=== PATIENT | male | born 1945 | race Caucasian/White ===

== ENCOUNTER 2016-02-27 16:04 | Inpatient (IN) | payer BC, OTHER ==
[~2016-02-27] VITALS: Ht 165.1 cm; Wt 75.5 kg
[2016-02-27] MEDS ORDERED: SODIUM CHLORIDE 0.9% 1000ML 1,000 ML IV STA ×2 (16:41→17:06)
[2016-02-27] MEDS ORDERED: SODIUM CHLORIDE 0.9% 500ML 500 ML IV STA (17:06)
[2016-02-27 17:07] LABS: BASO % 0.1 %; BASO ABS # 0.01 K/uL (0-0.2); EOS % 0.1 %; HEMATOCRIT 43.4 % (42-52); IG% 0.3 %; LYMPH % 15.2 %; MEAN CELL VOLUME 96.9 fL (80-100); MEAN CORPUSCULAR HEMOGLOBIN 36.4 pg (25-34); MEAN CORPUSCULAR HGB CONC 37.6 g/dl (32-36); MEAN PLATELET VOLUME 9.8 fL (7.4-10.4); MONO % 5.7 %; NEUT % 78.6 %; PLATELET COUNT 146 K/uL (130-400); RED BLOOD COUNT 4.48 M/uL (4.7-6.1); WHITE BLOOD COUNT 7.89 K/uL (4.8-10.8)
[2016-02-27 17:08] LABS: URINE APPEARANCE CLOUDY (CLEAR); URINE BILIRUBIN NEG (NEG); URINE COLOR DK YELLOW; URINE NITRITE POS (NEG); URINE SPECIFIC GRAVITY 1.012 (1.000-1.030); UROBILINOGEN NEG (NEG); ZZUR CULT IF INDIC CLEAN CATCH YES
[2016-02-27 17:09] LABS: MANUAL MICROSCOPIC REQUIRED? NO; REVIEW REQ? NO
[2016-02-27] MEDS ORDERED: PIPERACILLIN/TAZOBACTAM 4.5 GM/100ML D5W IV STA (17:17)
[2016-02-27 17:26] LABS: ALT/SGPT 69 U/L (12-78); BLOOD UREA NITROGEN 25 mg/dl (7-18); BUN/CREATININE RATIO 25.3 (10-20); CALCIUM 9.4 mg/dl (8.5-10.1); CARBON DIOXIDE 21 mmol/L (21-32); CHLORIDE 96 mmol/L (98-107); GLUCOSE 100 mg/dl (70-99); MAGNESIUM 1.8 mg/dl (1.8-2.4); POTASSIUM 3.4 mmol/L (3.5-5.1); SODIUM 136 mmol/L (136-145)
[2016-02-27 17:29] LABS: ALKALINE PHOSPHATASE 68 U/L (45-117); AST/SGOT 56 U/L (15-37); CKMB/CK RATIO 0.8 (0-3.0); PHOSPHORUS 3.1 mg/dl (2.5-4.9)
[2016-02-27] MEDS ORDERED: GLUCTAB7 PO (17:49)
[2016-02-27] MEDS ORDERED: NAPR1TAB9 PO (17:49)
[2016-02-27] MEDS ORDERED: TRIA37.5 PO (17:49)
[2016-02-27] MEDS ORDERED: B-COTAB18 PO (17:49)
[2016-02-27] MEDS ORDERED: OMEG10007 PO (17:49)
[2016-02-27] MEDS ORDERED: ASPI81TA28 PO (17:49)
[2016-02-27] MEDS ORDERED: POTA20TA16 PO (17:49)
[2016-02-27] MEDS ORDERED: MULT-506 PO (17:49)
[2016-02-27 17:57] LABS: COMPLETE YES; STOMATOCYTE 2+
--- NOTE | 2016-02-27 18:01 | DIAGNOSTIC IMAGING REPORT ---
CHEST ONE VIEW PORTABLE CLINICAL HISTORY: Generalized Weakness COMPARISON STUDY: No previous studies for comparison. FINDINGS: The heart is normal in size. There is mild interstitial thickening. There is no lobar consolidation. There are no pleural effusions. There are minor left basilar atelectatic changes.[ IMPRESSION: Moderate interstitial thickening. No evidence of lobar consolidation. Electronically signed by: Castillo Bernal M.D. 02/27/2016 5:59 PM
[2016-02-27] MEDS ORDERED: SODIUM CHLORIDE 0.9% 1000ML 1,000 ML IV SCH (18:06)
[2016-02-27] MEDS ORDERED: ALUMINUM/MAGNESIUM/SIMETH (MAALOX MAX) 30 ML UDC PO PRN (18:15)
[2016-02-27] MEDS ORDERED: MoRPHine SULFATE 4 MG/ML 1 ML CARP\\VIAL IV PRN (18:15)
[2016-02-27] MEDS ORDERED: ONDANSETRON INJ 2 MG/ML 2 ML VIAL IV PRN (18:15)
[2016-02-27] MEDS ORDERED: POLYETHYLENE (MIRALAX) 17 GM PACK PO PRN (18:15)
[2016-02-27] MEDS ORDERED: ACETAMINOPHEN 325 MG TAB PO PRN (18:15)
[2016-02-27] MEDS ORDERED: MAGNESIUM HYDROXIDE SUSP 30 ML UDC PO PRN (18:15)
[2016-02-27] MEDS ORDERED: PNEUMOCOCCAL POLYSACCHARIDES 25 MCG/0.5 ML VIAL/SYR IM. ONE (18:15)
[2016-02-27] MEDS ORDERED: HydrALAZINE HCL 20 MG/ML VIAL IV PRN (18:15)
[2016-02-27] MEDS ORDERED: LORAZEPAM 0.5 MG TAB PO PRN (18:15)
[2016-02-27] MEDS ORDERED: OXYCODONE HCL IR 5 MG TAB (IMMEDIATE RELEASE) PO PRN (18:15)
[2016-02-27] MEDS ORDERED: LORAZEPAM 2 MG/ML 1 ML VIAL IV PRN ×2 (18:15)
[2016-02-27] MEDS ORDERED: MoRPHine SULFATE 2 MG/ML CARP IV PRN (18:15)
[2016-02-27] MEDS ORDERED: METOPROLOL TARTRATE 1 MG/ML VIAL IV PRN (18:15)
[2016-02-27] MEDS ORDERED: INFLUENZA VIRUS QUAD VACCINE 0.5 ML SYR IM. ONE (18:15)
--- NOTE | 2016-02-27 18:18 | EMERGENCY ROOM VISIT NOTE ---
History Report prepared by Meghan: Irwin Varner Under the Supervision of: Dr. Chacorta Mina M.D. First contact with patient: 16:36 Chief Complaint: ILLNESS Stated Complaint: COLD, LIGHTHEADED History of Present Illness The patient is a 70 year old male who presents to the Emergency Room with complaints of constant "generalized malaise" beginning a few days ago. He has associated lightheadedness and weakness. He denies any known sick contacts. The patient states that he hasn't eaten much lately. He denies any runny nose, diarrhea, back pain, rashes, nausea, vomiting, chest pain, or SOB. He states "I just don't feel right". The patient denies drinking any alcohol today, but states that he has consumed a lot of alcohol throughout the past week. He has no history of liver problems. Source of History: patient Onset: a few days ago Position: other (generalized) Quality: other ("malaise") Timing: constant Associated Symptoms: + weakness, No SOB, No back pain, No chest pain, No diarrhea, No nausea, No rash, No vomiting Note: The patient has associated lightheadedness. Review of Systems See HPI for pertinent positives & negatives. A total of 10 systems reviewed and were otherwise negative. Past Medical & Surgical Medical Problems: (1) HTN (hypertension) (2) Hypokalemia (3) SIRS (systemic inflammatory response syndrome) Family History No pertinent family history stated. Social History Smoking Status: Current Every Day Smoker Current/Historical Medications Scheduled Aspirin (Aspirin Ec), 81 MG PO QAM B-Complex Vitamins (Vitamin B Complex), 1 TAB PO QAM Fish Oil ([place]-3), 1 CAP PO QAM Pdparqhpzru-Ykqojzwyoek-Yhz C- (Glucosamine Chondroitin), 1 TAB PO QAM Multivitamin (Multivitamin), 1 TAB PO QAM Naproxen (Aleve), 220 MG PO QAM Potassium Ext Rel (Klor-Con), 20 MEQ PO QAM Triamterene/Hctz (Dyazide 37.5MG/25MG), 1 TAB PO QAM Allergies Coded Allergies: No Known Allergies (Unverified , 02/27/16) Physical Exam Vital Signs Date Time Temp Pulse Resp B/P Pulse Ox O2 Delivery O2 Flow Rate FiO2 02/27/16 19:22 98 18 138/85 95 02/27/16 19:07 98 18 138/85 94 Room Air 02/27/16 18:35 109 18 153/93 95 Room Air 02/27/16 17:10 101 16 156/94 95 Room Air 02/27/16 16:51 112 02/27/16 16:20 37.2 127 20 158/103 95 Room Air Physical Exam GENERAL: Patient is unwell appearing and in mild distress. HEENT: No acute trauma, normocephalic atraumatic, mucous membranes dry, no nasal congestion, no scleral icterus. NECK: No stridor, no adenopathy, no meningismus, trachea is midline. LUNGS: No dyspnea. Clear to auscultation and equal bilaterally. No wheeze, no rhonchi. HEART: Tachycardic rate with a regular rhythm. No murmurs, rubs, gallops appreciated. ABDOMEN: Soft, nontender, bowel sounds positive, no masses appreciated, no peritonitis. BACK: No midline tenderness, no CVA tenderness EXTREMITIES: Normal motion all extremities, no cyanosis, no edema. NEUROLOGIC: Alert and oriented, no acute motor or sensory deficits, no focal weakness, cranial nerves grossly intact. Fine tremor noted. SKIN: No rash, no jaundice, no diaphoresis. Medical Decision & Procedures ER Provider Diagnostic Interpretation: X ray results are stated below per my interpretation and the radiologist's interpretation. CHEST ONE VIEW PORTABLE FINDINGS: The heart is normal in size. There is mild interstitial thickening. There is no lobar consolidation. There are no pleural effusions. There are minor left basilar atelectatic changes.[ IMPRESSION: Moderate interstitial thickening. No evidence of lobar consolidation. Electronically signed by: Castillo Bernal M.D. Laboratory Results 02/27/16 16:55 Red Blood Count 4.48, Mean Corpuscular Volume 96.9, Mean Corpuscular Hemoglobin 36.4, Mean Corpuscular Hemoglobin Concent 37.6, Mean Platelet Volume 9.8, Neutrophils (%) (Auto) 78.6, Lymphocytes (%) (Auto) 15.2, Monocytes (%) (Auto) 5.7, Eosinophils (%) (Auto) 0.1, Basophils (%) (Auto) 0.1, Neutrophils # (Auto) 6.20, Lymphocytes # (Auto) 1.20, Monocytes # (Auto) 0.45, Eosinophils # (Auto) 0.01, Basophils # (Auto) 0.01 02/27/16 16:55 Test 02/27/16 16:30 02/27/16 16:55 02/27/16 17:04 02/27/16 17:09 Urine Color DK YELLOW Urine Appearance CLOUDY (CLEAR) Urine pH 6.0 (4.5-7.5) Urine Specific [place]icks[place] 1.012 (1.000-1.030) Urine Protein TRACE (NEG) Urine Glucose (UA) NEG (NEG) Urine Ketones 1+ (NEG) Urine Occult Blood 3+ (NEG) Urine Nitrite POS (NEG) Urine Bilirubin NEG (NEG) Urine Urobilinogen NEG (NEG) Urine Leukocyte Esterase LARGE (NEG) Urine WBC (Auto) >30 /hpf (0-5) Urine RBC (Auto) 10-30 /hpf (0-4) Urine Hyaline Casts (Auto) 5-10 /lpf (0-5) Urine Epithelial Cells (Auto) 10-20 /lpf (0-5) Urine Bacteria (Auto) 4+ (NEG) White Blood Count 7.89 K/uL (4.8-10.8) Red Blood Count 4.48 M/uL (4.7-6.1) Hemoglobin 16.3 g/dL (14.0-18.0) Hematocrit 43.4 % (42-52) Mean Corpuscular Volume 96.9 fL (80-100) Mean Corpuscular Hemoglobin 36.4 pg (25-34) Mean Corpuscular Hemoglobin Concent 37.6 g/dl (32-36) Platelet Count 146 K/uL (130-400) Mean Platelet Volume 9.8 fL (7.4-10.4) Neutrophils (%) (Auto) 78.6 % Lymphocytes (%) (Auto) 15.2 % Monocytes (%) (Auto) 5.7 % Eosinophils (%) (Auto) 0.1 % Basophils (%) (Auto) 0.1 % Neutrophils # (Auto) 6.20 K/uL (1.4-6.5) Lymphocytes # (Auto) 1.20 K/uL (1.2-3.4) Monocytes # (Auto) 0.45 K/uL (0.11-0.59) Eosinophils # (Auto) 0.01 K/uL (0-0.5) Basophils # (Auto) 0.01 K/uL (0-0.2) RDW Standard Deviation 45.4 fL (36.4-46.3) RDW Coefficient of Variation 12.8 % (11.5-14.5) Immature Granulocyte % (Auto) 0.3 % Immature Granulocyte # (Auto) 0.02 K/uL (0.00-0.02) Stomatocytes 2+ Prothrombin Time 11.0 SECONDS (9.0-12.0) Prothromb Time International Ratio 1.0 (0.9-1.1) Activated Partial Thromboplast Time 27.1 SECONDS (21.0-31.0) Partial Thromboplastin Ratio 1.0 Anion Gap 19.0 mmol/L (3-11) Est Creatinine Clear Calc Drug Dose 66.3 ml/min Estimated GFR () 88.6 Estimated GFR (Non- 76.5 BUN/Creatinine Ratio 25.3 (10-20) Calcium Level 9.4 mg/dl (8.5-10.1) Phosphorus Level 3.1 mg/dl (2.5-4.9) Magnesium Level 1.8 mg/dl (1.8-2.4) Total Bilirubin 1.0 mg/dl (0.2-1) Direct Bilirubin 0.3 mg/dl (0-0.2) Aspartate Amino Transf (AST/SGOT) 56 U/L (15-37) Alanine Aminotransferase (ALT/SGPT) 69 U/L (12-78) Alkaline Phosphatase 68 U/L (45-117) Total Creatine Kinase 339 U/L (39-308) Creatine Kinase MB 2.7 ng/ml (0.5-3.6) Creatine Kinase MB Ratio 0.8 (0-3.0) Troponin I < 0.015 ng/ml (0-0.045) Total Protein 7.9 gm/dl (6.4-8.2) Albumin 4.7 gm/dl (3.4-5.0) Lipase 99 U/L (73-393) Bedside Lactic Acid Venous 5.27 mmol/L (0.90-1.70) Influenza Type A Antigen Neg for Influ A (NEG) Influenza Type B Antigen Neg for Influ B (NEG) Laboratory results as reviewed by me. Medications Administered Medications (Trade) Dose Ordered Sig/Dereje Route Start Time Stop Time Status Last Admin Dose Admin Sodium Chloride 1,000 ml @ 999 mls/hr Q1H1M STAT IV 02/27/16 16:41 02/27/16 17:41 DC 02/27/16 17:06 999 MLS/HR Sodium Chloride 1,000 ml @ 999 mls/hr Q1H1M STAT IV 02/27/16 17:06 02/27/16 18:06 DC 02/27/16 17:40 999 MLS/HR Sodium Chloride (Nss 500ml) 500 ml @ 999 mls/hr Q31M STAT IV 02/27/16 17:06 02/27/16 17:36 DC 02/27/16 17:40 999 MLS/HR Piperacillin Sod/ Tazobactam Sod (Zosyn Iv) 4.5 gm NOW STAT IV 02/27/16 17:17 02/27/16 17:18 DC 02/27/16 17:43 4.5 GM ECG Indication: weakness Rate (beats per minute): 116 Rhythm: sinus tachycardia Findings: no acute ischemic change, no ectopy ED Course 1638: The patient was evaluated in room C2. A complete history and physical exam was performed. 1641: Ordered NSS 1000 mL @ 999 mL/hr IV. 1706: Ordered NSS 500 mL @ 999 mL/hr IV, NSS 1000 mL @ 999 mL/hr IV. 1717: Ordered Zosyn 4.5 mg IV. 1720: I reassessed the patient. He is resting comfortably. 1755: Upon reevaluation, the patient is feeling better. Discussed results and treatment plan with the patient. He verbalized understanding and agreement with the treatment plan. The patient will be evaluated for further management. Medical Decision Differential: Sepsis, Infectious (UTI/Pneumonia/Meningitis/etc), Metabolic/ Electrolyte Abnormality, Cardiac, Hepatic, Endocrine, Toxicologic, Neurologic, amongst other pathologies entertained. 70 yr old male arrives due to not feeling very well. He looks ill by exam though does not have meningitis, is breathing comfortably and has soft abdomen. Given fluids and HR improving. With return of lactic acidosis further 1.5 L NSS bolus initiated, 2 ivs established and broad spectrum abx begun. He clearly has UTI and while he initially denies having this before, it turns out he had johnson-sensitive ecoli over the summer. Multiple re-checks at bedside of patient and doing much improved with better HR and breathing comfortably. He is septic and will need inpatient treatment. Consults Time Called: 1744 Consulting Physician: Dr. Castillo -[facility] [place] Returned Call: [phone] Discussed the patient's case. The patient will be evaluated for further treatment and disposition. Impression Primary Impression: Sepsis Additional Impressions: Lactic acidosis, UTI (urinary tract infection) Critical Care I have personally spent greater than 30 minutes of critical care time in the direct management of this patient. This was a life/limb threatening event. This includes time spent evaluating patient, direct bedside care, chart review, placing orders, interpretation of diagnostic studies, discussion with consultants, patient, and family members, as well as other required patient management activities. This 30 minutes is in excess of all separately billable procedures. Scribe Attestation The scribe's documentation has been prepared under my direction and personally reviewed by me in its entirety. I confirm that the note above accurately reflects all work, treatment, procedures, and medical decision making performed by me. Departure Information Dispostion Being Evaluated By Hospitalist Referrals Pro,Julian Hamilton M.D. (PCP) Patient Instructions A Signature Page, My [facility]
[2016-02-27] MEDS ORDERED: LORAZEPAM 1 MG TAB PO PRN (18:30)
[2016-02-27] MEDS ORDERED: NICOTINE 21 MG/24 HR TDSY TD PRN (18:30)
[2016-02-27] MEDS ORDERED: GABAPENTIN 600 MG TAB PO SCH (18:30)
[2016-02-27 20:22] VITALS: BP 163/87; PULSE 99; TEMP 36.7; O2SAT 94; Ht 165.1 cm; Wt 75.5 kg
[2016-02-27] MEDS ORDERED: LORAZEPAM INJ 1 MG in SYRINGE 0.5 ML IV PRN (20:45)
[2016-02-27] MEDS ORDERED: PIPERACILL/TAZOBAC CONSULT ACTIVE PRN (20:45)
[2016-02-27] MEDS ORDERED: INFLUENZA ADMINISTRATION CHARGE ONE (20:45)
[2016-02-27] MEDS ORDERED: PNEUMOCOCCAL ADMINISTRATION CHARGE ONE (20:45)
[2016-02-27] MEDS ORDERED: LORAZEPAM INJ 0.5 MG in SYRINGE 0.75 ML IV PRN (20:45)
[2016-02-27] MEDS: HEPARIN SOD 5000 UNIT/0.5 ML CARP SQ SCH (21:22)
--- NOTE | 2016-02-27 21:56 | HISTORY & PHYSICAL EXAMINATION ---
DATE OF ADMISSION: 02/27/2016 CHIEF COMPLAINT: Weakness. ADMITTING DIAGNOSES: 1. Systemic inflammatory response syndrome secondary to urinary tract infection. 2. Alcohol abuse with alcohol withdrawal. HISTORY OF PRESENT ILLNESS: Mr. Joseph is a 70-year-old male who is a chronic daily alcohol user. The patient reportedly presented to the Emergency Department tonight having general malaise over the last few days, lightheadedness and weakness. The patient said he has not eaten much lately and has been drinking more than he usually should. The patient says he just does not feel right. The patient does have a previous history of urinary tract infection in July 2015, which was E. coli pansensitive. In the Emergency Department tonight, the patient has a markedly abnormal urine, lactic acid of 5 and although not having a fever is tachycardic, likely has developing SIRS. The patient states he has not drank since yesterday, he is beginning to get shaky. He says that he has never gone through alcohol withdrawal in the past according to what he remembers. He also is a daily smoker, offered a nicotine patch. He has refused at this time. PAST MEDICAL HISTORY: For alcohol abuse, fatty liver, hypertension, carotid plaque which is defined in Dr. Marc's notes, dyslipidemia, glucose intolerance, low back pain, spinal stenosis, previous appendectomy. MEDICATIONS: Aspirin 81 a day, fish oil 1000 mg b.i.d., glucosamine/chondroitin 1 tablet a day, potassium 20 mEq a day, vitamin B daily, vitamin D daily, and Dyazide 37.5/25 once a day. SOCIAL HISTORY: Socially as mentioned, smokes between a half pack to a pack a day, drinks alcohol, was evasive on exactly how much, but he says he drinks [employer] and Diet Pepsi. He is . FAMILY HISTORY: Positive for Alzheimer's disease and strokes. REVIEW OF SYSTEMS: Ten systems were reviewed and are negative. Besides the systems listed above he states he does not have really any noticeable change in his urine or pain with bowel movements or pain in his lower abdomen. PHYSICAL EXAMINATION: GENERAL: He is a pleasant gentleman. He is slightly shaky and tremulous. VITAL SIGNS: Temperature 37.2, pulse 100, respirations 16, BP 156/94. HEENT: PERRL, EOMI. Oropharynx clear. NECK: Without lymphadenopathy. Trachea is midline. HEART: Tachycardic, regular without murmurs. LUNGS: Clear without wheezes or crackles. Good air movement. BACK: He has no spinal tenderness or CV angle tenderness. ABDOMEN: Normoactive bowel sounds, soft, nontender, nondistended. No suprapubic tenderness. No abdominal bruits. EXTREMITIES: Without cyanosis, clubbing or edema. NEUROLOGICALLY: He is awake, alert and appropriate. Cranial nerves II through XII are intact. As mentioned, he is tremulous at times. He is kind of raquel complexion red skin. His upper and lower extremities are equally symmetrical with strength and sensation. SKIN: Without lesions, growths, bruises or bleeding. PSYCHOLOGIC: As mentioned he appears to be anxious. LABORATORY DATA: Chest x-ray is unremarkable. EKG is normal sinus rhythm. White count 7.8, H\T\H 16 and 43, platelet count 146. BUN and creatinine 25 and 1.0, glucose 100, lactic acid 5.2. AST 36, CK is slightly elevated at 389. Urinalysis shows 3+ blood, large leukocyte esterase. His influenza has been negative. ASSESSMENT: Systemic inflammatory response syndrome in a 70-year-old male likely urinary source. PLAN: For the SIRS, he is volume resuscitated in the ER. We will repeat lactic acidosis. If this is still up, we will continue his volume. Otherwise, we will put him on saline at 125, Zosyn will be used as he had a pansensitive E. coli in the past. His cultures are obtained. Regarding his alcohol withdrawal, he is tremulous right now, will begin the alcohol withdrawal protocol including gabapentin and p.r.n. Ativan. Regarding hypertension, we will continue his Dyazide and use hydralazine for backup for blood pressure, metoprolol for backup for tachycardia. For tobacco abuse, he was counseled on cessation. Nicotine patch will be offered p.r.n. For DVT prevention will employ heparin. The patient is a full code. Case management will be involved for providing help with tobacco and alcohol cessation.
[2016-02-27] MEDS ORDERED: GABAPENTIN 1200MG LOADING DOSE PO ONE (22:00)
[2016-02-27] MEDS: NSS + 20MEQ KCL 1000ML 1,000 ML IV SCH (22:18)
[2016-02-27 23:18] VITALS: BP 134/76; PULSE 88; TEMP 37.1; O2SAT 94
[2016-02-27] MEDS: PIPERACILL/TAZOBAC IV 3.375 GM in DEXTROSE 5% 100ML 100 ML IV SCH (23:27)
[2016-02-28] VITALS (7 sets, daily range): BP systolic 150–187; BP diastolic 86–93; PULSE 70–101; TEMP 36.9–37.3; O2SAT 93–96
[2016-02-28] MEDS: GABAPENTIN 600MG Q6H DOSE PO SCH ×2 (05:59→12:57)
[2016-02-28 07:42] LABS: HEMATOCRIT 39.9 % (42-52); MEAN CORPUSCULAR HEMOGLOBIN 35.1 pg (25-34); MEAN CORPUSCULAR HGB CONC 35.8 g/dl (32-36); MEAN PLATELET VOLUME 10.3 fL (7.4-10.4); PLATELET COUNT 121 K/uL (130-400); RED BLOOD COUNT 4.07 M/uL (4.7-6.1); WHITE BLOOD COUNT 6.63 K/uL (4.8-10.8)
[2016-02-28] MEDS: NSS + 20MEQ KCL 1000ML 1,000 ML IV SCH ×2 (07:48→17:24)
[2016-02-28] MEDS: ASPIRIN 81 MG ECTAB PO SCH (07:49)
[2016-02-28] MEDS: TRIAMTERENE/HCTZ 37.5/25MG CAP PO SCH (07:49)
[2016-02-28 08:14] LABS: BUN/CREATININE RATIO 21.1 (10-20); POTASSIUM 3.5 mmol/L (3.5-5.1)
[2016-02-28] MEDS: PIPERACILL/TAZOBAC IV 3.375 GM in DEXTROSE 5% 100ML 100 ML IV SCH ×3 (08:55→23:41)
[2016-02-28] MEDS: HEPARIN SOD 5000 UNIT/0.5 ML CARP SQ SCH ×2 (08:58→21:00)
--- NOTE | 2016-02-28 11:25 | Progress Note ---
Subjective Subjective Date of Service: Feb 28, 2016. Pt evaluation today including: conversation w/ patient, physical exam, chart review, review of studies, review of inpatient medication list Notes: patient feels better Problem List Medical Problems: (1) Lactic acidosis Status: Acute (2) Sepsis Status: Acute (3) UTI (urinary tract infection) Status: Acute Review of Systems Constitutional: No fever Eyes: No worsening of vision ENT: No hearing loss Respiratory: No cough Cardiac: No chest pain Abdomen: No pain Male : No dysuria Neurologic: No memory loss Psychiatric: No depression symptoms Heme: No abnormal bleeding/bruising Endo: No fatigue Physical Exam Vital Signs Vital Signs Past 24 Hours: Date Time Temp Pulse Resp B/P Pulse Ox O2 Delivery O2 Flow Rate FiO2 02/28/16 08:15 37.1 79 18 157/86 95 02/28/16 08:00 Room Air 02/28/16 05:29 37.0 70 20 159/93 96 Room Air 02/28/16 04:00 Room Air 02/28/16 00:00 Room Air 02/27/16 23:18 37.1 88 20 134/76 94 Room Air 02/27/16 20:22 36.7 99 18 163/87 94 Room Air 02/27/16 19:22 98 18 138/85 95 02/27/16 19:07 98 18 138/85 94 Room Air 02/27/16 18:35 109 18 153/93 95 Room Air 02/27/16 17:10 101 16 156/94 95 Room Air 02/27/16 16:51 112 02/27/16 16:20 37.2 127 20 158/103 95 Room Air Physical Exam: General Appearance: WD/WN, no apparent distress Eyes: bilateral eyes normal inspection ENT: hearing grossly normal, pharynx normal Neck: supple, no JVD Respiratory/Chest: lungs clear, no respiratory distress Cardiovascular: no gallop Abdomen: non tender, soft Extremities: non-tender Neurologic/Psychiatric: alert Skin: normal color Medications Medications: Current Inpatient Medications Medications (Trade) Dose Ordered Sig/Dereje Route Start Time Stop Time Status Last Admin Dose Admin Heparin Sodium (Porcine) (Heparin Sq 5000 Unit/0.5ml) 5,000 unit Q12 SQ 02/27/16 21:00 03/28/16 20:59 02/27/16 21:22 5,000 UNIT Acetaminophen (Tylenol Tab) 650 mg Q4H PRN PO 02/27/16 18:15 03/28/16 18:14 Al Hydrox/Mg Hydrox/Simethicone (Maalox Max Susp) 15 ml Q4H PRN PO 02/27/16 18:15 03/28/16 18:14 Magnesium Hydroxide (Milk Of Magnesia Susp) 30 ml Q12H PRN PO 02/27/16 18:15 03/28/16 18:14 Ondansetron HCl (Zofran Inj) 4 mg Q6H PRN IV 02/27/16 18:15 03/28/16 18:14 Polyethylene (Miralax Powder Packet) 17 gm DAILY PRN PO 02/27/16 18:15 03/28/16 18:14 Hydralazine HCl (HydrALAZINE INJ) 10 mg Q4H PRN IV 02/27/16 18:15 03/28/16 18:14 Lorazepam (Ativan Tab) 0.5 mg Q6 PRN PO 02/27/16 18:15 03/28/16 18:14 Lorazepam (Ativan Inj) 1 mg Q4H PRN IV 02/27/16 18:15 03/28/16 18:14 Lorazepam (Ativan Inj) 0.5 mg Q4H PRN IV 02/27/16 18:15 03/28/16 18:14 Metoprolol Tartrate (Lopressor Iv) 5 mg Q4 PRN IV 02/27/16 18:15 03/28/16 18:14 Aspirin (Ecotrin Tab) 81 mg QAM PO 02/28/16 09:00 03/29/16 08:59 02/28/16 07:49 81 MG Morphine Sulfate (MoRPHine SULFATE INJ) 4 mg Q4H PRN IV 02/27/16 18:15 03/12/16 18:14 Morphine Sulfate (MoRPHine SULFATE INJ) 2 mg Q4H PRN IV 02/27/16 18:15 03/12/16 18:14 Oxycodone HCl 10 mg 10 mg Q6 PRN PO 02/27/16 18:15 03/12/16 18:14 Piperacillin Sod/ Tazobactam Sod/ Dextrose (Zosyn Iv/D5 100ml) 115 ml @ 28.75 mls/ hr Q8H IV 02/28/16 00:00 03/08/16 00:00 02/28/16 08:55 28.75 MLS/HR Nicotine (Nicoderm Cq 21MG Patch) 1 patch QAM PRN TD 02/27/16 18:30 03/28/16 18:29 Lorazepam (Ativan Tab) 1 mg ONE PRN PO 02/27/16 18:30 Triamterene/HCTZ (Dyazide 37.5/25 Mg Cap) 1 cap QAM PO 02/28/16 09:00 03/29/16 08:59 02/28/16 07:49 1 CAP Piperacillin Sod/ Tazobactam Sod 1 ea 1 ea UD PRN N/A 02/27/16 20:45 03/28/16 20:44 Lorazepam 0.5 mg/ Syringe 1 ml @ 1 mls/min Q4H PRN IV 02/27/16 20:45 03/28/16 20:44 Lorazepam/Syringe (Ativan Inj/ Syringe) 1 ml @ 1 mls/min Q4H PRN IV 02/27/16 20:45 03/28/16 20:44 Gabapentin (Neurontin Tab) 600 mg Q6H PO 02/28/16 06:00 02/28/16 12:01 02/28/16 05:59 600 MG Gabapentin (Neurontin Tab) 600 mg Q8H PO 02/28/16 22:00 02/29/16 14:01 Gabapentin (Neurontin Tab) 600 mg Q12H PO 03/01/16 00:00 03/01/16 12:01 Gabapentin (Neurontin Tab) 600 mg Q24H PO 03/02/16 12:00 03/02/16 12:01 Miscellaneous Information 1 ea 1 ea DAILY@10 N/A 02/28/16 10:00 03/29/16 09:59 Potassium Chloride/Sodium Chloride (Nss + 20meq KCl 1000ml) 1,000 ml @ 100 mls/hr Q10H IV 02/27/16 22:00 03/28/16 21:59 02/28/16 07:48 100 MLS/HR Laboratory Data Labs: Last 24 Hours Test 02/27/16 16:30 02/27/16 16:55 02/27/16 17:04 02/27/16 17:09 Urine Color DK YELLOW Urine Appearance CLOUDY Urine pH 6.0 Urine Specific [place] 1.012 Urine Protein TRACE Urine Glucose (UA) NEG Urine Ketones 1+ Urine Occult Blood 3+ Urine Nitrite POS Urine Bilirubin NEG Urine Urobilinogen NEG Urine Leukocyte Esterase LARGE Urine WBC (Auto) >30 /hpf Urine RBC (Auto) 10-30 /hpf Urine Hyaline Casts (Auto) 5-10 /lpf Urine Epithelial Cells (Auto) 10-20 /lpf Urine Bacteria (Auto) 4+ White Blood Count 7.89 K/uL Red Blood Count 4.48 M/uL Hemoglobin 16.3 g/dL Hematocrit 43.4 % Mean Corpuscular Volume 96.9 fL Mean Corpuscular Hemoglobin 36.4 pg Mean Corpuscular Hemoglobin Concent 37.6 g/dl Platelet Count 146 K/uL Mean Platelet Volume 9.8 fL Neutrophils (%) (Auto) 78.6 % Lymphocytes (%) (Auto) 15.2 % Monocytes (%) (Auto) 5.7 % Eosinophils (%) (Auto) 0.1 % Basophils (%) (Auto) 0.1 % Neutrophils # (Auto) 6.20 K/uL Lymphocytes # (Auto) 1.20 K/uL Monocytes # (Auto) 0.45 K/uL Eosinophils # (Auto) 0.01 K/uL Basophils # (Auto) 0.01 K/uL RDW Standard Deviation 45.4 fL RDW Coefficient of Variation 12.8 % Immature Granulocyte % (Auto) 0.3 % Immature Granulocyte # (Auto) 0.02 K/uL Stomatocytes 2+ Prothrombin Time 11.0 SECONDS Prothromb Time International Ratio 1.0 Activated Partial Thromboplast Time 27.1 SECONDS Partial Thromboplastin Ratio 1.0 Sodium Level 136 mmol/L Potassium Level 3.4 mmol/L Chloride Level 96 mmol/L Carbon Dioxide Level 21 mmol/L Anion Gap 19.0 mmol/L Blood Urea Nitrogen 25 mg/dl Creatinine 1.00 mg/dl Est Creatinine Clear Calc Drug Dose 66.3 ml/min Estimated GFR () 88.6 Estimated GFR (Non- 76.5 BUN/Creatinine Ratio 25.3 Random Glucose 100 mg/dl Calcium Level 9.4 mg/dl Phosphorus Level 3.1 mg/dl Magnesium Level 1.8 mg/dl Total Bilirubin 1.0 mg/dl Direct Bilirubin 0.3 mg/dl Aspartate Amino Transf (AST/SGOT) 56 U/L Alanine Aminotransferase (ALT/SGPT) 69 U/L Alkaline Phosphatase 68 U/L Total Creatine Kinase 339 U/L Creatine Kinase MB 2.7 ng/ml Creatine Kinase MB Ratio 0.8 Troponin I < 0.015 ng/ml Total Protein 7.9 gm/dl Albumin 4.7 gm/dl Lipase 99 U/L Hepatitis C Antibody Screen NEG Bedside Lactic Acid Venous 5.27 mmol/L Influenza Type A Antigen Neg for Influ A Influenza Type B Antigen Neg for Influ B Test 02/27/16 20:09 02/28/16 07:00 Lactic Acid Level 1.9 mmol/L White Blood Count 6.63 K/uL Red Blood Count 4.07 M/uL Hemoglobin 14.3 g/dL Hematocrit 39.9 % Mean Corpuscular Volume 98.0 fL Mean Corpuscular Hemoglobin 35.1 pg Mean Corpuscular Hemoglobin Concent 35.8 g/dl RDW Standard Deviation 46.1 fL RDW Coefficient of Variation 12.8 % Platelet Count 121 K/uL Mean Platelet Volume 10.3 fL Sodium Level 140 mmol/L Potassium Level 3.5 mmol/L Chloride Level 104 mmol/L Carbon Dioxide Level 26 mmol/L Anion Gap 10.0 mmol/L Blood Urea Nitrogen 21 mg/dl Creatinine 1.00 mg/dl Est Creatinine Clear Calc Drug Dose 66.2 ml/min Estimated GFR () 88.6 Estimated GFR (Non- 76.5 BUN/Creatinine Ratio 21.1 Random Glucose 149 mg/dl Calcium Level 8.0 mg/dl Assessment and Plan Systemic inflammatory response syndrome in a 70-year-old male likely urinary source. Suspected UTI, gram negative bacilli is present, cont IV Zosyn until cultures sensitivities are obtained. blood cx results are pending Regarding his alcohol withdrawal, stable cont alcohol withdrawal protocol including gabapentin and p.r.n. Ativan. Regarding hypertension, cont Dyazide and use hydralazine for backup for blood pressure, metoprolol for backup for tachycardia. For tobacco abuse, he was counseled on cessation. Nicotine patch will be offered p.r.n. For DVT prevention will employ heparin. The patient is a full code. Case management will be involved for providing help with tobacco and alcohol cessation.
[2016-02-28] MEDS: GABAPENTIN 600MG Q8H DOSE PO SCH (21:13)
[2016-02-29 00:05] VITALS: BP 142/72; PULSE 60; TEMP 36.8; O2SAT 96
[2016-02-29] MEDS: NSS + 20MEQ KCL 1000ML 1,000 ML IV SCH (02:37)
[2016-02-29 05:09] VITALS: BP 137/82; PULSE 58; TEMP 36.8; O2SAT 96
[2016-02-29] MEDS: GABAPENTIN 600MG Q8H DOSE PO SCH (06:07)
[2016-02-29 06:58] VITALS: BP 161/90; PULSE 70; TEMP 36.7; O2SAT 95
[2016-02-29 08:00] VITALS: O2SAT 95
[2016-02-29] MEDS: TRIAMTERENE/HCTZ 37.5/25MG CAP PO SCH (08:03)
[2016-02-29] MEDS: ASPIRIN 81 MG ECTAB PO SCH (08:04)
[2016-02-29] MEDS: PIPERACILL/TAZOBAC IV 3.375 GM in DEXTROSE 5% 100ML 100 ML IV SCH (08:07)
[2016-02-29] MEDS: HEPARIN SOD 5000 UNIT/0.5 ML CARP SQ SCH (08:11)
[2016-02-29] MEDS ORDERED: LEVO-366 PO (10:54)
--- NOTE | 2016-02-29 10:55 | Discharge Instructions ---
Discharge Instructions Admission Reason for Admission: Sirs (Systemic Inflammatory Response Syndrome) Discharge Discharge Diagnosis / Problem: UTI Discharge Goals Goal(s): Increase independence, Improve disease control, Diagnostic testing, Therapeutic intervention Activity Recommendations Activity Limitations: resume your previous activity . Instructions / Follow-Up Instructions / Follow-Up finish antibiotics Current Hospital Diet Patient's current hospital diet: Regular Diet Discharge Diet Recommended Diet: Regular Diet Pending Studies Studies pending at discharge: yes List of pending studies: sensitivities in urine cultures Medical Emergencies . Who to Call and When: Medical Emergencies: If at any time you feel your situation is an emergency, please call 911 immediately. . Non-Emergent Contact Non-Emergency issues call your: Primary Care Provider Call Non-Emergent contact if: you have a fever, your pain is not controlled . Past History Medical & Surgical History: (1) UTI (urinary tract infection) . "Provider Documentation" section prepared by Haresh Quevedo. VTE Core Measure Inpt VTE Proph given/why not?: Unfractionated heparin SQ
--- NOTE | 2016-02-29 10:58 | Discharge Summary ---
Discharge Summary Admission Date: Feb 27, 2016 at 18:09 Discharge Date: Feb 29, 2016 Discharge Disposition: Home Principal Diagnosis: uti Medication Reconciliation New Medications: Levofloxacin (Levaquin) 500 Mg Tab 500 MG PO DAILY for 7 Days, #7 TAB Continued Medications: Aspirin (Aspirin Ec) 81 Mg Tab 81 MG PO QAM B-Complex Vitamins (Vitamin B Complex) 1 Tab Tab 1 TAB PO QAM Fish Oil ([place]-3) 1 Ea Cap 1 CAP PO QAM, CAP Mfctgxhcthz-Kmdbasvoafv-Lbd C- (Glucosamine Chondroitin) 1 Tab Tab 1 TAB PO QAM Multivitamin (Multivitamin) Tab 1 TAB PO QAM, TAB Naproxen (Aleve) 220 Mg Tab 220 MG PO QAM, TAB Potassium Ext Rel (Klor-Con) 20 Meq Tabcr 20 MEQ PO QAM, TAB Triamterene/Hctz (Dyazide 37.5MG/25MG) Cap 1 TAB PO QAM, CAP Referrals At Discharge Follow up Referrals: Physician Referral - Within 2 Weeks with Julian Marc M.D. Discharge Exam Review of Systems: Constitutional: No chills ENT: No unusual epistaxis Respiratory: No sputum Cardiovascular: No orthopnea Abdomen: No nausea, No pain Genitourinary - Male: No hematuria, No urinary frequency Neurologic: No paralysis Psychiatric: No depression symptoms Integumentary: No rash Physical Exam: General Appearance: WD/WN, no apparent distress Eyes: normal inspection, EOMI ENT: hearing grossly normal, pharynx normal Neck: supple, no JVD Respiratory/Chest: lungs clear, no respiratory distress Cardiovascular: no edema, no JVD Abdomen / GI: non tender, no organomegaly Extremities: normal capillary refill, no pedal edema Neurologic/Psychiatric: alert Hospital Course Systemic inflammatory response syndrome in a 70-year-old male likely urinary source. Suspected UTI, gram negative bacilli is present, received IV Zosyn until cultures sensitivities are obtained. 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 Ativan. Regarding hypertension, cont Dyazide For tobacco abuse, he was counseled on cessation. Nicotine patch was offered p.r.n. Case management will be involved for providing help with tobacco and alcohol cessation. f/u PCP 2 weeks Total Time Spent: Greater than 30 minutes This includes examination of the patient, discharge planning, medication reconciliation, and communication with other providers. Discharge Instructions Please refer to the electronic Patient Visit Report (Discharge Instructions) for additional information. Additional Copies To Julian Marc M.D.
[2016-02-29 11:10] VITALS: BP 145/84; PULSE 72; TEMP 36.7; O2SAT 95
[2016-03-01] MEDS ORDERED: GABAPENTIN 600MG Q12H DOSE PO SCH
--- NOTE | 2016-03-01 16:08 | EDITING REQUIRED CODING QUERY ---
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 Please assist us with the question(s) below: Dr. Quevedo, Throughout the medical record, sepsis/SIRS is documented with signs and symptoms of tachycardia and lactic acidosis in the presence of a localized infection. However, this diagnosis is not listed on the discharge summary. Please clarify if sepsis (SIRS due to infection) was present and treated during this admission. ( ) Sepsis was present and treated. ( x ) Sepsis was ruled out ( ) Other, please explain Physician Response: Thank you for your time, Catalina Sanabria, HEEL STAINER, MACHINE BOBBIN WINDER
[2016-03-02] MEDS ORDERED: GABAPENTIN 600MG X1 DOSE PO SCH (12:00)
[2016-10-10] MEDS ORDERED: CHOL1000 PO (10:09)
[2016-10-24] MEDS ORDERED: OXYC-57 PO ×2 (09:45→09:50)
== END 2016-02-29 12:00 | disposition home or self-care (01) | DRG 690 ==
LOC: ENRESERVTM → ENRESERVDT → C.EDB 16:05 → C.MED 18:09
PROVIDERS: ADMIT Internal Medicine; ATTEND Hospitalist
DX: N39.0 Urinary tract infection, site not specified (principal); F10.239 Alcohol dependence with withdrawal, unspecified; I10 Essential (primary) hypertension; R73.02 Impaired glucose tolerance (oral); M54.5 Low back pain; E78.5 Hyperlipidemia, unspecified; F17.210 Nicotine dependence, cigarettes, uncomplicated; Z79.82 Long term (current) use of aspirin; Z79.1 Long term (current) use of non-steroidal anti-inflammatories (NSAID); Z79.899 Other long term (current) drug therapy

== ENCOUNTER → 2016-04-09 | Outpatient (CLI) | payer BC ==
[~2016-04-09] MED LIST: ASPI81TA28 PO; B-COTAB18 PO; CHOL1000 PO; GLUCTAB7 PO; MULT-506 PO; NAPR1TAB9 PO; OMEG10007 PO; OXYC-57 PO; POTA20TA16 PO; TRIA37.5 PO
[2016-04-09 13:26] LABS: BASO % 0.3 %; BASO ABS # 0.02 K/uL (0-0.2); COMPLETE YES; EOS % 6.2 %; HEMATOCRIT 45.5 % (42-52); IG% 0.1 %; LYMPH % 33.9 %; LYMPH ABS # 2.42 K/uL (1.2-3.4); MEAN CELL VOLUME 100.2 fL (80-100); MEAN CORPUSCULAR HEMOGLOBIN 34.6 pg (25-34); MEAN CORPUSCULAR HGB CONC 34.5 g/dl (32-36); MEAN PLATELET VOLUME 11.1 fL (7.4-10.4); MONO % 6.6 %; NEUT % 52.9 %; PLATELET COUNT 199 K/uL (130-400); RED BLOOD COUNT 4.54 M/uL (4.7-6.1); WHITE BLOOD COUNT 7.14 K/uL (4.8-10.8)
[2016-04-09 13:52] LABS: ALT/SGPT 33 U/L (12-78); BLOOD UREA NITROGEN 18 mg/dl (7-18); BUN/CREATININE RATIO 15.2 (10-20); CALCIUM 9.5 mg/dl (8.5-10.1); CARBON DIOXIDE 30 mmol/L (21-32); CHLORIDE 100 mmol/L (98-107); CHOLESTEROL 175 mg/dl (0-200); GLUCOSE 107 mg/dl (70-99); POTASSIUM 4.1 mmol/L (3.5-5.1); SODIUM 138 mmol/L (136-145); TRIGLYCERIDES 192 mg/dl (0-150); VERY LOW DENSITY LIPOPROT CALC 38 mg/dl
[2016-04-09 13:57] LABS: ALKALINE PHOSPHATASE 65 U/L (45-117); AST/SGOT 23 U/L (15-37); CHOLESTEROL/HDL RATIO 4.6; HDL CHOLESTEROL 38 mg/dl; LDL CHOLESTEROL CALCULATED 99 mg/dl; PROSTATE SPECIFIC ANTIGEN 0.373 ng/ml (0.000-4.000)
== END | disposition home or self-care (01) ==
LOC: C.LABBC 08:48
PROVIDERS: ATTEND Internal Medicine
DX: E78.5 Hyperlipidemia, unspecified (principal); Z12.5 Encounter for screening for malignant neoplasm of prostate; K76.0 Fatty (change of) liver, not elsewhere classified; R73.9 Hyperglycemia, unspecified

== ENCOUNTER → 2016-04-11 | Outpatient (CLI) | payer BC ==
[2016-04-11 11:47] LABS: URINE APPEARANCE CLEAR (CLEAR); URINE BILIRUBIN NEG (NEG); URINE COLOR YELLOW; URINE EPITHELIAL CELL AUTO 0-5 /lpf (0-5); URINE NITRITE NEG (NEG); URINE PH 7.5 (4.5-7.5); URINE SPECIFIC GRAVITY 1.006 (1.000-1.030); UROBILINOGEN NEG (NEG)
[2016-04-11 11:54] LABS: MANUAL MICROSCOPIC REQUIRED? NO; REVIEW REQ? NO
== END | disposition home or self-care (01) ==
LOC: C.LAB1850 09:16
PROVIDERS: ATTEND Internal Medicine
DX: N39.0 Urinary tract infection, site not specified (principal)

== ENCOUNTER → 2016-04-29 | Outpatient (CLI) | payer BC ==
[2016-04-29 11:26] LABS: URINE APPEARANCE CLEAR (CLEAR); URINE BILIRUBIN NEG (NEG); URINE COLOR YELLOW; URINE NITRITE NEG (NEG); URINE SPECIFIC GRAVITY 1.008 (1.000-1.030); UROBILINOGEN NEG (NEG); ZZUR CULT IF INDIC CLEAN CATCH NO
[2016-04-29 11:31] LABS: MANUAL MICROSCOPIC REQUIRED? NO; REVIEW REQ? NO
== END | disposition home or self-care (01) ==
LOC: C.LABBC 08:25
PROVIDERS: ATTEND Internal Medicine
DX: N39.0 Urinary tract infection, site not specified (principal)

== ENCOUNTER → 2016-05-03 | Outpatient (CLI) | payer BC | END | disposition home or self-care (01) | LOC: C.PATHSPEC 10:25 | PROVIDERS: ATTEND Urology | DX: R33.9 Retention of urine, unspecified (principal) ==

== ENCOUNTER → 2016-05-09 | Outpatient (CLI) | payer BC ==
[~2016-05-09] MED LIST changes: +OPTIRAY 320 IV PRN
--- NOTE | 2016-05-09 08:59 | DIAGNOSTIC IMAGING REPORT ---
ABDOMEN AND PELVIS CT EXAMINATION PRE AND POST INTRAVENOUS CONTRAST CT DOSE: 1661.27 mGycm HISTORY: Pain R33.9 Incomplete bladder emptying latex allergy, no iodine all TECHNIQUE: Multiaxial CT images of the abdomen and pelvis were performed pre and post intravenous contrast enhancement. COMPARISON STUDY: None. FINDINGS: Lung bases are considered clear. 9 mm posterior groundglass opacity posterior gastric angle on the right. Six-month follow-up is suggested.. The unenhanced component of the study shows no abnormal calcifications within the abdominal or pelvic region. The enhanced component of the study demonstrates liver to enhance uniformly. Gallbladder is negative for distention. There is more moderate cortical scarring superior pole right kidney. Is seen to a lesser extent involving the lower pole. There is no evidence for hydronephrosis. Bowel pattern is nonobstructive throughout. Bladder demonstrates a diverticulum projecting from the superior anterior dome. This has maximum dimension of 4 cm. Bladder otherwise is unremarkable throughout. No significant filling defects are appreciated. There is no evidence for free fluid within the pelvic cul-de-sac. IMPRESSION: 1. Multifocal cortical scarring of the right kidney. 2. Otherwise negative study of the upper urinary tracts. 3. 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 5. Otherwise negative study of the abdomen and pelvis. 6. Small groundglass opacity right lung base with a six-month follow-up recommended. Electronically signed by: Theodore Renee M.D. 05/09/2016 8:58 AM Dictated Date/Time: 05/09/2016 8:49 AM
== END | disposition home or self-care (01) ==
LOC: C.CTS 08:09
PROVIDERS: ATTEND Urology
DX: R33.9 Retention of urine, unspecified (principal)

== ENCOUNTER → 2016-06-16 | Outpatient (CLI) | payer BC ==
[~2016-06-16] MED LIST changes: -OPTIRAY 320 IV PRN
== END | disposition home or self-care (01) ==
LOC: C.PATHSPEC 17:06
PROVIDERS: ATTEND Urology
DX: R31.9 Hematuria, unspecified (principal); R82.8 Abnormal findings on cytological and histological examination of urine

== ENCOUNTER → 2016-09-15 | Outpatient (CLI) | payer BC | END | disposition home or self-care (01) | LOC: C.PATHSPEC 10:49 | PROVIDERS: ATTEND Urology | DX: Z12.5 Encounter for screening for malignant neoplasm of prostate (principal); R82.99 Other abnormal findings in urine ==

== ENCOUNTER → 2016-10-08 | Outpatient (CLI) | payer BC ==
[2016-10-08 10:55] LABS: BASO % 0.2 %; BASO ABS # 0.02 K/uL (0-0.2); COMPLETE YES; EOS % 2.4 %; HEMATOCRIT 46.4 % (42-52); IG% 0.4 %; LYMPH % 25.5 %; LYMPH ABS # 2.11 K/uL (1.2-3.4); MEAN CELL VOLUME 100.2 fL (80-100); MEAN CORPUSCULAR HEMOGLOBIN 35.4 pg (25-34); MEAN CORPUSCULAR HGB CONC 35.3 g/dl (32-36); MEAN PLATELET VOLUME 10.5 fL (7.4-10.4); MONO % 7.4 %; NEUT % 64.1 %; PLATELET COUNT 184 K/uL (130-400); RED BLOOD COUNT 4.63 M/uL (4.7-6.1); WHITE BLOOD COUNT 8.29 K/uL (4.8-10.8)
[2016-10-08 11:16] LABS: ALT/SGPT 60 U/L (12-78); AST/SGOT 35 U/L (15-37); BLOOD UREA NITROGEN 14 mg/dl (7-18); BUN/CREATININE RATIO 12.7 (10-20); CALCIUM 8.9 mg/dl (8.5-10.1); CARBON DIOXIDE 31 mmol/L (21-32); CHLORIDE 101 mmol/L (98-107); GLUCOSE 104 mg/dl (70-99); POTASSIUM 3.7 mmol/L (3.5-5.1); SODIUM 136 mmol/L (136-145)
[2016-10-08 11:18] LABS: ALB/GLOB RATIO 1.4 (0.9-2); ALKALINE PHOSPHATASE 79 U/L (45-117); CHOLESTEROL 178 mg/dl (0-200); CHOLESTEROL/HDL RATIO 3.8; HDL CHOLESTEROL 47 mg/dl; LDL CHOLESTEROL CALCULATED 106 mg/dl; TRIGLYCERIDES 126 mg/dl (0-150); VERY LOW DENSITY LIPOPROT CALC 25 mg/dl
[2016-10-08 11:33] LABS: ESTIMATED AVERAGE GLUCOSE 111 mg/dl; HA1C FLAG Normal (Normal)
[2016-10-08 11:34] LABS: URINE APPEARANCE CLEAR (CLEAR); URINE BILIRUBIN NEG (NEG); URINE COLOR YELLOW; URINE NITRITE NEG (NEG); URINE PH 6.5 (4.5-7.5); URINE SPECIFIC GRAVITY 1.015 (1.000-1.030); UROBILINOGEN NEG (NEG)
[2016-10-08 11:39] LABS: MANUAL MICROSCOPIC REQUIRED? NO; REVIEW REQ? NO
== END | disposition home or self-care (01) ==
LOC: C.LABBC 08:48
PROVIDERS: ATTEND Internal Medicine
DX: K76.0 Fatty (change of) liver, not elsewhere classified (principal); E78.5 Hyperlipidemia, unspecified; R73.9 Hyperglycemia, unspecified; R31.9 Hematuria, unspecified

== ENCOUNTER 2016-10-24 08:04 | Day surgery (SDC) | payer BC ==
[2016-10-10 10:10] VITALS: BMI 26.0
--- NOTE | 2016-10-10 10:32 | PAT Medication Instructions ---
Service Date Oct 10, 2016. Current Home Medication List Aspirin (Aspirin Ec), 81 MG PO QAM B-Complex Vitamins (Vitamin B Complex), 1 TAB PO QAM Cholecalciferol (Vitamin D3), 1 TAB PO QAM Fish Oil ([place]-3), 1 CAP PO QAM Bbjkumpagow-Slgoqrsezel-Uuf C- (Glucosamine Chondroitin), 1 TAB PO QAM Multivitamin (Multivitamin), 1 TAB PO QAM Naproxen (Aleve), 220 MG PO QAM Potassium Ext Rel (Klor-Con), 20 MEQ PO QAM Triamterene/Hctz (Dyazide 37.5MG/25MG), 1 TAB PO QAM Medication Instructions For Your Scheduled Surgery - Check with surgeon for isntructions: Aspirin (Aspirin Ec), 81 MG PO QAM Naproxen (Aleve), 220 MG PO QAM - Hold the following medications starting 10/11/16: Fish Oil ([place]-3), 1 CAP PO QAM Jnrlbvtbxfb-Azpxedjkabi-Ide C- (Glucosamine Chondroitin), 1 TAB PO QAM - Hold the following medications the morning of surgery: Potassium Ext Rel (Klor-Con), 20 MEQ PO QAM Triamterene/Hctz (Dyazide 37.5MG/25MG), 1 TAB PO QAM Multivitamin (Multivitamin), 1 TAB PO QAM B-Complex Vitamins (Vitamin B Complex), 1 TAB PO QAM Cholecalciferol (Vitamin D3), 1 TAB PO QAM If you have any questions please call us at [phone] or [phone] or [phone]
[2016-10-10 13:09] LABS: URINE APPEARANCE CLEAR (CLEAR); URINE BILIRUBIN NEG (NEG); URINE COLOR YELLOW; URINE EPITHELIAL CELL AUTO 0-5 /lpf (0-5); URINE NITRITE NEG (NEG); URINE PH 6.5 (4.5-7.5); URINE SPECIFIC GRAVITY 1.012 (1.000-1.030); UROBILINOGEN NEG (NEG)
[2016-10-10 13:29] LABS: MANUAL MICROSCOPIC REQUIRED? NO; REVIEW REQ? NO
[~2016-10-24] VITALS: Ht 172.7 cm; Wt 78.4 kg
[~2016-10-24 08:04] MED LIST changes: +CIPROFLOXACIN / D5W 400 MG IV SCH; +LACTATED RINGER'S 1000ML 1,000 ML IV SCH; -OXYC-57 PO
[2016-10-24] MEDS ORDERED: LIDOCAINE HCL 2% 2 ML VIAL (20MG/ML) ONE (08:30)
[2016-10-24] MEDS ORDERED: PROPOFOL IV EMULSION 10 MG/ML 20 ML VIAL IV ONE (08:30)
[2016-10-24] MEDS ORDERED: MIDAZOLAM HCL 1 MG/ML 2ML VIAL ONE (08:30)
[2016-10-24] MEDS ORDERED: FENTANYL CITRATE INJ 50 MCG/1 ML 2 ML VIAL ONE (08:31)
[2016-10-24 08:35] VITALS: BP 152/88; PULSE 71; TEMP 36.8; O2SAT 97; BMI 26.0
[2016-10-24 08:48] VITALS: BP 152/88; PULSE 71; TEMP 36.8; O2SAT 97; Ht 172.7 cm; Wt 78.4 kg
--- NOTE | 2016-10-24 08:48 | History & Physical Bridge Note ---
H&P Re-Evaluation Bridge Note: I have examined the patient, reviewed the History & Physical and in the interval since the performance of the History & Physical I have noted the following changes of clinical significance: No changes noted
[2016-10-24] MEDS ORDERED: EpHEDrine SULFATE INJ 50 MG/ML AMP ONE (09:31)
[2016-10-24] MEDS ORDERED: ONDANSETRON INJ 2 MG/ML 2 ML VIAL ONE (09:31)
[2016-10-24] MEDS ORDERED: EpHEDrine SULFATE 50MG/5ML SYR ONE (09:31)
[2016-10-24] MEDS ORDERED: ATROPINE SULFATE 0.1 MG/ML 5ML SYR IV PRN (09:45)
[2016-10-24] MEDS ORDERED: EpHEDrine SULFATE INJ 50 MG/ML AMP IV PRN (09:45)
[2016-10-24] MEDS ORDERED: OXYC-57 PO ×2 (09:45→09:50)
[2016-10-24] MEDS ORDERED: FENTANYL CITRATE INJ 50 MCG/1 ML 2 ML VIAL IV PRN (09:45)
[2016-10-24] MEDS ORDERED: ONDANSETRON INJ 2 MG/ML 2 ML VIAL IV PRN (09:45)
[2016-10-24] MEDS ORDERED: NALOXONE HCL 0.4 MG/1 ML VIAL/CARP IV PRN (09:45)
[2016-10-24] MEDS ORDERED: FLUMAZENIL 0.1 MG/1 ML 10 ML VIAL IV PRN (09:45)
[2016-10-24] MEDS ORDERED: PROMETHAZINE HCL INJ 12.5 MG in SODIUM CHLORIDE 0.9% 50ML 50 ML IV PRN (09:45)
[2016-10-24] MEDS ORDERED: LABETALOL HCL IV 5 MG/ML 20ML IV PRN (09:45)
--- NOTE | 2016-10-24 09:46 | Discharge Instructions ---
Discharge Instructions Date of Service Oct 24, 2016. Visit Reason for Visit: Abnormal Bladder Mucosa Discharge Discharge Diagnosis / Problem: abnormal bladder mucoosa Discharge Goals Goal(s): Therapeutic intervention Activity Recommendations Activity Limitations: resume your previous activity (take it easy today) Anesthesia . Post Anesthesia Instructions: If you have had General Anesthesia or IV Sedation: * Do not drive today. * Resume driving when surgeon permits. * Do not make important decisions or sign legal documents today. * Call surgeon for: 1. Temperature elevations greater than 101 degrees F. 2. Uncontrollable pain. 3. Excessive bleeding. 4. Persistent nausea and vomiting. 5. Medication intolerance (nausea, vomiting or rash). * For nausea and vomiting use only clear liquids such as: tea, soda, bouillon until nausea subsides, then gradually increase diet as tolerated. * If you have any concerns or questions, call your surgeon's office. If physician is unavailable and it is an emergency, call 911 or go to the nearest emergency room. . Diet Recommendations Recommended Home Diet: resume previous diet Procedures Procedures Performed: Cystoscopy, Bladder Biopsy, Fulguration Pending Studies Studies pending at discharge: no Medical Emergencies . Who to Call and When: Medical Emergencies: If at any time you feel your situation is an emergency, please call 911 immediately. . Non-Emergent Contact Non-Emergency issues call your: Urologist Call Non-Emergent contact if: temperature is above 101.5, your pain is not controlled . . "Provider Documentation" section prepared by Hu Sow. . [place] Drug Monitoring Program Search Results: patient reviewed within database
[2016-10-24] MEDS ORDERED: OXYCODONE/ACETAMINOPHEN 5-325 TAB PO PRN (10:00)
--- NOTE | 2016-10-24 10:05 | [facility] Operative Report ---
Operative Report Operative Date Oct 24, 2016. Pre-Operative Diagnosis abnormal urine cytology Post-Operative Diagnosis abnormal urine cytology Procedure(s) Performed Cystoscopy, Bladder Biopsy, Fulguration Surgeon Dr. Hu Sow Brickmason Surgeon(s) none Estimated Blood Loss 0ml Findings Cystoscopic exam revealed a normal anterior urethra prostatic fossa was moderately obstructing with kissing lateral lobes and elevated median lobe. Bladder showed 1-2+ trabeculation with cellules and diverticuli. Directly posterior on the wall of the bladder the mucosa appeared heaped up and abnormal in appearance. Specimens A. Bladder Biopsy Drains none Anesthesia Gen. Complication(s) None Disposition Recovery Room / PACU Indications Patient's a 71-year-old white male who on evaluation for hematuria was found to have some abnormal areas in the bladder. He had multiple urine cytology showing a predominance of squamous cells. Pathology could not rule out a squamous cell carcinoma. Patient being brought in for biopsy Description of Procedure After the induction of an adequate general anesthetic and appropriate timeout patient was placed in the dorsal lithotomy position. Lower abdomen genitalia were prepped with Hibiclens draped in a sterile fashion. A 22 [place] cystoscope routine cystoscopic exam was performed with the above-noted findings with 30 and 70 lenses. Next using cold cup biopsy forceps the abnormal mucosa was biopsied 3 and the airways and fulgurated for hemostasis. Care was taken to avoid injury to the ureteral orifices. After completing the biopsy and fulguration making sure there was no bleeding patient's bladder was drained cystoscopy sheath removed. All needle sponge and instrument counts are correct at the end of the case. Patient tolerated the procedure well and was taken to the recovery room in stable condition I attest to the content of the Intraoperative Record and any orders documented therein. Any exceptions are noted below.
--- NOTE | 2016-10-24 10:16 | Anesthesiology Progress Note ---
Anesthesia Post Op Note Date & Time Oct 24, 2016 at 10:16 Vital Signs Pain Intensity: 0 Vital Signs Past 12 Hours Date Time Temp Pulse Resp B/P (MAP) Pulse Ox O2 Delivery O2 Flow Rate FiO2 10/24/16 10:13 76 17 10/24/16 10:13 75 17 95 10/24/16 10:11 128/80 10/24/16 10:10 36.4 71 18 128/80 (90) 95 Room Air 0 10/24/16 10:08 76 14 10/24/16 10:08 76 14 95 10/24/16 10:07 77 17 95 10/24/16 10:07 79 17 10/24/16 10:06 128/89 10/24/16 10:02 82 23 95 10/24/16 10:02 82 23 10/24/16 10:01 133/86 10/24/16 09:57 78 19 10/24/16 09:57 77 19 96 10/24/16 09:56 130/77 10/24/16 09:55 71 19 98 10/24/16 09:55 72 19 10/24/16 09:51 116/77 10/24/16 09:50 70 16 10/24/16 09:50 70 16 97 10/24/16 09:46 133/77 10/24/16 09:45 70 16 10/24/16 09:45 71 16 97 10/24/16 09:45 36.1 76 18 133/77 98 Mask 10 10/24/16 08:48 36.8 71 18 152/88 (109) 97 Room Air 10/24/16 08:35 36.8 71 18 152/88 (109) 97 Room Air Notes Mental Status: alert / awake / arousable, participated in evaluation Pt Amnestic to Procedure: Yes Nausea / Vomiting: adequately controlled Pain: adequately controlled Airway Patency, RR, SpO2: stable & adequate BP & HR: stable & adequate Hydration State: stable & adequate Anesthetic Complications: no major complications apparent
[2016-10-24 10:35] VITALS: BP 128/74; PULSE 68; TEMP 36.4; O2SAT 92
[2016-10-24 11:05] VITALS: BP 140/69; PULSE 74; TEMP 36.9; O2SAT 94
[2016-10-24 11:34] VITALS: BP 141/79; PULSE 79; TEMP 36.7; O2SAT 94
== END 2016-10-24 12:00 | disposition home or self-care (01) ==
LOC: C.ACU 08:04
PROVIDERS: ATTEND Urology
DX: R31.9 Hematuria, unspecified (principal); N30.81 Other cystitis with hematuria; F10.10 Alcohol abuse, uncomplicated; N40.0 Benign prostatic hyperplasia without lower urinary tract symptoms; I10 Essential (primary) hypertension; K76.0 Fatty (change of) liver, not elsewhere classified; E78.5 Hyperlipidemia, unspecified; M54.17 Radiculopathy, lumbosacral region; F17.200 Nicotine dependence, unspecified, uncomplicated; Z79.899 Other long term (current) drug therapy; Z79.82 Long term (current) use of aspirin

== ENCOUNTER → 2016-11-03 | Outpatient (CLI) | payer BC ==
[~2016-11-03] MED LIST changes: -CIPROFLOXACIN / D5W 400 MG IV SCH; -LACTATED RINGER'S 1000ML 1,000 ML IV SCH; +OXYC-57 PO
== END | disposition home or self-care (01) ==
LOC: C.PATHSPEC 16:54
PROVIDERS: ATTEND Urology
DX: R82.8 Abnormal findings on cytological and histological examination of urine (principal)

== ENCOUNTER → 2017-03-22 | Outpatient (CLI) | payer BC ==
--- NOTE | 2017-03-22 15:35 | DIAGNOSTIC IMAGING REPORT ---
(CHEST) THORAX WITHOUT CT DOSE: 279.38 mGycm HISTORY: Lung nodule R91.1 Pulmonary nodule TECHNIQUE: Multiaxial CT images of the chest were performed without contrast. A dose lowering technique was utilized adhering to the principles of ALARA. COMPARISON: 05/09/2016 FINDINGS: Mild apical chronic fibrotic change. Calcified granuloma superior segment right lower lobe. Additional calcified granuloma peripheral left lower lobe. The groundglass nodule peripheral aspect right lower lobe region appears diminished in prominence. Maximum diameter persists at 7 mm although density characteristics are improved. No significant hilar or mediastinal adenopathy. Fatty infiltration of liver. IMPRESSION: 1. Improved appearance to the right posterior lung nodule described previously. 2. Minimal low suspicion residual with no evidence for progressive process. 3. 12 month follow-up is felt to be satisfactory as follow-up. The above report was generated using voice recognition software. It may contain grammatical, syntax or spelling errors. Electronically signed by: Theodore Renee M.D. 03/22/2017 3:34 PM Dictated Date/Time: 03/22/2017 3:30 PM
== END | disposition home or self-care (01) ==
LOC: C.CTS 14:48
PROVIDERS: ATTEND Internal Medicine
DX: R91.1 Solitary pulmonary nodule (principal)

== ENCOUNTER → 2017-04-11 | Outpatient (CLI) | payer BC ==
[2017-04-11 11:12] LABS: HEMATOCRIT 44.2 % (42-52); HEMOGLOBIN 15.6 g/dL (14.0-18.0); MEAN CELL VOLUME 103.3 fL (80-100); MEAN CORPUSCULAR HEMOGLOBIN 36.4 pg (25-34); MEAN CORPUSCULAR HGB CONC 35.3 g/dl (32-36); PLATELET COUNT 247 K/uL (130-400); RED CELL DISTRIBUTION WIDTH CV 13.5 % (11.5-14.5); RED CELL DISTRIBUTION WIDTH SD 50.4 fL (36.4-46.3)
[2017-04-11 11:23] LABS: ALBUMIN 4.3 gm/dl (3.4-5.0); ALT/SGPT 154 U/L (12-78); AST/SGOT 122 U/L (15-37); BLOOD UREA NITROGEN 15 mg/dl (7-18); CALCIUM 9.1 mg/dl (8.5-10.1); CARBON DIOXIDE 31 mmol/L (21-32); CREATININE 1.12 mg/dl (0.60-1.40); GLUCOSE 124 mg/dl (70-99); POTASSIUM 4.1 mmol/L (3.5-5.1); SODIUM 136 mmol/L (136-145)
[2017-04-11 11:26] LABS: ALKALINE PHOSPHATASE 76 U/L (45-117); CHOLESTEROL 174 mg/dl (0-200); LDL CHOLESTEROL CALCULATED 81 mg/dl; TOTAL PROTEIN 8.3 gm/dl (6.4-8.2)
[2017-04-11 11:40] LABS: HEMOGLOBIN A1C 5.4 % (4.5-5.6)
== END | disposition home or self-care (01) ==
LOC: C.LABBC 07:41
PROVIDERS: ATTEND Internal Medicine
DX: I10 Essential (primary) hypertension (principal); R73.9 Hyperglycemia, unspecified; K76.0 Fatty (change of) liver, not elsewhere classified; E78.5 Hyperlipidemia, unspecified

== ENCOUNTER → 2017-04-17 | Outpatient (CLI) | payer BC ==
--- NOTE | 2017-04-17 11:01 | DIAGNOSTIC IMAGING REPORT ---
BILIARY ULTRASOUND CLINICAL HISTORY: R79.89 elevated LFTs COMPARISON STUDY: 05/13/2013 FINDINGS: The liver is of increased echogenicity, a finding most often seen in hepatic steatosis. The gallbladder appears sonographically normal. There is no ductal dilatation. There is no right-sided hydronephrosis. The common bile duct measures 5 mm. The head of the pancreas appear normal. The body and tail are poorly visualized IMPRESSION: 1. Increased hepatic echogenicity, nonspecific finding most often seen in hepatic steatosis 2. Ultrasonographically normal gallbladder 3. No evidence of ductal dilatation Electronically signed by: Castillo Bernal M.D. 04/17/2017 11:00 AM Dictated Date/Time: 04/17/2017 10:58 AM
== END | disposition home or self-care (01) ==
LOC: C.ULTR 10:21
PROVIDERS: ATTEND Internal Medicine
DX: R79.89 Other specified abnormal findings of blood chemistry (principal)

== ENCOUNTER → 2017-04-27 | Outpatient (CLI) | payer BC ==
[~2017-04-27] MED LIST changes: -OXYC-57 PO
[2017-04-27 11:47] LABS: ALBUMIN 4.4 gm/dl (3.4-5.0); TOTAL PROTEIN 7.9 gm/dl (6.4-8.2)
== END | disposition home or self-care (01) ==
LOC: C.LABBC 08:25
PROVIDERS: ATTEND Internal Medicine
DX: R79.89 Other specified abnormal findings of blood chemistry (principal)

== ENCOUNTER → 2017-04-27 | Outpatient (CLI) | payer BC | END | disposition home or self-care (01) | LOC: C.PATHSPEC 17:42 | PROVIDERS: ATTEND Surgery | DX: L72.0 Epidermal cyst (principal) ==

== ENCOUNTER → 2017-05-19 | Outpatient (CLI) | payer BC ==
[2017-05-19 11:16] LABS: INR 1.1 (0.9-1.1)
[2017-05-19 11:26] LABS: ALT/SGPT 152 U/L (12-78); BLOOD UREA NITROGEN 21 mg/dl (7-18); CALCIUM 9.4 mg/dl (8.5-10.1); CARBON DIOXIDE 31 mmol/L (21-32); CREATININE 1.16 mg/dl (0.60-1.40); GLUCOSE 108 mg/dl (70-99); POTASSIUM 3.4 mmol/L (3.5-5.1); SODIUM 135 mmol/L (136-145)
[2017-05-19 11:29] LABS: ALKALINE PHOSPHATASE 75 U/L (45-117); AST/SGOT 133 U/L (15-37); TOTAL PROTEIN 7.7 gm/dl (6.4-8.2); TRANSFERRIN 213 mg/dl (200-360)
[2017-05-19 11:52] LABS: HEMATOCRIT 43.1 % (42-52); HEMOGLOBIN 15.3 g/dL (14.0-18.0); MEAN CELL VOLUME 102.6 fL (80-100); MEAN CORPUSCULAR HEMOGLOBIN 36.4 pg (25-34); MEAN CORPUSCULAR HGB CONC 35.5 g/dl (32-36); MEAN PLATELET VOLUME 10.7 fL (7.4-10.4); PLATELET COUNT 203 K/uL (130-400); RED CELL DISTRIBUTION WIDTH CV 13.1 % (11.5-14.5); RED CELL DISTRIBUTION WIDTH SD 49.1 fL (36.4-46.3); WHITE BLOOD COUNT 7.24 K/uL (4.8-10.8)
[2017-05-19 11:53] LABS: BASO % 0.4 %; BASO ABS # 0.03 K/uL (0-0.2); EOS % 3.6 %; EOS ABS # 0.26 K/uL (0-0.5); IG# 0.02 K/uL (0.00-0.02); LYMPH % 26.8 %; LYMPH ABS # 1.94 K/uL (1.2-3.4); MONO % 9.4 %; MONO ABS # 0.68 K/uL (0.11-0.59); NEUT % 59.5 %; NEUT ABS # 4.31 K/uL (1.4-6.5)
[2017-05-22 15:38] LABS: ANA SCREEN TC 249X NEGATIVE (NEGATIVE); HEPATITIS B CORE IGM TC51854R NON-REACTIVE (NON-REACTIVE)
== END | disposition home or self-care (01) ==
LOC: C.LABBC 08:49
PROVIDERS: ATTEND Registered Nurse
DX: R79.89 Other specified abnormal findings of blood chemistry (principal)

== ENCOUNTER → 2017-06-01 | Outpatient (CLI) | payer BC | END | disposition home or self-care (01) | LOC: C.LAB 10:16 | PROVIDERS: ATTEND Registered Nurse | DX: R79.89 Other specified abnormal findings of blood chemistry (principal) ==

== ENCOUNTER 2017-06-18 22:30 | Emergency (ER) | payer BC ==
[~2017-06-18] VITALS: Ht 165.1 cm; Wt 82.3 kg
[~2017-06-18 22:30] MED LIST changes: +POTA-639 PO; -POTA20TA16 PO
[2017-06-18 22:34] VITALS: TEMP 36.7; Ht 165.1 cm; Wt 82.3 kg
--- NOTE | 2017-06-18 23:37 | EMERGENCY ROOM VISIT NOTE ---
History Report prepared by Meghan: Zain Stringer Under the Supervision of: Dr. Tila Clark D.O. First contact with patient: 22:58 Chief Complaint: OTHER COMPLAINT Stated Complaint: ILLNESS History of Present Illness The patient is a 72 year old male who presents to the Emergency Room brought in by EMS with complaints of persistent general confusion since this afternoon. He states that he is feeling "a little funky and a little out of sorts." He states that he was drinking a few drinks of Whiskey earlier in the day. He states that he quit drinking at 1600 today. He states that he lives alone. He states that he had a sandwich for dinner. He has a history of UTI and hospitalization associated with it one year and a half ago. He was recently treated with Cipro for a recent UTI and he completed the treatment three days ago. He reports a history of "feeling out of sorts" with previous UTIs. He denies any nausea, vomiting, fever, abdominal pain, urinary symptoms, diarrhea, or falls. Source of History: patient Onset: since this afternoon Position: other (general) Quality: other (confusion) Timing: other (persistent) Associated Symptoms: No fevers, No nausea, No vomiting, No abdominal pain, No diarrhea, No urinary symptoms Note: Denies any falls. Review of Systems See HPI for pertinent positives & negatives. A total of 10 systems reviewed and were otherwise negative. Past Medical & Surgical Medical Problems: (1) HTN (hypertension) (2) Hypokalemia (3) SIRS (systemic inflammatory response syndrome) Family History No pertinent family history Social History Smoking Status: Current Every Day Smoker Alcohol Use: heavy Marital Status: single Housing Status: lives alone Current/Historical Medications Scheduled Aspirin (Aspirin Ec), 81 MG PO QAM B-Complex Vitamins (Vitamin B Complex), 1 TAB PO QAM Cholecalciferol (Vitamin D3), 1 TAB PO QAM Fish Oil ([place]-3), 1 CAP PO QAM Ojakbygyzcx-Alocddemtzh-Vzb C- (Glucosamine Chondroitin), 1 TAB PO QAM Multivitamin (Multivitamin), 1 TAB PO QAM Naproxen (Aleve), 220 MG PO QAM Potassium Ext Rel (Klor-Con), 20 MEQ PO QAM Triamterene/Hctz (Dyazide 37.5MG/25MG), 1 TAB PO QAM Allergies Coded Allergies: No Known Allergies (Unverified , 06/19/17) Physical Exam Vital Signs Date Time Temp Pulse Resp B/P (MAP) Pulse Ox O2 Delivery O2 Flow Rate FiO2 06/19/17 04:26 75 18 136/87 97 Room Air 06/19/17 01:38 68 18 112/68 93 Room Air 06/18/17 22:34 36.7 75 18 151/94 100 Room Air Physical Exam General: Patient is pleasant, smells of ETOH, seems slightly confused. HEENT: Head - normocephalic and atraumatic Pupils are equal, round, and reactive to light. Extraocular eye muscles are intact, and sclera are anicteric. Nose - moist nasal mucosa without discharge. Mouth - moist buccal mucosa. Oropharynx is nonerythematous and there is no tonsillar exudate or edema noted. Neck: Supple; no JVD, nuchal rigidity, cervical lymphadenopathy. Heart: Regular rate and rhythm. There is a normal S1 and S2 with no murmurs, clicks, or gallops appreciated. Lungs: Clear to auscultation bilaterally with no wheezes, rales, or rhonchi. Abdomen: Soft, completely nontender, nondistended, with good bowel sounds. There are no palpable pulsatile masses or hepatosplenomegaly. There is no guarding, rigidity, or rebound noted. Extremities: No evidence of cyanosis, clubbing, or edema. There are easily palpable peripheral pulses. Skin: warm and dry with good turgor and no rashes. Medical Decision & Procedures Laboratory Results 06/18/17 23:55 Red Blood Count 4.28, Mean Corpuscular Volume 101.9, Mean Corpuscular Hemoglobin 36.2, Mean Corpuscular Hemoglobin Concent 35.6, Mean Platelet Volume 10.7, Neutrophils (%) (Auto) 55.4, Lymphocytes (%) (Auto) 32.3, Monocytes (%) ( Auto) 7.2, Eosinophils (%) (Auto) 3.9, Basophils (%) (Auto) 0.6, Neutrophils # ( Auto) 3.70, Lymphocytes # (Auto) 2.16, Monocytes # (Auto) 0.48, Eosinophils # ( Auto) 0.26, Basophils # (Auto) 0.04 06/18/17 23:55 Test 06/18/17 23:50 06/18/17 23:55 Urine Color YELLOW Urine Appearance CLEAR (CLEAR) Urine pH 6.0 (4.5-7.5) Urine Specific [place] 1.011 (1.000-1.030) Urine Protein NEG (NEG) Urine Glucose (UA) NEG (NEG) Urine Ketones NEG (NEG) Urine Occult Blood 3+ (NEG) Urine Nitrite NEG (NEG) Urine Bilirubin NEG (NEG) Urine Urobilinogen NEG (NEG) Urine Leukocyte Esterase LARGE (NEG) Urine WBC (Auto) >30 /hpf (0-5) Urine RBC (Auto) >30 /hpf (0-4) Urine Hyaline Casts (Auto) 1-5 /lpf (0-5) Urine Epithelial Cells (Auto) 20-30 /lpf (0-5) Urine Bacteria (Auto) NEG (NEG) White Blood Count 6.68 K/uL (4.8-10.8) Red Blood Count 4.28 M/uL (4.7-6.1) Hemoglobin 15.5 g/dL (14.0-18.0) Hematocrit 43.6 % (42-52) Mean Corpuscular Volume 101.9 fL (80-100) Mean Corpuscular Hemoglobin 36.2 pg (25-34) Mean Corpuscular Hemoglobin Concent 35.6 g/dl (32-36) Platelet Count 177 K/uL (130-400) Mean Platelet Volume 10.7 fL (7.4-10.4) Neutrophils (%) (Auto) 55.4 % Lymphocytes (%) (Auto) 32.3 % Monocytes (%) (Auto) 7.2 % Eosinophils (%) (Auto) 3.9 % Basophils (%) (Auto) 0.6 % Neutrophils # (Auto) 3.70 K/uL (1.4-6.5) Lymphocytes # (Auto) 2.16 K/uL (1.2-3.4) Monocytes # (Auto) 0.48 K/uL (0.11-0.59) Eosinophils # (Auto) 0.26 K/uL (0-0.5) Basophils # (Auto) 0.04 K/uL (0-0.2) RDW Standard Deviation 47.3 fL (36.4-46.3) RDW Coefficient of Variation 12.7 % (11.5-14.5) Immature Granulocyte % (Auto) 0.6 % Immature Granulocyte # (Auto) 0.04 K/uL (0.00-0.02) Anion Gap 8.0 mmol/L (3-11) Est Creatinine Clear Calc Drug Dose 65.0 ml/min Estimated GFR () 84.3 Estimated GFR (Non- 72.7 BUN/Creatinine Ratio 14.5 (10-20) Calcium Level 8.3 mg/dl (8.5-10.1) Total Bilirubin 0.4 mg/dl (0.2-1) Aspartate Amino Transf (AST/SGOT) 50 U/L (15-37) Alanine Aminotransferase (ALT/SGPT) 94 U/L (12-78) Alkaline Phosphatase 87 U/L (45-117) Total Protein 7.9 gm/dl (6.4-8.2) Albumin 4.2 gm/dl (3.4-5.0) Globulin 3.6 gm/dl (2.5-4.0) Albumin/Globulin Ratio 1.2 (0.9-2) Ethyl Alcohol mg/dL 229.8 mg/dl (0-3) Laboratory results per my review. ED Course 2324: Past medical records reviewed. The patient was evaluated in room B2. A complete history and physical exam was performed. Labs were drawn as above. Urine specimen was obtained. 0115: I reassessed the patient at this time. He is sleeping. 0141: I reassessed the patient at this time. He is still sleeping. His vital signs are stable. 0416: I reassessed the patient at this time. He is feeling better and resting comfortably. I discussed the results and treatment plan with the patient. He has an appointment with his urologist-Dr. Sow today. They will decide the antibiotic treatment for his UTI. I answered all pertaining questions that he had. He expressed understanding and verbalized agreement. The patient will be discharged home. Medical Decision The patient is a 72 year old male who presents to the ED with confusion. Differential diagnosis includes alcohol intoxication, UTI, hypoglycemia, and electrolyte abnormality. Lab results showed: Alcohol 229. UA: 3+ blood, Large Leukocyte Esterase, WBC >30 , RBC >30. Normal renal function. Gluc 109. AST 50, ALT 94. Stable H&H. Normal WBC. This is a 72-year-old male patient presents to the emergency department tonight feeling out of sorts. The patient states that he stopped drinking alcohol around 4 PM. If this is true, his alcohol level at that time must have been close to 400. The patient has a history of urinary tract infections. In fact, he has a follow-up appointment scheduled today with his urologist. He admits that he becomes somewhat confused and disoriented at times when he has a urinary tract infection. It seems that his feeling of confusion may be secondary to alcohol intoxication and possibly urinary tract infection. The urine was sent for culture. It does appear to be infected. Antibiotic choice will be left up to the urologist during his appointment today. Medication Reconcilliation Current Medication List: was personally reviewed by me Blood Pressure Screening Patient's blood pressure: Elevated blood pressure Blood pressure disposition: Elevated BP felt to be situational Impression Primary Impression: Alcohol overdose Additional Impression: UTI (urinary tract infection) Scribe Attestation The scribe's documentation has been prepared under my direction and personally reviewed by me in its entirety. I confirm that the note above accurately reflects all work, treatment, procedures, and medical decision making performed by me. Departure Information Dispostion Home / Self-Care Referrals Julian Marc M.D. (PCP) Forms HOME CARE DOCUMENTATION FORM, IMPORTANT VISIT INFORMATION, WORK / SCHOOL INSTRUCTIONS Patient Instructions ED Overdose Alcohol, My [facility], UTI Additional Instructions Rest. Avoid such excessive alcohol use in the future. Discuss antibiotic choice with Dr. Sow today at your appointment. Problem Qualifiers Primary Impression: Alcohol overdose Encounter type: initial encounter Injury intent: accidental or unintentional Qualified Codes: T51.91XA - Toxic effect of unspecified alcohol , accidental (unintentional), initial encounter Additional Impression: UTI (urinary tract infection) Urinary tract infection type: acute cystitis Hematuria presence: without hematuria Qualified Codes: N30.00 - Acute cystitis without hematuria
[2017-06-19 00:13] LABS: BASO % 0.6 %; BASO ABS # 0.04 K/uL (0-0.2); EOS % 3.9 %; EOS ABS # 0.26 K/uL (0-0.5); HEMATOCRIT 43.6 % (42-52); HEMOGLOBIN 15.5 g/dL (14.0-18.0); IG# 0.04 K/uL (0.00-0.02); LYMPH % 32.3 %; LYMPH ABS # 2.16 K/uL (1.2-3.4); MEAN CELL VOLUME 101.9 fL (80-100); MEAN CORPUSCULAR HEMOGLOBIN 36.2 pg (25-34); MEAN CORPUSCULAR HGB CONC 35.6 g/dl (32-36); MEAN PLATELET VOLUME 10.7 fL (7.4-10.4); MONO % 7.2 %; MONO ABS # 0.48 K/uL (0.11-0.59); NEUT % 55.4 %; PLATELET COUNT 177 K/uL (130-400); RED CELL DISTRIBUTION WIDTH CV 12.7 % (11.5-14.5); RED CELL DISTRIBUTION WIDTH SD 47.3 fL (36.4-46.3); WHITE BLOOD COUNT 6.68 K/uL (4.8-10.8)
[2017-06-19 00:32] LABS: ALBUMIN 4.2 gm/dl (3.4-5.0); CALCIUM 8.3 mg/dl (8.5-10.1); CREATININE 1.03 mg/dl (0.60-1.40); POTASSIUM 3.4 mmol/L (3.5-5.1)
[2017-06-19 00:35] LABS: TOTAL PROTEIN 7.9 gm/dl (6.4-8.2)
[2017-06-19 04:26] VITALS: BP 136/87; PULSE 75; O2SAT 97
== END 2017-06-19 04:24 | disposition home or self-care (01) ==
LOC: EDBD 22:30 → C.EDB 22:31
DX: T51.0X1A Toxic effect of ethanol, accidental (unintentional), initial encounter (principal); N39.0 Urinary tract infection, site not specified; Z87.440 Personal history of urinary (tract) infections; E87.6 Hypokalemia; I10 Essential (primary) hypertension; Z79.82 Long term (current) use of aspirin; F17.200 Nicotine dependence, unspecified, uncomplicated

== ENCOUNTER → 2017-07-14 | Day surgery (SDC) | payer BC ==
[2016-10-10 10:31] VITALS: BMI 26.0
[2017-07-03 09:41] VITALS: Ht 165.1 cm; Wt 77.3 kg
[~2017-07-14] VITALS: Ht 165.1 cm; Wt 77.3 kg
[~2017-07-14] MED LIST changes: +GLUC250C PO; -GLUCTAB7 PO; +LIDOCAINE HCL 2% 2 ML VIAL (20MG/ML) ONE; +PROPOFOL IV EMULSION 10 MG/ML 20 ML VIAL ONE
--- NOTE | 2017-07-14 08:47 | Endo History and Physical ---
History & Physical Date of Service: July 14, 2017. Chief Complaint: Screening Referring Physician: Julian Marc History of Present Illness 72 yo CM who presents for screening colonoscopy. Past Surgical History Hx Cardiac Surgery: No Hx Internal Defibrillator: No Hx Pacemaker: No Hx Abdominal Surgery: Yes (APPY) Hx of Implantable Prosthesis: No Hx Post-Op Nausea and Vomiting: No Hx Cancer Surgery: No Hx Thoracic Surgery: No Hx Orthopedic: No Hx Urinary Tract Surgery: Yes (CYSTO WITH BX) Family History None Social History Smoking Status: Current Every Day Smoker Hx Substance Use: No Hx Alcohol Use: Yes (10-15 DRINKS PER WEEK) Allergies Coded Allergies: No Known Allergies (Unverified , 07/14/17) Current Medications Reported Home Medications Medications Dose Route/Sig Max Daily Dose Days Date Category Glucosamine/Chondroitin (Glucosamine-Chondroitin) 1 Cap Cap 1 Cap PO DAILY 07/03/17 Reported Vitamin D3 (Cholecalciferol) 1,000 Unit Tab 1 Tab PO QAM 90 10/10/16 Reported [place]-3 (Fish Oil) 1 Ea Cap 2 Cap PO QAM 02/27/16 Reported Vitamin B Complex (B-Complex Vitamins) 1 Tab Tab 1 Tab PO QAM 02/27/16 Reported Multivitamin (Multivitamins) Tab 1 Tab PO QAM 02/27/16 Reported Aleve (Naproxen) 220 Mg Tab 220 Mg PO QAM 02/27/16 Reported Aspirin Ec (Aspirin) 81 Mg Tab 81 Mg PO QAM 02/27/16 Reported Dyazide 37.5MG/25MG (Triamterene/HCTZ) Cap 1 Tab PO QAM 02/27/16 Reported Klor-Con (Potassium Chloride) 20 Meq Tabcr 20 Meq PO QAM 02/27/16 Reported Vital Signs Weight (Kilograms): 77.27 Height (Feet): 5 Height (Inches): 5 Physical Exam General Appearance: WD/WN, no apparent distress Respiratory/Chest: Auscultation: breath sounds normal Cardiovascular: Heart Auscultation: RRR Abdomen: Bowel Sounds: normal Inspection & Palpation: soft, non-distended, no tenderness, guarding & rebound Assessment and Plan Assessment: 72 yo CM who presents for screening colonoscopy. Plan: Proceed with colonoscopy.
--- NOTE | 2017-07-14 10:26 | GI REPORT ---
Patient Name: Jerod Joseph Procedure Date: 07/14/2017 9:24 AM Date of : 1945 Admit Type: Outpatient Age: 72 Gender: Male Attending MD: Scott Wu DO Procedure: Colonoscopy Providers: Scott Wu DO Referring MD: Julian Marc Indications: Screening for colorectal malignant neoplasm Medicines: Monitored Anesthesia Care Complications: No immediate complications. Estimated Blood Loss: Estimated blood loss: none. Procedure: Pre-Anesthesia Assessment: - Prior to the procedure, a History and Physical was performed, and patient medications and allergies were reviewed. The patient's tolerance of previous anesthesia was also reviewed. The risks and benefits of the procedure and the sedation options and risks were discussed with the patient. All questions were answered, and informed consent was obtained. Prior Anticoagulants: The patient has taken aspirin, last dose was 2 days prior to procedure. ASA Grade Assessment: II - A patient with mild systemic disease. After reviewing the risks and benefits, the patient was deemed in satisfactory condition to undergo the procedure. After I obtained informed consent, the scope was passed under direct vision. Throughout the procedure, the patient's blood pressure, pulse, and oxygen saturations were monitored continuously. The scope was introduced through the anus and advanced to the terminal ileum. The colonoscopy was performed without difficulty. The patient tolerated the procedure well. The quality of the bowel preparation was good. The terminal ileum, ileocecal valve, appendiceal orifice, and rectum were photographed. Findings: The perianal and digital rectal examinations were normal. Multiple small-mouthed diverticula were found in the sigmoid colon. Non-bleeding internal hemorrhoids were found during retroflexion. The hemorrhoids were small. Impression: - Diverticulosis in the sigmoid colon. - Non-bleeding internal hemorrhoids. - No specimens collected. Recommendation: - Resume previous diet. - Continue present medications. - No repeat colonoscopy due to age and the absence of advanced adenomas. - Return to primary care physician as previously scheduled. Scott Wu DO 07/14/2017 10:25:19 AM This report has been signed electronically. Note Initiated On: 07/14/2017 9:24 AM Number of Addenda: 0 I attest to the content of the Intraoperative Record and orders documented therein, exceptions below {[id number]}
--- NOTE | 2017-07-14 10:26 | Discharge Instructions ---
Endoscopy Patient Instructions Date / Procedure(s) Performed July 14, 2017. Colonoscopy Allergy Information Coded Allergies: No Known Allergies (Unverified , 07/14/17) Discharge Date / Findings July 14, 2017. Diverticulosis Internal hemorrhoids Medication Instructions Stopped Medication(s): Aspirin stopped 07/12/17 OK to resume all medications today as prescribed Reported Home Medications Medications Dose Route/Sig Max Daily Dose Days Date Category Glucosamine/Chondroitin (Glucosamine-Chondroitin) 1 Cap Cap 1 Cap PO DAILY 07/03/17 Reported Vitamin D3 (Cholecalciferol) 1,000 Unit Tab 1 Tab PO QAM 90 10/10/16 Reported [place]-3 (Fish Oil) 1 Ea Cap 2 Cap PO QAM 02/27/16 Reported Vitamin B Complex (B-Complex Vitamins) 1 Tab Tab 1 Tab PO QAM 02/27/16 Reported Multivitamin (Multivitamins) Tab 1 Tab PO QAM 02/27/16 Reported Aleve (Naproxen) 220 Mg Tab 220 Mg PO QAM 02/27/16 Reported Aspirin Ec (Aspirin) 81 Mg Tab 81 Mg PO QAM 02/27/16 Reported Dyazide 37.5MG/25MG (Triamterene/HCTZ) Cap 1 Tab PO QAM 02/27/16 Reported Klor-Con (Potassium Chloride) 20 Meq Tabcr 20 Meq PO QAM 02/27/16 Reported Provider Instructions Activity Restrictions - No exercising or heavy lifting for 24 hours. - Do not drink alcohol the day of the procedure. - Do not drive a car or operate machinery until the day after the procedure. - Do not make any important decisions or sign important papers in 24 hours after the procedure. Following Day: - Return to full activity which may include returning to work/school. Diet Start your diet with liquids and light foods (jello, soup, juice, toast). Then eat your usual diet if not nauseated. Treatment For Common After Affects For mild abdominal pain, bloating, or excessive gas: - Rest - Eat lightly - Lie on right side Follow-Up Information Follow-up with Julian Marc as scheduled Anesthesia Information What You Should Know You have had a procedure that required some medicine to reduce anxiety and discomfort. This treatment is called moderate sedation. After receiving the treatment, you may be sleepy, but you will be able to breathe on your own. The effects of the treatment may last for several hours. Follow these instructions along with Activity/Diet recommendations noted above: * Do NOT do anything where dizziness or clumsiness would be dangerous. * Rest quietly at home today, then you can be up and about tomorrow. * Have a responsible person stay with you the rest of today. * You may have had an I.V. today. If so, you may take the dressing off later today. Recommendations Call your doctor if: * Trouble breathing * Continuous vomiting for more than 24 hours * Temperature above 101 degrees * Severe abdominal pain or bloating * Pain not relieved by pain medicine ordered * There is increased drainage or redness from any incision * A large amount of rectal bleeding greater than 2-3 tablespoons. (If you had a polyp/s removed or have hemorrhoids, a small amount of blood - from the rectum is to be expected.) * You have any unanswered questions or concerns. IN THE EVENT OF A SERIOUS EMERGENCY, GO TO THE NEAREST EMERGENCY ROOM Your discharge instructions were prepared by provider Scott Wu. Patient Instructions Signature Page Jerod Joseph Patient (or Guardian) Signature/Date: I have read and understand the instructions given to me by my caregivers. Caregiver/RN/Doctor Signature/Date: The above-named patient and/or guardian has received patient instructions on this date. + Original Patient Signature Page (only) stays with chart. Please make copy for patient.
[2017-07-14 10:54] VITALS: BP 147/94; PULSE 72; O2SAT 98
--- NOTE | 2017-07-14 10:58 | Anesthesiology Progress Note ---
Anesthesia Post Op Note Date & Time July 14, 2017 at 10:58 Vital Signs Pain Intensity: 0 Vital Signs Past 12 Hours Date Time Temp Pulse Resp B/P (MAP) Pulse Ox O2 Delivery O2 Flow Rate FiO2 07/14/17 10:39 71 16 137/91 (106) 99 Room Air 07/14/17 10:24 73 16 102/57 (72) 97 Room Air 07/14/17 08:45 36.5 85 16 140/80 (100) 96 Room Air Notes Mental Status: alert / awake / arousable, participated in evaluation Pt Amnestic to Procedure: Yes Nausea / Vomiting: adequately controlled Pain: adequately controlled Airway Patency, RR, SpO2: stable & adequate BP & HR: stable & adequate Hydration State: stable & adequate Anesthetic Complications: no major complications apparent
== END | disposition home or self-care (01) ==
LOC: C.GI 08:19
PROVIDERS: ATTEND Internal Medicine
DX: Z12.11 Encounter for screening for malignant neoplasm of colon (principal); K57.30 Diverticulosis of large intestine without perforation or abscess without bleeding; K64.8 Other hemorrhoids; I10 Essential (primary) hypertension; K76.0 Fatty (change of) liver, not elsewhere classified; F17.200 Nicotine dependence, unspecified, uncomplicated; Z79.899 Other long term (current) drug therapy; Z79.82 Long term (current) use of aspirin

== ENCOUNTER → 2017-07-19 | Outpatient (CLI) | payer BC ==
[~2017-07-19] MED LIST changes: -LIDOCAINE HCL 2% 2 ML VIAL (20MG/ML) ONE; +OPTIRAY 320 IV PRN; -PROPOFOL IV EMULSION 10 MG/ML 20 ML VIAL ONE
--- NOTE | 2017-07-19 07:51 | DIAGNOSTIC IMAGING REPORT ---
ABD/PELVIS COMBO HISTORY: 72 years-old Male HEMATURIA acute hematuria COMPARISON: CT abdomen and pelvis 05/09/2016 TECHNIQUE: Multiple axial CT images of the abdomen and pelvis were obtained both with and without the use of 119 mL Optiray 320 IV contrast utilizing hematuria protocol. A dose lowering technique was used consistent with the principals of SANTINO. FINDINGS: Lung bases appear generally clear. Calcified granuloma with adjacent pleural parenchymal scarring of the basal right lower lobe. No pneumatosis or pneumoperitoneum. Imaged inferior cardiac chambers are unremarkable. The liver, gallbladder, pancreas and adrenal glands are within normal limits. Calcified granulomata about the spleen. Multifocal cortical scarring with areas of parenchymal thinning about the right kidney. No ureteral calculi or obstructive uropathy. 1.2 cm cyst of the interpolar left kidney with probable cyst of the inferior pole right kidney measuring 6 mm. No filling defects identified within the collecting systems or ureters. 8 x 10 mm calyceal diverticulum involving the superior pole right kidney contains a 3 mm nonobstructing calculus. There is prostamegaly with marked wall thickening and trabeculation of the bladder. 1.7 cm diverticulum of the posterior lateral left aspect of the bladder with a large diverticulum of the anterosuperior bladder dome, 3.5 x 4.7 x 3.6 cm. Mild perivesicular stranding. Small bilateral fat filled inguinal hernias. Moderate atherosclerosis of the abdominal aorta without aneurysm. Dilation of the bilateral common iliac arteries, 1.9 cm on the right and 2.0 cm on the left. IVC appears patent and within normal limits. No bulky adenopathy. There is no bowel obstruction or focal bowel wall thickening identified. No ascites or mesenteric inflammatory changes. Colonic diverticulosis without diverticulitis. Surgically absent appendix. Soft tissues are unremarkable. Multilevel facet arthropathy of the mid and lower lumbar spine. Grade 1 anterolisthesis L4 on L5 is likely secondary to long-standing facet disease. IMPRESSION: 1. Prostatomegaly with evidence of chronic bladder outlet obstruction manifested by urinary bladder wall thickening, trabeculation and bladder diverticula. Correlate with urinalysis to exclude cystitis. 2. Multifocal cortical scarring and parenchymal thinning about the right kidney with 10 mm calyceal diverticulum of the superior pole right kidney containing a 3 mm nonobstructing calculus. No ureteral calculi or obstructive uropathy. 3. Mild colonic diverticulosis without diverticulitis. 4. Prior granulomatous disease. 5. Additional findings as above. The above report was generated using voice recognition software. It may contain grammatical, syntax or spelling errors. Electronically signed by: Lm Hanks M.D. 07/19/2017 7:49 AM Dictated Date/Time: 07/19/2017 7:37 AM
== END | disposition home or self-care (01) ==
LOC: C.CTS 06:26
PROVIDERS: ATTEND Nurse Practitioner Family
DX: R31.0 Gross hematuria (principal); N40.0 Benign prostatic hyperplasia without lower urinary tract symptoms; N32.0 Bladder-neck obstruction

== ENCOUNTER 2020-09-28 07:24 | Observation (INO) ==
[2020-09-28 09:18] LABS: Appearance Urine Clear (Clear); Bilirubin Urine Negative (Negative); Blood Urine 2+ (Negative); Color Urine Yellow; Epithelial Cell Urine Auto 20-30 /lpf (0-5); Glucose Urine UA Negative (Negative); Ketones Urine Negative (Negative); Leukocyte Esterase Urine 3+ (Negative); Nitrite Urine Negative (Negative); Protein Urine Trace (Negative); Specific Gravity Urine 1.008 (1.000-1.030); Urobilinogen Urine Negative (Negative); WBC Urine Automated >30 /hpf (0-5); pH Urine 6.5 (4.5-7.5)
[2020-09-28 09:41] LABS: Bacteria Urine Automated 1+ (Negative)
[2020-09-28] MEDS ORDERED: SODIUM CHLORIDE 0.9% 1000ML 1,000 ML IV SCH (09:45)
[2020-09-28] MEDS ORDERED: cefTRIAXone SODIUM 1,000 MG/50 ML BAG IV STA (09:52)
[2020-09-28 10:23] LABS: Basophils # (auto) 0.02 K/uL (0-0.2); Basophils % (auto) 0.2 %; Eosinophils # (auto) 0.04 K/uL (0-0.5); Eosinophils % (auto) 0.5 %; Hematocrit (blood only) 43.7 % (42-52); Hemoglobin 15.2 g/dL (14.0-18.0); Immature Granulocytes # (auto) 0.03 K/uL (0.00-0.02); Immature Granulocytes % (auto) 0.3 %; Lymphocytes # (auto) 0.89 K/uL (1.2-3.4); Lymphocytes % (auto) 10.1 %; Mean Corpuscular Hemoglobin 34.4 pg (25-34); Mean Corpuscular Hgb Conc 34.8 g/dL (32-36); Mean Corpuscular Volume 98.9 fL (80-100); Mean Platelet Volume 9.9 fL (7.4-10.4); Monocytes # (auto) 0.43 K/uL (0.11-0.59); Monocytes % (auto) 4.9 %; Neutrophils # (auto) 7.38 K/uL (1.4-6.5); Platelet Count 161 K/uL (130-400); RDW Coefficient of Variation 14.2 % (11.5-14.5); RDW Standard Deviation 51.1 fL (36.4-46.3); Red Blood Count 4.42 M/uL (4.7-6.1); White Blood Count 8.79 K/uL (4.8-10.8)
--- NOTE | 2020-09-28 10:34 | XRay Report ---
XR chest 1V portable CLINICAL HISTORY: weakness COMPARISON STUDY: Chest CT March 13, 2018. FINDINGS: Lung volumes are normal. Right apical opacity is unchanged and represents scarring. There a re old left rib fractures. There is no pneumothorax or pleural effusion. Cardiomediastinal silhouette is stable. Appearance of the chest is unchanged. IMPRESSION: No acute cardiopulmonary findings. No change in appearance of the chest. ACT 112: Negative or not required by law. Electronically signed by: Johnnie Boswell M.D. 09/28/2020 10:33 AM
[2020-09-28 10:39] LABS: Alanine Aminotransferase 45 U/L (12-78); Albumin Level 4.5 gm/dl (3.4-5.0); Aspartate Aminotransferase 36 U/L (15-37); BUN Creatinine Ratio 13.9 (10-20); Blood Urea Nitrogen 11 mg/dl (7-18); Calcium 8.8 mg/dl (8.5-10.1); Carbon Dioxide 26 mmol/L (21-32); Chloride 105 mmol/L (98-107); Creatinine Clr Calc Pharmacy 73.8 ml/min; Est GFR (African American) 101.5 ml/min; Est GFR (Non-African American) 87.6 ml/min; Glucose 113 mg/dl (70-99); Magnesium 1.9 mg/dl (1.8-2.4); Potassium 3.4 mmol/L (3.5-5.1); Sodium 140 mmol/L (136-145)
[2020-09-28 10:50] LABS: Albumin Globulin Ratio 1.3 (0.9-2); Alkaline Phosphatase 80 U/L (45-117); Bilirubin,Total 0.8 mg/dl (0.2-1); Globulin 3.6 gm/dl (2.5-4.0); Thyroid Stimulating Hormone 0.869 uIu/ml (0.300-4.500); Total Protein 8.1 gm/dl (6.4-8.2); Troponin I < 0.015 ng/ml (0-0.045)
--- NOTE | 2020-09-28 11:16 | CT Scan Report ---
CT head/brain wo con CLINICAL HISTORY: 75 years-old Male with AMS. Acutely altered mental status TECHNIQUE: Multiple axial CT images of the head were obtained without contrast. A dose lowering tech nique was utilized adhering to the principles of ALARA. CT DOSE: 788.63 mGycm COMPARISON: Head CT 06/18/2020 FINDINGS: No acute intracranial hemorrhage, midline shift, intracranial mass, hydrocephalus, territorial ischem ia or abnormal extra-axial collection. Age-related involutional changes. Mild white matter hypodensit ies suggestive of chronic microvascular ischemic disease. Cerebral vascular calcifications. The calvarium is intact. The paranasal sinuses, mastoid air cells, and middle ear cavities are clear . IMPRESSION: No acute intracranial abnormality. ACT 112: Negative or not required by law. The above report was generated using voice recognition software. It may contain grammatical, syntax o r spelling errors. Electronically signed by: Pedro Hanks M.D. 09/28/2020 11:15 AM
[2020-09-28] MEDS ORDERED: SODIUM CHLORIDE 0.9% 1000ML 1,000 ML IV ONE (11:29)
[2020-09-28] MEDS ORDERED: LORazepam 2 MG/4 ML VIAL IV STA (13:01)
--- NOTE | 2020-09-28 14:07 | History & Physical Report ---
Date of Service September 28, 2020 Assessment & Plan (1) Altered mental status: Plan: Unclear etiology, I suspect chronic alcoholism may be part of the issue. I also concern for urinary tract infection although patient has no infectious symptoms, has had multiple courses of antibiotics in the past For now, will admit to a monitored bed Monitor for signs of alcohol withdrawal or infection CT scan performed the emergency room is negative for acute process Consider MRI, neurology consultation (2) BPH (benign prostatic hyperplasia): Plan: Suspect patient's weakly positive UA may be chronic secondary to prostatitis/BPH Patient does follow with urology, will consult them for further recommendations Continue alfuzosin and dutasteride (3) Alcohol abuse: Plan: Patient currently showing no outward signs of alcohol withdrawal outside of possible hallucinations I will order alcohol withdrawal scale, treat with benzos as needed P.o. repletion of thiamine and folate (4) Essential hypertension: Plan: Elevated blood pressure, on only Cardizem at home. Remains elevated, consider adding additional agents (5) Hyperlipidemia: Plan: No lipid-lowering medication noted in his outpatient medications Check fasting lipid panel (6) Afib: Plan: Patient is on Eliquis and Cardizem, will continue these History of Present Illness Chief Complaint: Altered mental status Primary Care Provider: Julian Marc MD This is a 75-year-old male with past medical history of chronic BPH, multiple UTIs, hyperlipidemia that presents with altered mental status. Patient is a limited historian and he has a somewhat bizarre affect. Per ER physician, patient was brought in by a neighbor because he was "just not acting". The patient himself understands that he is here in the hospital and that he was brought in for this reason. He notes that he will occasionally see "patterns on the wall that are not there" but denies any other visual hallucinations. He denies any fever or chills. He denies any other symptoms such as nausea, vomiting, diarrhea, or constipation. He did have a conversation about the patient's alcohol consumption. He tells me he did not have any alcohol today but over the past 48 hours he is consumed approximately 1.5 bottles of hard liquor mixed with water. It is difficult for him to quantify further. At time my evaluation, patient is in no acute cardiopulmonary distress. He seemed to be calm and was asking for his bottle of water on the chair. Patient volunteered no other complaints. Allergies Allergy/AdvReac Type Severity Reaction Status Date / Time No Known Allergies Allergy Verified 09/17/20 10:00 Home Medications Medication Instructions Recorded Confirmed Type cholecalciferol (vitamin D3) 25 1,000 unit PO DAILY 12/11/17 09/28/20 History mcg (1,000 unit) tablet multivitamin 1 tab PO DAILY 08/22/18 09/28/20 History diltiazem HCl 120 mg capsule,24 120 mg PO DAILY #90 cap 12/04/19 09/28/20 Rx hr,extended release (Taztia XT) potassium chloride 20 mEq 20 meq PO DAILY #90 tab 12/04/19 09/28/20 Rx tablet,extended release(part/cryst) apixaban 5 mg tablet (Eliquis) 5 mg PO BID #180 tab 03/03/20 09/28/20 Rx vitamin B complex 1 tab PO DAILY 04/12/20 09/28/20 History alfuzosin 10 mg tablet,extended 10 mg PO DAILY #30 tab 08/13/20 09/28/20 Rx release 24 hr (Uroxatral) dutasteride 0.5 mg capsule 0.5 mg PO DAILY #90 cap 08/13/20 09/28/20 Rx (Avodart) glucosamine-chondroitin 500 mg-400 1 tab PO DAILY tab 09/14/20 09/28/20 History mg tablet Past Med/Surg History Medical History Alcohol overdose Atrial flutter BPH (benign prostatic hyperplasia) Carotid artery plaque Dysuria Elevated LFTs History of SCC (squamous cell carcinoma) of skin Hypertension Hypokalemia Scrotal lesion SIRS (systemic inflammatory response syndrome) Skin abscess Tinea pedis Surgical History History of appendectomy History of epidermal inclusion cyst excision Family History Mother Alzheimer disease Hearing loss Father Brain tumor Stroke Brother Cerebral atherosclerosis Stroke Denies family history of Colon cancer Ovarian cancer Prostate cancer Myocardial infarction Breast cancer Social History Smoking Status: Current every day smoker packs per day: 1; Years Smoked: 40; Cigarettes Per Day: 10; Second Hand Exposure: Yes; Hx Alcohol Use: Yes Alcohol type: beer and hard liquor Alcohol Intake Frequency Comment: 15 beers/drinks daily Hx Substance Use: No Preferred Language: Greenlandic Communication Ability: Effective Visual Impairment: No Limitations Hearing Ability: Normal Php Mysql Developer Required: No Beliefs That Will Affect Care: None marital status: Current Living Situation: Alone current occupational status: retired Feels Safe at Home: Yes Childhood Exposure to Second-Hand Smoke: Yes Dental Care, Regularly: No Physical Activity Frequency: 3-4 Times per Week Seatbelt Use: always Sunscreen Use: No Assistive Devices: Glasses Review of Systems Constitutional: no fever, no chills, no weakness, no weight loss and no weight gain Eyes: as per Subjective / HPI Respiratory: no cough, no chest congestion, no dyspnea and no dyspnea on exertion Cardiovascular: no chest pain, no orthopnea, no palpitations, no lightheadedness and no edema Gastrointestinal: no abdominal pain, no nausea, no vomiting, no constipation and no diarrhea/loose stools Musculoskeletal: no back pain, no neck pain, no joint pain, no stiffness and no myalgia Integumentary: no rash Neurologic: + confusion; no gait abnormality, no unsteadiness, no falls and no generalized weakness Psychiatric: + behavioral changes and + visual hallucinations Physical Exam Constitutional: cooperative; no acute distress Neck: trachea midline, no thyromegaly Respiratory: normal respiratory effort Auscultation: lungs clear to auscultation bilaterally; no crackles, no rales, no rhonchi and no wheezes Cardiovascular: Rate/Rhythm: regular rate and regular rhythm Heart Sounds: normal S1 and normal S2 Gastrointestinal (Abdomen): Inspection/Auscultation: abdomen normal to inspection Percussion/Palpation: abdomen soft; abdomen nontender, no guarding, abdomen not rigid and no hepatosplenomegaly Skin: no rashes, warm and dry Results & Data Results & Data ([facility]) Vital Signs (Past 12 Hours) Vital Signs Temp Pulse Pulse Resp BP BP Pulse Ox 09/28/20 14:02 87 16 170/91 H 95 09/28/20 11:07 91 H 17 175/104 H 95 09/28/20 09:41 94 09/28/20 09:09 86 16 161/88 H 95 09/28/20 08:56 80 17 161/88 H 94 09/28/20 07:37 36.1 C L 92 H 18 151/93 H 94 Laboratory Results Laboratory Results WBC 8.79 K/uL (4.8-10.8) 09/28/20 10:13 RBC 4.42 M/uL (4.7-6.1) L 09/28/20 10:13 Hgb 15.2 g/dL (14.0-18.0) 09/28/20 10:13 Hct 43.7 % (42-52) 09/28/20 10:13 MCV 98.9 fL (80-100) 09/28/20 10:13 MCH 34.4 pg (25-34) H 09/28/20 10:13 MCHC 34.8 g/dL (32-36) 09/28/20 10:13 RDW Std Deviation 51.1 fL (36.4-46.3) H 09/28/20 10:13 RDW Coeff of Randy 14.2 % (11.5-14.5) 09/28/20 10:13 Plt Count 161 K/uL (130-400) 09/28/20 10:13 MPV 9.9 fL (7.4-10.4) 09/28/20 10:13 Immature Gran % (Auto) 0.3 % 09/28/20 10:13 Neut % (Auto) 84.0 % 09/28/20 10:13 Lymph % (Auto) 10.1 % 09/28/20 10:13 [place] % (Auto) 4.9 % 09/28/20 10:13 Eos % (Auto) 0.5 % 09/28/20 10:13 Baso % (Auto) 0.2 % 09/28/20 10:13 Neut # (Auto) 7.38 K/uL (1.4-6.5) H 09/28/20 10:13 Lymph # (Auto) 0.89 K/uL (1.2-3.4) L 09/28/20 10:13 [place] # (Auto) 0.43 K/uL (0.11-0.59) 09/28/20 10:13 Eos # (Auto) 0.04 K/uL (0-0.5) 09/28/20 10:13 Baso # (Auto) 0.02 K/uL (0-0.2) 09/28/20 10:13 Immature Gran # (Auto) 0.03 K/uL (0.00-0.02) H 09/28/20 10:13 Sodium 140 mmol/L (136-145) 09/28/20 10:13 Potassium 3.4 mmol/L (3.5-5.1) L 09/28/20 10:13 Chloride 105 mmol/L (98-107) 09/28/20 10:13 Carbon Dioxide 26 mmol/L (21-32) 09/28/20 10:13 Anion Gap 9.0 (3-11) 09/28/20 10:13 BUN 11 mg/dl (7-18) 09/28/20 10:13 Creatinine 0.81 mg/dl (0.6-1.4) 09/28/20 10:13 Est Cr Clr Drug Dosing 73.8 ml/min 09/28/20 10:13 Est GFR ( Amer) 101.5 ml/min 09/28/20 10:13 Est GFR (Non-Af Amer) 87.6 ml/min 09/28/20 10:13 BUN/Creatinine Ratio 13.9 (10-20) 09/28/20 10:13 Glucose 113 mg/dl (70-99) H 09/28/20 10:13 Lactate 2.5 mmol/L (0.4-2.0) H* 09/28/20 13:18 Calcium 8.8 mg/dl (8.5-10.1) 09/28/20 10:13 Magnesium 1.9 mg/dl (1.8-2.4) 09/28/20 10:13 Total Bilirubin 0.8 mg/dl (0.2-1) 09/28/20 10:13 AST 36 U/L (15-37) 09/28/20 10:13 ALT 45 U/L (12-78) 09/28/20 10:13 Alkaline Phosphatase 80 U/L (45-117) 09/28/20 10:13 Troponin I < 0.015 ng/ml (0-0.045) 09/28/20 10:13 Total Protein 8.1 gm/dl (6.4-8.2) 09/28/20 10:13 Albumin 4.5 gm/dl (3.4-5.0) 09/28/20 10:13 Globulin 3.6 gm/dl (2.5-4.0) 09/28/20 10:13 Albumin/Globulin Ratio 1.3 (0.9-2) 09/28/20 10:13 TSH 0.869 uIu/ml (0.300-4.500) 09/28/20 10:13 Urine Color Yellow 09/28/20 08:55 Urine Appearance Clear (Clear) 09/28/20 08:55 Urine pH 6.5 (4.5-7.5) 09/28/20 08:55 Ur Specific [place] 1.008 (1.000-1.030) 09/28/20 08:55 Urine Protein Trace (Negative) H 09/28/20 08:55 Urine Glucose (UA) Negative (Negative) 09/28/20 08:55 Urine Ketones Negative (Negative) 09/28/20 08:55 Urine Blood 2+ (Negative) H 09/28/20 08:55 Urine Nitrite Negative (Negative) 09/28/20 08:55 Urine Bilirubin Negative (Negative) 09/28/20 08:55 Urine Urobilinogen Negative (Negative) 09/28/20 08:55 Ur Leukocyte Esterase 3+ (Negative) H 09/28/20 08:55 Urine WBC (Auto) >30 /hpf (0-5) H 09/28/20 08:55 Urine RBC (Auto) 5-10 /hpf (0-4) H 09/28/20 08:55 U Hyaline Cast (Auto) 1-5 /lpf (0-5) 09/28/20 08:55 U Epithel Cells (Auto) 20-30 /lpf (0-5) H 09/28/20 08:55 Urine Bacteria (Auto) 1+ (Negative) H 09/28/20 08:55 Urine Yeast Not Reportable 09/28/20 08:55 Ethyl Alcohol mg/dL 31.0 mg/dl (0-3) H 09/28/20 10:44 COVID-19 Eval Order Covid19 at [facility] 09/28/20 11:24 SARS-CoV-2 (PCR) NEGATIVE (Negative) 09/28/20 11:24 Impressions Chest X-Ray 09/28/20 09:41 XR chest 1V portable CLINICAL HISTORY: weakness COMPARISON STUDY: Chest CT March 13, 2018. FINDINGS: Lung volumes are normal. Right apical opacity is unchanged and represents scarring. There are old left rib fractures. There is no pneumothorax or pleural effusion. Cardiomediastinal silhouette is stable. Appearance of the chest is unchanged. IMPRESSION: No acute cardiopulmonary findings. No change in appearance of the chest. ACT 112: Negative or not required by law. Electronically signed by: Johnnie Boswell M.D. 09/28/2020 10:[address] 09/28/20 10:42 CT head/brain wo con CLINICAL HISTORY: 75 years-old Male with AMS. Acutely altered mental status TECHNIQUE: Multiple axial CT images of the head were obtained without contrast. A dose lowering technique was utilized adhering to the principles of ALARA. CT DOSE: 788.63 mGycm COMPARISON: Head CT 06/18/2020 FINDINGS: No acute intracranial hemorrhage, midline shift, intracranial mass, hydrocephalus, territorial ischemia or abnormal extra-axial collection. Age- related involutional changes. Mild white matter hypodensities suggestive of chronic microvascular ischemic disease. Cerebral vascular calcifications. The calvarium is intact. The paranasal sinuses, mastoid air cells, and middle ear cavities are clear. IMPRESSION: No acute intracranial abnormality. ACT 112: Negative or not required by law. The above report was generated using voice recognition software. It may contain grammatical, syntax or spelling errors. Electronically signed by: Pedro Hanks M.D. 09/28/2020 11:15 AM PG Care Time/CCT Total # of Minutes Spent Total Time Spent with Patient: Total time spent is greater than 50% in coordination of care (as documented) at patient's floor/unit and/or counseling patient: Coding Level of Care Code INT OBSERVATION CARE 70M LVL 3 Diagnoses BPH (benign prostatic hyperplasia) N40.0 Alcohol abuse F10.10 Essential hypertension I10 Hyperlipidemia E78.5 Afib I48.91 Altered mental status R41.82
[2020-09-28] MEDS ORDERED: LORazepam 1 MG TAB PO PRN (16:56)
[2020-09-28] MEDS ORDERED: LORazepam 1 MG/2 ML VIAL IV PRN (16:56)
[2020-09-28] MEDS ORDERED: ACETAMINOPHEN 325 MG TAB PO PRN (16:56)
--- NOTE | 2020-09-28 18:06 | Emergency Department Note ---
History of Present Illness General Chief complaint: Urinary Symptoms Stated complaint: FEELING OFF,HX OF THIS ASSOCIATED WITH UTI Time Seen by Provider: 09/28/20 09:38 Source: patient and RN notes reviewed Mode of arrival: ambulatory Limitations: altered mental status (memory deficit/confusion) History of Present Illness Provider complaint: Altered mental status, feels off This patient is a 75-year-old male who presents to the emergency department with complaints of concerns over a UTI as he is feeling "not quite right." He states his neighbor believes he is not as sharp as usual mentally. Patient states this has happened before when he has had urinary tract infections. He states he is followed by urology for his prostate. He was scheduled for a TURP in the near future. Patient states his urologist is "not convinced" that these are actually UTIs. Patient is on anticoagulation secondary to history of atrial fibrillation. Patient also notes that he drinks "6 to 8 ounces of hard liquor a day." He states he does not believe it is a problem as he does not wake up with a hangover. He denies any recent falls or head injuries. He denies any recent fevers, chills, headache, vomiting or diarrhea. He denies any chest pain, shortness of breath or difficulty with exertion. Home Medications Medication Instructions Recorded Confirmed Type cholecalciferol (vitamin D3) 25 1,000 unit PO DAILY 12/11/17 09/28/20 History mcg (1,000 unit) tablet multivitamin 1 tab PO DAILY 08/22/18 09/28/20 History diltiazem HCl 120 mg capsule,24 120 mg PO DAILY #90 cap 12/04/19 09/28/20 Rx hr,extended release (Taztia XT) potassium chloride 20 mEq 20 meq PO DAILY #90 tab 12/04/19 09/28/20 Rx tablet,extended release(part/cryst) apixaban 5 mg tablet (Eliquis) 5 mg PO BID #180 tab 03/03/20 09/28/20 Rx vitamin B complex 1 tab PO DAILY 04/12/20 09/28/20 History alfuzosin 10 mg tablet,extended 10 mg PO DAILY #30 tab 08/13/20 09/28/20 Rx release 24 hr (Uroxatral) dutasteride 0.5 mg capsule 0.5 mg PO DAILY #90 cap 08/13/20 09/28/20 Rx (Avodart) glucosamine-chondroitin 500 mg-400 1 tab PO DAILY tab 09/14/20 09/28/20 History mg tablet Allergies Allergy/AdvReac Type Severity Reaction Status Date / Time No Known Allergies Allergy Verified 09/17/20 10:00 Past Med/Surg History Medical History Alcohol overdose Atrial flutter BPH (benign prostatic hyperplasia) Carotid artery plaque Dysuria Elevated LFTs History of SCC (squamous cell carcinoma) of skin Hypertension Hypokalemia Scrotal lesion SIRS (systemic inflammatory response syndrome) Skin abscess Tinea pedis Surgical History History of appendectomy History of epidermal inclusion cyst excision Family History Mother Alzheimer disease Hearing loss Father Brain tumor Stroke Brother Cerebral atherosclerosis Stroke Denies family history of Colon cancer Ovarian cancer Prostate cancer Myocardial infarction Breast cancer Social History Smoking Status: Current every day smoker packs per day: 1; Years Smoked: 40; Cigarettes Per Day: half pack; Second Hand Exposure: Yes; Do You Dip or Chew Tobacco: No; Tobacco Cessation Education Requested by Patient: No Hx Alcohol Use: Yes Alcohol type: beer and hard liquor Alcohol Intake Frequency Comment: 15 beers/drinks daily Hx Substance Use: No Preferred Language: Faroese Communication Ability: Effective Visual Impairment: No Limitations Hearing Ability: Normal Collaborative Physician Required: No Beliefs That Will Affect Care: None marital status: Current Living Situation: Alone current occupational status: retired Feels Safe at Home: Yes Safety Concerns: Feels Safe At This Time Childhood Exposure to Second-Hand Smoke: Yes Dental Care, Regularly: No Physical Activity Frequency: 3-4 Times per Week Seatbelt Use: always Sunscreen Use: No Assistive Devices: Denture - Upper and Glasses Review of Systems See HPI for pertinent positives & negatives. and A total of 10 systems reviewed and were otherwise negative Physical Exam Vital Signs Vital Signs - 24 hr 09/28/20 07:37 09/28/20 08:56 09/28/20 09:09 Temperature 36.1 C L Temperature Source Temporal Artery Scan Pulse Rate 92 H 80 Pulse Rate [Finger] 86 Pulse Rate from SpO2 Sensor 83 Respiratory Rate 18 17 16 Respiratory Effort / Characteristics Non-Labored Spontaneous Respiratory Depth Normal Respiratory Pattern Regular Blood Pressure 151/93 H 161/88 H Blood Pressure [Left Arm] 161/88 H Blood Pressure Mean 112 112 Blood Pressure Mean [Left Arm] 112 Pulse Oximetry 94 94 95 Oxygen Delivery Method Room Air Room Air Sepsis Recent Fever Within 48 Hours No Sepsis New/Unexplained Change in Mental Status N/A Sepsis Action Taken by Nursing No Action Required 09/28/20 09:41 09/28/20 11:07 09/28/20 11:30 Temperature Temperature Source Pulse Rate 91 H 86 Pulse Rate [Finger] Pulse Rate from SpO2 Sensor 91 H 87 Respiratory Rate 17 21 Respiratory Effort / Characteristics Respiratory Depth Respiratory Pattern Blood Pressure 175/104 H 155/97 H Blood Pressure [Left Arm] Blood Pressure Mean 127 116 Blood Pressure Mean [Left Arm] Pulse Oximetry 94 95 94 Oxygen Delivery Method Room Air Sepsis Recent Fever Within 48 Hours Sepsis New/Unexplained Change in Mental Status Sepsis Action Taken by Nursing 09/28/20 12:00 09/28/20 12:30 09/28/20 13:00 Temperature Temperature Source Pulse Rate 85 81 103 H Pulse Rate [Finger] Pulse Rate from SpO2 Sensor 85 82 101 H Respiratory Rate 17 23 18 Respiratory Effort / Characteristics Respiratory Depth Respiratory Pattern Blood Pressure 170/95 H 172/96 H 170/97 H Blood Pressure [Left Arm] Blood Pressure Mean 120 121 121 Blood Pressure Mean [Left Arm] Pulse Oximetry 94 94 96 Oxygen Delivery Method Sepsis Recent Fever Within 48 Hours Sepsis New/Unexplained Change in Mental Status Sepsis Action Taken by Nursing 09/28/20 13:30 09/28/20 14:00 09/28/20 14:02 Temperature Temperature Source Pulse Rate 86 87 Pulse Rate [Finger] 87 Pulse Rate from SpO2 Sensor 86 87 Respiratory Rate 17 15 16 Respiratory Effort / Characteristics Respiratory Depth Respiratory Pattern Blood Pressure 154/94 H 170/91 H Blood Pressure [Left Arm] 170/91 H Blood Pressure Mean 114 117 Blood Pressure Mean [Left Arm] 117 Pulse Oximetry 93 95 95 Oxygen Delivery Method Room Air Sepsis Recent Fever Within 48 Hours Sepsis New/Unexplained Change in Mental Status Sepsis Action Taken by Nursing Vital signs reviewed. General: Generally well-appearing 75-year-old male, in no significant distress. HEENT: No scleral icterus, PERRLA, neck supple. Atraumatic. Cardiovascular: Regular rate and rhythm, no extra sounds. Pulmonary: Clear to auscultation bilaterally, normal work of breathing. Abdomen: Soft, nontender, nondistended, positive bowel sounds. Musculoskeletal: Atraumatic, no peripheral edema. Neurologic: Patient awake alert and answers most questions appropriately but is pleasantly confused/stumbles over his words, full strength in all 4 extremities. Cranial nerves 2 through 12 grossly intact. Skin: Warm, dry, no rash Course Administered Medications Discontinued Medications Sodium Chloride (Nss 1000ml) 1,000 mls @ 125 mls/hr IV .Q8H JANE Stop: 09/28/20 17:44 Last Admin: 09/28/20 11:28 Dose: 125 mls/hr Documented by: [id number] Ceftriaxone Sodium (Rocephin) 1,000 mg in 50 mls @ 100 mls/hr IV NOW STA Stop: 09/28/20 10:21 Last Infusion: 09/28/20 12:17 Dose: 0 mls/hr Documented by: [id number] Admin: 09/28/20 11:28 Dose: 100 mls/hr Documented by: [id number] Sodium Chloride (Nss 1000ml) 1,000 mls @ 999 mls/hr IV .Q1H1M ONE Stop: 09/28/20 12:29 Last Infusion: 09/28/20 15:00 Dose: 0 mls/hr Documented by: [id number] Admin: 09/28/20 12:17 Dose: 999 mls/hr Documented by: [id number] Lorazepam (Ativan) 2 mg in 4 mls @ 4 mls/min IV NOW STA Stop: 09/28/20 13:02 Last Admin: 09/28/20 14:03 Dose: 4 mls/min Documented by: [id number] Medical Decision Making Differential Diagnosis Infection, dehydration, metabolic abnormality, hypo/hyperglycemia, electrolyte disturbance, anemia, hypoxia, cardiac sources, intracerebral event, toxicologic, neurologic, as well as other pathologies. Medical Records Attestation: I reviewed the patient's medical records. Home Medications Current Medication List: was personally reviewed by me Laboratory Data Attestation: I reviewed the patient's lab results. Result diagrams: 09/28/20 10:13 09/28/20 10:13 Lab Results 09/28/20 09/28/20 09/28/20 Range/Units 08:55 10:13 10:13 WBC 8.79 (4.8-10.8) K/uL RBC 4.42 L (4.7-6.1) M/uL Hgb 15.2 (14.0-18.0) g/dL Hct 43.7 (42-52) % MCV 98.9 (80-100) fL MCH 34.4 H (25-34) pg MCHC 34.8 (32-36) g/dL RDW Std Deviation 51.1 H (36.4-46.3) fL RDW Coeff of Randy 14.2 (11.5-14.5) % Plt Count 161 (130-400) K/uL MPV 9.9 (7.4-10.4) fL Immature Gran % (Auto) 0.3 % Neut % (Auto) 84.0 % Lymph % (Auto) 10.1 % [place] % (Auto) 4.9 % Eos % (Auto) 0.5 % Baso % (Auto) 0.2 % Neut # (Auto) 7.38 H (1.4-6.5) K/uL Lymph # (Auto) 0.89 L (1.2-3.4) K/uL [place] # (Auto) 0.43 (0.11-0.59) K/uL Eos # (Auto) 0.04 (0-0.5) K/uL Baso # (Auto) 0.02 (0-0.2) K/uL Immature Gran # (Auto) 0.03 H (0.00-0.02) K/uL Sodium 140 (136-145) mmol/L Potassium 3.4 L (3.5-5.1) mmol/L Chloride 105 (98-107) mmol/L Carbon Dioxide 26 (21-32) mmol/L Anion Gap 9.0 (3-11) BUN 11 (7-18) mg/dl Creatinine 0.81 (0.6-1.4) mg/dl Est Cr Clr Drug Dosing 73.8 ml/min Est GFR ( Amer) 101.5 ml/min Est GFR (Non-Af Amer) 87.6 ml/min BUN/Creatinine Ratio 13.9 (10-20) Glucose 113 H (70-99) mg/dl Lactate (0.4-2.0) mmol/L Calcium 8.8 (8.5-10.1) mg/dl Magnesium 1.9 (1.8-2.4) mg/dl Total Bilirubin 0.8 (0.2-1) mg/dl AST 36 (15-37) U/L ALT 45 (12-78) U/L Alkaline Phosphatase 80 (45-117) U/L Troponin I < 0.015 (0-0.045) ng/ml Total Protein 8.1 (6.4-8.2) gm/dl Albumin 4.5 (3.4-5.0) gm/dl Globulin 3.6 (2.5-4.0) gm/dl Albumin/Globulin Ratio 1.3 (0.9-2) TSH 0.869 (0.300-4.500) uIu/ml Urine Color Yellow Urine Appearance Clear (Clear) Urine pH 6.5 (4.5-7.5) Ur Specific [place] 1.008 (1.000-1.030) Urine Protein Trace H (Negative) Urine Glucose (UA) Negative (Negative) Urine Ketones Negative (Negative) Urine Blood 2+ H (Negative) Urine Nitrite Negative (Negative) Urine Bilirubin Negative (Negative) Urine Urobilinogen Negative (Negative) Ur Leukocyte Esterase 3+ H (Negative) Urine WBC (Auto) >30 H (0-5) /hpf Urine RBC (Auto) 5-10 H (0-4) /hpf U Hyaline Cast (Auto) 1-5 (0-5) /lpf U Epithel Cells (Auto) 20-30 H (0-5) /lpf Urine Bacteria (Auto) 1+ H (Negative) Urine Yeast Not Reportable Ethyl Alcohol mg/dL (0-3) mg/dl COVID-19 Eval Order SARS-CoV-2 (PCR) (Negative) 09/28/20 09/28/20 09/28/20 Range/Units 10:13 10:44 11:24 WBC (4.8-10.8) K/uL RBC (4.7-6.1) M/uL Hgb (14.0-18.0) g/dL Hct (42-52) % MCV (80-100) fL MCH (25-34) pg MCHC (32-36) g/dL RDW Std Deviation (36.4-46.3) fL RDW Coeff of Randy (11.5-14.5) % Plt Count (130-400) K/uL MPV (7.4-10.4) fL Immature Gran % (Auto) % Neut % (Auto) % Lymph % (Auto) % [place] % (Auto) % Eos % (Auto) % Baso % (Auto) % Neut # (Auto) (1.4-6.5) K/uL Lymph # (Auto) (1.2-3.4) K/uL [place] # (Auto) (0.11-0.59) K/uL Eos # (Auto) (0-0.5) K/uL Baso # (Auto) (0-0.2) K/uL Immature Gran # (Auto) (0.00-0.02) K/uL Sodium (136-145) mmol/L Potassium (3.5-5.1) mmol/L Chloride (98-107) mmol/L Carbon Dioxide (21-32) mmol/L Anion Gap (3-11) BUN (7-18) mg/dl Creatinine (0.6-1.4) mg/dl Est Cr Clr Drug Dosing ml/min Est GFR ( Amer) ml/min Est GFR (Non-Af Amer) ml/min BUN/Creatinine Ratio (10-20) Glucose (70-99) mg/dl Lactate 4.1 H* 4.1 H* (0.4-2.0) mmol/L Calcium (8.5-10.1) mg/dl Magnesium (1.8-2.4) mg/dl Total Bilirubin (0.2-1) mg/dl AST (15-37) U/L ALT (12-78) U/L Alkaline Phosphatase (45-117) U/L Troponin I (0-0.045) ng/ml Total Protein (6.4-8.2) gm/dl Albumin (3.4-5.0) gm/dl Globulin (2.5-4.0) gm/dl Albumin/Globulin Ratio (0.9-2) TSH (0.300-4.500) uIu/ml Urine Color Urine Appearance (Clear) Urine pH (4.5-7.5) Ur Specific [place] (1.000-1.030) Urine Protein (Negative) Urine Glucose (UA) (Negative) Urine Ketones (Negative) Urine Blood (Negative) Urine Nitrite (Negative) Urine Bilirubin (Negative) Urine Urobilinogen (Negative) Ur Leukocyte Esterase (Negative) Urine WBC (Auto) (0-5) /hpf Urine RBC (Auto) (0-4) /hpf U Hyaline Cast (Auto) (0-5) /lpf U Epithel Cells (Auto) (0-5) /lpf Urine Bacteria (Auto) (Negative) Urine Yeast Ethyl Alcohol mg/dL 31.0 H (0-3) mg/dl COVID-19 Eval Order SARS-CoV-2 (PCR) (Negative) 09/28/20 09/28/20 09/28/20 Range/Units 11:24 11:24 13:18 WBC (4.8-10.8) K/uL RBC (4.7-6.1) M/uL Hgb (14.0-18.0) g/dL Hct (42-52) % MCV (80-100) fL MCH (25-34) pg MCHC (32-36) g/dL RDW Std Deviation (36.4-46.3) fL RDW Coeff of Randy (11.5-14.5) % Plt Count (130-400) K/uL MPV (7.4-10.4) fL Immature Gran % (Auto) % Neut % (Auto) % Lymph % (Auto) % [place] % (Auto) % Eos % (Auto) % Baso % (Auto) % Neut # (Auto) (1.4-6.5) K/uL Lymph # (Auto) (1.2-3.4) K/uL [place] # (Auto) (0.11-0.59) K/uL Eos # (Auto) (0-0.5) K/uL Baso # (Auto) (0-0.2) K/uL Immature Gran # (Auto) (0.00-0.02) K/uL Sodium (136-145) mmol/L Potassium (3.5-5.1) mmol/L Chloride (98-107) mmol/L Carbon Dioxide (21-32) mmol/L Anion Gap (3-11) BUN (7-18) mg/dl Creatinine (0.6-1.4) mg/dl Est Cr Clr Drug Dosing ml/min Est GFR ( Amer) ml/min Est GFR (Non-Af Amer) ml/min BUN/Creatinine Ratio (10-20) Glucose (70-99) mg/dl Lactate 2.5 H* (0.4-2.0) mmol/L Calcium (8.5-10.1) mg/dl Magnesium (1.8-2.4) mg/dl Total Bilirubin (0.2-1) mg/dl AST (15-37) U/L ALT (12-78) U/L Alkaline Phosphatase (45-117) U/L Troponin I (0-0.045) ng/ml Total Protein (6.4-8.2) gm/dl Albumin (3.4-5.0) gm/dl Globulin (2.5-4.0) gm/dl Albumin/Globulin Ratio (0.9-2) TSH (0.300-4.500) uIu/ml Urine Color Urine Appearance (Clear) Urine pH (4.5-7.5) Ur Specific [place] (1.000-1.030) Urine Protein (Negative) Urine Glucose (UA) (Negative) Urine Ketones (Negative) Urine Blood (Negative) Urine Nitrite (Negative) Urine Bilirubin (Negative) Urine Urobilinogen (Negative) Ur Leukocyte Esterase (Negative) Urine WBC (Auto) (0-5) /hpf Urine RBC (Auto) (0-4) /hpf U Hyaline Cast (Auto) (0-5) /lpf U Epithel Cells (Auto) (0-5) /lpf Urine Bacteria (Auto) (Negative) Urine Yeast Ethyl Alcohol mg/dL (0-3) mg/dl COVID-19 Eval Order Covid19 at [facility] SARS-CoV-2 (PCR) NEGATIVE (Negative) Imaging Data Radiologist's Impression: Chest X-Ray 09/28/20 09:41 XR chest 1V portable CLINICAL HISTORY: weakness COMPARISON STUDY: Chest CT March 13, 2018. FINDINGS: Lung volumes are normal. Right apical opacity is unchanged and represents scarring. There are old left rib fractures. There is no pneumothorax or pleural effusion. Cardiomediastinal silhouette is stable. Appearance of the chest is unchanged. IMPRESSION: No acute cardiopulmonary findings. No change in appearance of the chest. ACT 112: Negative or not required by law. Electronically signed by: Johnnie Boswell M.D. 09/28/2020 10:[address] 09/28/20 10:42 CT head/brain wo con CLINICAL HISTORY: 75 years-old Male with AMS. Acutely altered mental status TECHNIQUE: Multiple axial CT images of the head were obtained without contrast. A dose lowering technique was utilized adhering to the principles of ALARA. CT DOSE: 788.63 mGycm COMPARISON: Head CT 06/18/2020 FINDINGS: No acute intracranial hemorrhage, midline shift, intracranial mass, hydrocephalus, territorial ischemia or abnormal extra-axial collection. Age- related involutional changes. Mild white matter hypodensities suggestive of chronic microvascular ischemic disease. Cerebral vascular calcifications. The calvarium is intact. The paranasal sinuses, mastoid air cells, and middle ear cavities are clear. IMPRESSION: No acute intracranial abnormality. ACT 112: Negative or not required by law. The above report was generated using voice recognition software. It may contain grammatical, syntax or spelling errors. Electronically signed by: Pedro Hanks M.D. 09/28/2020 11:15 AM ECG Data Attestation: I personally reviewed and interpreted this ECG as follows: Indication: + chest pain Rate (beats per minute): 86 Rhythm: + normal sinus ECG Intervals/blocks: + Normal QRS and + Normal QT-c ECG [place]: + Normal ECG ST segments: + Normal ST segments ECG Findings: no PACs or no PVCs Blood Pressure Blood Pressure Findings: Elevated blood pressure Blood Pressure Disposition: further management by hospitalist [id number] Narrative This patient was evaluated and appeared to be in no significant distress. IV access was obtained and laboratory work was drawn. An order for cardiac tube was placed and patient is noted to be in a normal sinus rhythm at 91 bpm. Patient is noted to be hypertensive. IV fluids were initiated. Patient's lactate is noted to be 4.1. WBC is within normal limits and he is afebrile. Patient's blood alcohol level is 31 at 10:45 AM, indicating he was most likely much more intoxicated hours prior. Patient was hydrated with normal saline solution. Blood cultures were obtained and he was medicated with IV ceftriaxone for presumed UTI although as this may represent an acute on chronic prostatitis. IV Ativan was ordered as he remained CT imaging of the head was performed and is negative for acute intracranial abnormality. Case was discussed with Dr. Celestin of the hospitalist service who will evaluate patient for admission and further management. Patient is aware of the plan and agrees. Impression & Plan Acute alteration in mental status, Alcohol abuse, Acute UTI Discharge Plan Visit Data Chief Complaint: Urinary Symptoms Stated Complaint: FEELING OFF,HX OF THIS ASSOCIATED WITH UTI Discharge Problem: Acute alteration in mental status, Alcohol abuse, Acute UTI Patient Disposition: Admitted As Inpatient Discharge Instructions Interventions: ED Discharge Assessment Last Done: 09/28/20 15:28
[2020-09-28] MEDS: APIXABAN 5 MG TABLET PO SCH (19:58)
[2020-09-29 07:03] LABS: Basophils # (auto) 0.02 K/uL (0-0.2); Basophils % (auto) 0.2 %; Eosinophils # (auto) 0.15 K/uL (0-0.5); Eosinophils % (auto) 1.6 %; Hematocrit (blood only) 43.9 % (42-52); Hemoglobin 15.3 g/dL (14.0-18.0); Immature Granulocytes # (auto) 0.03 K/uL (0.00-0.02); Immature Granulocytes % (auto) 0.3 %; Lymphocytes # (auto) 1.77 K/uL (1.2-3.4); Mean Corpuscular Hemoglobin 34.5 pg (25-34); Mean Corpuscular Hgb Conc 34.9 g/dL (32-36); Mean Corpuscular Volume 98.9 fL (80-100); Mean Platelet Volume 10.5 fL (7.4-10.4); Monocytes # (auto) 0.77 K/uL (0.11-0.59); Monocytes % (auto) 8.3 %; Neutrophils # (auto) 6.57 K/uL (1.4-6.5); Neutrophils % (auto) 70.6 %; Platelet Count 154 K/uL (130-400); RDW Coefficient of Variation 14.1 % (11.5-14.5); RDW Standard Deviation 50.8 fL (36.4-46.3); Red Blood Count 4.44 M/uL (4.7-6.1); White Blood Count 9.31 K/uL (4.8-10.8)
[2020-09-29 07:22] LABS: Estimated Average Glucose 105 mg/dl; Hemoglobin A1C 5.3 % (4.5-5.6)
[2020-09-29 07:51] LABS: Calcium 8.9 mg/dl (8.5-10.1); Creatinine Clr Calc Pharmacy 70.4 ml/min; Est GFR (African American) 99.5 ml/min; Est GFR (Non-African American) 85.8 ml/min; Magnesium 1.7 mg/dl (1.8-2.4); Potassium 3.2 mmol/L (3.5-5.1)
[2020-09-29] MEDS: ALFUZOSIN HCL 10 MG TAB PO SCH (08:58)
[2020-09-29] MEDS: MULTIVITAMIN TAB PO SCH (08:59)
[2020-09-29] MEDS: VITAMIN B COMPLEX TAB PO SCH (08:59)
[2020-09-29] MEDS: CHOLECALCIFEROL 1,000 UNITS 25 MCG TAB PO SCH (08:59)
[2020-09-29] MEDS: dilTIAZem ER 120 MG CAPCR PO SCH (08:59)
[2020-09-29] MEDS: FOLIC ACID 1 MG TAB PO SCH (08:59)
[2020-09-29] MEDS: APIXABAN 5 MG TABLET PO SCH ×2 (08:59→20:00)
[2020-09-29] MEDS ORDERED: POTASSIUM CHLORIDE CRTAB 20 MEQ TABCR PO SCH (09:00)
[2020-09-29] MEDS: THIAMINE HCL 200 MG in SODIUM CHLORIDE 0.9% 50 ML IV SCH (09:01)
--- NOTE | 2020-09-29 09:26 | Urology Consultation ---
Date of Consultation September 29, 2020 Assessment & Plan (1) Acute alteration in mental status: (2) Acute UTI: 75 year old male with multiple comorbidities admitted for altered mental status, alcohol abuse, and suspected acute UTI. - Pt with hx of BPH and incomplete emptying, AMS in setting of possible UTI vs alcoholism - Subjectively improved today - Afebrile, nontoxic, lab work reviewed - creatinine 0.85, WBC 9.31, Hgb 15.3 - UC&S and BCx pending, he was treated with IV Ceftriaxone yesterday - recommend continue while awaiting cultures - Continue dual therapy for BPH - Alfuzosin and Dutasteride - Voiding spontaneously, recommend check PVR with next void and then bladder scan prn - Continue supportive care, antibiotics, and management per primary service - He is pending TURP for treatment of BPH w/ obstruction, will need outpatient follow-up after recovery - Will arrange appropriate outpatient follow-up with our service Thank you for allowing us to participate in the acute care of Mr. Joseph. Please reconsult us with additional questions, concerns or changes in patient st atus. History of Present Illness Reason for Consultation: BPH/prostatitis Requesting Physician: Dr. Pena Attending Physician: Fabián Elam, History of Present Illness 75 year old male with past medical history of atrial fibrillation, hypertension, hyperlipidemia, alcohol abuse, spinal stenosis, BPH with incomplete emptying admitted for altered mental status, alcohol abuse, and suspected acute UTI. Patient is known to our service, follows with Dr. Sow for BPH with incomplete emptying. He presented to [facility] ED on 09/28/20 with c/o "feeling off" and reports this is typically associated with UTI. Afebrile on arrival. Lab work showed creatinine 0.81, WBC 8.79, Hgb 15.2, Lactate 4.1, Ethyl Alcohol 31, COVID testing negative. UA 3+ leukocytes, >30 WBCs, 5-10 RBCs, 20-30 epithelials, 1+ bacteria. Urine and blood cultures obtained and pending. He had CXR and head CT showing no acute findings. He was treated with IV fluids, IV Ceftriaxone and Lorazepam in ED. He was admitted to hospital medicine service for further evaluation and treatment. Our service is consulted for BPH/prostatitis. Chart review: Afebrile Creatinine 0.85 WBC 9.31 UC&S - pending BCx - pending Patient seen and examined at bedside this AM. He is awake and resting in bed. He states he feels better since arrival. He denies hallucinations at present. No pain at present. Denies flank, abdominal or suprapubic pain. He is voiding in urinal. Denies dysuria or hematuria. Feels he empties bladder +/-. No nausea or vomiting. No fever or chills. He is on dual therapy with Dutasteride and Alfu zosin for BPH, pending TURP. No additional concerns today. Allergies Allergy/AdvReac Type Severity Reaction Status Date / Time No Known Allergies Allergy Verified 09/17/20 10:00 Home Medications Medication Instructions Recorded Confirmed Type cholecalciferol (vitamin D3) 25 1,000 unit PO DAILY 12/11/17 09/28/20 History mcg (1,000 unit) tablet multivitamin 1 tab PO DAILY 08/22/18 09/28/20 History diltiazem HCl 120 mg capsule,24 120 mg PO DAILY #90 cap 12/04/19 09/28/20 Rx hr,extended release (Taztia XT) potassium chloride 20 mEq 20 meq PO DAILY #90 tab 12/04/19 09/28/20 Rx tablet,extended release(part/cryst) apixaban 5 mg tablet (Eliquis) 5 mg PO BID #180 tab 03/03/20 09/28/20 Rx vitamin B complex 1 tab PO DAILY 04/12/20 09/28/20 History alfuzosin 10 mg tablet,extended 10 mg PO DAILY #30 tab 08/13/20 09/28/20 Rx release 24 hr (Uroxatral) dutasteride 0.5 mg capsule 0.5 mg PO DAILY #90 cap 08/13/20 09/28/20 Rx (Avodart) glucosamine-chondroitin 500 mg-400 1 tab PO DAILY tab 09/14/20 09/28/20 History mg tablet Patient History Medical History Alcohol overdose Atrial flutter BPH (benign prostatic hyperplasia) Carotid artery plaque Dysuria Elevated LFTs History of SCC (squamous cell carcinoma) of skin Hypertension Hypokalemia Scrotal lesion SIRS (systemic inflammatory response syndrome) Skin abscess Tinea pedis Surgical History History of appendectomy History of epidermal inclusion cyst excision Family History Mother Alzheimer disease Hearing loss Father Brain tumor Stroke Brother Cerebral atherosclerosis Stroke Denies family history of Colon cancer Ovarian cancer Prostate cancer Myocardial infarction Breast cancer Social History Smoking Status: Current every day smoker packs per day: 1; Years Smoked: 40; Cigarettes Per Day: half pack; Second Hand Exposure: Yes; Do You Dip or Chew Tobacco: No; Tobacco Cessation Education Requested by Patient: No Hx Alcohol Use: Yes Alcohol type: beer and hard liquor Alcohol Intake Frequency Comment: 15 beers/drinks daily Hx Substance Use: No Preferred Language: Lithuanian Communication Ability: Effective Visual Impairment: No Limitations Hearing Ability: Normal Director Of Pediatric Rehabilitation Required: No Beliefs That Will Affect Care: None marital status: Current Living Situation: Alone current occupational status: retired How many Children do You have: 1 Feels Safe at Home: Yes Safety Concerns: Feels Safe At This Time Childhood Exposure to Second-Hand Smoke: Yes Dental Care, Regularly: No Physical Activity Frequency: 3-4 Times per Week Seatbelt Use: always Sunscreen Use: No Assistive Devices: Denture - Upper and Glasses Review of Systems Constitutional: as per Subjective / HPI Eyes: as per Subjective / HPI Ear, Nose, Mouth, Throat: no problem reported Gastrointestinal: as per Subjective / HPI Genitourinary: + as per Subjective / HPI Neurologic: as per Subjective / HPI Psychiatric: as per Subjective / HPI Physical Exam Constitutional: well developed and well nourished; no acute distress and not ill appearing Respiratory: normal respiratory effort and able to speak in complete sentences; no respiratory distress and no labored breathing Cardiovascular: Extremities: no pedal edema Gastrointestinal (Abdomen): Inspection/Auscultation: abdomen normal to inspection; abdomen not distended Percussion/Palpation: abdomen soft; abdomen nontender and no guarding Musculoskeletal: Head/Neck/Chest: normocephalic and head atraumatic Neurologic: moves all extremities and awake Psychiatric: Orientation: alert and oriented x 3 slow to respond at times Genitourinary: Voiding in urinal, urine is clear concentrated yellow Results & Data ([facility]) Vital Signs (Past 12 Hours) Vital Signs Temp Pulse Pulse Resp BP Pulse Ox 09/29/20 07:42 37 C 90 18 163/99 H 96 09/29/20 07:00 80 09/29/20 03:35 36.8 C 81 20 166/94 H 97 09/28/20 23:48 71 09/28/20 23:23 36.8 C 78 20 172/88 H 94 PG Care Time/CCT Total # of Minutes Spent Total Time Spent with Patient: Total time spent is greater than 50% in coordination of care (as documented) at patient's floor/unit and/or counseling patient: Coding Level of Care Code 03150 Office/OBS Consult Lvl 3 Diagnoses Acute UTI N39.0 Acute alteration in mental status R41.82
--- NOTE | 2020-09-29 13:42 | Hospitalist Progress Note ---
Date of Service September 29, 2020 Assessment & Plan (1) Altered mental status: Plan: suspect combination of UTI due to urinary retention but also excessive alcohol intake AAOx3 today, ambulating in hallway with me eating well treating UTI with Rocephin, continue mayberry placed for urinary retention PT evaluation should be stable for discharge tomorrow (2) BPH (benign prostatic hyperplasia): Plan: Suspect patient's weakly positive UA may be chronic secondary to prostatitis/BPH Continue alfuzosin and dutasteride mayberry placed for retention, will likely go home with mayberry plan for TURP this month (3) Alcohol abuse: Plan: Patient currently showing no outward signs of alcohol withdrawal alcohol withdrawal scale, treat with benzos as needed P.o. repletion of thiamine and folate he drinks at least 3 drinks a day, usually more, can drink a whole fifth sometimes asked him to drink less (4) Essential hypertension: Plan: Elevated blood pressure, on only Cardizem at home. likely up from lack of alcohol (5) Hyperlipidemia: Plan: No lipid-lowering medication noted in his outpatient medications Check fasting lipid panel (6) Afib: Plan: Patient is on Eliquis and Cardizem, will continue these (7) Acute UTI: Plan: no significant growth on urine culture set up for UTI due to retention continue Rocephin for now Admission and Anticipated Discharge Date Admission Date: September 28, 2020 Subjective patient feeling well, wondering why he needs red socks, says he feels much better, no dizziness or unsteadiness I walked with him in the hallway, he did quite well, asked RN to place green socks he is mentating normally, says he gets confused when he has a UTI discussed that urine culture not growing significant bacteria later in the day he had post void residual of 500cc, urology ordered mayberry they have plans to perform TURP on 10/09 he admits to have 3 drinks a day, sometimes more, some days he can drink a fifth discussed that he needs to drink far less likely okay for discharge tomorrow Review of Systems Review of Systems: All systems reviewed & are unremarkable except as noted in Subjective Physical Exam Constitutional: well developed, well nourished and comfortable; no acute distress, not ill appearing and no altered mental status Neck: trachea midline, no thyromegaly Respiratory: normal respiratory effort, lungs clear to auscultation Cardiovascular: RRR, no murmur, no edema Gastrointestinal (Abdomen): normal bowel sounds, soft, nontender, no hepatosplenomegaly Musculoskeletal: no cyanosis or clubbing, extremities motor strength 5/5 Skin: no rashes, warm and dry Neurologic: patellar DTR's 2+ bilat, sensation intact and PERRL, EOMI, accommodation nl, no face palsy, no dysarthria Psychiatric: A+Ox3, euthymic affect Results & Data Results & Data ([facility]) Vital Signs (Past 12 Hours) Vital Signs Temp Pulse Pulse Resp BP Pulse Ox 09/29/20 11:24 36.7 C 85 18 173/89 H 94 09/29/20 07:42 37 C 90 18 163/99 H 96 09/29/20 07:00 80 09/29/20 03:35 36.8 C 81 20 166/94 H 97 Laboratory Results Laboratory Results - last 24 hr 09/28/20 09/28/20 09/29/20 11:24 13:18 06:36 WBC 9.31 RBC 4.44 L Hgb 15.3 Hct 43.9 MCV 98.9 MCH 34.5 H MCHC 34.9 RDW Std Deviation 50.8 H RDW Coeff of Randy 14.1 Plt Count 154 MPV 10.5 H Immature Gran % (Auto) 0.3 Neut % (Auto) 70.6 Lymph % (Auto) 19.0 Norton % (Auto) 8.3 Eos % (Auto) 1.6 Baso % (Auto) 0.2 Neut # (Auto) 6.57 H Lymph # (Auto) 1.77 Norton # (Auto) 0.77 H Eos # (Auto) 0.15 Baso # (Auto) 0.02 Immature Gran # (Auto) 0.03 H Sodium Potassium Chloride Carbon Dioxide Anion Gap BUN Creatinine Est Cr Clr Drug Dosing Est GFR ( Amer) Est GFR (Non-Af Amer) BUN/Creatinine Ratio Glucose Estimat Average Glucose Hemoglobin A1c Lactate 2.5 H* Calcium Magnesium Triglycerides Cholesterol LDL Cholesterol, Calc VLDL Cholesterol, Calc HDL Cholesterol Cholesterol/HDL Ratio SARS-CoV-2 (PCR) NEGATIVE 09/29/20 09/29/20 06:36 06:36 WBC RBC Hgb Hct MCV MCH MCHC RDW Std Deviation RDW Coeff of Randy Plt Count MPV Immature Gran % (Auto) Neut % (Auto) Lymph % (Auto) Norton % (Auto) Eos % (Auto) Baso % (Auto) Neut # (Auto) Lymph # (Auto) Norton # (Auto) Eos # (Auto) Baso # (Auto) Immature Gran # (Auto) Sodium 137 Potassium 3.2 L Chloride 104 Carbon Dioxide 25 Anion Gap 8.0 BUN 14 Creatinine 0.85 Est Cr Clr Drug Dosing 70.4 Est GFR ( Amer) 99.5 Est GFR (Non-Af Amer) 85.8 BUN/Creatinine Ratio 16.0 Glucose 115 H Estimat Average Glucose 105 Hemoglobin A1c 5.3 Lactate Calcium 8.9 Magnesium 1.7 L Triglycerides 130 Cholesterol 168 LDL Cholesterol, Calc 86 VLDL Cholesterol, Calc 26 HDL Cholesterol 56 Cholesterol/HDL Ratio 3 SARS-CoV-2 (PCR) Medications Administered Current Inpatient Medications Acetaminophen (Acetaminophen 325 Mg Tab) 650 mg PO Q4H PRN PRN Reason: Pain or Fever Stop: 10/28/20 16:55 Alfuzosin HCl (Alfuzosin Hcl 10 Mg Tab) 10 mg PO DAILY [facility] Stop: 10/29/20 08:59 Last Admin: 09/29/20 08:58 Dose: 10 mg Documented by: Apixaban (Apixaban 5 Mg Tablet) 5 mg PO BID [facility] Stop: 10/28/20 20:59 Last Admin: 09/29/20 08:59 Dose: 5 mg Documented by: Diltiazem HCl (Diltiazem Er 120 Mg Capcr) 120 mg PO DAILY [facility] Stop: 10/29/20 08:59 Last Admin: 09/29/20 08:59 Dose: 120 mg Documented by: Folic Acid (Folic Acid 1 Mg Tab) 1 mg PO QAM [facility] Stop: 10/29/20 08:59 Last Admin: 09/29/20 08:59 Dose: 1 mg Documented by: Thiamine HCl 200 mg/ Sodium (Chloride) 52 mls @ 208 mls/hr IV QAM [facility] Stop: 10/29/20 08:59 Last Infusion: 09/29/20 09:23 Dose: Infused Documented by: Lorazepam (Ativan) 1 mg in 2 mls @ 2 mls/min IV ONE PRN; Protocol PRN Reason: EtoH Withdrawal AWSS 6-10 Stop: 10/28/20 16:55 Magnesium Sulfate/Dextrose (Magnesium Sulfate / D5w) 1 gm in 100 mls @ 50 mls/hr IV Q2H JANE Stop: 09/29/20 17:44 Ceftriaxone Sodium 1,000 mg/ (Dextrose) 50 mls @ 100 mls/hr IV Q24H JANE Stop: 10/04/20 13:59 Lorazepam (Lorazepam 1 Mg Tab) 1 mg PO ONE PRN; Protocol PRN Reason: EtoH Withdrawal AWSS 6-10 Miscellaneous (Dutasteride 0.5 Mg Capsule - Order Awaiting Action) 1 ea N/A QS JANE Stop: 10/29/20 00:00 Last Admin: 09/29/20 07:25 Dose: Not Given Documented by: Multivitamins (Multivitamin Tab) 1 tab PO DAILY JANE Stop: 10/29/20 08:59 Last Admin: 09/29/20 08:59 Dose: 1 tab Documented by: Potassium Chloride (Potassium Chloride Crtab 20 Meq Tabcr) 20 meq PO BID JANE Stop: 10/29/20 20:59 Vitamin B Complex (Vitamin B Complex Tab) 1 tab PO DAILY JANE Stop: 10/29/20 08:59 Last Admin: 09/29/20 08:59 Dose: 1 tab Documented by: Vitamin D (Cholecalciferol 1,000 Units 25 Mcg Tab) 1,000 units PO DAILY JANE Stop: 10/29/20 08:59 Last Admin: 09/29/20 08:59 Dose: 1,000 units Documented by: PG Care Time/CCT Total # of Minutes Spent Total Time Spent with Patient: Total time spent is greater than 50% in acquisition marketing coordinator rdination of care (as documented) at patient's floor/unit and/or counseling patient: Coding Level of Care Code 09924 Subseq Hosp Care Lvl 3 Diagnoses Altered mental status R41.82 BPH (benign prostatic hyperplasia) N40.0 Alcohol abuse F10.10 Essential hypertension I10 Hyperlipidemia E78.5 Afib I48.91 Acute UTI N39.0
[2020-09-29] MEDS ORDERED: cefTRIAXone SODIUM 1,000 MG in DEXTROSE 5% 50 ML IV SCH (14:00)
[2020-09-29] MEDS: MAGNESIUM SULFATE / D5W 1 GM/100 ML BAG IV SCH ×2 (17:00→19:09)
[2020-09-29] MEDS: POTASSIUM CHLORIDE CRTAB 20 MEQ TABCR PO SCH (20:00)
[2020-09-30 07:56] LABS: Hematocrit (blood only) 42.7 % (42-52); Hemoglobin 14.8 g/dL (14.0-18.0); Mean Corpuscular Hemoglobin 34.1 pg (25-34); Mean Corpuscular Hgb Conc 34.7 g/dL (32-36); Mean Corpuscular Volume 98.4 fL (80-100); Mean Platelet Volume 10.1 fL (7.4-10.4); Platelet Count 127 K/uL (130-400); RDW Coefficient of Variation 13.7 % (11.5-14.5); RDW Standard Deviation 49.5 fL (36.4-46.3); Red Blood Count 4.34 M/uL (4.7-6.1); White Blood Count 7.55 K/uL (4.8-10.8)
[2020-09-30 08:14] LABS: BUN Creatinine Ratio 19.5 (10-20); Calcium 8.7 mg/dl (8.5-10.1); Creatinine Clr Calc Pharmacy 71.2 ml/min; Est GFR (Non-African American) 86.3 ml/min; Magnesium 2.3 mg/dl (1.8-2.4); Potassium 3.3 mmol/L (3.5-5.1)
[2020-09-30] MEDS: POTASSIUM CHLORIDE CRTAB 20 MEQ TABCR PO SCH (08:34)
[2020-09-30] MEDS: APIXABAN 5 MG TABLET PO SCH (08:34)
[2020-09-30] MEDS: dilTIAZem ER 120 MG CAPCR PO SCH (08:35)
[2020-09-30] MEDS: VITAMIN B COMPLEX TAB PO SCH (08:35)
[2020-09-30] MEDS: CHOLECALCIFEROL 1,000 UNITS 25 MCG TAB PO SCH (08:35)
[2020-09-30] MEDS: FOLIC ACID 1 MG TAB PO SCH (08:36)
[2020-09-30] MEDS: ALFUZOSIN HCL 10 MG TAB PO SCH (08:36)
[2020-09-30] MEDS: MULTIVITAMIN TAB PO SCH (08:39)
--- NOTE | 2020-09-30 09:28 | Urology Progress Note ---
Date of Service September 30, 2020 Assessment & Plan (1) BPH (benign prostatic hyperplasia): (2) Incomplete bladder emptying: (3) Acute UTI: Plan: 75 year old male with multiple comorbidities admitted for altered mental status, alcohol abuse, and suspected acute UTI. - Continues to subjectively improve - Afebrile, nontoxic, lab work reviewed - creatinine 0.84, WBC 7.55, Hgb 14.8 - UC&S prelim no growth, BCx NGTD - received IV Ceftriaxone during admission - Elevated PVRs yesterday - Galeana catheter placed - Continue dual therapy for BPH - Alfuzosin and Dutasteride - Recommend maintain Galeana catheter upon discharge - Recommend home with course of empiric antibiotics for possible acute/chronic prostatitis - He is pending TURP later this month for treatment - Will arrange appropriate outpatient follow-up with our service for further management Thank you for allowing us to participate in the acute care of Mr. Joseph. Please reconsult us with additional questions, concerns or changes in patient status. Admission and Anticipated Discharge Date Admission Date: September 28, 2020 Subjective Pt awake and sitting up in bedside chair. Notified by RN yesterday evening of elevated PVR > 500. Galeana catheter was placed per order. Tolerating Galeana catheter - intact, patent and draining clear yellow with minimal pink tinge, small amount of debris noted. Denies pain. Tolerating diet, no nausea or vomiting. No fever or chills. He is ready to go home today. No additional concerns at this time. Chart review: Afebrile, creatinine 0.84, WBC 7.55, Hgb 14.8. UC&S no growth, BCx NGTD - On IV Ceftriaxone. Review of Systems Constitutional: as per Subjective / HPI Gastrointestinal: as per Subjective / HPI Genitourinary: + as per Subjective / HPI Physical Exam Constitutional: well developed and well nourished; no acute distress and not ill appearing Respiratory: normal respiratory effort and able to speak in complete sentences; no respiratory distress and no labored breathing Gastrointestinal (Abdomen): Inspection/Auscultation: abdomen normal to inspection; abdomen not distended Percussion/Palpation: abdomen soft; abdomen nontender Musculoskeletal: Head/Neck/Chest: normocephalic and head atraumatic Extremities: extremities normal to inspection Neurologic: moves all extremities and awake Psychiatric: Orientation: alert and oriented x 3 Genitourinary: Galeana catheter intact, patent and draining clear yellow urine, minimal pink tinge, some debris noted in tubing Results & Data ([facility]) Vital Signs (Past 12 Hours) Vital Signs Temp Pulse Pulse Resp BP BP Pulse Ox 09/30/20 07:31 37.1 C 87 16 174/98 H 95 09/30/20 04:00 37.1 C 93 H 20 161/94 H 95 09/30/20 02:30 82 09/29/20 23:35 36.8 C 78 20 134/84 95 PG Care Time/CCT Total # of Minutes Spent Total Time Spent with Patient: Total time spent is greater than 50% in coordination of care (as documented) at patient's floor/unit and/or counseling patient: Coding Level of Care Code 50564 Subseq Hosp Care Lvl 2 Diagnoses BPH (benign prostatic hyperplasia) N40.0 Incomplete bladder emptying R33.9 Acute UTI N39.0
--- NOTE | 2020-09-30 09:33 | Discharge Summary ---
Date of Service September 30, 2020 Admission HPI Per Admitting Provider This is a 75-year-old male with past medical history of chronic BPH, multiple UTIs, hyperlipidemia that presents with altered mental status. Patient is a limited historian and he has a somewhat bizarre affect. Per ER physician, patient was brought in by a neighbor because he was "just not acting". The patient himself understands that he is here in the hospital and that he was brought in for this reason. He notes that he will occasionally see "patterns on the wall that are not there" but denies any other visual hallucinations. He denies any fever or chills. He denies any other symptoms such as nausea, vomiting, diarrhea, or constipation. He did have a conversation about the patient's alcohol consumption. He tells me he did not have any alcohol today but over the past 48 hours he is consumed approximately 1.5 bottles of hard liquor mixed with water. It is difficult for him to quantify further. At time my evaluation, patient is in no acute cardiopulmonary distress. He seemed to be calm and was asking for his bottle of water on the chair. Patient volunteered no other complaints. Principal Diagnosis Metabolic encephalopathy due to UTI and urinary retention Discharge Exam Constitutional well developed, well nourished and comfortable; no acute distress, not ill appearing and no altered mental status Neck trachea midline, no thyromegaly Respiratory normal respiratory effort, lungs clear to auscultation Cardiovascular RRR, no murmur, no edema Gastrointestinal (Abdomen) normal bowel sounds, soft, nontender, no hepatosplenomegaly Musculoskeletal no cyanosis or clubbing, extremities motor strength 5/5 Skin no rashes, warm and dry Neurologic patellar DTR's 2+ bilat, sensation intact and PERRL, EOMI, accommodation nl, no face palsy, no dysarthria Psychiatric A+Ox3, euthymic affect Discharge Data Allergies Allergy/AdvReac Type Severity Reaction Status Date / Time No Known Allergies Allergy Verified 10/02/20 10:54 Consultations 09/28/20 13:08 ED Decision to Admit Stat 09/28/20 16:56 Consult Urology Routine Ordered Studies 09/28/20 10:42 CT head/brain wo con Stat Hospital Course (1) Altered mental status: metabolic encephalopathy suspect combination of UTI due to urinary retention but also excessive alcohol intake AAOx3 for two days, ambulating in hallway independently eating well treated UTI with Rocephin change to Cipro 500mg BID x 4 weeks for possible prostatitis mayberry placed for urinary retention follow up with Dr. Rivera (2) BPH (benign prostatic hyperplasia): Suspect patient's weakly positive UA may be chronic secondary to pro statitis/BPH Continue alfuzosin and dutasteride mayberry placed for retention, will go home with mayberry, changed to leg bag plan for TURP this month follow up with Dr. Rivera this week (3) Alcohol abuse: Patient currently showing no outward signs of alcohol withdrawal alcohol withdrawal scale, treat with benzos as needed P.o. repletion of thiamine and folate he drinks at least 3 drinks a day, usually more, can drink a whole fifth sometimes instructed him that he should really limit himself to NO MORE than 2 drinks a day and if he can cut back to 1 drink a day that would be for the best warned him that excessive drinking could cause him to fall and injure himself, could cause further confusion and he could forget his medications also, drinking will lead to cirrhotic changes in his liver he voiced understanding and said he was going to cut back on alcohol intake (4) Essential hypertension: Elevated blood pressure, on only Cardizem at home. likely up from lack of alcohol (5) Hyperlipidemia: No lipid-lowering medication noted in his outpatient medications Check fasting lipid panel (6) Afib: Patient is on Eliquis and Cardizem, will continue these (7) Acute UTI: no significant growth on urine culture set up for UTI due to retention treated with Rocephin no growth on culture could have been because he has prostatitis will treat with Cipro 500mg BID, continue until told to stop by urology I certify that this patient is under my care and that I, or a physicians customer relations assistant working with me, had a face to-face encounter that meets the home health [id number] encounter requirements with this patient. The encounter with the patient was in whole, or in part, for the following medical condition, which is the primary reason for home health care (list medical condition): I certify that, based on my findings, the following services are medically necessary home health services: My clinical findings support the need for the above services because: Further, I certify that my clinical findings support that this patient is homebound (i.e. absences from home require considerable and taxing effort and are for medical reasons or muslim services or infrequently or of short duration when for other reasons) because: Certification for Home Health Services: Based on the above findings, I certify that this patient is confined to the home and needs intermittent correction care, physical therapy and/or speech therapy or continues to need occupational therapy. The patient is under my care, and I have initiated the establishment of the plan of care. This patient will be followed by a physician who will periodically review the plan of care. Total Time Total Time Spent Total Time Spent (In Minutes): 40 Discharge Plan Discharge Items Patient Disposition: Home - Home Health Services Reason For Visit: CONFUSION Discharge Diagnosis: UTI, prostatitis Urinary retention due to BPH Altered mental status Condition on Discharge: Good Goals: keep mayberry, follow up with urology stay on empiric antibiotics Activity: Resume your previous activity Driving/Machine Use: No limitations Weightbearing: Full weightbearing Non-emergency contact: Primary Care Provider and Urologist Call non-emergency contact if: you have any medication questions, your symptoms worsen and you have a fever Follow-up/Referrals: ProJulian MD [Primary Care Provider] - 10/07/20 2:15 pm (Your appointment,next week, is with the physician customer relations assistant Natalie Garg. If you have any questions or need to change this appointment, please call [phone].) Russell Rivera, DO [Physician] - (should have appt on 10/02/20) Diet: Regular Addtl Attending Provider Instructions: From [facility]: Follow-up with UROLOG[facility] on 10/02/[address] [facility] Medications: - CIPROFLOXACIN: 500mg twice a day, start tomorrow morning, this is for empiric treatment, possible prostatitis, take until told to stop by urology Urinary retention, BPH, UTI/prostatitis mayberry catheter placed, keep until removed by urology will keep you on Cipro to treat UTI, prevent bad infection Alcohol abuse: you need to drink less would recommend reducing to 2 drinks a day, gradually reduce to 1 drink if possible the more you drink, the more damage you will cause to your liver also, heavy drinking will lead to more confusion, not safe as you live alone Pending Studies at Discharge: No Stand-Alone Forms: My [facility], Smoking Cessation Medications and DC Order Prescriptions: New ciprofloxacin HCl 500 mg tablet 500 mg PO Q12H Qty: 60 RF: 0 Continued Eliquis 5 mg tablet 5 mg PO BID Qty: 180 RF: 3 multivitamin tablet 1 tab PO QAM RF: 0 vitamin B complex Tablet 1 tab PO QAM RF: 0 cholecalciferol (vitamin D3) 1,000 unit Tablet 1,000 unit PO QAM RF: 0 glucosamine-chondroitin 500-400 mg tablet 1 tab PO QAM RF: 0 No Action potassium chloride 20 mEq tablet,ER particles/crystals 20 meq PO QAM RF: 0 diltiazem HCl [Taztia XT] 120 mg capsule,extended release 24 hr 120 mg PO QAM RF: 0 dutasteride [Avodart] 0.5 mg capsule 0.5 mg PO QAM RF: 0 alfuzosin [Uroxatral] 10 mg tablet extended release 24 hr 10 mg PO QAM RF: 0 acetaminophen [Tylenol Extra Strength] 500 mg Capsule 500 mg PO Q6H PRN (Reason: Pain) RF: 0 Discharge Orders: Discharge Order (Routine); Ordered 09/30/20 Ordered By: Fabián Elam Admission Data Admit Date/Time: 09/28/20 14:22 Attending Provider: Fabián Elam Admit Provider: Ji Pena Primary Care Provider: Julian Marc Other Providers: Ji Pena ; Hu Sow Other Interventions: Discharge Summary Assessment (RN) Last Done: 09/30/20 10:50 Coding Level of Care Code D/C DAY MANAGEMENT >30 MINS Diagnoses Altered mental status R41.82 BPH (benign prostatic hyperplasia) N40.0 Alcohol abuse F10.10 Essential hypertension I10 Hyperlipidemia E78.5 Afib I48.91 Acute UTI N39.0
[2020-09-30] MEDS: THIAMINE HCL 200 MG in SODIUM CHLORIDE 0.9% 50 ML IV SCH (10:20)
--- NOTE | 2020-10-01 05:25 | Electrocardiogram Report ---
Test Reason : Blood Pressure : / mmHG Vent. Rate : 086 BPM Atrial Rate : 086 BPM P-R Int : 156 ms QRS Dur : 094 ms QT Int : 376 ms P-R-T Axes : 063 -08 052 degrees QTc Int : 449 ms Normal sinus rhythm Normal ECG When compared with ECG of 11-DEC-2017 16:24, Premature atrial complexes are no longer Present Confirmed by Elbert Smith ([id number]) on 10/01/2020 5:24:58 AM Referred By: REFERRED SELF Confirmed By:Elbert Smith
== END 2020-09-30 13:18 | disposition home health service (06) ==
LOC: ED 07:24 → 2N 07:24 → SUATTDRO 14:22 → 2N 15:28
DX: R33.8 Other retention of urine; Z79.899 Other long term (current) drug therapy; N40.1 Benign prostatic hyperplasia with lower urinary tract symptoms; N41.9 Inflammatory disease of prostate, unspecified; N39.0 Urinary tract infection, site not specified; E78.5 Hyperlipidemia, unspecified; Z79.01 Long term (current) use of anticoagulants; I10 Essential (primary) hypertension; I48.91 Unspecified atrial fibrillation; F17.210 Nicotine dependence, cigarettes, uncomplicated; R41.82 Altered mental status, unspecified

== ENCOUNTER 2020-10-22 10:40 | Inpatient (IN) ==
--- NOTE | 2020-10-06 11:49 | PAT Medication Instructions ---
Medication Instructions Date of Service October 06, 2020 Home Medications Medication Instructions Recorded apixaban 5 mg tablet (Eliquis) 5 mg PO BID #180 tab 03/03/20 ciprofloxacin HCl 500 mg tablet 500 mg PO Q12H #60 tab 09/30/20 cholecalciferol (vitamin D3) 25 mcg (1,000 unit) tablet 1,000 unit PO QAM multivitamin 1 tab PO QAM apixaban 5 mg tablet (Eliquis) 5 mg PO BID vitamin B complex 1 tab PO QAM glucosamine-chondroitin 500 mg-400 mg tablet 1 tab PO QAM ciprofloxacin HCl 500 mg tablet 500 mg PO Q12H alfuzosin 10 mg tablet,extended release 24 hr (Uroxatral) 10 mg PO QAM diltiazem HCl 120 mg capsule,24 hr,extended release (Taztia XT) 120 mg PO QAM dutasteride 0.5 mg capsule (Avodart) 0.5 mg PO QAM potassium chloride 20 mEq tablet,extended release(part/cryst) 20 meq PO QAM acetaminophen 500 mg capsule 500 mg PO Q6H PRN Continue as directed ciprofloxacin HCl 500 mg tablet 500 mg PO Q12H ASK your prescriber and surgeon apixaban 5 mg tablet (Eliquis) 5 mg PO BID STOP taking 2 weeks before surgery (or as soon as possible if surgery is within 2 weeks) glucosamine-chondroitin 500 mg-400 mg tablet 1 tab PO QAM DO NOT take the morning of surgery cholecalciferol (vitamin D3) 25 mcg (1,000 unit) tablet 1,000 unit PO QAM multivitamin 1 tab PO QAM vitamin B complex 1 tab PO QAM potassium chloride 20 mEq tablet,extended release(part/cryst) 20 meq PO QAM Take morning of surgery With a small sip of water, OTHERWISE NOTHING TO EAT OR DRINK AFTER MIDNIGHT: alfuzosin 10 mg tablet,extended release 24 hr (Uroxatral) 10 mg PO QAM diltiazem HCl 120 mg capsule,24 hr,extended release (Taztia XT) 120 mg PO QAM dutasteride 0.5 mg capsule (Avodart) 0.5 mg PO QAM acetaminophen 500 mg capsule 500 mg PO Q6H PRN (okay to take up to 4 hours prior to surgery if needed) Take evening before surgery acetaminophen 500 mg capsule 500 mg PO Q6H PRN (if needed) Other Notes If you have any questions please call us at [phone] or [phone] or [phone] or [phone]
--- NOTE | 2020-10-08 09:42 | Anesthesiology Consultation ---
Date of Service October 08, 2020 Assessment & Plan (1) Encounter for pre-operative examination: Chart Review Chart Review: Acceptable Risk for Surgery (pending preop Covid testing results ) and Patient seen in Pre Admission Testing Per PAT appointment 10/08/2020, patient denies any recent travel. Wears mask per CDC guidelines. Patient is vaccinated for Covid. No known Covid infection in the past 90 days. No known Covid positive contacts or Covid related symptoms. Preop Covid testing scheduled 10/20/20= will await results. Educated on importance of self quarantining, social distancing and wearing mask in public both for the patient after Covid testing done Seen by PCP 10/07/2020 = patient seen for hospital discharge follow-up. Patient admitted to [facility] 09/28/20-09/30/20-found to have metabolic encephalopathy secondary to UTI due to urine retention (and questionable EtOH intake per chart). Patient treated with Rocephin for UTI. PCP aware of upcoming TURP procedure 10/22/2020. Patient is doing well since dischargehas Galeana catheter in place. Denies any current EtOH intake. Cystoscopy, bladder tumor resection 09/21/2017 = done under [facility] with LMA #5. Smooth IV induction. Atraumatic LMA insertion. Teaching & Discussion Pre-Anesthesia Teaching/Discussion Notes: Instructed NPO after midnight before surgery,except medications with 15 cc of water. Medication instructions provided according to the PAT guidelines. History Surgery Operation Date: 10/22/20 10:50 Proposed Procedures p Transurethral Resection Prostate - Russell Rivera DO s Greenlight Laser, Photoselective Vaporization of The Prostate Using the Green Light Laser - Russell Rivera DO Height/Weight Height: 5 ft 5 in Weight: 75.5 kg Allergies Allergy/AdvReac Type Severity Reaction Status Date / Time No Known Allergies Allergy Verified 10/07/20 14:25 Medications Home Medications Medication Instructions Recorded Confirmed Last Taken cholecalciferol (vitamin D3) 25 1,000 unit PO QAM 12/11/17 10/07/20 10/01/20 mcg (1,000 unit) tablet multivitamin 1 tab PO QAM 08/22/18 10/07/20 10/01/20 apixaban 5 mg tablet (Eliquis) 5 mg PO BID #180 tab 03/03/20 10/07/20 10/01/20 vitamin B complex 1 tab PO QAM 04/12/20 10/07/20 10/01/20 glucosamine-chondroitin 500 mg-400 1 tab PO QAM tab 09/14/20 10/07/20 10/01/20 mg tablet ciprofloxacin HCl 500 mg tablet 500 mg PO Q12H #60 tab 09/30/20 10/07/20 10/01/20 alfuzosin 10 mg tablet,extended 10 mg PO QAM 10/01/20 10/07/20 10/01/20 release 24 hr (Uroxatral) diltiazem HCl 120 mg capsule,24 120 mg PO QAM 10/01/20 10/07/20 10/01/20 hr,extended release (Taztia XT) dutasteride 0.5 mg capsule 0.5 mg PO QAM 10/01/20 10/07/20 10/01/20 (Avodart) potassium chloride 20 mEq 20 meq PO QAM 10/01/20 10/07/20 10/01/20 tablet,extended release(part/cryst) acetaminophen 500 mg capsule 500 mg PO Q6H PRN 10/02/20 10/07/20 Unknown Past Medical History Medical History (Updated 10/08/20 @ 10:11 by Esperanza Blair PA-C) Adjustment disorder with anxiety Alcohol abuse 3+ drinks per day, sometimes a fifth of alcohol per day per 09/30/20 hospital discharge summary Per [facility] appt on 10/08/20- no alcohol intake since hospital admission on 09/28/20 Atrial flutter F/U DR FIFI PEREZ On Eliquis BPH (benign prostatic hyperplasia) Hypertension Pulmonary nodule Stable [id number] follow up CT scans per lung nodule program per 06/2020 PCP records Exercise / Class Metabolic Activity II 4-5 Yardwork/Stairs/Walk up hill (one flight of stairs - no chest pain or SOB ) Past Family History Family History Mother Alzheimer disease Hearing loss Father Brain tumor Stroke Brother Cerebral atherosclerosis Stroke Denies family history of Colon cancer Ovarian cancer Prostate cancer Myocardial infarction Breast cancer Past Surgical History Surgical History History of appendectomy History of colonoscopy MULTIPLE History of epidermal inclusion cyst excision History of SCC (squamous cell carcinoma) of skin MOHS Past Anesthesia History No Hx of Anesthesia Complications and No Family Hx of Anesthesia Complications History of PONV No Hx of PONV and No Hx of Motion Sickness Social History Smoking Status: Current every day smoker tobacco type: cigarettes Smoking cigarettes per day: 10-20 CIGS A DAY Do You Dip or Chew Tobacco: No Hx Alcohol Use: Yes Alcohol type: hard liquor alcohol intake frequency: 0-2 drinks per day Alcohol Intake Frequency Comment: 3+ drinks in the past- no alcohol intake since 09/28/20 per patient Hx Substance Use: No substance use type: does not use Review of Systems Patient denies chest pain, shortness of breath, dyspnea on exertion, reflux, cough, wheezing, palpitations. No hx of seizures, stroke, [place], apnea/snoring. No hx of blood clots or blood transfusions Physical Exam Vital Signs VITALS BP 164/90 P 83 TEMP 98.6 SP02 96% RESP 16 Constitutional no acute distress ENMT Mouth: no TMJ clicking Thyromental Distance: > or= 3.5 Finger Breadths (3.5) Mallampati Class: II Top full denture Missing all bottom teeth Neck + limited neck extension (mild ) Respiratory normal respiratory effort; no respiratory distress Auscultation: lungs clear to auscultation bilaterally; no wheezes Cardiovascular Rate/Rhythm: regular rate and regular rhythm Heart Sounds: no murmur Vessels: no carotid bruit Musculoskeletal Spine: no pain with cervical ROM Extremities: extremities normal to inspection Psychiatric Orientation: alert Lab Results Anesthesia Preop Results Results Anesthesia Widget: WBC 7.60 K/uL (4.8-10.8) 10/08/20 Hgb 13.2 g/dL (14.0-18.0) L 10/08/20 Hct 38.7 % (42-52) L 10/08/20 Plt 223 K/uL (130-400) 10/08/20 Na 140 mmol/L (136-145) 10/08/20 K 3.7 mmol/L (3.5-5.1) 10/08/20 Cl 107 mmol/L (98-107) 10/08/20 CO2 30 mmol/L (21-32) 10/08/20 BUN 12 mg/dl (7-18) 10/08/20 Creat 0.97 mg/dl (0.6-1.4) 10/08/20 Glucose Level 99 mg/dl (70-99) 10/08/20 TSH 0.869 uIu/ml (0.300-4.500) 09/28/20 HA1c 5.3 % (4.5-5.6) 09/29/20 Urine Color Yellow 10/08/20 Urine Appearance Cloudy (Clear) A 10/08/20 Urine pH 7.0 (4.5-7.5) 10/08/20 Urine Specific [place] 1.006 (1.000-1.030) 10/08/20 Urine Protein Trace (Negative) H 10/08/20 Urine Glucose (UA) Negative (Negative) 10/08/20 Urine Ketones Negative (Negative) 10/08/20 Urine Blood 3+ (Negative) H 10/08/20 Urine Nitrite Negative (Negative) 10/08/20 Urine Bilirubin Negative (Negative) 10/08/20 Urine Urobilinogen Negative (Negative) 10/08/20 Urine Leukocyte Esterase 3+ (Negative) H 10/08/20 Urine WBC (Auto) >30 /hpf (0-5) H 10/08/20 Urine RBC (Auto) 10-30 /hpf (0-4) H 10/08/20 Urine Hyaline Casts (Auto) 1-5 /lpf (0-5) 10/08/20 Urine Epithelial Cells (Auto) >30 /lpf (0-5) H 10/08/20 Urine Bacteria (Auto) Negative (Negative) 10/08/20 Testing Electrocardiogram Date: 09/28/20 Findings: + NSR @ (86bpm) Normal EKG per cardio. Chest X-Ray Date: 09/28/20 Findings: + NAD 1 view CXR Lung volumes are normal. Right apical opacity is unchanged and represents scarring. There are old left rib fractures. There is no pneumothorax or pleural effusion. Cardiomediastinal silhouette is stable. Appearance of the chest is unchanged. Echocardiogram Date: 12/12/17 EF: 55-60% LV Function: normal RWMA: + none Other Findings: + diastolic dysfunction (Grade I ); no LVH Valvular Disease: + no significant valvular disease
[~2020-10-22 10:40] MED LIST changes: -ASPI81TA28 PO; -B-COTAB18 PO; -CHOL1000 PO; +CIPROFLOXACIN / D5W 400 MG/200 ML BAG IV SCH; -GLUC250C PO; +LR 15ML/HR IV SCH; -MULT-506 PO; -NAPR1TAB9 PO; -OMEG10007 PO; -OPTIRAY 320 IV PRN; -POTA-639 PO; -TRIA37.5 PO
--- NOTE | 2020-10-22 12:07 | History & Physical Bridge Note ---
Date of Service October 22, 2020 History & Physical Bridge Note I have examined the patient, reviewed the History & Physical and in the interval since the performance of the History & Physical I have noted the following changes of clinical significance: no changes noted
[2020-10-22] MEDS ORDERED: LIDOCAINE 2% 2 ML VIAL/AMP(20MG/ML) INFIL ONE (12:09)
[2020-10-22] MEDS ORDERED: MIDAZOLAM HCL 1 MG/ML 2ML VIAL ONE (12:09)
[2020-10-22] MEDS ORDERED: PROPOFOL IV EMULSION 10 MG/ML 20 ML VIAL IV ONE (12:09)
[2020-10-22] MEDS ORDERED: fentaNYL citrate 100 MCG/2 ML VIAL ONE (12:09)
[2020-10-22] MEDS ORDERED: ONDANSETRON INJ 2 MG/ML 2 ML VIAL ONE ×2 (12:09→13:16)
[2020-10-22] MEDS ORDERED: BELLADONNA/OPIUM SUPP 60 MG SUPP PR ONE ×2 (13:43→13:52)
--- NOTE | 2020-10-22 13:58 | Operative Report ---
PG Post Operative Report Pre & Post Diagnosis Operation Date: 10/22/20 12:30 Pre-Op Diagnosis: Benign Prostatic Hypertrophy with Incomplete Bladder Emptying Post-Op Diagnosis: Benign Prostatic Hypertrophy with Incomplete Bladder Emptying I identified the patient and participated in the time-out.: Yes Procedure Operation Date: 10/22/20 12:30 Actual Procedures p Greenlight Laser Photoselective Enucleation of prostate and Vaporization of Prostate with transurethral resection of prostate. - Russell Rivera, Surgeon Russell Rivera, II, DO Mental Tester None Estimated Blood Loss 10 Findings Consistent with Post-Op Diagnosis Large Prostate with obstruction. Specimens Enucleated Prostate adenoma. Drains 22Fr 3way Catheter Anesthesia Type General Complications none Disposition Disposition: Recovery Room Indications Patient with obstruction due to prostate enlargement. Risks and benefits discussed at length. Description of Procedure Patient was consented and brought back to the operating room. Patient was placed under anesthesia in the supine position and moved to the dorsal lithotomy position. Patient was prepped and draped in the regular sterile fashion. A time out was completed. A 30degree Cystoscope was placed into the bladder and the entire bladder was examined. The UO's were identified as well as the bladder neck, trigone, dome, and the other important landmarks. The prostatic urethra and large lobes/adenoma was assessed and the veru and bladder neck identified and area/siz e was assessed. The cystoscope with laser bridge and the Greenlight laser fiber were selected. Starting at the 5 and 7 o'clock positions, a channel was created from bladder neck to the veru. A channel was further formed between the two areas. The very large median lobe was enucleated and displaced into the bladder. No major bleeding or areas of concern. The vaporization then started at the 1 and 11 oclock positions and swept down to the channel. Additional Adenoma pieces were enucleated and displaced into the bladder. All bleeding was controlled. The Specimen was removed and sent for analysis. A transurethral resection set with a fine bipolar loop was needed to resect the enucleated tissue. The resection bed and any bleeding areas were fulgurated/cauterized and the entire area inspected. All bleeding was controlled. The bladder was inspected a final time. The bladder was emptied and irrigated. All specimen and debris was removed. The scope was removed with the bladder partially full. A catheter was placed and balloon elevated. This was easily irrigated. CBI was attached. A B&O suppository was placed. The patient was cleaned, aroused from anesthesia, and transferred to the pacu in stable condition having tolerated the procedure well with no complications. I was present and participated in all aspects of the procedure. The patient will be monitored in the PACU until transferred. I attest to the content of the Intraoperative Record and any orders documented therein. Any exceptions are noted below.
[2020-10-22 14:47] LABS: Basophils # (auto) 0.03 K/uL (0-0.2); Basophils % (auto) 0.5 %; Eosinophils # (auto) 0.23 K/uL (0-0.5); Eosinophils % (auto) 3.9 %; Hematocrit (blood only) 39.1 % (42-52); Hemoglobin 13.2 g/dL (14.0-18.0); Immature Granulocytes # (auto) 0.01 K/uL (0.00-0.02); Immature Granulocytes % (auto) 0.2 %; Lymphocytes # (auto) 1.52 K/uL (1.2-3.4); Lymphocytes % (auto) 25.9 %; Mean Corpuscular Hemoglobin 34.1 pg (25-34); Mean Platelet Volume 9.8 fL (7.4-10.4); Monocytes # (auto) 0.33 K/uL (0.11-0.59); Monocytes % (auto) 5.6 %; Neutrophils # (auto) 3.76 K/uL (1.4-6.5); Neutrophils % (auto) 63.9 %; Platelet Count 196 K/uL (130-400); RDW Coefficient of Variation 13.5 % (11.5-14.5); RDW Standard Deviation 50.1 fL (36.4-46.3); Red Blood Count 3.87 M/uL (4.7-6.1); White Blood Count 5.88 K/uL (4.8-10.8)
[2020-10-22 14:56] LABS: Mean Corpuscular Hgb Conc 33.8 g/dL (32-36)
[2020-10-22 15:06] LABS: BUN Creatinine Ratio 9.4 (10-20); Creatinine Clr Calc Pharmacy 64.2 ml/min; Est GFR (Non-African American) 78.5 ml/min; Potassium 3.5 mmol/L (3.5-5.1)
--- NOTE | 2020-10-22 15:08 | Anesthesiology Progress Note ---
Date of Service October 22, 2020 Anesthesia Post Procedure Vital Signs Vital Signs: Temp Pulse Pulse Resp BP Pulse Ox 10/22/20 14:55 36.4 C L 86 16 151/92 H 93 10/22/20 14:45 74 20 154/96 H 93 10/22/20 14:35 81 14 154/90 H 94 10/22/20 14:25 86 20 157/88 H 98 10/22/20 14:15 84 18 155/90 H 98 10/22/20 14:07 36.7 C 97 H 19 157/88 H 96 10/22/20 11:04 36.9 C 72 20 170/88 H 100 Transfer of Care Handoff Completed per policy Notes Mental Status: alert / awake / arousable and participated in evaluation Patient Amnestic to Procedure: Yes Nausea / Vomiting: adequately controlled Pain: adequately controlled Airway Patency, RR, SpO2: stable & adequate BP & HR: stable & adequate Hydration State: stable & adequate Anesthetic Complications: no major complications apparent and Pt Satisfied with anesthetic care
[2020-10-22] MEDS: LACTATED RINGER'S 1,000 ML IV SCH (15:30)
[2020-10-22] MEDS ORDERED: MoRPHine SULFATE 2 MG/ML CARP IV PRN ×2 (15:44)
[2020-10-22] MEDS ORDERED: oxyCODONE HCL IR 5 MG TAB (IMMEDIATE RELEASE) PO PRN ×2 (15:44)
[2020-10-22] MEDS: ACETAMINOPHEN 325 MG TAB PO PRN (17:52)
[2020-10-22] MEDS: ceFAZolin 2000MG 2,000 MG/15 ML SYR IV SCH (17:52)
[2020-10-23] MEDS: ceFAZolin 2000MG 2,000 MG/15 ML SYR IV SCH (01:04)
[2020-10-23] MEDS: LACTATED RINGER'S 1,000 ML IV SCH ×3 (01:04→21:45)
[2020-10-23] MEDS: ACETAMINOPHEN 325 MG TAB PO PRN ×4 (03:42→20:16)
[2020-10-23 07:02] LABS: Basophils # (auto) 0.02 K/uL (0-0.2); Basophils % (auto) 0.2 %; Hematocrit (blood only) 37.5 % (42-52); Hemoglobin 12.5 g/dL (14.0-18.0); Immature Granulocytes # (auto) 0.02 K/uL (0.00-0.02); Immature Granulocytes % (auto) 0.2 %; Lymphocytes # (auto) 0.67 K/uL (1.2-3.4); Lymphocytes % (auto) 6.8 %; Mean Corpuscular Hemoglobin 33.5 pg (25-34); Mean Corpuscular Hgb Conc 33.3 g/dL (32-36); Mean Corpuscular Volume 100.5 fL (80-100); Monocytes % (auto) 4.1 %; Neutrophils # (auto) 8.61 K/uL (1.4-6.5); Neutrophils % (auto) 87.7 %; Platelet Count 171 K/uL (130-400); RDW Coefficient of Variation 13.4 % (11.5-14.5); RDW Standard Deviation 48.8 fL (36.4-46.3); Red Blood Count 3.73 M/uL (4.7-6.1); White Blood Count 9.82 K/uL (4.8-10.8)
[2020-10-23 07:40] LABS: BUN Creatinine Ratio 7.6 (10-20); Creatinine Clr Calc Pharmacy 55.4 ml/min; Est GFR (African American) 76.2 ml/min; Est GFR (Non-African American) 65.8 ml/min; Potassium 3.4 mmol/L (3.5-5.1)
--- NOTE | 2020-10-23 08:12 | Urology Progress Note ---
Date of Service October 23, 2020 Assessment & Plan (1) BPH (benign prostatic hyperplasia): (2) Incomplete bladder emptying: Plan: - Patient POD#1 s/p TURP with Dr. Rivera - Febrile overnight and AM, Tmax 39.3, nontoxic appearing, lab work reviewed - creatinine 1.10, WBC 9.82, Hgb 12.5 - Plan of care reviewed with Dr. Rivera - Will check urine culture, blood cultures, and chest xray now - Start cefepime 2 g q12h empirically - Hospital medicine consulted yesterday for medical management - appreciate recs - Tolerating clear liquid diet, will advance diet for lunch - 3 way Galeana catheter intact, patent and draining clear urine with minimal pink with CBI on slow - CBI clamped @0815, nursing aware - will reassess later this AM - Will plan to d/c CBI later today if urine remains appropriate - Maintain Galeana catheter - Encourage OOB ambulation, incentive spirometer - Given fevers, patient will stay for further evaluation and management - Will continue to monitor closely Admission and Anticipated Discharge Date Admission Date: October 22, 2020 Subjective 75 yo M POD #1 s/p TURP with Dr. Rivera. Patient seen and examined at bedside this AM. He is awake and resting in bed. Pt febrile overnight/AM - Tmax 39.3. Endorses feeling intermittently hot and cold overnight, but denies feeling poorly. No abdominal or flank pain. Tolerating Galeana catheter - intact, patent and draining clear urine with minimal pink with CBI running on slow. CBI clamped at 0815, RN aware. He has been ambulating to the bathroom. Tolerating PO diet, no nausea or vomiting. No dizziness, shortness of breath, or chest pain. Offers no complaints at present. Review of Systems Constitutional: as per Subjective / HPI Respiratory: as per Subjective / HPI Cardiovascular: as per Subjective / HPI Gastrointestinal: as per Subjective / HPI Genitourinary: + as per Subjective / HPI Neurologic: as per Subjective / HPI Physical Exam Constitutional: well developed and well nourished; no acute distress and not ill appearing Respiratory: normal respiratory effort and able to speak in complete sentences; no respiratory distress and no labored breathing Cardiovascular: Extremities: no pedal edema Gastrointestinal (Abdomen): Inspection/Auscultation: abdomen normal to inspection; abdomen not distended Percussion/Palpation: abdomen soft; abdomen nontender and no guarding Neurologic: moves all extremities and awake Psychiatric: Orientation: alert, oriented x 3 and cooperative Genitourinary: Galeana catheter intact, patent and draining clear urine with minimal pink with CBI running on slow Results & Data ([facility]) Vital Signs (Past 12 Hours) Vital Signs Temp Pulse Resp BP Pulse Ox 10/23/20 07:13 38.2 C H 85 18 154/85 H 96 10/23/20 04:58 38.1 C H 10/23/20 04:34 38.8 C H 10/23/20 03:39 38.5 C H 10/23/20 03:35 39.3 C H 10/23/20 03:33 39 C H 105 H 18 138/79 93 10/22/20 22:53 37.7 C H 80 18 130/71 92 PG Care Time/CCT Total # of Minutes Spent Total Time Spent with Patient: Total time spent is greater than 50% in coordination of care (as documented) at patient's floor/unit and/or counseling patient: Coding Level of Care Code 83148 Subseq Hosp Care Lvl 3 Diagnoses BPH (benign prostatic hyperplasia) N40.0 Incomplete bladder emptying R33.9
[2020-10-23] MEDS: ALFUZOSIN HCL 10 MG TAB PO SCH (08:25)
[2020-10-23] MEDS: MULTIVITAMIN TAB PO SCH (08:25)
[2020-10-23] MEDS: dilTIAZem ER 120 MG CAPCR PO SCH (08:25)
--- NOTE | 2020-10-23 09:01 | XRay Report ---
TWO VIEW CHEST CLINICAL HISTORY: Fever.. FINDINGS: PA and lateral chest radiographs are compared to study dated 09/28/2020 and correlated with c hest CT dated 03/13/2018. The heart is top normal in size noting atherosclerotic calcification of the thoracic aorta. Emphysema and chronic interstitial thickening is similar to previous. Foci of scarrin g are noted in the apices as well as both lung bases. Suspect patchy airspace opacities at the right lung base. No large pleural effusion is identified. There is no pneumothorax. The skeletal structures are osteopenic. The bony thorax appears intact. IMPRESSION: 1. Suspect right lower lobe airspace consolidation. Correlate clinically for evidence of an infectiou s/inflammatory pneumonitis. Radiographic follow-up to resolution is recommended. 2. Emphysema and chronic parenchymal changes as above. ACT 112: Negative or not required by law. Electronically signed by: Madhu Krishnamurthy M.D. 10/23/2020 9:00 AM
[2020-10-23] MEDS: CEFEPIME 2,000 MG in SYRINGE 0 ML IV SCH ×2 (09:50→20:16)
--- NOTE | 2020-10-23 10:05 | Hospitalist Consultation ---
Date of Consultation October 23, 2020 Assessment & Plan (1) Acute UTI: Consult is called for infection and likely UTI. S/P TURP. Differential is UTI vs possible aspiration pneumonia. However, aspiration pneumonia appears unlikely given normal oxygenation, and lack of respiratory symptoms. Will treat for urosepsis given history of prostatitis and continue patient on cefepime. DVT: as per primary team. (2) Incomplete bladder emptying: (3) BPH (benign prostatic hyperplasia): management as per primary team (4) Alcohol abuse: currently not showing signs of withdrawal (5) Hyperlipidemia: (6) Hyperglycemia: (7) Hypertension: will hold BP meds. History of Present Illness Reason for Consultation: fever Attending Physician: Russell Rivera, II, DO History of Present Illness 75 yo male with PMH reported below presents to the hospitas for a TURP s/p 4 weeks of antibiotics for UTI and possible prostatitis Consult was called as patient devloped a fever hours after TURP. Patient reports subjective fever and chills. Patient denies SOB, N/V, chest pain. Patient does report having dribbling around his mayberry catheter. Allergies Allergy/AdvReac Type Severity Reaction Status Date / Time No Known Allergies Allergy Verified 10/22/20 10:57 Home Medications Medication Instructions Recorded Confirmed Type cholecalciferol (vitamin D3) 25 1,000 unit PO QAM 12/11/17 10/22/20 History mcg (1,000 unit) tablet multivitamin 1 tab PO QAM 08/22/18 10/22/20 History apixaban 5 mg tablet (Eliquis) 5 mg PO BID #180 tab 03/03/20 10/22/20 Rx vitamin B complex 1 tab PO QAM 04/12/20 10/22/20 History glucosamine-chondroitin 500 mg-400 1 tab PO QAM tab 09/14/20 10/22/20 History mg tablet ciprofloxacin HCl 500 mg tablet 500 mg PO Q12H #60 tab 09/30/20 10/22/20 Rx alfuzosin 10 mg tablet,extended 10 mg PO QAM 10/01/20 10/22/20 History release 24 hr (Uroxatral) diltiazem HCl 120 mg capsule,24 120 mg PO QAM 10/01/20 10/22/20 History hr,extended release (Taztia XT) dutasteride 0.5 mg capsule 0.5 mg PO QAM 10/01/20 10/22/20 History (Avodart) potassium chloride 20 mEq 20 meq PO QAM 10/01/20 10/22/20 History tablet,extended release(part/cryst) acetaminophen 500 mg capsule 500 mg PO Q6H PRN 10/02/20 10/22/20 History Patient History Medical History Adjustment disorder with anxiety Alcohol abuse 3+ drinks per day, sometimes a fifth of alcohol per day per 09/30/20 hospital discharge summary Per patient at [facility] appt on 10/08/20- no alcohol intake since hospital admission on 09/28/20 Atrial flutter F/U DR FIFI PEREZ On Eliquis BPH (benign prostatic hyperplasia) Hypertension Pulmonary nodule Stable [id number]- follow up CT scans per lung nodule program per 06/2020 PCP records Surgical History History of appendectomy History of colonoscopy MULTIPLE History of epidermal inclusion cyst excision History of SCC (squamous cell carcinoma) of skin MOHS Family History Mother Alzheimer disease Hearing loss Father Brain tumor Stroke Brother Cerebral atherosclerosis Stroke Denies family history of Colon cancer Ovarian cancer Prostate cancer Myocardial infarction Breast cancer Social History Smoking Status: Current every day smoker packs per day: 1; Years Smoked: 40; Cigarettes Per Day: half pack; Second Hand Exposure: Yes; Hx Alcohol Use: Yes Alcohol type: beer and hard liquor Alcohol Intake Frequency Comment: 15 beers/drinks daily Hx Substance Use: No Preferred Language: Ukrainian Communication Ability: Effective Visual Impairment: No Limitations Hearing Ability: Normal [employer]ining [employer] Operator Required: No Beliefs That Will Affect Care: None marital status: Current Living Situation: Alone current occupational status: retired How many Children do You have: 1 Feels Safe at Home: Yes Childhood Exposure to Second-Hand Smoke: Yes Dental Care, Regularly: No Physical Activity Frequency: 3-4 Times per Week Seatbelt Use: always Sunscreen Use: No Assistive Devices: Glasses Review of Systems Review of Systems: Constitutional: + fever, + chills, no weakness, no weight loss and no weight gain Eyes: as per Subjective / HPI Respiratory: no cough, no chest congestion, no dyspnea and no dyspnea on exertion Cardiovascular: no chest pain, no orthopnea, no palpitations, no lightheadedness and no edema Gastrointestinal: no abdominal pain, no nausea, no vomiting, no constipation and no diarrhea/loose stools Musculoskeletal: no back pain, no neck pain, no joint pain, no stiffness and no myalgia Integumentary: no rash Neurologic: no gait abnormality, no unsteadiness, no falls and no generalized weakness Psychiatric: no confusion Physical Exam Physical Exam: Constitutional: well developed, well nourished and comfortable; no acute distress, not ill appearing and no altered mental status Neck: trachea midline, no thyromegaly Respiratory: normal respiratory effort, lungs clear to auscultation Cardiovascular: RRR, no murmur, no edema Gastrointestinal (Abdomen): normal bowel sounds, soft, nontender, no hepatosplenomegaly Musculoskeletal: no cyanosis or clubbing, extremities motor strength 5/5 Skin: no rashes, warm and dry Neurologic: patellar DTR's 2+ bilat, sensation intact and PERRL, EOMI, accommodation nl, no face palsy, no dysarthria Psychiatric: A+Ox3, euthymic affect Results & Data Results & Data ([facility]) Vital Signs (Past 12 Hours) Vital Signs Temp Pulse Resp BP Pulse Ox 10/23/20 07:13 38.2 C H 85 18 154/85 H 96 10/23/20 04:58 38.1 C H 10/23/20 04:34 38.8 C H 10/23/20 03:39 38.5 C H 10/23/20 03:35 39.3 C H 10/23/20 03:33 39 C H 105 H 18 138/79 93 10/22/20 22:53 37.7 C H 80 18 130/71 92 PG Care Time/CCT Total # of Minutes Spent Total Time Spent with Patient: Total time spent is greater than 50% in coordination of care (as documented) at patient's floor/unit and/or counseling patient: Coding Level of Care Code 67965 Inpt Consult Level 4 Diagnoses Incomplete bladder emptying R33.9 BPH (benign prostatic hyperplasia) N40.0 Alcohol abuse F10.10 Hyperlipidemia E78.5 Hyperglycemia R73.9 Hypertension I10 Acute UTI N39.0
[2020-10-24] MEDS: ACETAMINOPHEN 325 MG TAB PO PRN ×2 (04:10→16:08)
[2020-10-24 05:44] LABS: Basophils # (auto) 0.02 K/uL (0-0.2); Basophils % (auto) 0.3 %; Eosinophils # (auto) 0.06 K/uL (0-0.5); Eosinophils % (auto) 0.9 %; Hematocrit (blood only) 36.2 % (42-52); Hemoglobin 12.4 g/dL (14.0-18.0); Immature Granulocytes # (auto) 0.01 K/uL (0.00-0.02); Immature Granulocytes % (auto) 0.1 %; Lymphocytes # (auto) 0.76 K/uL (1.2-3.4); Lymphocytes % (auto) 11.1 %; Mean Corpuscular Hgb Conc 34.3 g/dL (32-36); Mean Corpuscular Volume 99.2 fL (80-100); Mean Platelet Volume 10.3 fL (7.4-10.4); Monocytes # (auto) 0.59 K/uL (0.11-0.59); Monocytes % (auto) 8.6 %; Platelet Count 144 K/uL (130-400); RDW Standard Deviation 47.4 fL (36.4-46.3); Red Blood Count 3.65 M/uL (4.7-6.1); White Blood Count 6.84 K/uL (4.8-10.8)
[2020-10-24 06:18] LABS: BUN Creatinine Ratio 8.8 (10-20); Calcium 7.9 mg/dl (8.5-10.1); Creatinine Clr Calc Pharmacy 61.6 ml/min; Est GFR (African American) 86.6 ml/min; Est GFR (Non-African American) 74.7 ml/min; Potassium 2.7 mmol/L (3.5-5.1)
[2020-10-24] MEDS: LACTATED RINGER'S 1,000 ML IV SCH ×2 (07:48→18:22)
[2020-10-24] MEDS: dilTIAZem ER 120 MG CAPCR PO SCH (08:47)
[2020-10-24] MEDS: CEFEPIME 2,000 MG in SYRINGE 0 ML IV SCH ×2 (08:47→21:12)
[2020-10-24] MEDS: ALFUZOSIN HCL 10 MG TAB PO SCH (08:47)
[2020-10-24] MEDS: MULTIVITAMIN TAB PO SCH (08:48)
[2020-10-24] MEDS: POTASSIUM CHLORIDE / WTR 10 MEQ/100 ML PLCT IV SCH ×5 (10:32→13:43)
[2020-10-24] MEDS: POTASSIUM CHLORIDE CRTAB 20 MEQ TABCR PO SCH ×2 (13:44→21:13)
--- NOTE | 2020-10-24 15:18 | Urology Progress Note ---
Date of Service October 24, 2020 Assessment & Plan (1) BPH (benign prostatic hyperplasia): (2) Incomplete bladder emptying: Plan: Patient POD#2 s/p TURP -Fevers resolving. - continue cefepime 2 g q12h empirically - Hospital medicine consulted. Following -Okay to restart eliquis - Continue CIWA. Patient had cessed drinking since last visit. NO major withdrawl signs. - Tolerating diet - 3 way Mayberry catheter intact, Repositioned and irrigated. Drainage improved. Likely displaced. Will change mayberry securing patch and move to upper leg. Okay to clamp CBI port. - Encourage OOB ambulation, incentive spirometer - Given fevers, patient will stay for further evaluation and management until full culture. Gram - species on blood culture. Waiting full results. - Will continue to monitor closely Admission and Anticipated Discharge Date Admission Date: October 23, 2020 Subjective 75 yo M POD #2 s/p TURP with Dr. Rivera. Fever post op. Blood culture prelim Gram - Fevers resolving. Hospitalist following. On Cefepime. Tolerating. Tolerating Mayberry catheter - intact, patent and draining clear urine Significant leaking. He has been ambulating to the bathroom. Tolerating PO diet, no nausea or vomiting. No dizziness, shortness of breath, or chest pain. Offers no complaints at present. Review of Systems Review of Systems: All systems reviewed & are unremarkable except as noted in HPI & below Physical Exam Physical Exam: General: Alert in no acute distress. HEENT: Normocephalic Atraumatic. Inspection normal. Cranial Nerves 2-12 Grossly intact. Normal inspection of face. Normal inspection of neck. Psychologic: Normal affect. Respiratory: Nonlabored. No use of accessory muscles. No tachypnea or dyspnea. Cardiovascular: No tachycardia Skin: [place] and Dry. No rashes or visible lesions. Extremities/Lymphatics: No edema Abdomen: Soft Non-distended. No rebound or guarding. Results & Data ([facility]) Vital Signs (Past 12 Hours) Vital Signs Temp Pulse Resp BP Pulse Ox 10/24/20 10:53 37.2 C 86 16 154/78 H 96 10/24/20 07:45 37.0 C 80 16 155/91 H 97 10/24/20 06:06 37.6 C H PG Care Time/CCT Total # of Minutes Spent Total Time Spent with Patient: Total time spent is greater than 50% in coordination of care (as documented) at patient's floor/unit and/or counseling patient: Coding Level of Care Code 79106 Subseq Hosp Care Lvl 3 Diagnoses BPH (benign prostatic hyperplasia) N40.0 Incomplete bladder emptying R33.9
[2020-10-24] MEDS: APIXABAN 5 MG TABLET PO SCH (21:13)
[2020-10-25] MEDS: LACTATED RINGER'S 1,000 ML IV SCH ×3 (04:04→21:07)
[2020-10-25 06:50] LABS: Basophils # (auto) 0.02 K/uL (0-0.2); Basophils % (auto) 0.4 %; Eosinophils # (auto) 0.04 K/uL (0-0.5); Eosinophils % (auto) 0.8 %; Hematocrit (blood only) 36.9 % (42-52); Hemoglobin 12.5 g/dL (14.0-18.0); Immature Granulocytes # (auto) 0.02 K/uL (0.00-0.02); Immature Granulocytes % (auto) 0.4 %; Lymphocytes # (auto) 0.89 K/uL (1.2-3.4); Mean Corpuscular Hemoglobin 33.4 pg (25-34); Mean Corpuscular Hgb Conc 33.9 g/dL (32-36); Mean Corpuscular Volume 98.7 fL (80-100); Mean Platelet Volume 10.8 fL (7.4-10.4); Monocytes # (auto) 0.46 K/uL (0.11-0.59); Monocytes % (auto) 9.3 %; Neutrophils # (auto) 3.52 K/uL (1.4-6.5); Neutrophils % (auto) 71.1 %; Platelet Count 150 K/uL (130-400); RDW Coefficient of Variation 13.1 % (11.5-14.5); RDW Standard Deviation 47.6 fL (36.4-46.3); Red Blood Count 3.74 M/uL (4.7-6.1); White Blood Count 4.95 K/uL (4.8-10.8)
[2020-10-25 07:15] LABS: BUN Creatinine Ratio 11.8 (10-20); Calcium 8.3 mg/dl (8.5-10.1); Creatinine Clr Calc Pharmacy 74.4 ml/min; Est GFR (Non-African American) 87.1 ml/min
[2020-10-25] MEDS: ALFUZOSIN HCL 10 MG TAB PO SCH (09:02)
[2020-10-25] MEDS: MULTIVITAMIN TAB PO SCH (09:02)
[2020-10-25] MEDS: APIXABAN 5 MG TABLET PO SCH ×2 (09:02→21:05)
[2020-10-25] MEDS: POTASSIUM CHLORIDE CRTAB 20 MEQ TABCR PO SCH ×3 (09:02→21:05)
[2020-10-25] MEDS: dilTIAZem ER 120 MG CAPCR PO SCH (09:03)
[2020-10-25] MEDS: CEFEPIME 2,000 MG in SYRINGE 0 ML IV SCH (09:06)
--- NOTE | 2020-10-25 10:53 | Urology Progress Note ---
Date of Service October 25, 2020 Assessment & Plan (1) BPH (benign prostatic hyperplasia): (2) Incomplete bladder emptying: Plan: Patient POD#3 s/p PVP/TURP with enucleation. -Fevers resolved. - continue antibiotics. Will change to oral Cipro. Stop cefepime 2 g q12h - Hospital medicine consulted. Following -Patient has been tolerating Eliquis without considerable change in hematuria. - Continue CIWA. Patient had ceased drinking since last visit. NO major withdraw signs. - Tolerating diet - 3 way Mayberry catheter intact, Repositioned and irrigated yesterday and considerable improvement of drainage. Minor episodes of leakage around catheter with position changes. Okay to change mayberry securing patch and move to upper leg. Plug on CBI port without leakage. - Encourage OOB ambulation, incentive spirometer - We'll monitor with p.o. change to antibiotics. Patient will stay for further evaluation and management until full culture and determine if tolerating p.o. antibiotic. - Gram + species on blood culture x1. Waiting full results. Possibly contami nant - Will continue to monitor closely. If continues to improve patient likely can go home later today or early tomorrow. Will maintain catheter until follow-up. Likely removal at end of week or beginning of next week. Admission and Anticipated Discharge Date Admission Date: October 23, 2020 Subjective 75 yo M POD #3 s/p TURP with photo vaporization of prostate and enucleation Fever post op. Blood culture prelim Gram + in one of two blood samples. Fevers resolved. Hospitalist following. On Cefepime. Tolerating. Will likely need to change to oral medication. Tolerating Mayberry catheter - intact, patent and draining clear urine Significant leaking resolved after positioning He has been ambulating to the bathroom. Tolerating PO diet, no nausea or vomiting. No dizziness, shortness of breath, or chest pain. Offers no complaints at present. Review of Systems Review of Systems: All systems reviewed & are unremarkable except as noted in HPI & below Physical Exam Physical Exam: General: Alert in no acute distress. HEENT: Normocephalic Atraumatic. Inspection normal. Cranial Nerves 2-12 Lynne sly intact. Normal inspection of face. Normal inspection of neck. Psychologic: Normal affect. Respiratory: Nonlabored. No use of accessory muscles. No tachypnea or dyspnea. Cardiovascular: No tachycardia Skin: [place] and Dry. No rashes or visible lesions. Extremities/Lymphatics: No edema Abdomen: Soft Non-distended. No rebound or guarding. Results & Data ([facility]) Vital Signs (Past 12 Hours) Vital Signs Temp Pulse Resp BP Pulse Ox 10/25/20 07:33 37.2 C 79 18 149/85 H 93 10/25/20 00:38 37.7 C H 10/25/20 00:35 39.1 C H PG Care Time/CCT Total # of Minutes Spent Total Time Spent with Patient: Total time spent is greater than 50% in coordination of care (as documented) at patient's floor/unit and/or counseling patient: Coding Level of Care Code 14504 Subseq Hosp Care Lvl 3 Diagnoses BPH (benign prostatic hyperplasia) N40.0 Incomplete bladder emptying R33.9
--- NOTE | 2020-10-25 11:04 | Hospitalist Progress Note ---
Date of Service October 25, 2020 Assessment & Plan (1) Acute UTI: Plan: Consult is called for infection and likely UTI. S/P TURP. Source appears to be from prostatitis. However, aspiration pneumonia appears unlikely given normal oxygenation, and lack of respiratory symptoms. Will treat for urosepsis given history of prostatitis and continue patient on cefepime. It appears patient was on cipro for 4 weeks and patient was controlled. Cultures however have not been much help. Patient may benefit from doing a trial of transitioning to IV cipro for 24 hours to see if symptoms, WBC and fever curve worsen. Will defer consult with infectious disease to primary team. will order now to not delay care as [facility]'s ID team may take 2 days to respond, however if Primary team prefers, they may cancel consult. For now will keep on cefepime. DVT: as per primary team. Eliquis has been restarted and urine is clear. (2) Incomplete bladder emptying: (3) BPH (benign prostatic hyperplasia): Plan: management as per primary team (4) Alcohol abuse: Plan: currently not showing signs of withdrawal (5) Hyperlipidemia: (6) Hyperglycemia: (7) Hypertension: Plan: will hold BP meds. Admission and Anticipated Discharge Date Admission Date: October 23, 2020 Subjective Patient is feeling better. He is happy that the catheter is fixed. He states that he feels that when his prostatitis is acting up, he is in a sort of fog. This is not the case at the moment. He reports that he understands that he is waiting for blood cultures. Review of Systems Review of Systems: All systems reviewed & are unremarkable except as noted in HPI & below Physical Exam Physical Exam: Constitutional: well developed, well nourished and comfortable; no acute distress, not ill appearing and no altered mental status Neck: trachea midline, no thyromegaly Respiratory: normal respiratory effort, lungs clear to auscultation Cardiovascular: RRR, no murmur, no edema Gastrointestinal (Abdomen): normal bowel sounds, soft, nontender, no hepatosplenomegaly Musculoskeletal: no cyanosis or clubbing, extremities motor strength 5/5 Skin: no rashes, warm and dry Neurologic: patellar DTR's 2+ bilat, sensation intact and PERRL, EOMI, accommodation nl, no face palsy, no dysarthria Psychiatric: A+Ox3, euthymic affect Results & Data Results & Data ([facility]) Vital Signs (Past 12 Hours) Vital Signs Temp Pulse Resp BP Pulse Ox 10/25/20 07:33 37.2 C 79 18 149/85 H 93 10/25/20 00:38 37.7 C H 10/25/20 00:35 39.1 C H PG Care Time/CCT Total # of Minutes Spent Total Time Spent with Patient: Total time spent is greater than 50% in coordination of care (as documented) at patient's floor/unit and/or counseling patient: Coding Level of Care Code 17133 Subseq Hosp Care Lvl 3 Diagnoses Acute UTI N39.0 Incomplete bladder emptying R33.9 BPH (benign prostatic hyperplasia) N40.0 Alcohol abuse F10.10 Hyperlipidemia E78.5 Hyperglycemia R73.9 Hypertension I10 Time Spent (min) 35
[2020-10-25] MEDS: CIPROFLOXACIN 500 MG TAB PO SCH ×2 (12:05→21:05)
[2020-10-26 06:45] LABS: Basophils # (auto) 0.02 K/uL (0-0.2); Basophils % (auto) 0.3 %; Eosinophils % (auto) 5.2 %; Hematocrit (blood only) 37.9 % (42-52); Hemoglobin 12.9 g/dL (14.0-18.0); Lymphocytes # (auto) 1.31 K/uL (1.2-3.4); Lymphocytes % (auto) 22.6 %; Mean Corpuscular Hemoglobin 33.7 pg (25-34); Mean Platelet Volume 10.7 fL (7.4-10.4); Monocytes # (auto) 0.68 K/uL (0.11-0.59); Monocytes % (auto) 11.7 %; Neutrophils # (auto) 3.48 K/uL (1.4-6.5); Neutrophils % (auto) 60.2 %; Platelet Count 155 K/uL (130-400); RDW Coefficient of Variation 13.3 % (11.5-14.5); RDW Standard Deviation 48.4 fL (36.4-46.3); Red Blood Count 3.83 M/uL (4.7-6.1); White Blood Count 5.79 K/uL (4.8-10.8)
[2020-10-26 07:20] LABS: BUN Creatinine Ratio 14.4 (10-20); Calcium 8.3 mg/dl (8.5-10.1); Creatinine Clr Calc Pharmacy 70.1 ml/min; Est GFR (African American) 98.5 ml/min; Potassium 3.2 mmol/L (3.5-5.1)
--- NOTE | 2020-10-26 08:15 | Urology Progress Note ---
Date of Service October 26, 2020 Assessment & Plan (1) BPH (benign prostatic hyperplasia): (2) Incomplete bladder emptying: Plan: -Patient POD#4 s/p PVP/TURP with enucleation. -Plan of care reviewed with Dr. Rivera. -T-max in 24 hours 37.6C, afebrile this AM. -Labs reviewed - white count and creatinine normal. Hemoglobin stable at 12.9. -Preliminary blood culture x1 with bacillus species not anthracis, remaining no growth after 48 hours. -Repeat urine culture 10/23 no growth. -Hospital medicine following, appreciate recommendations. -Transitioned to PO Ciprofloxacin 10/25, plan to continue antibiotic therapy. -Patient has been tolerating Eliquis without considerable change in hematuria. -Maintain mayberry catheter, likely removal at the end of the week or beginning of next week. -Encourage OOB ambulation, incentive spirometer. -Spoke with medicine team regarding discharge, they recommend home with PO Levaquin and Metronidazole for 7 days given findings on chest x-ray. -Will continue to monitor clinical progress. -Likely home today or tomorrow presuming he continues to clinically progress. -Concerning signs/symptoms reviewed with patient, expected clinical course also reviewed. All questions answered. Admission and Anticipated Discharge Date Admission Date: October 23, 2020 Subjective Patient examined this AM, feeling well. He denies fevers or chills, however does note he woke up sweaty this AM. Currently denies flank or abdominal pain. Denies dysuria or hematuria. Eliquis was restarted without occurrence of hematuria. Mayberry catheter intact to gravity, draining clear yellow urine. No further issues with catheter leakage. Tolerating PO Ciprofloxacin. Denies nausea or vomiting. Has been out of bed without dizziness/lightheadedness. No chest pain, shortness of breath, or edema. Requesting to be discharged today. Chart review: T-max in 24 hours 37.6C, afebrile this AM. Wbc 5.79 Hgb 12.9 Creatinine 0.87 Preliminary blood culture x1 with bacillus species not anthracis, remaining blood cultures no growth after 48 hours. Repeat urine culture 10/23 no growth. Patient currently on PO Ciprofloxacin. Denies additional urologic concerns today. Review of Systems Constitutional: as per Subjective / HPI; no fever and no chills Respiratory: no cough and no dyspnea Cardiovascular: no chest pain, no palpitations and no edema Gastrointestinal: as per Subjective / HPI; no nausea and no vomiting Genitourinary: + as per Subjective / HPI Physical Exam Constitutional: well developed and well nourished; no acute distress and not ill appearing Respiratory: normal respiratory effort and able to speak in complete sentences; no respiratory distress and no audible wheezes Cardiovascular: Extremities: no calf tenderness and no edema Gastrointestinal (Abdomen): Inspection/Auscultation: abdomen normal to inspection; abdomen not distended Percussion/Palpation: abdomen soft; abdomen nontender and no guarding Psychiatric: Orientation: alert, oriented x 3 and cooperative Affect: euthymic affect Genitourinary: no CVA tenderness Three way mayberry catheter intact, draining clear yellow urine. Results & Data ([facility]) Vital Signs (Past 12 Hours) Vital Signs Temp Pulse Resp BP Pulse Ox 10/26/20 06:57 37.1 C 67 16 165/84 H 96 10/26/20 06:11 37.2 C 10/25/20 22:05 37.5 C 77 18 144/81 H 96 PG Care Time/CCT Total # of Minutes Spent Total Time Spent with Patient: Total time spent is greater than 50% in coordination of care (as documented) at patient's floor/unit and/or counseling patient: Coding Level of Care Code 20043 Subseq Hosp Care Lvl 2 Diagnoses BPH (benign prostatic hyperplasia) N40.0 Incomplete bladder emptying R33.9
[2020-10-26] MEDS: ALFUZOSIN HCL 10 MG TAB PO SCH (08:33)
[2020-10-26] MEDS: dilTIAZem ER 120 MG CAPCR PO SCH (08:33)
[2020-10-26] MEDS: APIXABAN 5 MG TABLET PO SCH (08:33)
[2020-10-26] MEDS: MULTIVITAMIN TAB PO SCH (08:33)
[2020-10-26] MEDS: CIPROFLOXACIN 500 MG TAB PO SCH (08:33)
[2020-10-26] MEDS: POTASSIUM CHLORIDE CRTAB 20 MEQ TABCR PO SCH (08:33)
--- NOTE | 2020-10-26 13:49 | Hospitalist Progress Note ---
Date of Service October 26, 2020 Assessment & Plan (1) Fever: Plan: -Patient is POD #4 s/p TURP -Medicine consulted due to postoperative fevers -Initially, empirically started on cefepime. Patient seemed to defervesce upfront but has since been transitioned to Cipro with low-grade fever spike of 99.6 on 10/25. No fever over the past 24 hours -Culture data obtained including (urine culture and blood cultures) and all negative -CXR did suggest a RLL infiltrate -Despite patient not having any respiratory symptoms, he is at risk for aspiration pneumonia given his recent surgical intervention -His white blood cell count is normal and hemodynamically he is stable -At this time, no medical contraindication to proceed with discharge. Would recommend transition of Cipro to Levaquin (for pulmonary coverage) and Flagyl (for anaerobic coverage). I discussed this with urology -We will sign off from a medical standpoint;, do not hesitate to reconsult should a problem arise. (2) Incomplete bladder emptying: Plan: -S/p TURP -Patient with postop Galeana catheter. Removal at discretion of primary team (3) BPH (benign prostatic hyperplasia): Plan: - management as per primary team -S/p TURP (4) Alcohol abuse: Plan: currently not showing signs of withdrawal (5) Hyperlipidemia: Plan: -No medications on board (6) Hyperglycemia: Plan: -Blood sugar this morning 103. Recommend avoiding concentrated sweets (7) Hypertension: Plan: -Resume diltiazem Plan: Patient with reported h/o a.flutter. currently in NSR with CVR. on Eliquis- doing well. We will sign off on this patient from medical standpoint; however, do not hesitate to reconsult should a problem arise. Thank you for allowing me to participate in the care of this patient Admission and Anticipated Discharge Date Admission Date: October 23, 2020 Subjective Patient seen on daily rounds today. He was hospitalized 10/22 for scheduled TURP. In the overnight hours (area counselor 10/23), patient developed a te mperature of 39.3 C. Medicine was consulted. Patient had culture data obtained along with a CXR. Was started empirically on cefepime and he seemed to defervesce. Blood cultures and urine culture have come back showing no growth. His CXR did show suggest a right lower lobe infiltrate; however, patient has not been hypoxic and denies any respiratory symptoms including cough, shortness of breath or pleurisy. He has since been deescalated/transitioned to oral Cipro. No true fever spikes (T-max 99.6 on 10/25). Spoke with urology and plan was for discharge to home today if medically stable. After reviewing all documentation and records from this hospitalization, patient with true fevers postoperatively without an obvious identified source. Blood culture and urine cultures negative. CXR does suggest a right lower lobe infiltrate. It is possible that he aspirated during his procedure. Given this, would suggest transition of Cipro to Levaquin for pulmonary involvement and addition of Flagyl. Review of Systems Review of Systems: All systems reviewed and are unremarkable except as noted in HPI and below Denies fevers, chills, headache, nasal congestion, sore throat, cough, chest pain, shortness of breath, abdominal pain, nausea, vomiting, skin lesions or rashes. Physical Exam Physical Exam: General: Resting comfortably in his hospital bed. NAD. Neck: No JVD. Negative hepatojugular reflex Cardiac: RRR without M/G/R Lungs: CTA without W/R/R Abdomen: Normoactive X4. Soft and nontender in all quadrants. Galeana catheter in place. Mild hematuria (s/p TURP) Extremities: No peripheral clubbing cyanosis or edema Neuro: A&O X4 cranial nerves II through XII are grossly intact no focal neuro deficits Skin: No obvious skin lesions or rashes Results & Data Results & Data ([facility]) Vital Signs (Past 12 Hours) Vital Signs Temp Pulse Pulse Resp BP Pulse Ox 10/26/20 10:55 37.1 C 67 93 H 16 165/84 H 96 10/26/20 06:57 37.1 C 67 16 165/84 H 96 10/26/20 06:11 37.2 C Laboratory Results 10/26/20 06:07 10/26/20 06:07 1/4 of his blood cultures are positive for bacilluslikely contaminant as the other 3 are negative. PG Care Time/CCT Total # of Minutes Spent Total Time Spent with Patient: Total time spent is greater than 50% in utilization review coordinator rdination of care (as documented) at patient's floor/unit and/or counseling patient: [place] [address] Inpt Consult Level 4 Patient Type Established History Expanded Problem Focused Exam Expanded Problem Focused Medical Decision Making Moderate Complexity Diagnoses Incomplete bladder emptying R33.9 BPH (benign prostatic hyperplasia) N40.0 Alcohol abuse F10.10 Hyperlipidemia E78.5 Hyperglycemia R73.9 Hypertension I10 Fever R50.9
--- NOTE | 2020-10-29 08:11 | Discharge Summary ---
Date of Service October 29, 2020 Admission HPI Per Admitting Provider See H&P Admission Exam Per Admitting Provider See H&P Principal Diagnosis Bladder outlet obstruction Discharge Exam General: Alert in no acute distress. HEENT: Normocephalic Atraumatic. Inspection normal. Psychologic: Normal affect. Skin: [place] and Dry. No rashes or visible lesions. Abdomen: Soft Non-distended. No rebound or guarding. Discharge Data Allergies Allergy/AdvReac Type Severity Reaction Status Date / Time No Known Allergies Allergy Verified 10/28/20 11:34 Consultations 10/22/20 14:11 Consult Hospitalist Routine Procedures Performed Operation Date: 10/22/20 12:30 Actual Procedures p Transurethral Resection Prostate(Not Applicable) - Russell Rivera DO s Greenlight Laser, Photoselective Vaporization of The Prostate Using the Green Light Laser, Enucleation(Not Applicable) - Russell Rivera DO Hospital Course (1) BPH (benign prostatic hyperplasia): (2) Incomplete bladder emptying: -Patient POD#4 s/p PVP/TURP with enucleation. -Plan of care reviewed with Dr. Rivera. -T-max in 24 hours 37.6C, afebrile this AM. -Labs reviewed - white count and creatinine normal. Hemoglobin stable at 12.9. -Preliminary blood culture x1 with bacillus species not anthracis, remaining no growth after 48 hours. -Repeat urine culture 10/23 no growth. -Hospital medicine following, appreciate recommendations. -Transitioned to PO Ciprofloxacin 10/25, plan to continue antibiotic therapy. -Patient has been tolerating Eliquis without considerable change in hematuria. -Maintain mayberry catheter, likely removal at the end of the week or beginning of next week. -Encourage OOB ambulation, incentive spirometer. -Spoke with medicine team regarding discharge, they recommend home with PO Levaquin and Metronidazole for 7 days given findings on chest x-ray. -Will continue to monitor clinical progress. -Likely home today or tomorrow presuming he continues to clinically progress. -Concerning signs/symptoms reviewed with patient, expected clinical course also reviewed. All questions answered. Total Time Total Time Spent Total Time Spent (In Minutes): 10 minutes Total Time Includes: Examination of the Patient, Discharge Planning, Medication Reconciliation and Communication With Other Providers Discharge Plan Discharge Items Patient Disposition: Home - Self-Care Reason For Visit: Benign Prostatic Hypertrophy with Incomplete Discharge Diagnosis: Benign Prostatic Hypertrophy with Incomplete Activity: Per Instructions section Lifting: No more than 25 pounds Bathing Comment: Okay to shower, no tub baths or soaking Sexual Activity: Wait until after follow-up appointment Exercise/Sports: Wait until after follow-up appointment Driving/Machine Use: Do not drive while taking prescription pain medication Non-emergency contact: Surgeon and Urologist Call non-emergency contact if: your symptoms worsen, your pain is not controlled, you have a fever and your temperature is above 101 Follow-up/Referrals: ProJulian MD [Primary Care Provider] - 10/28/20 11:15 am (Appointment will be with JACQUELYN Neal) Urology,SKY [FAKE FOR SCHEDULES] - 10/30/20 10:20 am (Voiding trial ) Diet: Regular Addtl Attending Provider Instructions: Please take all medications as prescribed and keep all follow-ups as scheduled. Please call our office at [phone] with any questions, concerns or need to reschedule appointments for any reason. We are happy to assist you. When taking the Metronidazole, please do not drink alcohol as there is a severe interaction with alcohol and medication. Tips for your recovery at home: Dont be alarmed by brownish or reddish blood or clots in your urine. This is a result of the procedure. This may occur off and on for weeks to months after the procedure but should continue to improve. Drink plenty of fluids during the day (enough to keep your urine very light colored). This will help keep a healthy flow of urine. Do not lift >25 lbs until your followup Avoid constipation. Please use a stool softener (Colace) for the first two weeks after your procedure Be sure to finish the antibiotics as prescribed. If you go home with a catheter, please wash tubing where it enters your body twice daily with mild soap (Dove or Dial). Once your catheter is removed, expect some blood in your urine and some burning when you urinate. You should have an appointment to have this removed, if you do not please call our office to john lee. When to call [facility] at [phone]: Your urine contains heavy blood clots You are constantly leaking urine Fever of 101F or higher, chills, nausea, or vomiting Your pain is not relieved with medication Pending Studies at Discharge: Yes Studies:: pathology Stand-Alone Forms: [facility], Smoking Cessation Medications and DC Order Prescriptions: New levofloxacin 500 mg tablet 500 mg PO DAILY 7 Days Qty: 7 RF: 0 metronidazole 500 mg tablet 500 mg PO TID 7 Days Qty: 21 RF: 0 docusate sodium [Colace] 100 mg capsule 100 mg PO BID Qty: 60 RF: 0 Continued Eliquis 5 mg tablet 5 mg PO BID Qty: 180 RF: 3 vitamin B complex Tablet 1 tab PO QAM RF: 0 cholecalciferol (vitamin D3) 1,000 unit Tablet 1,000 unit PO QAM RF: 0 glucosamine-chondroitin 500-400 mg tablet 1 tab PO QAM RF: 0 potassium chloride 20 mEq tablet,ER particles/crystals 20 meq PO QAM RF: 0 diltiazem HCl [Taztia XT] 120 mg capsule,extended release 24 hr 120 mg PO QAM RF: 0 dutasteride [Avodart] 0.5 mg capsule 0.5 mg PO QAM RF: 0 alfuzosin [Uroxatral] 10 mg tablet extended release 24 hr 10 mg PO QAM RF: 0 acetaminophen 500 mg Capsule 500 mg PO Q6H PRN (Reason: Pain) RF: 0 Discontinued ciprofloxacin HCl 500 mg tablet 500 mg PO Q12H Qty: 60 RF: 0 Discharge Orders: Discharge Order (Routine); Ordered 10/26/20 Ordered By: Madeline Villalpando Admission Data Admit Date/Time: 10/23/20 10:41 Attending Provider: Russell Rivera Admit Provider: Russell Rivera Primary Care Provider: Julian Marc Other Providers: Eduar Hale Other Interventions: Discharge Summary Assessment (RN) Last Done: 10/26/20 10:55 Coding Level of Care Code D/C DAY MANAGEMENT <30 MINS Diagnoses BPH (benign prostatic hyperplasia) N40.0 Incomplete bladder emptying R33.9
== END 2020-10-26 13:36 | disposition home or self-care (01) | DRG 713 ==
LOC: ASU 10:40 → 3N 10:40

== ENCOUNTER 2021-09-04 09:50 | Inpatient (IN) ==
[2021-09-04] MEDS ORDERED: SODIUM CHLORIDE 0.9% 1000ML 1,000 ML IV ONE ×3 (10:09→12:13)
--- NOTE | 2021-09-04 10:12 | Emergency Department Note ---
Impression & Plan Enterococcus UTI, Lactic acidosis ED Provider Note Name: LORNA DEJESUS Age: 76 Sex: M Arrives Via: Walk-In Informant: Patient, friend ED Provider: Chacorta Mina MD Chief Complaint: Weakness Impression: As per impressions above Medical Decision Making: Pleasant 76-year-old gentleman with a history of previous UTIs with worsening weakness and chills this morning. He is afebrile and mildly tachycardic on arrival. He is somewhat dehydrated appearing. No abdominal tenderness to palpation is clear lungs and is otherwise awake alert oriented and stable. He was given initial liter of IV fluids which was increased to 30 mL/kg IV fluid by ideal body weight after lactic acid returned significant elevated. Blood cultures obtained and empiric antibiotics begun. He was given Zosyn given the Enterococcus UTI from cult. Patient does appear somewhat tired but is breathing comfortably and is starting to urinate more. Blood pressure is stable and his heart rate has improved significantly. Patient is likely an early sepsis/septic shock secondary to the Enterococcus UTI. He has a soft nontender abdomen. Patient does have a history of alcohol abuse and admits he has been drinking 2-3 drinks every single night. He does not think that he has withdrawal when he does not drink. He is not significantly hypertensive or tachycardic thus we will hold off on Ativan at this time. He does state that he eats well and has a good diet and will defer thiamine etc. to hospitalist for further management. Patient does have a soft nontender abdomen and thus will defer imaging to the hospitalist. Prior Medical Record and Triage/Nursing Notes reviewed by Me Additional history obtained from chart Differentials:Infection, dehydration, metabolic abnormality, hypo/hyperglycemia, electrolyte disturbance, anemia, hypoxia, cardiac sources, intracerebral event, toxicologic, neurologic, as well as other pathologies. Given the patients BMI >30, IBW was used to calculate the 30ml/kg fluid bolus. He was given 2L NSS bolus initially for this. 11:50am: Repeat volume status exam following the initial 2 L bolus of fluid reveals slightly dehydrated patient and continued elevation of lactic acid r esulting in further fluid resuscitation. 1:00pm: Following third liter of fluid patient appears much improved and is in no distress. He is well-hydrated and I felt further fluids can wait until furth er laboratory testing obtained. Vital Signs: reviewed and remarkable for no significant abnormalities Interventions: Saline bolus 1L IV x3, Zosyn 4.5 g IV Labs:Reviewed and remarkable for elevated lactic acid Imaging:Reviewed chest x-ray no acute finding EKG:Per My Interpretation: Indication Sepsis: NSR 86 bpm, qtc 449. No Ectopy. No Ischemia. Compared to EKG 11/11/17, no significant changes. Cardiac/Tele Monitoring: Cardiac Monitoring: An Order was placed for continuous cardiac monitoring. The monitor shows a rate of 80 with a normal sinus rhythm. Consults:Dr Becky MENDOSA Hospitalist Plan: Disposition:Hospitalization. Condition: Fair History of Present Illness:76-year-old gentleman arrives for evaluation of not feeling well. Patient states he awoke this morning feeling off. He states he is feeling weak, tired, fatigued and did have some chills this morning. He states he felt feverish and was diaphoretic earlier in the day. He denies any chest pain, shortness of breath, syncope, headache, neck pain, sore throat, r unny nose, cough, abdominal pain, fevers, nausea, vomiting, leg swelling, urinary burning/frequency, bowel changes, rashes nor any other signs or symptoms. He said no recent falls, trauma, injuries. He states he went to bed last night feeling well. He did see his PCP recently who did start him on an antibiotic yesterday however he is unsure what the antibiotic is. Patient has a history of A. fib and is on Eliquis however has had no recent bleeding or bruising. He does note a history of UTIs for which he is periodically on antibiotics. ROS: See above HPI for pertinent positives & negatives. A total of 10 systems reviewed and were otherwise negative. Past Medical History:See Below Past Surgical History:See Below Family History:See Below Social History:See Below Home Medications:See Below Allergies:nkda Vitals:Blood Pressure: 185/96, Pulse 104, RR 18, T 36.5C, O2 97% on RA Physical Exam: GENERAL: Patient is tired/dehydrated appearing and in mild distress. EYES: No scleral icterus, unremarkable pupils. ENT: Mucous membranes dry, no nasal congestion. NECK: No masses appreciated, nomeningismus, trachea is midline. RESPIRATORY: No dyspnea. Clear to auscultation and equal bilaterally. No wheeze, no rhonchi. CARDIOVASCULAR: Regular rate and rhythm.No murmurs, rubs, gallops appreciated. GASTROINTESTINAL: Abdomen soft, non-tender, no peritonitis.Bowel sounds positive.No masses appreciated. BACK: No midline tenderness, no CVA tenderness EXTREMITIES: Normal motion all extremities, no cyanosis, no edema. NEUROLOGIC: Alert and oriented, no acute motor or sensory deficits, no focal weakness, cranial nerves grossly intact. SKIN: No rash, no jaundice, no diaphoresis. PSYCH: Appropriate GCS: 15 ED Course: Times/Reassessments: We will repeat evaluations eventually looking much improved and hydrated. Critical Care: I have personally spent 35 minutes of critical care time in the direct management of this patient. Acute lactic acidosis likely secondary to sepsis and UTI requiring fluids resus. This was a life/limb threatening event. This 35 minutes is in excess of all separately billable procedures. Chacorta Mina MD Past Med/Surg History Medical History Adjustment disorder with anxiety Alcohol abuse 3+ drinks per day, sometimes a fifth of alcohol per day per 09/30/20 hospital discharge summary [facility]- no alcohol intake since hospital admission on 09/28/20 Atrial flutter F/U DR FIFI PEREZ On Eliquis BPH (benign prostatic hyperplasia) Hypertension Hypokalemia Hypokalemia Pulmonary nodule 1.7 spiculated nodule, 1.4 cm irregular lesion on CT scan. Suspicious for lung cancer. Surgical History History of appendectomy History of colonoscopy MULTIPLE History of epidermal inclusion cyst excision History of SCC (squamous cell carcinoma) of skin MOHS Family History Mother Alzheimer disease Hearing loss Father Brain tumor Stroke Brother Cerebral atherosclerosis Stroke Denies family history of Colon cancer Ovarian cancer Prostate cancer Myocardial infarction Breast cancer Social History Smoking Status: Current every day smoker packs per day: 0.5; Years Smoked: 50; Cigarettes Per Day: half pack; Second Hand Exposure: No; Do You Dip or Chew Tobacco: No; Tobacco Cessation Education Requested by Patient: Yes Hx Alcohol Use: Yes Alcohol type: hard liquor Alcohol Intake Frequency Comment: 15 beers/drinks daily Hx Substance Use: No Preferred Language: Yoruba Communication Ability: Effective Visual Impairment: No Limitations Hearing Ability: Normal [place]cherette Required: No Beliefs That Will Affect Care: None marital status: Current Living Situation: Alone current occupational status: retired How many Children do You have: 1 Other Information That Helps Us Care for You: No Feels Safe at Home: Yes Safety Concerns: Feels Safe At This Time Childhood Exposure to Second-Hand Smoke: Yes Dental Care, Regularly: No Physical Activity Frequency: 3-4 Times per Week Seatbelt Use: always Sunscreen Use: No Assistive Devices: Denture - Upper Allergies Allergies Allergy/AdvReac Type Severity Reaction Status Date / Time No Known Allergies Allergy Verified 07/27/21 17:01 Home Meds Home Medications Medication Instructions Recorded Confirmed cholecalciferol (vitamin D3) 25 1,000 unit PO QAM 12/11/17 09/04/21 mcg (1,000 unit) tablet vitamin B complex 1 tab PO QAM 04/12/20 09/04/21 glucosamine-chondroitin 500 mg-400 1 tab PO QAM tab 09/14/20 09/04/21 mg tablet acetaminophen 500 mg capsule 500 mg PO Q6H PRN 10/02/20 09/04/21 Previous Rx's Medication Instructions Recorded diltiazem HCl 120 mg capsule,24 120 mg PO QAM #90 cap 11/12/20 hr,extended release (Taztia XT) potassium chloride 20 mEq 20 meq PO QAM #90 tab 11/12/20 tablet,extended release(part/cryst) multivitamin (Daily Multi-Vitamin) 1 tab PO DAILY #30 tab 11/19/20 apixaban 5 mg tablet (Eliquis) 5 mg PO BID #180 tab 03/11/21 dutasteride 0.5 mg capsule 0.5 mg PO QAM #90 cap 06/10/21 (Avodart) tiotropium bromide 2.5 2 puff INHALATION DAILY #4 g 06/11/21 mcg/actuation mist for inhalation (Spiriva Respimat) diclofenac sodium 1 % topical gel 4 g TOPICAL QID #100 g 07/27/21 (Voltaren Arthritis Pain) ampicillin 500 mg capsule 500 mg PO QID 10 Days #40 cap 07/05/22 Results & Data (ED) Vital Signs Vital Signs - 24 hr 09/04/21 09:53 09/04/21 11:51 09/04/21 12:44 Temperature 36.5 C 37.1 C Temperature Source Temporal Artery Scan Oral Pulse Rate 104 H Pulse Rate [Apical] 91 H Pulse Rhythm [Apical] Regular Pulse Strength [Apical] Normal Respiratory Rate 18 18 Respiratory Effort / Characteristics Non-Labored Spontaneous Respiratory Depth Normal Blood Pressure 185/96 H Blood Pressure [Left Arm] 173/94 H Blood Pressure Mean 125 Blood Pressure Mean [Left Arm] 120 Blood Pressure Position [Left Arm] Sitting Pulse Oximetry 97 97 Oxygen Delivery Method Room Air Room Air Sepsis Recent Fever Within 48 Hours No Sepsis New/Unexplained Change in Mental Status No Sepsis Action Taken by Nursing No Action Required Laboratory Data Result diagrams: 09/04/21 10:03 09/04/21 10:03 Lab Results 09/04/21 09/04/21 09/04/21 Range/Units 10:03 10:03 10:03 WBC 7.39 (4.8-10.8) K/ul RBC 4.32 L (4.63-6.08) M/uL Hgb 14.7 (14.0-18.0) g/dl Hct 40.8 (40.1-51.0) % MCV 94.4 (80.0-100.0) fL MCH 34.0 (25.0-34.0) pg MCHC 36.0 (32.0-36.0) g/dL RDW Std Deviation 43.8 (36.4-46.3) fL RDW Coeff of Randy 12.6 (11.5-14.5) % Plt Count 176 (130-400) K/uL MPV 9.7 (9.4-12.4) fL Immature Gran % (Auto) 0.5 % Neut % (Auto) 77.2 % Lymph % (Auto) 14.9 % Starke % (Auto) 6.6 % Eos % (Auto) 0.3 % Baso % (Auto) 0.5 % Neut # (Auto) 5.70 (1.4-6.5) K/uL Lymph # (Auto) 1.10 L (1.2-3.4) K/uL Starke # (Auto) 0.49 (0.24-0.82) K/uL Eos # (Auto) 0.02 (0-0.50) K/uL Baso # (Auto) 0.04 (0-0.2) K/uL Immature Gran # (Auto) 0.04 H (0.00-0.02) K/uL Sodium 135 L (136-145) mmol/L Potassium 3.4 L (3.5-5.1) mmol/L Chloride 98 (98-107) mmol/L Carbon Dioxide 21 (21-32) mmol/L Anion Gap 16 H (3-11) BUN 12 (6-23) mg/dl Creatinine 0.88 (0.6-1.4) mg/dl Est Cr Clr Drug Dosing 70.0 ml/min Est GFR ( Amer) 97.4 ml/min Est GFR (Non-Af Amer) 84.0 ml/min BUN/Creatinine Ratio 13.6 (10-20) Glucose 128 H (70-99(Fasting)) mg/dl Lactate 4.5 H* (0.4-2.0) mmol/L Calcium 9.0 (8.5-10.1) mg/dl Total Bilirubin 0.8 (0.2-1.0) mg/dl Direct Bilirubin 0.1 (0-0.2) mg/dl AST 37 (13-39) U/L ALT 36 (7-52) U/L Alkaline Phosphatase 74 (34-104) U/L Troponin I High Sens 5.7 (0-20) pg/ml Total Protein 7.5 (6.0-8.3) gm/dl Albumin 4.6 (3.4-5.0) gm/dl Procalcitonin (0-0.5) ng/ml Urine Color Urine Appearance (Clear) Urine pH (4.5-7.5) Ur Specific Ossian (1.000-1.030) Urine Protein (Negative) Urine Glucose (UA) (Negative) Urine Ketones (Negative) Urine Blood (Negative) Urine Nitrite (Negative) Urine Bilirubin (Negative) Urine Urobilinogen (Negative) Ur Leukocyte Esterase (Negative) Urine WBC (Auto) (0-5) /hpf Urine RBC (Auto) (0-4) /hpf U Hyaline Cast (Auto) (0-5) /lpf U Epithel Cells (Auto) (0-5) /lpf Urine Bacteria (Auto) (Negative) SARS-CoV-2, RNA, NAAT (NEGATIVE) 09/04/21 09/04/21 09/04/21 Range/Units 10:03 10:19 10:56 WBC (4.8-10.8) K/ul RBC (4.63-6.08) M/uL Hgb (14.0-18.0) g/dl Hct (40.1-51.0) % MCV (80.0-100.0) fL MCH (25.0-34.0) pg MCHC (32.0-36.0) g/dL RDW Std Deviation (36.4-46.3) fL RDW Coeff of Randy (11.5-14.5) % Plt Count (130-400) K/uL MPV (9.4-12.4) fL Immature Gran % (Auto) % Neut % (Auto) % Lymph % (Auto) % Starke % (Auto) % Eos % (Auto) % Baso % (Auto) % Neut # (Auto) (1.4-6.5) K/uL Lymph # (Auto) (1.2-3.4) K/uL Starke # (Auto) (0.24-0.82) K/uL Eos # (Auto) (0-0.50) K/uL Baso # (Auto) (0-0.2) K/uL Immature Gran # (Auto) (0.00-0.02) K/uL Sodium (136-145) mmol/L Potassium (3.5-5.1) mmol/L Chloride (98-107) mmol/L Carbon Dioxide (21-32) mmol/L Anion Gap (3-11) BUN (6-23) mg/dl Creatinine (0.6-1.4) mg/dl Est Cr Clr Drug Dosing ml/min Est GFR ( Amer) ml/min Est GFR (Non-Af Amer) ml/min BUN/Creatinine Ratio (10-20) Glucose (70-99(Fasting)) mg/dl Lactate (0.4-2.0) mmol/L Calcium (8.5-10.1) mg/dl Total Bilirubin (0.2-1.0) mg/dl Direct Bilirubin (0-0.2) mg/dl AST (13-39) U/L ALT (7-52) U/L Alkaline Phosphatase (34-104) U/L Troponin I High Sens (0-20) pg/ml Total Protein (6.0-8.3) gm/dl Albumin (3.4-5.0) gm/dl Procalcitonin < 0.05 (0-0.5) ng/ml Urine Color Yellow Urine Appearance Clear (Clear) Urine pH 6.5 (4.5-7.5) Ur Specific Oss[place] 1.007 (1.000-1.030) Urine Protein Negative (Negative) Urine Glucose (UA) Negative (Negative) Urine Ketones Negative (Negative) Urine Blood 2+ H (Negative) Urine Nitrite Negative (Negative) Urine Bilirubin Negative (Negative) Urine Urobilinogen Negative (Negative) Ur Leukocyte Esterase 1+ H (Negative) Urine WBC (Auto) 10-30 H (0-5) /hpf Urine RBC (Auto) 10-30 H (0-4) /hpf U Hyaline Cast (Auto) 0 (0-5) /lpf U Epithel Cells (Auto) 10-20 H (0-5) /lpf Urine Bacteria (Auto) Negative (Negative) SARS-CoV-2, RNA, NAAT NEGATIVE (NEGATIVE) 09/04/21 Range/Units 11:46 WBC (4.8-10.8) K/ul RBC (4.63-6.08) M/uL Hgb (14.0-18.0) g/dl Hct (40.1-51.0) % MCV (80.0-100.0) fL MCH (25.0-34.0) pg MCHC (32.0-36.0) g/dL RDW Std Deviation (36.4-46.3) fL RDW Coeff of Randy (11.5-14.5) % Plt Count (130-400) K/uL MPV (9.4-12.4) fL Immature Gran % (Auto) % Neut % (Auto) % Lymph % (Auto) % Starke % (Auto) % Eos % (Auto) % Baso % (Auto) % Neut # (Auto) (1.4-6.5) K/uL Lymph # (Auto) (1.2-3.4) K/uL Starke # (Auto) (0.24-0.82) K/uL Eos # (Auto) (0-0.50) K/uL Baso # (Auto) (0-0.2) K/uL Immature Gran # (Auto) (0.00-0.02) K/uL Sodium (136-145) mmol/L Potassium (3.5-5.1) mmol/L Chloride (98-107) mmol/L Carbon Dioxide (21-32) mmol/L Anion Gap (3-11) BUN (6-23) mg/dl Creatinine (0.6-1.4) mg/dl Est Cr Clr Drug Dosing ml/min Est GFR ( Amer) ml/min Est GFR (Non-Af Amer) ml/min BUN/Creatinine Ratio (10-20) Glucose (70-99(Fasting)) mg/dl Lactate 4.7 H* (0.4-2.0) mmol/L Calcium (8.5-10.1) mg/dl Total Bilirubin (0.2-1.0) mg/dl Direct Bilirubin (0-0.2) mg/dl AST (13-39) U/L ALT (7-52) U/L Alkaline Phosphatase (34-104) U/L Troponin I High Sens (0-20) pg/ml Total Protein (6.0-8.3) gm/dl Albumin (3.4-5.0) gm/dl Procalcitonin (0-0.5) ng/ml Urine Color Urine Appearance (Clear) Urine pH (4.5-7.5) Ur Specific Ossian (1.000-1.030) Urine Protein (Negative) Urine Glucose (UA) (Negative) Urine Ketones (Negative) Urine Blood (Negative) Urine Nitrite (Negative) Urine Bilirubin (Negative) Urine Urobilinogen (Negative) Ur Leukocyte Esterase (Negative) Urine WBC (Auto) (0-5) /hpf Urine RBC (Auto) (0-4) /hpf U Hyaline Cast (Auto) (0-5) /lpf U Epithel Cells (Auto) (0-5) /lpf Urine Bacteria (Auto) (Negative) SARS-CoV-2, RNA, NAAT (NEGATIVE) Administered Medications Discontinued Medications Sodium Chloride (Nss 1000ml) 1,000 mls @ 999 mls/hr IV .Q1H1M ONE Stop: 09/04/21 11:09 Last Infusion: 09/04/21 12:02 Dose: 0 mls/hr Documented by: [id number] Admin: 09/04/21 10:38 Dose: 999 mls/hr Documented by: [id number] Sodium Chloride (Nss 1000ml) 1,000 mls @ 999 mls/hr IV .Q1H1M ONE Stop: 09/04/21 11:44 Last Infusion: 09/04/21 13:11 Dose: 0 mls/hr Documented by: [id number] Admin: 09/04/21 11:20 Dose: 999 mls/hr Documented by: [id number] Piperacillin Sod/Tazobactam Sod (Zosyn) 4.5 gm in 120 mls @ 240 mls/hr IV NOW ONE Stop: 09/04/21 11:14 Last Infusion: 09/04/21 12:02 Dose: 0 mls/hr Documented by: [id number] Admin: 09/04/21 11:20 Dose: 240 mls/hr Documented by: [id number] Sodium Chloride (Nss 1000ml) 1,000 mls @ 999 mls/hr IV .Q1H1M ONE Stop: 09/04/21 13:13 Last Admin: 09/04/21 13:22 Dose: 999 mls/hr Documented by: [id number] Ioversol (Optiray 320 100ml) 94 ml IV ONCE ONE Stop: 09/04/21 13:11 Last Admin: 09/04/21 13:12 Dose: 94 ml Documented by: [id number] Imaging Data Radiologist's Impression: Chest X-Ray 09/04/21 10:10 XR chest 1V portable CLINICAL HISTORY: feeling ill. . Difficulty breathing COMPARISON STUDY: 10/28/2020 TECHNIQUE: 1 view of the chest FINDINGS: Single frontal view of the chest demonstrates the cardiomediastinal silhouette to be within normal limits. The lungs are clear of alveolar opacities. There is no evidence for pleural effusion. There is no evidence for vascular congestion. There is no acute osseous pathology. IMPRESSION: 1. No acute cardiopulmonary disease. ACT 112: Negative or not required by law. Electronically signed by: Osmel Delarosa M.D. 09/04/2021 10:33 AM Abdomen/Pelvis CT 09/04/21 12:51 CT abd pelvis IV con only CLINICAL HISTORY: AMS, elevated lactate, unknown source COMPARISON STUDY: 04/22/2021 CT DOSE: 353.62 mGy.cm TECHNIQUE: Standard CT of the Abdomen and Pelvis was performed with IV contrast. A dose lowering technique was utilized adhering to the principles of ALARA. Contrast Volume: Optiray 320, 94 ml. The patient did not receive oral contr ast. FINDINGS: Lung base: The lung bases are clear. Abdominal cavity: There is no evidence for abdominal mass, adenopathy or ascites. Liver: There is homogeneous attenuation of the liver parenchyma. There is no evidence for enhancing mass lesion. Spleen: There is homogeneous attenuation of the splenic parenchyma. There is no enhancing mass lesion. Calcified granuloma are present. Pancreas: There is homogeneous attenuation of the pancreatic parenchyma. There is no evidence for mass lesion or peripancreatic fluid collection. Gall Bladder: The gallbladder is well distended with no evidence for intraluminal calculi, wall thickening or pericholecystic edema. Adrenal glands: The adrenal glands are normal in size and attenuation. There is no evidence for enhancing mass lesion. Kidneys: There is homogeneous attenuation of the renal parenchyma bilaterally. There is no evidence for renal calculus or hydronephrosis. There is no evidence for enhancing mass. Sharply defined renal cysts are present. Bowel: The bowel loops are normally placed within the abdomen and pelvis without evidence for dilatation or obstruction. There is no evidence for mass lesion. There is mild sigmoid diverticulosis without evidence for diverticulitis. There are no inflammatory changes present. There is no evidence for free air. Bladder: Bladder is distended with diffuse thickening of bladder wall. Large bladder diverticulum is also seen anteriorly. No focal bladder wall mass or calculus is identified. : There is no evidence for pelvic mass or adenopathy. There is no evidence for pelvic ascites. Vasculature: There is no evidence for aneurysmal dilatation of the abdominal aorta. Atherosclerotic calcification is present. Osseous structures: There is no acute osseous pathology. Degenerative changes are present. IMPRESSION: 1. No acute intra-abdominal or pelvic abnormality. 2. Distention of the bladder with thickening of bladder wall large bladder diverticulum. 3. Mild diverticulosis without evidence for diverticulitis. 4. Additional nonacute findings are delineated above. ACT 112: Negative or not required by law. Electronically signed by: Osmel Delarosa M.D. 09/04/2021 1:30 PM Discharge Plan Visit Data Chief Complaint: Illness Stated Complaint: HX OF UTI,NOT FEELING STEADY,DIARRHEA ED Provider: Chacorta Mina Discharge Problem: Enterococcus UTI, Lactic acidosis Patient Disposition: Admitted As Inpatient Discharge Instructions Interventions: ED Discharge Assessment Last Done: 09/04/21 13:29
[2021-09-04 10:18] LABS: Basophils # (auto) 0.04 K/uL (0-0.2); Basophils % (auto) 0.5 %; Eosinophils # (auto) 0.02 K/uL (0-0.50); Eosinophils % (auto) 0.3 %; Hematocrit (blood only) 40.8 % (40.1-51.0); Hemoglobin 14.7 g/dl (14.0-18.0); Immature Granulocytes # (auto) 0.04 K/uL (0.00-0.02); Immature Granulocytes % (auto) 0.5 %; Lymphocytes % (auto) 14.9 %; Mean Corpuscular Volume 94.4 fL (80.0-100.0); Mean Platelet Volume 9.7 fL (9.4-12.4); Monocytes # (auto) 0.49 K/uL (0.24-0.82); Monocytes % (auto) 6.6 %; Neutrophils % (auto) 77.2 %; Platelet Count 176 K/uL (130-400); RDW Coefficient of Variation 12.6 % (11.5-14.5); RDW Standard Deviation 43.8 fL (36.4-46.3); Red Blood Count 4.32 M/uL (4.63-6.08); White Blood Count 7.39 K/ul (4.8-10.8)
--- NOTE | 2021-09-04 10:34 | XRay Report ---
XR chest 1V portable CLINICAL HISTORY: feeling ill. . Difficulty breathing COMPARISON STUDY: 10/28/2020 TECHNIQUE: 1 view of the chest FINDINGS: Single frontal view of the chest demonstrates the cardiomediastinal silhouette to be within normal li mits. The lungs are clear of alveolar opacities. There is no evidence for pleural effusion. There is no evidence for vascular congestion. There is no acute osseous pathology. IMPRESSION: 1. No acute cardiopulmonary disease. ACT 112: Negative or not required by law. Electronically signed by: Osmel Delarosa M.D. 09/04/2021 10:33 AM
[2021-09-04 10:41] LABS: Albumin Level 4.6 gm/dl (3.4-5.0); BUN Creatinine Ratio 13.6 (10-20); Bilirubin Direct 0.1 mg/dl (0-0.2); Bilirubin,Total 0.8 mg/dl (0.2-1.0); Est GFR (African American) 97.4 ml/min; Potassium 3.4 mmol/L (3.5-5.1); Total Protein 7.5 gm/dl (6.0-8.3)
[2021-09-04] MEDS ORDERED: PIPERACILLIN/TAZOBACTAM 4.5 GM/120 ML BAG IV ONE (10:45)
[2021-09-04 10:46] LABS: Troponin I High Sensitivity 5.7 pg/ml (0-20)
[2021-09-04 11:43] LABS: Appearance Urine Clear (Clear); Bacteria Urine Automated Negative (Negative); Bilirubin Urine Negative (Negative); Blood Urine 2+ (Negative); Cast Urine Automated 0 /lpf (0-5); Color Urine Yellow; Glucose Urine UA Negative (Negative); Ketones Urine Negative (Negative); Leukocyte Esterase Urine 1+ (Negative); Nitrite Urine Negative (Negative); Protein Urine Negative (Negative); Specific Gravity Urine 1.007 (1.000-1.030); Urobilinogen Urine Negative (Negative); pH Urine 6.5 (4.5-7.5)
--- NOTE | 2021-09-04 12:11 | History & Physical Report ---
Date of Service September 04, 2021 Assessment & Plan (1) UTI (urinary tract infection): Plan: - Started on ampicillin 08/31 based on culture from 08/26 johnson-sensitive enterococcus faecalis. Patient has been taking it as prescribed. - UA here with 10-30 WBCS, RBCs, 1+ leuk esterase. 2+ blood. Blood and urine cx pending. - Zosyn in ED--will continue this and defer abx choice to urology. - Has a history of UTIs, kidney stones, and a renal lesion that urology has been following. Consult urology given ongoing UTI hx with - Elevated lactate without leukocytosis, procal. UA with evidence of some infection, not sure that this can explain his presentation entirely. Suspect he is dehydrated, ? if alcohol withdrawal is contributing to his presentation. * Lactate downtrending with IVF and Zosyn. Patient seems more alert. (2) Alcohol abuse: Plan: - Noted in patient's history that he previously had 2-3 drinks/day and sometimes up to a whole fifth bottle of liquor. - Patient unable to elaborate on alcohol intake currently. He states he does tend to start drinking more when he gets UTIs. Last drink last night around 10- 11 pm. Can't recall how much he had. Unsure if his symptoms are related to infection versus withdrawal, but he is tremulous, with elevated BP and tachycardia. Afebrile. - PO folate and thiamine repletion, placed on AWSS with Ativan as needed. - LFTs within normal limits today. (3) Afib: Plan: - Continue Eliquis, diltiazem. (4) BPH (benign prostatic hyperplasia): Plan: - Continue Avodart. (5) Essential hypertension: Plan: - Elevated today, ? due to EtOh withdrawal. - Continue diltiazem as above for afib. - Will add on prn hydralazine if SBP persistently > 180 (6) COPD with emphysema: Plan: - Continue Spiriva daily. - Continues to smoke 1/2 PPD, denies nicotine patch. (7) Lung cancer: Plan: - s/p radiation for likely stage 1 lung cancer Plan: - Admit to PCU. - SCDs, Eliquis for VTE ppx. - Full Code. History of Present Illness Chief Complaint: fatigue, confusion x 1 day Primary Care Provider: MD Jerod Granger is a 76-year-old male with a past medical history significant for a fib, lung CA s/p radiation treatment, COPD and current smoker, alcohol abuse, and BPH with chronic UTIs and renal lesion presents to the ED today due to not feeling well. Patient is somewhat of a poor historian during my visit and has been difficulty providing details but says he feels and is experiencing brain fog. He apparently saw a provider last week because he was having blood in his urine and they did a culture and started him on an antibiotic recently, within the past few days. Per chart review, ampicillin was started on 08/31. Cannot really tell me much mroe about how he has been feeling over the past few days, denies abdominal or back pain or dysuria, or fever/chills at home. Essentially, he woke u0p this morning and just felt generally "off". He notes that he has history of alcohol abuse, which typically gets worse when he has a UTI because the brain fog he experiences with it makes him want to drink, however once he has an antibiotic in his system he begins to feel better and stopped drinking. Unsure how much alcohol he has had in the past week. Last drink was last evening, he does not know how much he had to drink yesterday. In ED, hypertensive BP 180s/90s, tachycardic with HR 90-100, but afebrile, SpO2 @ > 95% on room air. Labs are significant for an initial lactate of 4.5, however remaining labs largely unremarkable, no leukocytosis, PCT<0.05. UA with 2+ blood, 1+ leuk esterase, 1030 white blood cells, but no bacteria. COVID- negative. No major electrolyte abnormalities, sodium is 135, potassium 3.4. Blood and urine cultures sent. Allergies Allergy/AdvReac Type Severity Reaction Status Date / Time No Known Allergies Allergy Verified 07/27/21 17:01 Home Medications Medication Instructions Recorded Confirmed Type cholecalciferol (vitamin D3) 25 1,000 unit PO QAM 12/11/17 09/04/21 History mcg (1,000 unit) tablet vitamin B complex 1 tab PO QAM 04/12/20 09/04/21 History glucosamine-chondroitin 500 mg-400 1 tab PO QAM tab 09/14/20 09/04/21 History mg tablet acetaminophen 500 mg capsule 500 mg PO Q6H PRN 10/02/20 09/04/21 History diltiazem HCl 120 mg capsule,24 120 mg PO QAM #90 cap 11/12/20 09/04/21 Rx hr,extended release (Taztia XT) potassium chloride 20 mEq 20 meq PO QAM #90 tab 11/12/20 09/04/21 Rx tablet,extended release(part/cryst) multivitamin (Daily Multi-Vitamin) 1 tab PO DAILY #30 tab 11/19/20 09/04/21 Rx apixaban 5 mg tablet (Eliquis) 5 mg PO BID #180 tab 03/11/21 09/04/21 Rx dutasteride 0.5 mg capsule 0.5 mg PO QAM #90 cap 06/10/21 09/04/21 Rx (Avodart) tiotropium bromide 2.5 2 puff INHALATION DAILY #4 g 06/11/21 09/04/21 Rx mcg/actuation mist for inhalation (Spiriva Respimat) diclofenac sodium 1 % topical gel 4 g TOPICAL QID #100 g 07/27/21 09/04/21 Rx (Voltaren Arthritis Pain) ampicillin 500 mg capsule 500 mg PO QID 10 Days #40 cap 08/31/21 09/04/21 Rx Past Med/Surg History Medical History Adjustment disorder with anxiety Alcohol abuse 3+ drinks per day, sometimes a fifth of alcohol per day per 09/30/20 hospital discharge summary Per patient at [facility] appt on 10/08/20- no alcohol intake since hospital admission on 09/28/20 Atrial flutter F/U DR FIFI PEREZ On Eliquis BPH (benign prostatic hyperplasia) Hypertension Hypokalemia Hypokalemia Pulmonary nodule 1.7 spiculated nodule, 1.[address] irregular lesion on CT scan. Suspicious for lung cancer. Surgical History History of appendectomy History of colonoscopy MULTIPLE History of epidermal inclusion cyst excision History of SCC (squamous cell carcinoma) of skin MOHS Family History Mother Alzheimer disease Hearing loss Father Brain tumor Stroke Brother Cerebral atherosclerosis Stroke Denies family history of Colon cancer Ovarian cancer Prostate cancer Myocardial infarction Breast cancer Social History Smoking Status: Current every day smoker packs per day: 0.5; Years Smoked: 50; Cigarettes Per Day: half pack; Second Hand Exposure: No; Do You Dip or Chew Tobacco: No; Tobacco Cessation Education Requested by Patient: Yes Hx Alcohol Use: Yes Alcohol type: hard liquor Alcohol Intake Frequency Comment: 15 beers/drinks daily Hx Substance Use: No Preferred Language: [place]ib[place]ian Communication Ability: Effective Visual Impairment: No Limitations Hearing Ability: Normal Mechanical Integrity Specialist Required: No Beliefs That Will Affect Care: None marital status: Current Living Situation: Alone current occupational status: retired How many Children do You have: 1 Other Information That Helps Us Care for You: No Feels Safe at Home: Yes Safety Concerns: Feels Safe At This Time Childhood Exposure to Second-Hand Smoke: Yes Dental Care, Regularly: No Physical Activity Frequency: 3-4 Times per Week Seatbelt Use: always Sunscreen Use: No Assistive Devices: Denture - Upper Review of Systems Review of Systems: Constitutional: "brain fog" since this AM; No fever/chills, weakness, fatigue, myalgias, anorexia, night sweats Eyes: No diplopia, no worsening or blurred vision ENT: normal hearing, no trouble swallowing Respiratory: No cough, sputum, dyspnea at rest or on exertion Cardiovascular: No chest pain, tightness or palpitations Abdomen: No pain, nausea, vomiting, diarrhea or constipation : hematuria at end july, none since; Denies dysuria, hematuria, increased urgency/frequency, urinary retention Musculoskeletal: No joint pain, calf pain, swelling Neurologic: No weakness, numbness/tingling, or balance problems Psychiatric: No anxiety or depression Skin: No rash or itch Physical Exam Physical Exam: General: awake, alert, no apparent distress Head: Normocephalic, atraumatic ENT: PERRL, EOMI, no pharyngeal exudate, mucous membranes moist Chest: Clear to auscultation, on room air, no adventitious breath sounds Cardiac: Regular rate and rhythm, no murmur, no JVD, normal peripheral pulses, good capillary refill Abdominal: NABS x 4 quadrants, soft, nontender to palpation, no rebound, guarding or tenderness Extremities: Normal inspection, no peripheral edema or erythema, calfs nontender to palpation Psych: Normal mood and affect Neuro: AAO x 3, strength intact bilaterally and rated 5/5, no motor deficits, speech is clear, no peripheral sensory deficits Skin: no rash or erythema Results & Data Results & Data ([facility]) Vital Signs (Past 12 Hours) Vital Signs Temp Pulse Pulse Resp BP BP Pulse Ox 09/04/21 11:51 91 H 18 173/94 H 97 09/04/21 09:53 36.5 C 104 H 18 185/96 H 97 Laboratory Results Abnormal lab results 09/04/21 09/04/21 09/04/21 Range/Units 10:03 10:03 10:03 RBC 4.32 L (4.63-6.08) M/uL Lymph # (Auto) 1.10 L (1.2-3.4) K/uL Immature Gran # (Auto) 0.04 H (0.00-0.02) K/uL Sodium 135 L (136-145) mmol/L Potassium 3.4 L (3.5-5.1) mmol/L Anion Gap 16 H (3-11) Glucose 128 H (70-99(Fasting)) mg/dl Lactate 4.5 H* (0.4-2.0) mmol/L Urine Blood (Negative) Ur Leukocyte Esterase (Negative) Urine WBC (Auto) (0-5) /hpf Urine RBC (Auto) (0-4) /hpf U Epithel Cells (Auto) (0-5) /lpf 09/04/21 09/04/21 09/04/21 Range/Units 10:56 11:46 14:29 RBC (4.63-6.08) M/uL Lymph # (Auto) (1.2-3.4) K/uL Immature Gran # (Auto) (0.00-0.02) K/uL Sodium (136-145) mmol/L Potassium (3.5-5.1) mmol/L Anion Gap (3-11) Glucose (70-99(Fasting)) mg/dl Lactate 4.7 H* 3.3 H* (0.4-2.0) mmol/L Urine Blood 2+ H (Negative) Ur Leukocyte Esterase 1+ H (Negative) Urine WBC (Auto) 10-30 H (0-5) /hpf Urine RBC (Auto) 10-30 H (0-4) /hpf U Epithel Cells (Auto) 10-20 H (0-5) /lpf Diagnostic Findings Chest X-Ray 09/04/21 10:10 XR chest 1V portable CLINICAL HISTORY: feeling ill. . Difficulty breathing COMPARISON STUDY: 10/28/2020 TECHNIQUE: 1 view of the chest FINDINGS: Single frontal view of the chest demonstrates the cardiomediastinal silhouette to be within normal limits. The lungs are clear of alveolar opacities. There is no evidence for pleural effusion. There is no evidence for vascular congestion. There is no acute osseous pathology. IMPRESSION: 1. No acute cardiopulmonary disease. ACT 112: Negative or not required by law. Electronically signed by: Osmel Delarosa M.D. 09/04/2021 10:33 AM Abdomen/Pelvis CT 09/04/21 12:51 CT abd pelvis IV con only CLINICAL HISTORY: AMS, elevated lactate, unknown source COMPARISON STUDY: 04/22/2021 CT DOSE: 353.62 mGy.cm TECHNIQUE: Standard CT of the Abdomen and Pelvis was performed with IV contrast. A dose lowering technique was utilized adhering to the principles of ALARA. Contrast Volume: Optiray 320, 94 ml. The patient did not receive oral contrast. FINDINGS: Lung base: The lung bases are clear. Abdominal cavity: There is no evidence for abdominal mass, adenopathy or ascites. Liver: There is homogeneous attenuation of the liver parenchyma. There is no evidence for enhancing mass lesion. Spleen: There is homogeneous attenuation of the splenic parenchyma. There is no enhancing mass lesion. Calcified granuloma are present. Pancreas: There is homogeneous attenuation of the pancreatic parenchyma. There is no evidence for mass lesion or peripancreatic fluid collection. Gall Bladder: The gallbladder is well distended with no evidence for intraluminal calculi, wall thickening or pericholecystic edema. Adrenal glands: The adrenal glands are normal in size and attenuation. There is no evidence for enhancing mass lesion. Kidneys: There is homogeneous attenuation of the renal parenchyma bilaterally. There is no evidence for renal calculus or hydronephrosis. There is no evidence for enhancing mass. Sharply defined renal cysts are present. Bowel: The bowel loops are normally placed within the abdomen and pelvis without evidence for dilatation or obstruction. There is no evidence for mass lesion. There is mild sigmoid diverticulosis without evidence for diverticulitis. There are no inflammatory changes present. There is no evidence for free air. Bladder: Bladder is distended with diffuse thickening of bladder wall. Large bladder diverticulum is also seen anteriorly. No focal bladder wall mass or calculus is identified. : There is no evidence for pelvic mass or adenopathy. There is no evidence for pelvic ascites. Vasculature: There is no evidence for aneurysmal dilatation of the abdominal aorta. Atherosclerotic calcification is present. Osseous structures: There is no acute osseous pathology. Degenerative changes are present. IMPRESSION: 1. No acute intra-abdominal or pelvic abnormality. 2. Distention of the bladder with thickening of bladder wall large bladder diverticulum. 3. Mild diverticulosis without evidence for diverticulitis. 4. Additional nonacute findings are delineated above. ACT 112: Negative or not required by law. Electronically signed by: Osmel Delarosa M.D. 09/04/2021 1:30 PM Code Status & VTE Plan Code Status Full Code. Supervising Physician Co-Signing Physician Notes Discussed case with RAMSES as noted above. Agree with her plan as noted. Patient is a poor historian, here for urinary tract infection. Has had recurrence. Previous cultures positive for Enterococcus. Agree with Zosyn until patient to be evaluated by urology. Patient has known alcohol abuse, monitor for signs and symptoms of withdrawal. PG Care Time/CCT Total # of Minutes Spent Total Time Spent with Patient: Total time spent is greater than 50% in coordination of care (as documented) at patient's floor/unit and/or counseling patient: Coding Level of Care Code 32872 Initial Inpt Care Lvl 3 Diagnoses UTI (urinary tract infection) N39.0 Alcohol abuse F10.10 Afib I48.91 BPH (benign prostatic hyperplasia) N40.0 Essential hypertension I10 COPD with emphysema J43.9 Lung cancer C34.90
[2021-09-04] MEDS ORDERED: OPTIRAY 320 100ml IV ONE (13:10)
--- NOTE | 2021-09-04 13:33 | CT Scan Report ---
CT abd pelvis IV con only CLINICAL HISTORY: AMS, elevated lactate, unknown source COMPARISON STUDY: 04/22/2021 CT DOSE: 353.62 mGy.cm TECHNIQUE: Standard CT of the Abdomen and Pelvis was performed with IV contrast. A dose lowering galina hnique was utilized adhering to the principles of ALARA. Contrast Volume: Optiray 320, 94 ml. The patient did not receive oral contrast. FINDINGS: Lung base: The lung bases are clear. Abdominal cavity: There is no evidence for abdominal mass, adenopathy or ascites. Liver: There is homogeneous attenuation of the liver parenchyma. There is no evidence for enhancing m ass lesion. Spleen: There is homogeneous attenuation of the splenic parenchyma. There is no enhancing mass lesion . Calcified granuloma are present. Pancreas: There is homogeneous attenuation of the pancreatic parenchyma. There is no evidence for mas s lesion or peripancreatic fluid collection. Gall Bladder: The gallbladder is well distended with no evidence for intraluminal calculi, wall thick ening or pericholecystic edema. Adrenal glands: The adrenal glands are normal in size and attenuation. There is no evidence for enhan cing mass lesion. Kidneys: There is homogeneous attenuation of the renal parenchyma bilaterally. There is no evidence f or renal calculus or hydronephrosis. There is no evidence for enhancing mass. Sharply defined renal c ysts are present. Bowel: The bowel loops are normally placed within the abdomen and pelvis without evidence for dilatat ion or obstruction. There is no evidence for mass lesion. There is mild sigmoid diverticulosis withou t evidence for diverticulitis. There are no inflammatory changes present. There is no evidence for fr ee air. Bladder: Bladder is distended with diffuse thickening of bladder wall. Large bladder diverticulum is also seen anteriorly. No focal bladder wall mass or calculus is identified. : There is no evidence for pelvic mass or adenopathy. There is no evidence for pelvic ascites. Vasculature: There is no evidence for aneurysmal dilatation of the abdominal aorta. Atherosclerotic c alcification is present. Osseous structures: There is no acute osseous pathology. Degenerative changes are present. IMPRESSION: 1. No acute intra-abdominal or pelvic abnormality. 2. Distention of the bladder with thickening of bladder wall large bladder diverticulum. 3. Mild diverticulosis without evidence for diverticulitis. 4. Additional nonacute findings are delineated above. ACT 112: Negative or not required by law. Electronically signed by: Osmel Delarosa M.D. 09/04/2021 1:30 PM
[2021-09-04] MEDS ORDERED: MULTI-VITAMIN INFUSION 10 ML, THIAMINE HCL 100 MG, FOLIC ACID 1 MG in SODIUM CHLORIDE 0... IV ONE (13:45)
[2021-09-04] MEDS ORDERED: LORazepam 1 MG TAB PO PRN (14:12)
[2021-09-04] MEDS ORDERED: POLYETHYLENE (MIRALAX) 17 GM PACK PO PRN (14:12)
[2021-09-04] MEDS ORDERED: ONDANSETRON INJ 2 MG/ML 2 ML VIAL IV PRN (14:12)
[2021-09-04] MEDS ORDERED: ACETAMINOPHEN 500 MG TAB PO PRN (14:21)
[2021-09-04] MEDS: FOLIC ACID 1 MG TAB PO SCH (15:45)
[2021-09-04] MEDS: THIAMINE HCL 100 MG TAB PO SCH (15:45)
[2021-09-04] MEDS: PIPERACILLIN/TAZOBACTAM 4.5 GM in DEXTROSE 5% 100 ML IV SCH ×2 (15:45→22:06)
[2021-09-04] MEDS: DICLOFENAC SOD 1% GEL 100 GM TUBE EXT SCH ×3 (15:46→20:07)
[2021-09-04] MEDS: LACTATED RINGER'S 1,000 ML IV SCH (17:11)
--- NOTE | 2021-09-04 19:24 | Urology Consultation ---
Date of Consultation September 04, 2021 Assessment & Plan (1) Enterococcus UTI: Patient has been admitted on the hospitalist service. From a urology perspective we recommend proceeding as follows: Follow serial labs Continue resuscitation with IV fluids Continue antibiotics. Zosyn has been administered and initiated. Both blood and urine cultures have been sent. These results to be followed and his antibiotics can be further tailored based on these results. I recommend bladder scanning the patient after his next void. If he is retaining urine consideration should be given to placing a Galeana catheter temporarily to maximize bladder drainage in the setting of a UTI. 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 I did discuss with the RN to BladderScan patient and orders have been entered Additional recommendations be forthcoming based on his clinical course as it unfolds Remainder of plan as directed by primary service History of Present Illness Reason for Consultation: Current urinary tract infection Attending Physician: Ji Pena, History of Present Illness This is a 76-year-old male who presented to the emergency department secondary and feeling generally unwell. Patient saw one of his medical providers approximately 1 week ago because he noted some blood in his urine. He does note that this hematuria has subsequently cleared. Patient had a urine culture sent and he was started on ampicillin. He reports that he was taking his antibiotic as prescribed. Despite this modality he notes that he continues to feel generally unwell prompting his visit to the emergency department. Review of records did show the patient had a urine culture on 08/26/2021 which grew Enterococcus with no resistances. He also had a urine culture on 07/07/2021 which again showed Enterococcus with no resistances. Since arrival to the hospital the patient has had labs and imaging which I independent reviewed. CT scan of the abdomen pelvis did not show any acute intra-abdominal pelvic abnormalities. His bladder was noted to be distended and diffusely thick-walled. A large bladder diverticulum was noted in the anterior surface of the bladder. No bladder masses or calculi were noted. There is no evidence of hydronephrosis. There is no evidence of renal masses. Renal cysts were noted. There was no evidence for renal masses. Labs include a CBC her white blood cell count, hemoglobin, hematocrit, and platelet count were normal. Chemistry profile showed sodium and potassium are 135 and 3.4. His BUN and creatinine were both normal. Lactic acid was elevated at 3.3. Cardiac enzymes were checked and were negative. A procalcitonin was not elevated. Urinalysis did reveal 2+ blood and 1+ leukocyte esterase. He had 10-30 white blood cells per high-power field. This urine specimen was negative for bacteria. A COVID test was noted to be negative. I question the patient about urologic symptoms and he did report having a TURP procedure several years ago. He notes that since his procedure he has not had any difficulty urinating. He feels that his urine stream is strong. He feels as though he can empty his bladder completely after voiding. He has not had any further hematuria. He denies any dysuria. He denies urinary frequency. He denies any fevers, shakes, or chills. He denies any nausea or vomiting. He denies any abdominal, back pain, or flank pain. At the time of my interview the patient was resting comfortably in bed and he was in no distress Allergies Allergy/AdvReac Type Severity Reaction Status Date / Time No Known Allergies Allergy Verified 07/27/21 17:01 Home Medications Medication Instructions Recorded Confirmed Type cholecalciferol (vitamin D3) 25 1,000 unit PO QAM 12/11/17 09/04/21 History mcg (1,000 unit) tablet vitamin B complex 1 tab PO QAM 04/12/20 09/04/21 History glucosamine-chondroitin 500 mg-400 1 tab PO QAM tab 09/14/20 09/04/21 History mg tablet acetaminophen 500 mg capsule 500 mg PO Q6H PRN 10/02/20 09/04/21 History diltiazem HCl 120 mg capsule,24 120 mg PO QAM #90 cap 11/12/20 09/04/21 Rx hr,extended release (Taztia XT) potassium chloride 20 mEq 20 meq PO QAM #90 tab 11/12/20 09/04/21 Rx tablet,extended release(part/cryst) multivitamin (Daily Multi-Vitamin) 1 tab PO DAILY #30 tab 11/19/20 09/04/21 Rx apixaban 5 mg tablet (Eliquis) 5 mg PO BID #180 tab 03/11/21 09/04/21 Rx dutasteride 0.5 mg capsule 0.5 mg PO QAM #90 cap 06/10/21 09/04/21 Rx (Avodart) tiotropium bromide 2.5 2 puff INHALATION DAILY #4 g 06/11/21 09/04/21 Rx mcg/actuation mist for inhalation (Spiriva Respimat) diclofenac sodium 1 % topical gel 4 g TOPICAL QID #100 g 07/27/21 09/04/21 Rx (Voltaren Arthritis Pain) ampicillin 500 mg capsule 500 mg PO QID 10 Days #40 cap 08/31/21 09/04/21 Rx Patient History Medical History Adjustment disorder with anxiety Alcohol abuse 3+ drinks per day, sometimes a fifth of alcohol per day per 09/30/20 hospital discharge summary Per patient at [facility] on 10/08/20- no alcohol intake since hospital admission on 09/28/20 Atrial flutter F/U DR FIFI PEREZ On Eliquis BPH (benign prostatic hyperplasia) Hypertension Hypokalemia Hypokalemia Pulmonary nodule 1.7 spiculated nodule, 1.[address] irregular lesion on CT scan. Suspicious for lung cancer. Surgical History History of appendectomy History of colonoscopy MULTIPLE History of epidermal inclusion cyst excision History of SCC (squamous cell carcinoma) of skin MOHS Family History Mother Alzheimer disease Hearing loss Father Brain tumor Stroke Brother Cerebral atherosclerosis Stroke Denies family history of Colon cancer Ovarian cancer Prostate cancer Myocardial infarction Breast cancer Social History Smoking Status: Current every day smoker packs per day: 0.5; Years Smoked: 50; Cigarettes Per Day: half pack; Second Hand Exposure: No; Do You Dip or Chew Tobacco: No; Tobacco Cessation Education Requested by Patient: Yes Hx Alcohol Use: Yes Alcohol type: hard liquor Alcohol Intake Frequency Comment: 15 beers/drinks daily Hx Substance Use: No Preferred Language: Turkish Communication Ability: Effective Visual Impairment: No Limitations Hearing Ability: Normal Plan Examiner Required: No Beliefs That Will Affect Care: None marital status: Current Living Situation: Alone current occupational status: retired How many Children do You have: 1 Other Information That Helps Us Care for You: No Feels Safe at Home: Yes Safety Concerns: Feels Safe At This Time Childhood Exposure to Second-Hand Smoke: Yes Dental Care, Regularly: No Physical Activity Frequency: 3-4 Times per Week Seatbelt Use: always Sunscreen Use: No Assistive Devices: Denture - Upper Review of Systems Constitutional: no fever and no chills Eyes: no eye pain Ear, Nose, Mouth, Throat: no ear pain Respiratory: no cough and no dyspnea Cardiovascular: no chest pain Gastrointestinal: no abdominal pain, no nausea and no vomiting Genitourinary: + as per Subjective / HPI Musculoskeletal: no back pain Integumentary: no rash Neurologic: no localized weakness Physical Exam Constitutional: WD/WN, vitals as above Eyes: no conjunctival abnormality ENMT: Ears: no hearing impairment and no external ear abnormality Mouth: no oropharynx abnormality Neck: trachea midline Respiratory: normal respiratory effort; no respiratory distress and no labored breathing Cardiovascular: Rate/Rhythm: regular rate and regular rhythm Gastrointestinal (Abdomen): Soft, nonrigid, nontender, and nondistended. There is no pain with palpation Musculoskeletal: No calf tenderness Skin: no rashes Neurologic: moves all extremities Psychiatric: A+Ox3, euthymic affect Genitourinary: no CVA tenderness Results & Data ([facility]) Vital Signs (Past 12 Hours) Vital Signs Temp Pulse Pulse Resp BP BP Pulse Ox 09/04/21 14:17 37.3 C 86 18 166/94 H 96 09/04/21 14:00 91 H 09/04/21 12:44 37.1 C 09/04/21 11:51 91 H 18 173/94 H 97 09/04/21 09:53 36.5 C 104 H 18 185/96 H 97 PG Care Time/CCT Total # of Minutes Spent Total Time Spent with Patient: Total time spent is greater than 50% in coordination of care (as documented) at patient's floor/unit and/or counseling patient: Coding Level of Care Code 84607 Inpt Consult Level 5 Diagnoses Enterococcus UTI N39.0; B95.2
[2021-09-04] MEDS: APIXABAN 5 MG TABLET PO SCH (20:03)
[2021-09-04] MEDS ORDERED: hydrALAZINE HCL 20 MG/ML VIAL IV PRN (22:05)
[2021-09-05] MEDS: LACTATED RINGER'S 1,000 ML IV SCH ×3 (00:47→18:43)
[2021-09-05 05:30] LABS: Basophils # (auto) 0.03 K/uL (0-0.2); Basophils % (auto) 0.4 %; Eosinophils # (auto) 0.16 K/uL (0-0.50); Hematocrit (blood only) 40.2 % (40.1-51.0); Hemoglobin 14.5 g/dl (14.0-18.0); Immature Granulocytes # (auto) 0.02 K/uL (0.00-0.02); Immature Granulocytes % (auto) 0.2 %; Lymphocytes # (auto) 1.13 K/uL (1.2-3.4); Lymphocytes % (auto) 13.9 %; Mean Corpuscular Hgb Conc 36.1 g/dL (32.0-36.0); Mean Corpuscular Volume 94.1 fL (80.0-100.0); Mean Platelet Volume 9.6 fL (9.4-12.4); Monocytes # (auto) 0.71 K/uL (0.24-0.82); Monocytes % (auto) 8.7 %; Neutrophils # (auto) 6.07 K/uL (1.4-6.5); Neutrophils % (auto) 74.8 %; Platelet Count 154 K/uL (130-400); RDW Coefficient of Variation 12.8 % (11.5-14.5); RDW Standard Deviation 43.5 fL (36.4-46.3); Red Blood Count 4.27 M/uL (4.63-6.08); White Blood Count 8.12 K/ul (4.8-10.8)
[2021-09-05 05:51] LABS: BUN Creatinine Ratio 10.8 (10-20); Calcium 8.4 mg/dl (8.5-10.1); Creatinine Clr Calc Pharmacy 73.6 ml/min; Est GFR (African American) 99.8 ml/min; Est GFR (Non-African American) 86.1 ml/min; Potassium 2.9 mmol/L (3.5-5.1)
[2021-09-05] MEDS: PIPERACILLIN/TAZOBACTAM 4.5 GM in DEXTROSE 5% 100 ML IV SCH ×3 (06:03→22:01)
[2021-09-05] MEDS ORDERED: POTASSIUM CHLORIDE CRTAB 20 MEQ TABCR PO STA (08:00)
[2021-09-05] MEDS: APIXABAN 5 MG TABLET PO SCH ×2 (08:21→20:00)
[2021-09-05] MEDS: THIAMINE HCL 100 MG TAB PO SCH (08:21)
[2021-09-05] MEDS: VITAMIN B COMPLEX TAB PO SCH (08:21)
[2021-09-05] MEDS: FOLIC ACID 1 MG TAB PO SCH (08:21)
[2021-09-05] MEDS: CHOLECALCIFEROL 1,000 UNITS 25 MCG TAB PO SCH (08:21)
[2021-09-05] MEDS: POTASSIUM CHLORIDE CRTAB 20 MEQ TABCR PO SCH (08:22)
[2021-09-05] MEDS: dilTIAZem ER 120 MG CAPCR PO SCH (08:22)
[2021-09-05] MEDS: DICLOFENAC SOD 1% GEL 100 GM TUBE EXT SCH ×4 (08:23→20:01)
[2021-09-05] MEDS: UMECLIDINIUM BROMIDE 62.5MCG/BLISTER 7 PUFFS/INHALER INH SCH (08:23)
--- NOTE | 2021-09-05 14:26 | Hospitalist Progress Note ---
Date of Service September 05, 2021 Assessment & Plan (1) UTI (urinary tract infection): Plan: - Urine culture from 08/26 johnson-sensitive enterococcus faecalis. - UA here with 10-30 WBCS, RBCs, 1+ leuk esterase. 2+ blood. Blood and urine cx pending. - Currently on Zosyn, will continue - Has a history of UTIs, kidney stones, and a renal lesion that urology has been following. Consult urology given ongoing UTI hx - Has been afebrile, WBC wnl -Hopefully d/c home in the next 24 hrs on PO antibiotics (2) Alcohol abuse: Plan: - Noted in patient's history that he previously had 2-3 drinks/day and sometimes up to a whole fifth bottle of liquor. - Patient unable to elaborate on alcohol intake currently. He states he does tend to start drinking more when he gets UTIs. Last drink last night around 10- 11 pm. Can't recall how much he had. Unsure if his symptoms are related to infection versus withdrawal, but he is tremulous, with elevated BP and tachycardia. Afebrile. - PO folate and thiamine repletion, placed on AWSS with Ativan as needed. - LFTs within normal limits today. (3) Afib: Plan: - Continue Eliquis, diltiazem. (4) BPH (benign prostatic hyperplasia): Plan: - Continue Avodart. (5) Essential hypertension: Plan: - Elevated today, ? due to EtOh withdrawal. - Continue diltiazem as above for afib. - Will add on prn hydralazine if SBP persistently > 180 (6) COPD with emphysema: Plan: - Continue Spiriva daily. - Continues to smoke 1/2 PPD, denies nicotine patch. (7) Lung cancer: Plan: - s/p radiation for likely stage 1 lung cancer Plan: - Admit to PCU. - SCDs, Eliquis for VTE ppx. - Full Code. Admission and Anticipated Discharge Date Admission Date: September 04, 2021 Subjective patient seen and examined, says he feels a lot better Review of Systems Review of Systems: All systems reviewed are negative, apart from the ones contained in the history. Physical Exam Physical Exam: The patient is awake, alert and oriented 3, well developed and well nourished, normocephalic and atraumatic, lying in bed and in no acute distress. HEENT--PERRL, EOMI, mucous membranes and oropharynx mildly dry Neck--supple. No JVD. No bruits. Thyroid normal, trachea midline, no adenopathy. Heart--normal S1 and S2. No murmurs, rubs or gallops. Lungs--clear bilaterally, no respiratory distress, no accessory muscle use. Abdomen--normal bowel sounds and soft. Mild epigastric and left sided abdominal pain Extremities--no cyanosis or clubbing. No edema. Dermatologic--normal skin turgor, normal color, no abnormal lymph nodes, no rash. Neurologic--cranial nerves II through XII grossly intact. Rheumatologic--normal range of motion. Psychiatric--normal affect. Results & Data Results & Data ([facility]) Vital Signs (Past 12 Hours) Vital Signs Temp Pulse Pulse Resp BP Pulse Ox 09/05/21 11:53 98.4 F 79 20 165/102 H 94 09/05/21 08:11 99.5 F 87 20 160/108 H 95 09/05/21 07:55 82 09/05/21 02:44 98.6 F 75 18 150/99 H 96 PG Care Time/CCT Total # of Minutes Spent Total Time Spent with Patient: Total time spent is greater than 50% in coordination of care (as documented) at patient's floor/unit and/or counseling patient: Coding Level of Care Code 72940 Subseq Hosp Care Lvl 2 Diagnoses UTI (urinary tract infection) N39.0 Alcohol abuse F10.10 Afib I48.91 BPH (benign prostatic hyperplasia) N40.0 Essential hypertension I10 COPD with emphysema J43.9 Lung cancer C34.90 Time Spent (min) 35
[2021-09-06] MEDS: PIPERACILLIN/TAZOBACTAM 4.5 GM in DEXTROSE 5% 100 ML IV SCH (06:09)
[2021-09-06 06:38] LABS: Hematocrit (blood only) 40.7 % (40.1-51.0); Hemoglobin 14.3 g/dl (14.0-18.0); Mean Corpuscular Hemoglobin 33.4 pg (25.0-34.0); Mean Corpuscular Hgb Conc 35.1 g/dL (32.0-36.0); Mean Corpuscular Volume 95.1 fL (80.0-100.0); Mean Platelet Volume 10.2 fL (9.4-12.4); Platelet Count 150 K/uL (130-400); RDW Coefficient of Variation 12.9 % (11.5-14.5); RDW Standard Deviation 44.1 fL (36.4-46.3); Red Blood Count 4.28 M/uL (4.63-6.08)
[2021-09-06 06:58] LABS: BUN Creatinine Ratio 14.2 (10-20); Calcium 8.5 mg/dl (8.5-10.1); Creatinine Clr Calc Pharmacy 56.6 ml/min; Est GFR (African American) 79.2 ml/min; Est GFR (Non-African American) 68.3 ml/min; Potassium 3.2 mmol/L (3.5-5.1)
[2021-09-06] MEDS: THIAMINE HCL 100 MG TAB PO SCH (09:24)
[2021-09-06] MEDS: FOLIC ACID 1 MG TAB PO SCH (09:24)
[2021-09-06] MEDS: POTASSIUM CHLORIDE CRTAB 20 MEQ TABCR PO SCH (09:24)
[2021-09-06] MEDS: CHOLECALCIFEROL 1,000 UNITS 25 MCG TAB PO SCH (09:24)
[2021-09-06] MEDS: APIXABAN 5 MG TABLET PO SCH (09:24)
[2021-09-06] MEDS: DICLOFENAC SOD 1% GEL 100 GM TUBE EXT SCH (09:25)
[2021-09-06] MEDS: dilTIAZem ER 120 MG CAPCR PO SCH (09:25)
[2021-09-06] MEDS: UMECLIDINIUM BROMIDE 62.5MCG/BLISTER 7 PUFFS/INHALER INH SCH (09:25)
[2021-09-06] MEDS: VITAMIN B COMPLEX TAB PO SCH (09:25)
--- NOTE | 2021-09-06 11:59 | Discharge Summary ---
Date of Service September 06, 2021 Admission HPI Per Admitting Provider Jerod Joseph is a 76-year-old male with a past medical history significant for a fib, lung CA s/p radiation treatment, COPD and current smoker, alcohol abuse, and BPH with chronic UTIs and renal lesion presents to the ED today due to not feeling well. Patient is somewhat of a poor historian during my visit and has been difficulty providing details but says he feels and is experiencing brain fog. He apparently saw a provider last week because he was having blood in his urine and they did a culture and started him on an antibiotic recently, within the past few days. Per chart review, ampicillin was started on 08/31. Cannot really tell me much mroe about how he has been feeling over the past few days, denies abdominal or back pain or dysuria, or fever/chills at home. Essentially, he woke u0p this morning and just felt generally "off". He notes that he has history of alcohol abuse, which typically gets worse when he has a UTI because the brain fog he experiences with it makes him want to drink, however once he has an antibiotic in his system he begins to feel better and stopped drinking. Unsure how much alcohol he has had in the past week. Last drink was last evening, he does not know how much he had to drink yesterday. In ED, hypertensive BP 180s/90s, tachycardic with HR 90-100, but afebrile, SpO2 @ > 95% on room air. Labs are significant for an initial lactate of 4.5, however remaining labs largely unremarkable, no leukocytosis, PCT<0.05. UA with 2+ blood, 1+ leuk esterase, 1030 white blood cells, but no bacteria. COVID- negative. No major electrolyte abnormalities, sodium is 135, potassium 3.4. Blood and urine cultures sent. Principal Diagnosis UTI Discharge Exam The patient is awake, alert and oriented 3, well developed and well nourished, normocephalic and atraumatic, lying in bed and in no acute distress. HEENT--PERRL, EOMI, mucous membranes and oropharynx mildly dry Neck--supple. No JVD. No bruits. Thyroid normal, trachea midline, no adenopathy. Heart--normal S1 and S2. No murmurs, rubs or gallops. Lungs--clear bilaterally, no respiratory distress, no accessory muscle use. Abdomen--normal bowel sounds and soft. Mild epigastric and left sided abdominal pain Extremities--no cyanosis or clubbing. No edema. Dermatologic--normal skin turgor, normal color, no abnormal lymph nodes, no rash. Neurologic--cranial nerves II through XII grossly intact. Rheumatologic--normal range of motion. Psychiatric--normal affect. Discharge Data Allergies Allergy/AdvReac Type Severity Reaction Status Date / Time No Known Allergies Allergy Verified 07/27/21 17:01 Consultations 09/04/21 12:13 ED Decision to Admit Stat 09/04/21 14:12 Consult Urology Routine Ordered Studies 09/04/21 12:51 CT abd pelvis IV con only Stat Hospital Course (1) UTI (urinary tract infection): - Urine culture from 08/26 johnson-sensitive enterococcus faecalis. - UA here with 10-30 WBCS, RBCs, 1+ leuk esterase. 2+ blood. Blood and urine cx pending. - Currently on Zosyn, will continue - Has a history of UTIs, kidney stones, and a renal lesion that urology has been following. Consult urology given ongoing UTI hx - Has been afebrile, WBC wnl -D/C on PO levaquin 500mg for 5 more days (2) Alcohol abuse: - Noted in patient's history that he previously had 2-3 drinks/day and sometimes up to a whole fifth bottle of liquor. - Patient unable to elaborate on alcohol intake currently. He states he does tend to start drinking more when he gets UTIs. Last drink last night around 10- 11 pm. Can't recall how much he had. Unsure if his symptoms are related to infection versus withdrawal, but he is tremulous, with elevated BP and tachycardia. Afebrile. - PO folate and thiamine repletion, placed on AWSS with Ativan as needed. - LFTs within normal limits today. (3) Afib: - Continue Eliquis, diltiazem. (4) BPH (benign prostatic hyperplasia): - Continue Avodart. (5) Essential hypertension: - Elevated today, ? due to EtOh withdrawal. - Continue diltiazem as above for afib. - Will add on prn hydralazine if SBP persistently > 180 (6) COPD with emphysema: - Continue Spiriva daily. - Continues to smoke 1/2 PPD, denies nicotine patch. (7) Lung cancer: - s/p radiation for likely stage 1 lung cancer - Admit to PCU. - SCDs, Eliquis for VTE ppx. - Full Code. Total Time Total Time Spent Total Time Spent (In Minutes): 35 Discharge Plan Discharge Items Patient Disposition: Home - Self-Care Reason For Visit: UTI Discharge Diagnosis: UTI Activity: Resume your previous activity Non-emergency contact: Primary Care Provider Call non-emergency contact if: you have any medication questions Follow-up/Referrals: Julian Marc MD [Primary Care Provider] - Diet: Regular Addtl Attending Provider Instructions: please make sure to follow up with your regular PCP Pending Studies at Discharge: No Stand-Alone Forms: My [facility] [employer], Smoking Cessation Medications and DC Order Prescriptions: New levofloxacin 500 mg tablet 500 mg PO DAILY 5 Days Qty: 5 RF: 0 Continued diltiazem HCl [Taztia XT] 120 mg capsule,extended release 24 hr 120 mg PO QAM Qty: 90 RF: 3 potassium chloride 20 mEq tablet,ER particles/crystals 20 meq PO QAM Qty: 90 RF: 3 Eliquis 5 mg tablet 5 mg PO BID Qty: 180 RF: 3 dutasteride [Avodart] 0.5 mg capsule 0.5 mg PO QAM Qty: 90 RF: 1 Spiriva Respimat 2.5 mcg/actuation mist 2 puff inhalation DAILY Qty: 4 RF: 4 ampicillin 500 mg capsule 500 mg PO QID 10 Days Qty: 40 RF: 0 multivitamin [Daily Multi-Vitamin] Tablet 1 tab PO DAILY Qty: 30 RF: 0 diclofenac sodium [Voltaren Arthritis Pain] 1 % gel 4 g topical QID Qty: 100 RF: 2 vitamin B complex Tablet 1 tab PO QAM RF: 0 cholecalciferol (vitamin D3) 1,000 unit Tablet 1,000 unit PO QAM RF: 0 glucosamine-chondroitin 500-400 mg tablet 1 tab PO QAM RF: 0 acetaminophen 500 mg Capsule 500 mg PO Q6H PRN (Reason: Pain) RF: 0 Discharge Orders: Discharge Order (Routine); Ordered 09/06/21 Ordered By: Leesa Mansfield Admission Data Admit Date/Time: 09/04/21 12:50 Attending Provider: Leesa Mansfield Admit Provider: Noemi Mahajan Primary Care Provider: Julian Marc Other Providers: Noemi Mahajan ; Ji Pena ; Russell Rivera Other Interventions: Discharge Summary Assessment (RN) Last Done: 09/06/21 10:12 Coding Level of Care Code D/C DAY MANAGEMENT >30 MINS Diagnoses UTI (urinary tract infection) N39.0 Alcohol abuse F10.10 Afib I48.91 BPH (benign prostatic hyperplasia) N40.0 Essential hypertension I10 COPD with emphysema J43.9 Lung cancer C34.90 Time Spent (min) 35
== END 2021-09-06 11:00 | disposition home or self-care (01) | DRG 690 ==
LOC: ED 09:50 → 2E 13:29 → SUATTDRO 14:02

== ENCOUNTER 2021-10-15 00:48 | Inpatient (IN) ==
[2021-10-15 01:10] LABS: Appearance Urine Clear (Clear); Bacteria Urine Automated 1+ (Negative); Bilirubin Urine Negative (Negative); Blood Urine 2+ (Negative); Color Urine Orange; Glucose Urine UA Negative (Negative); Ketones Urine Trace (Negative); Leukocyte Esterase Urine 2+ (Negative); Nitrite Urine Positive (Negative); Protein Urine 1+ (Negative); Specific Gravity Urine 1.008 (1.000-1.030); Urobilinogen Urine Negative (Negative); WBC Urine Automated >30 /hpf (0-5); pH Urine 6.5 (4.5-7.5)
[2021-10-15 01:53] LABS: Basophils # (auto) 0.04 K/uL (0-0.2); Basophils % (auto) 0.6 %; Eosinophils # (auto) 0.15 K/uL (0-0.50); Eosinophils % (auto) 2.2 %; Hematocrit (blood only) 39.9 % (40.1-51.0); Hemoglobin 14.3 g/dl (14.0-18.0); Immature Granulocytes # (auto) 0.03 K/uL (0.00-0.02); Immature Granulocytes % (auto) 0.4 %; Lymphocytes # (auto) 0.93 K/uL (1.2-3.4); Lymphocytes % (auto) 13.9 %; Mean Corpuscular Hemoglobin 33.9 pg (25.0-34.0); Mean Corpuscular Hgb Conc 35.8 g/dL (32.0-36.0); Mean Corpuscular Volume 94.5 fL (80.0-100.0); Mean Platelet Volume 9.7 fL (9.4-12.4); Monocytes # (auto) 0.51 K/uL (0.24-0.82); Monocytes % (auto) 7.6 %; Neutrophils # (auto) 5.05 K/uL (1.4-6.5); Neutrophils % (auto) 75.3 %; Platelet Count 194 K/uL (130-400); RDW Standard Deviation 44.7 fL (36.4-46.3); Red Blood Count 4.22 M/uL (4.63-6.08); White Blood Count 6.71 K/ul (4.8-10.8)
[2021-10-15 02:20] LABS: Albumin Globulin Ratio 1.7 (0.9-2); Albumin Level 4.5 gm/dl (3.4-5.0); BUN Creatinine Ratio 16.5 (10-20); Bilirubin,Total 1.3 mg/dl (0.2-1.0); Calcium 8.8 mg/dl (8.5-10.1); Creatinine Clr Calc Pharmacy 65.6 ml/min; Est GFR (African American) 95.2 ml/min; Est GFR (Non-African American) 82.2 ml/min; Globulin 2.7 gm/dl (2.5-4.0); Potassium 3.1 mmol/L (3.5-5.1); Total Protein 7.2 gm/dl (6.0-8.3)
[2021-10-15] MEDS ORDERED: SODIUM CHLORIDE 0.9% 1000ML 1,000 ML IV ONE (02:20)
[2021-10-15] MEDS ORDERED: PIPERACILLIN/TAZOBACTAM 4.5 GM in DEXTROSE 5% 100 ML IV STA (03:45)
[2021-10-15] MEDS ORDERED: PIPERACILLIN/TAZOBACTAM 4.5 GM/120ML D5W IV ONE (04:05)
--- NOTE | 2021-10-15 04:44 | History & Physical Report ---
Date of Service October 15, 2021 Assessment & Plan (1) UTI (urinary tract infection): Plan: 76yo male with a history of HTN, HLD, atrial fibrillation (on eliquis), COPD, lung cancer, BPH, fatty liver, alcohol use disorder, VANGIE, and spinal stenosis presents with a "few-day" history of feeling generally unwell without any pain or other overt symptoms. UA on admission suggestive of UTI. Feeling unwell, suspected secondary to UTI Patient with a few-day history of generalized vague "feeling unwell" Labs on admission suggestive of UTI; patient with history of recurrent UTI Blood, urine cultures pending Zosyn administered in ED; continue this for now given risk for MDR infection LR @ 125mL/hr (x1 bag ordered) Trend CBC, BMP Hypokalemia Potassium on admission 3.1 KCl 40mEq PO (x1) ordered Trend BMP, replete as indicated Hyperbilirubinemia No abdominal tenderness on exam, no gastrointestinal symptoms, LFTs otherwise wnl Do not suspect this is related to presenting symptoms Trend CMP Atrial fibrillation: continue home eliquis HTN: continue home diltiazem COPD: continue home regimen BPH: continue home regimen FEN: heart healthy diet, LR @ 125mL/hr (x1 bag ordered) Code status: full code DVT ppx: home eliquis Dispo: med/surg (2) Hypertension: (3) Hyperlipidemia: (4) Fatty liver: (5) COPD with emphysema: (6) BPH (benign prostatic hyperplasia): History of Present Illness Primary Care Provider: Julian Marc MD 76yo male with a history of HTN, HLD, atrial fibrillation (on eliquis), COPD, lung cancer, BPH, fatty liver, alcohol use disorder, VANGIE, and spinal stenosis presents with a "few-day" history of feeling generally unwell without any pain or other overt symptoms. Symptoms began gradually. Patient note he feels similar to how he has in the past when he's had UTI's even though he denies pain with urination, urinary frequency, urinary urgency, urinary hesitancy, abdominal pain, nausea, vomiting, or fever. Patient also denies headache, vision changes, CP, palpitations, SOB, edema, hematochezia, melena, back pain, lightheadedness, dizziness, numbness, tingling, weakness, or other symptoms. Denies recent illness and recent travel. Patient was admitted at [facility] in late July for UTI. Upon arrival, vitals were notable for elevated BP (150-190s/80-110s) and tachycardia (110s). No tachypnea, patient afebrile, spO2 adequate on room air. Initial labs were notable for hypokalemia (3.1) and elevated bilirubin (1.3). No leukocytosis, no anemia, platelets wnl, AST/ALT/alk phos wnl. UA is notable for 1+ protein, trace ketones, 2+ blood, nitrites, 2+ leuk esterase, >30 WBCs, and 1+ bacteria. Covid PCR negative, serum alcohol negative. In the ED, patient received NSS 1L bolus (x1) and one dose of zosyn. Surrogate decision-maker in case of an emergency: patient declines Allergies Allergy/AdvReac Type Severity Reaction Status Date / Time No Known Allergies Allergy Verified 10/07/21 18:06 Home Medications Medication Instructions Recorded Confirmed Type cholecalciferol (vitamin D3) 25 1,000 unit PO QAM 12/11/17 10/07/21 History mcg (1,000 unit) tablet vitamin B complex 1 tab PO QAM 04/12/20 10/07/21 History glucosamine-chondroitin 500 mg-400 1 tab PO QAM 09/14/20 10/07/21 History mg tablet acetaminophen 500 mg capsule 500 mg PO Q6H PRN Pain 10/02/20 10/07/21 History diltiazem HCl 120 mg capsule,24 120 mg PO QAM #90 caps 11/12/20 10/07/21 Rx hr,extended release (Taztia XT) potassium chloride 20 mEq 20 meq PO QAM #90 tabs 11/12/20 10/07/21 Rx tablet,extended release(part/cryst) multivitamin (Daily Multi-Vitamin 1 tab PO DAILY #30 tabs 11/19/20 10/07/21 Rx tablet) apixaban 5 mg tablet (Eliquis) 5 mg PO BID #180 tabs 03/11/21 10/07/21 Rx dutasteride 0.5 mg capsule 0.5 mg PO QAM #90 caps 06/10/21 10/07/21 Rx (Avodart) tiotropium bromide 2.5 2 puff inhalation DAILY #4 grams 06/11/21 10/07/21 Rx mcg/actuation mist for inhalation (Spiriva Respimat) diclofenac sodium 1 % topical gel 4 g topical QID #100 grams 07/27/21 10/07/21 Rx (Voltaren Arthritis Pain) Past Med/Surg History Medical History Adjustment disorder with anxiety Alcohol abuse Atrial flutter BPH (benign prostatic hyperplasia) Enterococcus UTI Hypertension Hypokalemia Hypokalemia Pulmonary nodule Surgical History History of appendectomy History of colonoscopy History of epidermal inclusion cyst excision History of SCC (squamous cell carcinoma) of skin Family History Mother Alzheimer disease Hearing loss Father Brain tumor Stroke Brother Cerebral atherosclerosis Stroke Denies family history of Colon cancer Ovarian cancer Prostate cancer Myocardial infarction Breast cancer Social History (Updated 10/07/21 @ 18:08 by ELIZABETH Santizo) Smoking Status: Former smoker packs per day: 0.5; Years Smoked: 50; Cigarettes Per Day: 10 Cigarettes.; Second Hand Exposure: No; Do You Dip or Chew Tobacco: No; Tobacco Cessation Education Requested by Patient: No Hx Alcohol Use: Yes Alcohol type: beer and hard liquor Alcohol Intake Frequency Comment: 15 beers/drinks daily Hx Substance Use: No Preferred Language: Chadian Communication Ability: Effective Visual Impairment: No Limitations Hearing Ability: Normal Vp Transportation Required: No Beliefs That Will Affect Care: None marital status: Current Living Situation: Alone current occupational status: retired How many Children do You have: 1 Other Information That Helps Us Care for You: No Feels Safe at Home: Yes Safety Concerns: Feels Safe At This Time Childhood Exposure to Second-Hand Smoke: Yes Dental Care, Regularly: No Physical Activity Frequency: 3-4 Times per Week Seatbelt Use: always Sunscreen Use: No Assistive Devices: Denture - Upper and Glasses Physical Exam Physical Exam: Constitutional: well-appearing, no acute distress HEENT: NCAT, no conjunctival injection CV: regular rhythm, no murmur appreciated, extremities well-perfused, no LE edema Resp: CTABL, no wheezes/rales/rhonchi appreciated, no increased work of breathing GI: soft, nondistended, nontender, BS normoactive MSK: no flank tenderness Skin: warm, dry, no rash appreciated Neuro: alert, oriented, no focal neurologic deficit appreciated Results & Data Results & Data ([facility]) Vital Signs (Past 12 Hours) Vital Signs Temp Pulse Pulse Resp BP BP Pulse Ox 10/15/21 03:00 85 18 199/118 H 98 10/15/21 01:22 101 H 18 182/104 H 98 10/15/21 00:51 36.9 C 112 H 16 187/110 H 92 O2 Del Method 10/15/21 03:00 Room Air 10/15/21 01:22 10/15/21 00:51 Room Air Supervising Physician Co-Signing Physician Notes Attending addendum: I have physically seen this patient, have supervised the medical residents activities, and agree with the H&P unless as otherwise noted. Assessment and Plan: Urinary tract infection- Causing generalized unwellness Follow urine culture and sensitivity History of recurrent UTI Follow blood culture sensitivity Zosyn 4.5 g IV every 8 hours due to risk for MDR infection LR at high 25 mils per hour x1 L Status post 1 L normal saline in the ED Hypokalemia- KCl 40 mEq p.o. x1 IV fluids as above Repeat laboratories in a.m. Atrial fibrillation/hypertension- Continue Eliquis, diltiazem COPD- Continue routine inhalers Remaining orders and notations as noted Resident Activity Tracking Resident Involvement: Resident Care Provided and Newspaper Stuffer Coverage Note Care Provided: Adult Hospital Medicine
[2021-10-15] MEDS ORDERED: LACTATED RINGER'S 1,000 ML IV SCH (05:46)
[2021-10-15] MEDS ORDERED: MELATONIN 3 MG TAB PO PRN (05:46)
[2021-10-15] MEDS ORDERED: POTASSIUM CHLORIDE CRTAB 20 MEQ TABCR PO STA (05:57)
[2021-10-15] MEDS: ACETAMINOPHEN 500 MG TAB PO SCH ×3 (06:31→22:09)
[2021-10-15] MEDS: PIPERACILLIN/TAZOBACTAM 3.375 GM in DEXTROSE 5% 100 ML IV SCH ×3 (08:23→23:50)
[2021-10-15] MEDS: UMECLIDINIUM BROMIDE 62.5MCG/BLISTER 7 PUFFS/INHALER INH SCH (09:04)
[2021-10-15] MEDS: APIXABAN 5 MG TABLET PO SCH ×2 (09:04→20:18)
[2021-10-15] MEDS: dilTIAZem ER 120 MG CAPCR PO SCH (09:04)
--- NOTE | 2021-10-15 09:49 | CT Scan Report ---
CT head/brain wo con CLINICAL HISTORY: mental status changes Technique: Contiguous axial CT images of the head were acquired from the base of the skull to the hetal andrea without intravenous contrast administration. Images were viewed in brain, subdural and [facility]. Automated dose lowering techniques and/or adjustment according to patient size were utilized for this exam. Comparison: Comparison is made to CT head 09/28/2020 Findings: Areas of decreased attenuation are present in the periventricular and subcortical white matter bilate rally consistent with small vessel ischemic disease. Generalized cerebral atrophy with commensurate e nlargement of the ventricles, sulci, and cisterns is also present. There is no acute intracranial hem orrhage or evidence of acute territorial infarction. No shift of the midline structures, mass effect, or extra-axial abnormalities are shown. Atherosclerotic calcifications are present in the intracran ial segments of the internal carotid arteries. Imaged portions of the paranasal sinuses and mastoid air cells are clear. The orbits appear normal. There are no acute fractures of the calvaria or scalp swelling. Impression: No acute intracranial hemorrhage, no evidence of acute territorial infarction or other acute intracra nial disease process. ACT 112: Negative or not required by law. Electronically signed by: Fabián Chandra M.D. 10/15/2021 9:48 AM
--- NOTE | 2021-10-15 15:58 | History & Physical Bridge Note ---
Date of Service October 15, 2021 History & Physical Bridge Note I have examined the patient, reviewed the History & Physical and in the interval since the performance of the History & Physical I have noted the following changes of clinical significance: No direct urinary symptoms but feels fuzzy; exact picture not clear but he thinks this is how his UTI present; CT hand obtainednegative; replace potassium; noted persistently high blood pressurestart low-dose metoprolol and observe; no other change pending cultures; noted mildly elevated bilirubinobserve
--- NOTE | 2021-10-15 17:32 | Emergency Department Note ---
Impression & Plan Acute alteration in mental status, Acute UTI Admit to the [facility] ED Provider Note NAME: LORNA DEJESUS AGE: 76 SEX: M ARRIVES VIA: Walk-In INFORMANT: Patient ED PROVIDER(S): Tila Clark DO CHIEF COMPLAINT: Altered mental status PLAN: Disposition: Admit to the [facility] Condition: Fair MEDICAL DECISION MAKING: This is a 76-year-old male patient with a history of urinary tract infections who presents to the emergency department not feeling like himself. Patient does drink some alcohol but states he felt somewhat spacey and this is usually a sign of a urinary tract infection. In fact, the urine is infected and he is exhibit ing some signs of confusion. His alcohol level was undetectable. He does live alone and I was concerned about his confusion. Patient will be treated with antibiotics. I discussed the case with the [facility] Triage Nursing notes reviewed and agree with them. Additional history obtained from his friend who is at the bedside Prior medical records reviewed Vital Signs: reviewed and remarkable for tachycardia and hypertension Differential diagnosis: Alcohol intoxication, UTI, dehydration ER treatment provided: IV normal saline IV Zosyn Diagnostics interpreted by me: Cardiac Monitoring: Sinus tachycardia at 112 Laboratory studies: See below HPI: 76/M arrives for evaluation of altered mental status and possible UTI. The patient states that he feels somewhat spacey and out of it. He describes seeing patterns on a wall. The patient has a history of urinary tract infections and when he starts to feel like this, he typically knows that he is getting a urinary infection. ROS: See above HPI for pertinent positives & negatives. A total of 10 systems reviewed and were otherwise negative. PAST MEDICAL HISTORY:See Below PAST SURGICAL HISTORY:See Below FAMILY HISTORY:See Below SOCIAL HISTORY:See Below HOME MEDICATIONS:See list ALLERGIES:None VITALS:See Below PHYSICAL EXAMINATION: General: The patient is pleasant but does smell of alcohol HEENT: Head - normocephalic and atraumatic. Pupils are equal, round, and reactive to light. Extraocular eye muscles are intact and sclera are anicteric. Nose - dry nasal mucosa without discharge. Mouth - dry buccal mucosa. Oropharynx is nonerythematous and there is no tonsillar exudate or edema noted. Neck: Supple; no cervical lymphadenopathy Heart: Tachycardic rate rate and regular rhythm. There is a normal S1 and S2 with no murmurs, clicks, or gallops appreciated. Lungs: Clear to auscultation bilaterally with no wheezes, rales, or rhonchi. Abdomen: Soft, completely nontender, nondistended, with good bowel sounds. There are no palpable pulsatile masses or hepatosplenomegaly. There is no guarding, rigidity, or rebound noted. Extremities: No evidence of cyanosis, clubbing, or edema. There are easily palpable peripheral pulses. Neuro:The patient is awake and alert but disoriented at times. Muscle strength is 5/5 in all 4 extremities. 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 There are no cerebellar signs. ED COURSE: Times/Reassessments: 0205: The patient was evaluated in room C7. A complete history and physical was performed. Previous electronic medical records were reviewed. An order was placed for continuous cardiac monitoring. The patient w as in a sinus tachycardia at 112. The patient was bolused with IV normal saline solution. A urine specimen was collected and appeared to be infected. Patient was started on IV Zosyn Tila Clark DO Past Med/Surg History Medical History Adjustment disorder with anxiety Alcohol abuse Atrial flutter BPH (benign prostatic hyperplasia) Enterococcus UTI Hypertension Hypokalemia Hypokalemia Pulmonary nodule Surgical History History of appendectomy History of colonoscopy History of epidermal inclusion cyst excision History of SCC (squamous cell carcinoma) of skin Family History Mother Alzheimer disease Hearing loss Father Brain tumor Stroke Brother Cerebral atherosclerosis Stroke Denies family history of Colon cancer Ovarian cancer Prostate cancer Myocardial infarction Breast cancer Social History (Updated 10/07/21 @ 18:08 by ELIZABETH Santizo) Smoking Status: Former smoker packs per day: 0.5; Years Smoked: 50; Cigarettes Per Day: 10 Cigarettes.; Second Hand Exposure: No; Do You Dip or Chew Tobacco: No; Tobacco Cessation Education Requested by Patient: No Hx Alcohol Use: Yes Alcohol type: beer and hard liquor Alcohol Intake Frequency Comment: 15 beers/drinks daily Hx Substance Use: No Preferred Language: Bhutanese Communication Ability: Effective Visual Impairment: No Limitations Hearing Ability: Normal Regional Forester Required: No Beliefs That Will Affect Care: None marital status: Current Living Situation: Alone current occupational status: retired How many Children do You have: 1 Other Information That Helps Us Care for You: No Feels Safe at Home: Yes Safety Concerns: Feels Safe At This Time Childhood Exposure to Second-Hand Smoke: Yes Dental Care, Regularly: No Physical Activity Frequency: 3-4 Times per Week Seatbelt Use: always Sunscreen Use: No Assistive Devices: Denture - Upper and Glasses Allergies Allergies Allergy/AdvReac Type Severity Reaction Status Date / Time No Known Allergies Allergy Verified 10/07/21 18:06 Home Meds Home Medications Medication Instructions Recorded Confirmed cholecalciferol (vitamin D3) 25 1,000 unit PO QAM 12/11/17 10/07/21 mcg (1,000 unit) tablet vitamin B complex 1 tab PO QAM 04/12/20 10/07/21 glucosamine-chondroitin 500 mg-400 1 tab PO QAM 09/14/20 10/07/21 mg tablet acetaminophen 500 mg capsule 500 mg PO Q6H PRN Pain 10/02/20 10/07/21 Previous Rx's Medication Instructions Recorded diltiazem HCl 120 mg capsule,24 120 mg PO QAM #90 caps 11/12/20 hr,extended release (Taztia XT) potassium chloride 20 mEq 20 meq PO QAM #90 tabs 11/12/20 tablet,extended release(part/cryst) multivitamin (Daily Multi-Vitamin 1 tab PO DAILY #30 tabs 11/19/20 tablet) apixaban 5 mg tablet (Eliquis) 5 mg PO BID #180 tabs 03/11/21 dutasteride 0.5 mg capsule 0.5 mg PO QAM #90 caps 06/10/21 (Avodart) tiotropium bromide 2.5 2 puff inhalation DAILY #4 grams 06/11/21 mcg/actuation mist for inhalation (Spiriva Respimat) diclofenac sodium 1 % topical gel 4 g topical QID #100 grams 07/27/21 (Voltaren Arthritis Pain) Results & Data (ED) Vital Signs Vital Signs - 24 hr 10/15/21 00:51 10/15/21 01:22 10/15/21 03:00 Temperature 36.9 C Temperature Source Temporal Artery Scan Pulse Rate 112 H Pulse Rate [Apical] 101 H 85 Respiratory Rate 16 18 18 Respiratory Effort / Characteristics Non-Labored Spontaneous Respiratory Depth Normal Blood Pressure 187/110 H Blood Pressure [Right Arm] 182/104 H 199/118 H Blood Pressure Mean 135 Blood Pressure Mean [Right Arm] 130 145 Pulse Oximetry 92 98 98 Oxygen Delivery Method Room Air Room Air Sepsis Recent Fever Within 48 Hours No Sepsis New/Unexplained Change in Mental Status N/A Sepsis Action Taken by Nursing No Action Required 10/15/21 04:40 Temperature Temperature Source Pulse Rate Pulse Rate [Apical] 95 H Respiratory Rate 18 Respiratory Effort / Characteristics Respiratory Depth Blood Pressure Blood Pressure [Right Arm] 159/95 H Blood Pressure Mean Blood Pressure Mean [Right Arm] 116 Pulse Oximetry 98 Oxygen Delivery Method Room Air Sepsis Recent Fever Within 48 Hours Sepsis New/Unexplained Change in Mental Status Sepsis Action Taken by Nursing Laboratory Data Result diagrams: 10/15/21 01:41 10/15/21 01:41 Lab Results 10/15/21 10/15/21 10/15/21 Range/Units 00:58 01:41 01:41 WBC 6.71 (4.8-10.8) K/ul RBC 4.22 L (4.63-6.08) M/uL Hgb 14.3 (14.0-18.0) g/dl Hct 39.9 L (40.1-51.0) % MCV 94.5 (80.0-100.0) fL MCH 33.9 (25.0-34.0) pg MCHC 35.8 (32.0-36.0) g/dL RDW Std Deviation 44.7 (36.4-46.3) fL RDW Coeff of Randy 13.0 (11.5-14.5) % Plt Count 194 (130-400) K/uL MPV 9.7 (9.4-12.4) fL Immature Gran % (Auto) 0.4 % Neut % (Auto) 75.3 % Lymph % (Auto) 13.9 % [place] % (Auto) 7.6 % Eos % (Auto) 2.2 % Baso % (Auto) 0.6 % Neut # (Auto) 5.05 (1.4-6.5) K/uL Lymph # (Auto) 0.93 L (1.2-3.4) K/uL [place] # (Auto) 0.51 (0.24-0.82) K/uL Eos # (Auto) 0.15 (0-0.50) K/uL Baso # (Auto) 0.04 (0-0.2) K/uL Immature Gran # (Auto) 0.03 H (0.00-0.02) K/uL Sodium 136 (136-145) mmol/L Potassium 3.1 L (3.5-5.1) mmol/L Chloride 96 L (98-107) mmol/L Carbon Dioxide 20 L (21-32) mmol/L Anion Gap 20 H (3-11) BUN 15 (6-23) mg/dl Creatinine 0.91 (0.6-1.4) mg/dl Est Cr Clr Drug Dosing 65.6 ml/min Est GFR ( Amer) 95.2 ml/min Est GFR (Non-Af Amer) 82.2 ml/min BUN/Creatinine Ratio 16.5 (10-20) Glucose 105 H (70-99(Fasting)) mg/dl Lactate (0.4-2.0) mmol/L Calcium 8.8 (8.5-10.1) mg/dl Total Bilirubin 1.3 H (0.2-1.0) mg/dl AST 38 (13-39) U/L ALT 39 (7-52) U/L Alkaline Phosphatase 73 (34-104) U/L Total Protein 7.2 (6.0-8.3) gm/dl Albumin 4.5 (3.4-5.0) gm/dl Globulin 2.7 (2.5-4.0) gm/dl Albumin/Globulin Ratio 1.7 (0.9-2) Urine Color [place] Urine Appearance Clear (Clear) Urine pH 6.5 (4.5-7.5) Ur Specific [place] 1.008 (1.000-1.030) Urine Protein 1+ H (Negative) Urine Glucose (UA) Negative (Negative) Urine Ketones Trace H (Negative) Urine Blood 2+ H (Negative) Urine Nitrite Positive A (Negative) Urine Bilirubin Negative (Negative) Urine Urobilinogen Negative (Negative) Ur Leukocyte Esterase 2+ H (Negative) Urine WBC (Auto) >30 H (0-5) /hpf Urine RBC (Auto) 10-30 H (0-4) /hpf U Hyaline Cast (Auto) 1-5 (0-5) /lpf U Epithel Cells (Auto) 10-20 H (0-5) /lpf Urine Bacteria (Auto) 1+ H (Negative) Ethyl Alcohol mg/dL (<10.0) mg/dl SARS-CoV-2, RNA, NAAT (NEGATIVE) 10/15/21 10/15/21 10/15/21 Range/Units 03:04 04:00 04:00 WBC (4.8-10.8) K/ul RBC (4.63-6.08) M/uL Hgb (14.0-18.0) g/dl Hct (40.1-51.0) % MCV (80.0-100.0) fL MCH (25.0-34.0) pg MCHC (32.0-36.0) g/dL RDW Std Deviation (36.4-46.3) fL RDW Coeff of Randy (11.5-14.5) % Plt Count (130-400) K/uL MPV (9.4-12.4) fL Immature Gran % (Auto) % Neut % (Auto) % Lymph % (Auto) % [place] % (Auto) % Eos % (Auto) % Baso % (Auto) % Neut # (Auto) (1.4-6.5) K/uL Lymph # (Auto) (1.2-3.4) K/uL [place] # (Auto) (0.24-0.82) K/uL Eos # (Auto) (0-0.50) K/uL Baso # (Auto) (0-0.2) K/uL Immature Gran # (Auto) (0.00-0.02) K/uL Sodium (136-145) mmol/L Potassium (3.5-5.1) mmol/L Chloride (98-107) mmol/L Carbon Dioxide (21-32) mmol/L Anion Gap (3-11) BUN (6-23) mg/dl Creatinine (0.6-1.4) mg/dl Est Cr Clr Drug Dosing ml/min Est GFR ( Amer) ml/min Est GFR (Non-Af Amer) ml/min BUN/Creatinine Ratio (10-20) Glucose (70-99(Fasting)) mg/dl Lactate 1.7 (0.4-2.0) mmol/L Calcium (8.5-10.1) mg/dl Total Bilirubin (0.2-1.0) mg/dl AST (13-39) U/L ALT (7-52) U/L Alkaline Phosphatase (34-104) U/L Total Protein (6.0-8.3) gm/dl Albumin (3.4-5.0) gm/dl Globulin (2.5-4.0) gm/dl Albumin/Globulin Ratio (0.9-2) Urine Color Urine Appearance (Clear) Urine pH (4.5-7.5) Ur Specific [place] (1.000-1.030) Urine Protein (Negative) Urine Glucose (UA) (Negative) Urine Ketones (Negative) Urine Blood (Negative) Urine Nitrite (Negative) Urine Bilirubin (Negative) Urine Urobilinogen (Negative) Ur Leukocyte Esterase (Negative) Urine WBC (Auto) (0-5) /hpf Urine RBC (Auto) (0-4) /hpf U Hyaline Cast (Auto) (0-5) /lpf U Epithel Cells (Auto) (0-5) /lpf Urine Bacteria (Auto) (Negative) Ethyl Alcohol mg/dL < 10.0 (<10.0) mg/dl SARS-CoV-2, RNA, NAAT NEGATIVE (NEGATIVE) Administered Medications Acetaminophen (Acetaminophen 500 Mg Tab) 1,000 mg PO Q8 JANE Stop: 11/14/21 06:29 Last Admin: 10/15/21 14:14 Dose: 1,000 mg Documented By: Admin: 10/15/21 06:31 Dose: 1,000 mg Documented By: JACKELYN Apixaban (Apixaban 5 Mg Tablet) 5 mg PO BID JANE Stop: 11/14/21 08:59 Last Admin: 10/15/21 20:18 Dose: 5 mg Documented By: Admin: 10/15/21 09:04 Dose: 5 mg Documented By: CY Diltiazem HCl (Diltiazem Er 120 Mg Capcr) 120 mg PO QAM JANE Stop: 11/14/21 08:59 Last Admin: 10/15/21 09:04 Dose: 120 mg Documented By: CY Piperacillin Sod/Tazobactam (Sod 3.375 gm/ Dextrose) 115 mls @ 28.75 mls/hr IV Q8H JANE; Protocol Stop: 10/17/21 07:59 Last Admin: 10/15/21 17:12 Dose: 28.8 mls/hr Documented By: Infusion: 10/15/21 12:34 Dose: 0 mls/hr Documented By: Admin: 10/15/21 08:23 Dose: 28.8 mls/hr Documented By: CY Metoprolol Succinate (Metoprolol Succ 25mg Ext Rel Tab) 25 mg PO QAM JANE Stop: 11/14/21 15:59 Last Admin: 10/15/21 18:12 Dose: 25 mg Documented By: CY Miscellaneous (Avodart - Order Awaiting Action) 1 each N/A QS JANE Stop: 11/14/21 07:59 Last Admin: 10/15/21 17:07 Dose: Not Given Documented By: Admin: 10/15/21 08:15 Dose: Not Given Documented By: CY Umeclidinium [place] (Umeclidinium [place] 62.5mcg/Blister 7 Puffs/Inhaler) 1 puffs INH DAILY JANE Stop: 11/14/21 08:59 Last Admin: 10/15/21 09:04 Dose: 1 puffs Documented By: CY Discontinued Medications Sodium Chloride (Nss 1000ml) 1,000 mls @ 999 mls/hr IV .Q1H1M ONE Stop: 10/15/21 03:20 Last Infusion: 10/15/21 03:44 Dose: 0 mls/hr Documented By: Admin: 10/15/21 02:24 Dose: 999 mls/hr Documented By: ANTHONY Piperacillin Sod/Tazobactam (Sod 4.5 gm/ Dextrose) 120 mls @ 200 mls/hr IV Q8H STA; Protocol Stop: 10/15/21 04:20 Last Infusion: 10/15/21 04:49 Dose: 0 mls/hr Documented By: Admin: 10/15/21 04:08 Dose: 200 mls/hr Documented By: ANDI Lactated Ringer's (Lr) 1,000 mls @ 125 mls/hr IV .Q8H JANE Stop: 10/15/21 13:45 Last Infusion: 10/15/21 11:16 Dose: 0 mls/hr Documented By: Admin: 10/15/21 05:46 Dose: 125 mls/hr Documented By: JACKELYN Piperacillin Sod/Tazobactam Sod (Piperacillin/Tazobactam 4.5 Gm/120ml D5w) Confirm Administered Dose 4.5 gm IV .STK-MED ONE Stop: 10/15/21 04:06 Last Admin: 10/15/21 04:11 Dose: Not Given Documented By: ANDI Potassium Chloride (Potassium Chloride Crtab 20 Meq Tabcr) 40 meq PO NOW STA Stop: 10/15/21 05:58 Last Admin: 10/15/21 06:32 Dose: 40 meq Documented By: JACKELYN Discharge Plan Visit Data Chief Complaint: Urinary Symptoms Stated Complaint: URINARY SYMPTOMS ED Provider: Tila Clark Discharge Problem: Acute alteration in mental status, Acute UTI Patient Disposition: Admitted As Inpatient Discharge Instructions Interventions: ED Discharge Assessment Last Done: 10/15/21 05:27
[2021-10-15] MEDS: METOPROLOL SUCC 25MG EXT REL TAB PO SCH (18:12)
--- NOTE | 2021-10-15 20:44 | Billing Data ---
Date of Service October 15, 2021 Coding Level of Care Code 05462 Initial Inpt Care Lvl 3
[2021-10-16] MEDS: ACETAMINOPHEN 500 MG TAB PO SCH ×3 (05:39→21:18)
[2021-10-16 06:59] LABS: A calco-baum cmplx NotReported Not Detected (NotDetected); Bact fragilis Not Reported Not Detected (NotDetected); C auris Not Reported Not Detected (NotDetected); Calbicans Not Reported Not Detected (NotDetected); Candida glabrata Not Reported Not Detected (NotDetected); Candida krusei Not Reported Not Detected (NotDetected); Cneoformans/gatti Not Reported Not Detected (NotDetected); Cparapsilosis Not Reported Not Detected (NotDetected); Ctropicalis Not Reported Not Detected (NotDetected); E cloacae compx Not Reported Not Detected (NotDetected); Efaecalis Not Reported Not Detected (NotDetected); Efaecium Not Reported Not Detected (NotDetected); Enterobacterales Not Reported Not Detected (NotDetected); Escherichia coli Not Reported Not Detected (NotDetected); H influenzae Not Reported Not Detected (NotDetected); K aerogenes Not Reported Not Detected (NotDetected); Koxytoca Not Reported Not Detected (NotDetected); Kpneumoniae grp Not Reported Not Detected (NotDetected); Lmonocyt Not Reported Not Detected (NotDetected); N meningitidis Not Reported Not Detected (NotDetected); P aeruginosa Not Reported Not Detected (NotDetected); Proteus spp Not Reported Not Detected (NotDetected); Salmonella spp Not Reported Not Detected (NotDetected); Smarcescens Not Reported Not Detected (NotDetected); Staph lugdunensis Not Reported Not Detected (NotDetected); Staphaureus Not Reported Not Detected (NotDetected); Staphepi Not Reported Not Detected (NotDetected); Staphylococcus spp. DETECTED (NotDetected); Stenmaltophilia Not Reported Not Detected (NotDetected); Strep agal(GrpB) Not Reported Not Detected (NotDetected); Strep pneum Not Reported Not Detected (NotDetected); Strep pyog (GrpA) Not Reported Not Detected (NotDetected); Strep spp Not Reported Not Detected (NotDetected)
[2021-10-16 07:07] LABS: Staph spp. Not Reported DETECTED (NotDetected)
[2021-10-16] MEDS ORDERED: VANCOMYCIN CONSULT ACTIVE PRN (07:29)
[2021-10-16] MEDS ORDERED: VANCOMYCIN HCL 1,500 MG in SODIUM CHLORIDE 0.9% 500 ML IV STA (07:47)
[2021-10-16 07:49] LABS: Basophils # (auto) 0.03 K/uL (0-0.2); Basophils % (auto) 0.4 %; Eosinophils # (auto) 0.32 K/uL (0-0.50); Eosinophils % (auto) 3.9 %; Hematocrit (blood only) 40.8 % (40.1-51.0); Hemoglobin 14.3 g/dl (14.0-18.0); Immature Granulocytes # (auto) 0.04 K/uL (0.00-0.02); Immature Granulocytes % (auto) 0.5 %; Lymphocytes # (auto) 1.14 K/uL (1.2-3.4); Lymphocytes % (auto) 13.8 %; Mean Corpuscular Hemoglobin 33.5 pg (25.0-34.0); Mean Corpuscular Volume 95.6 fL (80.0-100.0); Mean Platelet Volume 9.9 fL (9.4-12.4); Monocytes # (auto) 0.57 K/uL (0.24-0.82); Monocytes % (auto) 6.9 %; Neutrophils # (auto) 6.14 K/uL (1.4-6.5); Neutrophils % (auto) 74.5 %; Platelet Count 186 K/uL (130-400); RDW Coefficient of Variation 13.3 % (11.5-14.5); RDW Standard Deviation 46.7 fL (36.4-46.3); Red Blood Count 4.27 M/uL (4.63-6.08); White Blood Count 8.24 K/ul (4.8-10.8)
[2021-10-16 08:19] LABS: Albumin Globulin Ratio 1.8 (0.9-2); Albumin Level 4.4 gm/dl (3.4-5.0); Bilirubin,Total 1.9 mg/dl (0.2-1.0); Calcium 8.9 mg/dl (8.5-10.1); Creatinine Clr Calc Pharmacy 50.1 ml/min; Est GFR (African American) 68.8 ml/min; Est GFR (Non-African American) 59.4 ml/min; Globulin 2.5 gm/dl (2.5-4.0); Phosphorus 3.3 mg/dl (2.5-4.9); Potassium 3.7 mmol/L (3.5-5.1); Total Protein 6.9 gm/dl (6.0-8.3)
[2021-10-16] MEDS: PIPERACILLIN/TAZOBACTAM 3.375 GM in DEXTROSE 5% 100 ML IV SCH ×3 (10:07→23:08)
[2021-10-16] MEDS: UMECLIDINIUM BROMIDE 62.5MCG/BLISTER 7 PUFFS/INHALER INH SCH (10:07)
[2021-10-16] MEDS: APIXABAN 5 MG TABLET PO SCH ×2 (10:07→21:17)
[2021-10-16] MEDS: dilTIAZem ER 120 MG CAPCR PO SCH (10:07)
[2021-10-16] MEDS: METOPROLOL SUCC 25MG EXT REL TAB PO SCH (10:07)
--- NOTE | 2021-10-16 11:55 | Pharmacy Report ---
Pharmacy PK ABX Note - Date of Service October 16, 2021 - Assessment and Plan Assessment 76 year old M receiving VANCOMYCIN/ZOSYN for empiric treatment, possible UTI. Pertinent microbiologic data includes: 1/4 blood cultures positive for gram positive cocci, identified as coag negative staph on BCID2, likely contaminant, repeat cultures pending. Urine culture with pinpoint growth- reincubating Plan Vancomycin * Loading dose: 1500 mg IV x 1 * Maintenance dose: 1000 mg IV every 18 hours * Regimen is predicted to achieve target AUC/ARSENIO of 400-600 mg/L.hr * To be ordered if continued greater than 48 hours Pharmacy will continue to follow and will adjust dose/frequency as necessary. Thank you. Pharmacy has transitioned to AUC monitoring for vancomycin. AUC/ARSENIO is the preferred PK/PD target and is associated with decreased risk of nephrotoxicity compared to traditional trough targets.
--- NOTE | 2021-10-16 16:23 | Hospitalist Progress Note ---
Date of Service October 16, 2021 Assessment & Plan (1) UTI (urinary tract infection): Plan: Since no clear urinary symptoms but according to him these are his presentationsfor the moment continue Zosyn, await cultures Noted last bladder diverticulumconsider outpatient urology; post void (2) Hypertension: Plan: Blood pressures were persistently high -added metoprolol; no change today (3) Gram-positive bacteremia: Plan: Await identificationdepending on identification could be contaminant; repeated; vancomycin for now; if true, could explain some of the symptomology (4) COPD with emphysema: (5) BPH (benign prostatic hyperplasia): Plan: Continue Avodart (6) Afib: Plan: Appears paroxysmal; continue Eliquis and Cardizem (7) Elevated bilirubin: Plan: Right upper quadrant ultrasound given overall lack of clarity of picture Plan Did have some nonspecific gait disturbanceCT head nonacute; hold off MRI for now; OT plus PT Admission and Anticipated Discharge Date Admission Date: October 15, 2021 Subjective Follow-up of presentation where he just felt unwell and foggy, according to him that is how he feels with UTI and some gait unsteadiness (not well defined)today much better Physical Exam Physical Exam: Constitutional and general: No acute distress, looks biologic age Head and face: No puffiness, atraumatic Eyes: No scleral icterus, extraocular movements normal Neck: Supple, no JVD Musculoskeletal: No acute joint swelling, no bony abnormalities Skin/dermatologic/integument: No rash, no purpura Hematologic and lymphatic: pallor +, no petechia Gastrointestinal/abdomen: Nondistended, soft, nonacute Neurologic: Cranial nerves intact, nonfocal Psychiatry: Awake, alert, pleasant, communicative Cardiovascular: Heart rhythm regular, no rub, no murmur, no gallop Respiratory: Chest movements equal, no use of accessory muscles, no adventitious sounds Extremities: No edema, no cyanosis Results & Data Results & Data ([facility]) Vital Signs (Past 12 Hours) Vital Signs Temp Pulse Resp BP Pulse Ox O2 Del Method 10/16/21 16:04 36.8 C 79 16 147/96 H 93 Room Air 10/16/21 07:29 36.6 C 65 16 157/88 H 97 Room Air Laboratory Results Laboratory Results - last 24 hr 10/15/21 10/16/21 10/16/21 04:00 07:20 07:20 WBC 8.24 RBC 4.27 L Hgb 14.3 Hct 40.8 MCV 95.6 MCH 33.5 MCHC 35.0 RDW Std Deviation 46.7 H RDW Coeff of Randy 13.3 Plt Count 186 MPV 9.9 Immature Gran % (Auto) 0.5 Neut % (Auto) 74.5 Lymph % (Auto) 13.8 [place] % (Auto) 6.9 Eos % (Auto) 3.9 Baso % (Auto) 0.4 Neut # (Auto) 6.14 Lymph # (Auto) 1.14 L [place] # (Auto) 0.57 Eos # (Auto) 0.32 Baso # (Auto) 0.03 Immature Gran # (Auto) 0.04 H Sodium 138 Potassium 3.7 Chloride 100 Carbon Dioxide 31 Anion Gap 7 BUN 15 Creatinine 1.19 Est Cr Clr Drug Dosing 50.1 Est GFR ( Amer) 68.8 Est GFR (Non-Af Amer) 59.4 Fasting Glucose 120 H Calcium 8.9 Phosphorus 3.3 Magnesium 2.0 Total Bilirubin 1.9 H AST 29 ALT 32 Alkaline Phosphatase 62 Total Protein 6.9 Albumin 4.4 Globulin 2.5 Albumin/Globulin Ratio 1.8 Staphylococcus sp PCR DETECTED A Bld Cult ID Panel PCR See PCR Comment PG Care Time/CCT Total # of Minutes Spent Total Time Spent with Patient: Total time spent is greater than 50% in coordination of care (as documented) at patient's floor/unit and/or counseling patient: Coding Level of Care Code 71419 Subseq Obs Care Lvl 3 Diagnoses UTI (urinary tract infection) N39.0 Hypertension I10 Gram-positive bacteremia R78.81 COPD with emphysema J43.9 BPH (benign prostatic hyperplasia) N40.0 Afib I48.91 Elevated bilirubin R17
--- NOTE | 2021-10-16 16:45 | Ultrasound Report ---
ULTRASOUND RIGHT UPPER QUADRANT ABDOMEN CLINICAL HISTORY: Elevated bilirubin. COMPARISON STUDY: Abdominal CT dated 09/04/2021. TECHNIQUE: Real-time, grayscale, and color flow sonography of the right upper quadrant of the abdomen was performed. Images are reviewed in the transverse and longitudinal planes. FINDINGS: Liver: The liver is normal in size and demonstrates heterogeneously increased echotexture indicating steatosis. There is no intrahepatic biliary ductal dilatation. The main portal vein is patent. Gallbladder: The gallbladder is distended but otherwise normal in appearance. No shadowing gallstones are identified. There is no gallbladder wall thickening or pericholecystic fluid. A sonographic Murp hy's sign is reportedly absent. The common bile duct measures up to 0.6 cm in diameter. Pancreas: Not visualized due to overlying bowel gas. Right kidney: Survey images of the right kidney demonstrate mild cortical atrophy. Echotexture is nor mal. Cortical scarring is seen in the right upper pole. There is no hydronephrosis. Ascites: None. IMPRESSION: 1. Hepatic steatosis. 2. The gallbladder is distended but otherwise normal in appearance. No gallstones are seen. ACT 112: Negative or not required by law. Electronically signed by: Madhu Krishnamurthy M.D. 10/16/2021 4:44 PM
[2021-10-17] MEDS ORDERED: VANCOMYCIN HCL 1,000 MG in SODIUM CHLORIDE 0.9% 250 ML IV SCH (03:00)
[2021-10-17] MEDS: ACETAMINOPHEN 500 MG TAB PO SCH ×3 (05:21→21:19)
[2021-10-17 07:28] LABS: Basophils # (auto) 0.05 K/uL (0-0.2); Basophils % (auto) 0.7 %; Eosinophils # (auto) 0.36 K/uL (0-0.50); Eosinophils % (auto) 4.7 %; Hematocrit (blood only) 38.4 % (40.1-51.0); Hemoglobin 13.5 g/dl (14.0-18.0); Immature Granulocytes # (auto) 0.04 K/uL (0.00-0.02); Immature Granulocytes % (auto) 0.5 %; Lymphocytes # (auto) 1.45 K/uL (1.2-3.4); Mean Corpuscular Hgb Conc 35.2 g/dL (32.0-36.0); Mean Corpuscular Volume 96.7 fL (80.0-100.0); Mean Platelet Volume 10.2 fL (9.4-12.4); Monocytes # (auto) 0.52 K/uL (0.24-0.82); Monocytes % (auto) 6.8 %; Neutrophils # (auto) 5.23 K/uL (1.4-6.5); Neutrophils % (auto) 68.3 %; Platelet Count 173 K/uL (130-400); RDW Coefficient of Variation 13.3 % (11.5-14.5); RDW Standard Deviation 47.8 fL (36.4-46.3); Red Blood Count 3.97 M/uL (4.63-6.08); White Blood Count 7.65 K/ul (4.8-10.8)
[2021-10-17 07:46] LABS: Albumin Globulin Ratio 1.8 (0.9-2); Albumin Level 4.1 gm/dl (3.4-5.0); Bilirubin,Total 1.2 mg/dl (0.2-1.0); Calcium 8.7 mg/dl (8.5-10.1); Creatinine Clr Calc Pharmacy 52.3 ml/min; Est GFR (African American) 72.5 ml/min; Est GFR (Non-African American) 62.6 ml/min; Globulin 2.3 gm/dl (2.5-4.0); Phosphorus 3.3 mg/dl (2.5-4.9); Potassium 3.6 mmol/L (3.5-5.1); Total Protein 6.4 gm/dl (6.0-8.3)
[2021-10-17] MEDS: UMECLIDINIUM BROMIDE 62.5MCG/BLISTER 7 PUFFS/INHALER INH SCH (08:50)
[2021-10-17] MEDS: APIXABAN 5 MG TABLET PO SCH ×2 (08:51→21:19)
[2021-10-17] MEDS: dilTIAZem ER 120 MG CAPCR PO SCH (08:51)
[2021-10-17] MEDS: METOPROLOL SUCC 25MG EXT REL TAB PO SCH (08:51)
--- NOTE | 2021-10-17 10:55 | Ultrasound Report ---
TESTICULAR ULTRASOUND HISTORY: Right-sided epididymal tenderness COMPARISON: Testicular ultrasound 07/08/2021. FINDINGS: Right testis: 41 x 25 x 14 mm. There are no intratesticular masses. Normal color flow. No hydrocele. Thickened and heterogeneous right epididymal body and tail demonstrating increased color flow. This i s similar to the prior study. Left testis: 41 x 18 x 16 mm. There are no intratesticular masses. Normal color flow. No hydrocele. T he epididymis is unremarkable. IMPRESSION: 1. No significant change in the thickened and heterogeneous right epididymis likely representing an e pididymitis. 2. Normal bilateral testes. ACT 112: Negative or not required by law. Electronically signed by: Lico Hess M.D. 10/17/2021 10:53 AM
[2021-10-17] MEDS ORDERED: PIPERACILLIN/TAZOBACTAM 3.375 GM in DEXTROSE 5% 100 ML IV ONE (12:00)
--- NOTE | 2021-10-17 13:11 | Hospitalist Progress Note ---
Date of Service October 17, 2021 Assessment & Plan (1) UTI (urinary tract infection): Plan: not convincing; pinpoint incubation being isolated; according to him however, this is how his symptoms start; given persistent/recurrent epididymitis continue Zosyn; once cultures de-escalate Noted history of bladder diverticulumthis issue was looked at by urology last time; I cannot find post void; rerequested (urology went through this last time); might benefit from outpatient urology follow-up (2) Hypertension: Plan: Blood pressures persistently highI switched to single agent Cardizem at a higher dose (3) Gram-positive bacteremia: Plan: Coag neg, not lugdunensisstop vancomycin (4) BPH (benign prostatic hyperplasia): Plan: Continue Avodart -or equivalent (5) Afib: Plan: Appears paroxysmal; continue Eliquis and Cardizemsee above (6) Elevated bilirubin: Plan: persistent distended gallbladder on ultrasound but no signs or symptomsobserve for now (7) Epididymitis: Plan: Treated in June it seems (he said 1 month ago) ; somewhat unusual but appears to be recurrencecontinue Zosyn for now; urology input Plan Did have some nonspecific gait disturbance, vision disturbanceCT head nonacute; inclined to observe Admission and Anticipated Discharge Date Admission Date: October 17, 2021 Subjective Follow-up of presentation where he just felt unwell and foggy, vague vision disturbance, just could not ambulate normally (he has trouble describing exact symptomology but no urinary symptoms)today complaining of right sided epididymal pain Physical Exam Physical Exam: Constitutional and general: No acute distress, looks biologic age Head and face: No puffiness, atraumatic Eyes: No scleral icterus, extraocular movements normal Neck: Supple, no JVD Musculoskeletal: No acute joint swelling, no bony abnormalities Skin/dermatologic/integument: No rash, no purpura Hematologic and lymphatic: pallor +, no petechia Gastrointestinal/abdomen: Nondistended, soft, nonacute Neurologic: Cranial nerves intact, nonfocal Psychiatry: Awake, alert, pleasant, communicative Cardiovascular: Heart rhythm regular, no rub, no murmur, no gallop Respiratory: Chest movements equal, no use of accessory muscles, no adventitious sounds Extremities: No edema, no cyanosis Right epididymitis cord likewith mild tenderness Results & Data Results & Data ([place]) Vital Signs (Past 12 Hours) Vital Signs Temp Pulse Pulse Resp BP Pulse Ox O2 Del Method 10/17/21 11:26 36.6 C 77 18 168/101 H 94 Room Air 10/17/21 07:09 36.7 C 69 18 154/90 H 98 Room Air Laboratory Results Laboratory Results - last 24 hr 10/17/21 10/17/21 06:40 06:40 WBC 7.65 RBC 3.97 L Hgb 13.5 L Hct 38.4 L MCV 96.7 MCH 34.0 MCHC 35.2 RDW Std Deviation 47.8 H RDW Coeff of Randy 13.3 Plt Count 173 MPV 10.2 Immature Gran % (Auto) 0.5 Neut % (Auto) 68.3 Lymph % (Auto) 19.0 [place] % (Auto) 6.8 Eos % (Auto) 4.7 Baso % (Auto) 0.7 Neut # (Auto) 5.23 Lymph # (Auto) 1.45 [place] # (Auto) 0.52 Eos # (Auto) 0.36 Baso # (Auto) 0.05 Immature Gran # (Auto) 0.04 H Sodium 139 Potassium 3.6 Chloride 103 Carbon Dioxide 29 Anion Gap 7 BUN 16 Creatinine 1.14 Est Cr Clr Drug Dosing 52.3 Est GFR ( Amer) 72.5 Est GFR (Non-Af Amer) 62.6 Fasting Glucose 104 H Calcium 8.7 Phosphorus 3.3 Magnesium 2.0 Total Bilirubin 1.2 H AST 29 ALT 29 Alkaline Phosphatase 59 Total Protein 6.4 Albumin 4.1 Globulin 2.3 L Albumin/Globulin Ratio 1.8 PG Care Time/CCT Total # of Minutes Spent Total Time Spent with Patient: Total time spent is greater than 50% in coordination of care (as documented) at patient's floor/unit and/or counseling patient: Coding Level of Care Code 11307 Subseq Hosp Care Lvl 2 Diagnoses UTI (urinary tract infection) N39.0 Hypertension I10 Gram-positive bacteremia R78.81 BPH (benign prostatic hyperplasia) N40.0 Afib I48.91 Elevated bilirubin R17 Epididymitis N45.1
[2021-10-17] MEDS: FINASTERIDE 5 MG TAB PO SCH (15:18)
[2021-10-17] MEDS: PIPERACILLIN/TAZOBACTAM 3.375 GM in DEXTROSE 5% 100 ML IV SCH (17:55)
--- NOTE | 2021-10-17 19:49 | Urology Consultation ---
Date of Consultation October 17, 2021 Assessment & Plan (1) Epididymitis: (2) UTI (urinary tract infection): Plan 76-year-old male with a history of BPH and incomplete bladder emptying who is dealt with recent UTIs and persistent right epididymitis. Had a long discussion with patient about his UTIs and epididymitis. His UTIs are likely causing his epididymitis. He feels as if he is emptying his bladder and PVRs have been low. His urine culture grew out mixed avi, but due to epididymitis and previous Enterococcus cultures, when primary team transitions to p.o. recommend 4 weeks of ciprofloxacin to treat both suspected UTI and persistent epididymitis Urology will send a message to get the patient scheduled to see Dr. Rivera in clinic to discuss his recent issues Urology to sign off History of Present Illness Reason for Consultation: Right epididymitis Attending Physician: Robert Raman MD History of Present Illness 76-year-old male admitted due to feeling unwell with symptoms concerning for urinary tract infection. He has a history of BPH with incomplete bladder emptyi ng and underwent a greenlight enucleation and vaporization of prostate by Dr. Rivera on 10/22/2020. He was last seen in clinic by Dr. Rivera on 03/02/2021. Plan was to repeat imaging as he also has a history of kidney stones. He was seen as a consult in August by our service for an Enterococcus UTI. He has been afebrile with stable vitals since admission. He has not had any leukocytosis. Creatinine has been stable to his baseline of 0.9-1.4. Urinalysis on admission had 2+ leukocyte Estrace, greater than 30 WBCs, 10-30 RBCs and 1+ bacteria. Urine culture grew out mixed avi. 1 blood culture grew out coag negative staph. He has been on Zosyn. I independently reviewed a CT scan of the abdomen and pelvis which was done back in August which showed 1 nonobstructing stone in the right kidney that may actually be in the parenchyma. There is no hydronephrosis. His bladder wall was thickened and there was a small diverticulum. I also reviewed a scrotal ultrasound from 10/08/2021. This showed findings concerning for right-sided epididymitis. He had a repeat scrotal ultrasound done this morning due to right testicular discomfort which shows concern for possible right epididymitis there were no masses in either testicle. He denies any major urinary symptoms but does report several episodes consistent with UTI with change in mental status. He has had persistent testicular swel ling for several months now. Does not sound like he has been on a long-term antibiotic therapy. Allergies Allergy/AdvReac Type Severity Reaction Status Date / Time No Known Allergies Allergy Verified 10/07/21 18:06 Home Medications Medication Instructions Recorded Confirmed Type cholecalciferol (vitamin D3) 25 1,000 unit PO QAM 12/11/17 10/07/21 History mcg (1,000 unit) tablet vitamin B complex 1 tab PO QAM 04/12/20 10/07/21 History glucosamine-chondroitin 500 mg-400 1 tab PO QAM 09/14/20 10/07/21 History mg tablet acetaminophen 500 mg capsule 500 mg PO Q6H PRN Pain 10/02/20 10/07/21 History diltiazem HCl 120 mg capsule,24 120 mg PO QAM #90 caps 11/12/20 10/07/21 Rx hr,extended release (Taztia XT) potassium chloride 20 mEq 20 meq PO QAM #90 tabs 11/12/20 10/07/21 Rx tablet,extended release(part/cryst) multivitamin (Daily Multi-Vitamin 1 tab PO DAILY #30 tabs 11/19/20 10/07/21 Rx tablet) apixaban 5 mg tablet (Eliquis) 5 mg PO BID #180 tabs 03/11/21 10/07/21 Rx dutasteride 0.5 mg capsule 0.5 mg PO QAM #90 caps 06/10/21 10/07/21 Rx (Avodart) tiotropium bromide 2.5 2 puff inhalation DAILY #4 grams 06/11/21 10/07/21 Rx mcg/actuation mist for inhalation (Spiriva Respimat) diclofenac sodium 1 % topical gel 4 g topical QID #100 grams 07/27/21 10/07/21 Rx (Voltaren Arthritis Pain) Patient History Medical History Adjustment disorder with anxiety Alcohol abuse Atrial flutter BPH (benign prostatic hyperplasia) Enterococcus UTI Hypertension Hypokalemia Hypokalemia Pulmonary nodule Surgical History History of appendectomy History of colonoscopy History of epidermal inclusion cyst excision History of SCC (squamous cell carcinoma) of skin Family History Mother Alzheimer disease Hearing loss Father Brain tumor Stroke Brother Cerebral atherosclerosis Stroke Denies family history of Colon cancer Ovarian cancer Prostate cancer Myocardial infarction Breast cancer Social History (Updated 10/07/21 @ 18:08 by ELIZABETH Santizo) Smoking Status: Former smoker packs per day: 0.5; Years Smoked: 50; Cigarettes Per Day: 10 Cigarettes.; Second Hand Exposure: No; Do You Dip or Chew Tobacco: No; Tobacco Cessation Education Requested by Patient: No Hx Alcohol Use: Yes Alcohol type: beer and hard liquor Alcohol Intake Frequency Comment: 15 beers/drinks daily Hx Substance Use: No Preferred Language: Vietnamese Communication Ability: Effective Visual Impairment: No Limitations Hearing Ability: Normal Affiliate Manager Required: No Beliefs That Will Affect Care: None marital status: Current Living Situation: Alone current occupational status: retired How many Children do You have: 1 Other Information That Helps Us Care for You: No Feels Safe at Home: Yes Safety Concerns: Feels Safe At This Time Childhood Exposure to Second-Hand Smoke: Yes Dental Care, Regularly: No Physical Activity Frequency: 3-4 Times per Week Seatbelt Use: always Sunscreen Use: No Assistive Devices: Denture - Upper and Glasses Review of Systems Review of Systems: 14 point review of systems negative outside of what is listed above in HPI Physical Exam Physical Exam: General: Alert and oriented, no acute distress HEENT: Normocephalic, mucous membranes moist Pulmonary: Nonlabored respirations Abdomen: Nondistended : Uncircumcised phallus with orthotopic meatus. Testicles descended bilaterally. Left testicle is palpably normal. Right testicle is tender and indurated, consistent with epididymitis. Extremities: Moves all 4 spontaneously Neuro: No gross deficits Skin: Warm, dry, no rashes noted Results & Data ([facility]) Vital Signs (Past 12 Hours) Vital Signs Temp Pulse Pulse Pulse Resp BP Pulse Ox 10/17/21 19:30 36.7 C 67 18 178/102 H 96 10/17/21 16:27 36.7 C 78 17 168/120 H 94 10/17/21 14:42 71 10/17/21 11:20 75 10/17/21 11:26 36.6 C 77 18 168/101 H 94 O2 Del Method 10/17/21 19:30 Room Air 10/17/21 16:27 Room Air 10/17/21 14:42 10/17/21 11:20 10/17/21 11:26 Room Air PG Care Time/CCT Total # of Minutes Spent Total Time Spent with Patient: Total time spent is greater than 50% in coordination of care (as documented) at patient's floor/unit and/or counseling patient: Coding Level of Care Code 18842 Initial Inpt Care Lvl 3 Diagnoses Epididymitis N45.1 UTI (urinary tract infection) N39.0
[2021-10-18] MEDS: PIPERACILLIN/TAZOBACTAM 3.375 GM in DEXTROSE 5% 100 ML IV SCH ×2 (02:54→10:30)
[2021-10-18] MEDS: ACETAMINOPHEN 500 MG TAB PO SCH ×2 (06:09→14:58)
[2021-10-18 07:03] LABS: Basophils # (auto) 0.04 K/uL (0-0.2); Basophils % (auto) 0.6 %; Eosinophils # (auto) 0.39 K/uL (0-0.50); Eosinophils % (auto) 5.5 %; Hematocrit (blood only) 36.3 % (40.1-51.0); Hemoglobin 12.9 g/dl (14.0-18.0); Immature Granulocytes # (auto) 0.03 K/uL (0.00-0.02); Immature Granulocytes % (auto) 0.4 %; Lymphocytes # (auto) 1.43 K/uL (1.2-3.4); Lymphocytes % (auto) 20.2 %; Mean Corpuscular Hemoglobin 33.8 pg (25.0-34.0); Mean Corpuscular Hgb Conc 35.5 g/dL (32.0-36.0); Mean Platelet Volume 9.7 fL (9.4-12.4); Monocytes # (auto) 0.55 K/uL (0.24-0.82); Monocytes % (auto) 7.8 %; Neutrophils # (auto) 4.64 K/uL (1.4-6.5); Neutrophils % (auto) 65.5 %; Platelet Count 161 K/uL (130-400); RDW Coefficient of Variation 13.2 % (11.5-14.5); RDW Standard Deviation 46.4 fL (36.4-46.3); Red Blood Count 3.82 M/uL (4.63-6.08); White Blood Count 7.08 K/ul (4.8-10.8)
[2021-10-18 07:30] LABS: Albumin Globulin Ratio 1.8 (0.9-2); Albumin Level 4.1 gm/dl (3.4-5.0); Bilirubin,Total 1.3 mg/dl (0.2-1.0); Calcium 8.6 mg/dl (8.5-10.1); Creatinine Clr Calc Pharmacy 52.3 ml/min; Est GFR (African American) 72.5 ml/min; Est GFR (Non-African American) 62.6 ml/min; Globulin 2.3 gm/dl (2.5-4.0); Phosphorus 3.1 mg/dl (2.5-4.9); Potassium 3.3 mmol/L (3.5-5.1); Total Protein 6.4 gm/dl (6.0-8.3)
[2021-10-18] MEDS: dilTIAZem ER 120 MG CAPCR PO SCH (08:32)
[2021-10-18] MEDS: APIXABAN 5 MG TABLET PO SCH (08:32)
[2021-10-18] MEDS: UMECLIDINIUM BROMIDE 62.5MCG/BLISTER 7 PUFFS/INHALER INH SCH (08:33)
[2021-10-18] MEDS: FINASTERIDE 5 MG TAB PO SCH (08:33)
[2021-10-18] MEDS ORDERED: dilTIAZem ER 180 MG CAPCR PO SCH (09:00)
[2021-10-18 11:41] VITALS: TEMP 98.2; O2SAT 94
[2021-10-18 14:13] VITALS: BP 161/91; PULSE 82
--- NOTE | 2021-10-18 15:21 | Discharge Summary ---
Date of Service October 18, 2021 Admission HPI Per Admitting Provider 76yo male with a history of HTN, HLD, atrial fibrillation (on eliquis), COPD, lung cancer, BPH, fatty liver, alcohol use disorder, VANGIE, and spinal stenosis presents with a "few-day" history of feeling generally unwell without any pain or other overt symptoms. Symptoms began gradually. Patient note he feels similar to how he has in the past when he's had UTI's even though he denies pain with urination, urinary frequency, urinary urgency, urinary hesitancy, abdominal pain, nausea, vomiting, or fever. Patient also denies headache, vision changes, CP, palpitations, SOB, edema, hematochezia, melena, back pain, lightheadedness, dizziness, numbness, tingling, weakness, or other symptoms. Denies recent illness and recent travel. Patient was admitted at [facility] in late July for UTI. Upon arrival, vitals were notable for elevated BP (150-190s/80-110s) and tachycardia (110s). No tachypnea, patient afebrile, spO2 adequate on room air. Initial labs were notable for hypokalemia (3.1) and elevated bilirubin (1.3). No leukocytosis, no anemia, platelets wnl, AST/ALT/alk phos wnl. UA is notable for 1+ protein, trace ketones, 2+ blood, nitrites, 2+ leuk esterase, >30 WBCs, and 1+ bacteria. Covid PCR negative, serum alcohol negative. In the ED, patient received NSS 1L bolus (x1) and one dose of zosyn. Surrogate decision-maker in case of an emergency: patient declines Principal Diagnosis UTI with right-sided epididymitis Discharge Exam No acute distress RRR CTA b/l Discharge Data Allergies Allergy/AdvReac Type Severity Reaction Status Date / Time No Known Allergies Allergy Verified 10/07/21 18:06 Consultations 10/15/21 03:49 ED Decision to Admit Stat 10/17/21 12:39 Consult Urology Routine Ordered Studies 10/15/21 08:49 CT head/brain wo con Urgent 10/16/21 09:58 US abdomen limited Urgent 10/17/21 08:46 US scrotum/testicle Urgent Hospital Course (1) UTI (urinary tract infection): Urine cx on 10/15 showed multiple organisms. Seen by urology who felt he had epididymitis as well and recommended 4 weeks abx. - Discharged on ciprofloxacin 500 mg PO BID x 4 weeks. - F/u with urology within 1-2 weeks to ensure improvement. (2) Epididymitis: Treated in June; somewhat unusual but appears to be recurrence abx as above. (3) Hypertension: Blood pressures persistently high in the hospital, but given substantial literature on changing HTN meds while inpatient, I instead encouraged him to go home and check BPs once a day in the morning and take to PCP's office. (4) Gram-positive bacteremia: Coag neg, not lugdunensisstop vancomycin (5) BPH (benign prostatic hyperplasia): Continue Avodart -or equivalent (6) Afib: Appears paroxysmal; continue Eliquis and Cardizem (7) Elevated bilirubin: Persistent distended gallbladder on ultrasound but no signs or symptoms No inpatient needs. Total Time Total Time Spent Total Time Spent (In Minutes): 35 Discharge Plan Discharge Items Patient Disposition: Home - Self-Care Reason For Visit: UTI Discharge Diagnosis: UTI and right-sided epididymitis Activity: Resume your previous activity Non-emergency contact: Primary Care Provider and Urologist Call non-emergency contact if: your symptoms worsen and your temperature is above 101 Follow-up/Referrals: Julian Marc MD [Primary Care Provider] - 10/26/21 11:00 am Russell Rivera DO [Physician] - (Please call the Urology office by Monday if you have not heard from them to arrange a follow-up appointment.) Diet: Regular and Heart Healthy Add Attending Provider Instructions: Mr. Joseph, You were admitted to the hospital with a UTI that had occurred shortly after finishing a prior course of antibiotics. The Urology doctor thought you had an element of right testicular infection (technically in the epididymis which is close to the testicle) that will require a longer course of antibiotics. Please follow up with your PCP and the Urology team before finishing your antibiotic course. As we discussed, longer-term use of ciprofloxacin can cause tendon issues, so if you start to have pain in the Joyce's, elbows, knees, etc, please speak with your PCP as soon as you can. For your blood pressure, I went back, and it appears to be fairly well- controlled when you see your PCP. I would measure your blood pressure once a day in the mornings and take those records to Dr. Marc when you see him next. I did not feel you needed to adjust your blood pressure meds at this time. I truly hope you feel better soon and recover quickly! Take care, Eduar Hale Pending Studies at Discharge: No Stand-Alone Forms: My [facility], Smoking Cessation Medications and DC Order Prescriptions: New ciprofloxacin HCl 500 mg tablet 500 mg PO BID Qty: 60 0RF Continued diltiazem HCl [Taztia XT] 120 mg capsule,extended release 24 hr 120 mg PO QAM Qty: 90 3RF potassium chloride 20 mEq tablet,ER particles/crystals 20 meq PO QAM Qty: 90 3RF Eliquis 5 mg tablet 5 mg PO BID Qty: 180 3RF dutasteride [Avodart] 0.5 mg capsule 0.5 mg PO QAM Qty: 90 1RF Spiriva Respimat 2.5 mcg/actuation mist 2 puff inhalation DAILY Qty: 4 4RF multivitamin [Daily Multi-Vitamin] Tablet 1 tab PO DAILY Qty: 30 0RF diclofenac sodium [Voltaren Arthritis Pain] 1 % gel 4 g topical QID Qty: 100 2RF vitamin B complex Tablet 1 tab PO QAM cholecalciferol (vitamin D3) 1,000 unit Tablet 1,000 unit PO QAM glucosamine-chondroitin 500-400 mg tablet 1 tab PO QAM acetaminophen 500 mg Capsule 500 mg PO Q6H PRN (Reason: Pain) Discharge Orders: Discharge Order (Routine); Ordered 10/18/21 Ordered By: Eduar Hale Admission Data Admit Date/Time: 10/17/21 08:53 Attending Provider: Eduar Hale Admit Provider: Terrence Lane Primary Care Provider: Julian Marc Other Providers: Stevie Quan ; Russell Rivera Other Interventions: Discharge Summary Assessment (RN) Last Done: 10/18/21 14:12 Coding Level of Care Code D/C DAY MANAGEMENT >30 MINS Diagnoses UTI (urinary tract infection) N39.0 Epididymitis N45.1 Hypertension I10 Gram-positive bacteremia R78.81 BPH (benign prostatic hyperplasia) N40.0 Afib I48.91 Elevated bilirubin R17
== END 2021-10-18 17:19 | disposition home or self-care (01) | DRG 690 ==
LOC: 3E 00:48 → ED 00:48 → SUATTDRO 04:53 → 3E 05:27 → SUATTDRO 10-17 08:53 → 2N 10-17 10:39
DX: N40.0 Benign prostatic hyperplasia without lower urinary tract symptoms; I48.91 Unspecified atrial fibrillation; N39.0 Urinary tract infection, site not specified; R17 Unspecified jaundice; E87.6 Hypokalemia; I10 Essential (primary) hypertension; Z87.891 Personal history of nicotine dependence; R78.81 Bacteremia; N45.1 Epididymitis; J43.9 Emphysema, unspecified

== ENCOUNTER 2022-12-22 15:50 | Inpatient (IN) ==
--- NOTE | 2022-12-22 16:30 | ED Triage Note ---
Date of Service December 22, 2022 History of Present Illness This patient was briefly evaluated while in triage. An abbreviated physical exam was performed. This patient is a 77-year-old Male who presents to the ED for evaluation of "feeling a little spacey." He is not sure why he is here but states he feels a little off and his son Alvino wanted him to come in. I did contact his son, Alvino, who states that the patient is somewhat confused today and this happens frequently when he has UTIs. Physical Exam VITALS: Vitals are noted on the nurse's note and reviewed by myself. GENERAL: This is a 77-year-old male, in no acute distress, well-developed well- nourished. SKIN: The skin was without rashes. HEART: Regular rate and rhythm without murmurs gallops or rubs. LUNGS: Clear to auscultation bilaterally without wheezes, rales or rhonchi. NEURO: Patient was alert and oriented to person and place, but not time. Initial orders for labs and / or imaging were placed and patient was placed in the waiting area until a bed is available. Please see further documentation for the full ED course. MDM / Impression Impression Impression: Encephalopathy, Visual hallucinations, Hypertension, Alcohol abuse, Hypokalemia, Acute UTI
[2022-12-22 17:15] LABS: Basophils # (auto) 0.06 K/uL (0.00-0.20); Basophils % (auto) 0.8 %; Eosinophils # (auto) 0.45 K/uL (0.00-0.50); Eosinophils % (auto) 6.2 %; Hematocrit (blood only) 42.4 % (42.0-52.0); Hemoglobin 15.7 g/dl (14.0-18.0); Immature Granulocytes # (auto) 0.02 K/uL (0.01-0.20); Immature Granulocytes % (auto) 0.3 %; Lymphocytes # (auto) 2.26 K/uL (1.20-3.40); Mean Corpuscular Hemoglobin 33.8 pg (25.0-34.0); Mean Corpuscular Volume 91.2 fL (80.0-100.0); Mean Platelet Volume 9.4 fL (9.4-12.4); Monocytes # (auto) 0.63 K/uL (0.11-0.59); Monocytes % (auto) 8.6 %; Neutrophils # (auto) 3.87 K/uL (1.40-6.50); Neutrophils % (auto) 53.1 %; Platelet Count 233 K/uL (130-400); RDW Coefficient of Variation 12.9 % (11.5-14.5); RDW Standard Deviation 42.9 fL (36.4-46.3); Red Blood Count 4.65 M/uL (4.70-6.10); White Blood Count 7.29 K/ul (4.8-10.8)
[2022-12-22 17:36] LABS: Albumin Globulin Ratio 1.5 (0.9-2); Albumin Level 4.6 gm/dl (3.4-5.0); BUN Creatinine Ratio 19.6 (10-20); Bilirubin,Total 0.5 mg/dl (0.2-1.0); Calcium 8.5 mg/dl (8.6-10.3); Creatinine Clr Calc Pharmacy 51.2 ml/min; Est GFR (African American) 73.6 ml/min; Est GFR (Non-African American) 63.5 ml/min; Potassium 3.2 mmol/L (3.5-5.1); Total Protein 7.6 gm/dl (6.0-8.3)
[2022-12-22] MEDS ORDERED: SODIUM CHLORIDE 0.9% 500 ML IV ONE (18:57)
[2022-12-22 19:10] LABS: Appearance Urine Cloudy (Clear); Bacteria Urine Automated Negative (Negative); Bilirubin Urine Negative (Negative); Blood Urine 3+ (Negative); Color Urine Yellow; Epithelial Cell Urine Auto >30 /lpf (0-5); Glucose Urine UA Negative (Negative); Ketones Urine Negative (Negative); Leukocyte Esterase Urine 2+ (Negative); Nitrite Urine Negative (Negative); Protein Urine 1+ (Negative); Specific Gravity Urine 1.013 (1.000-1.030); Urobilinogen Urine Negative (Negative); WBC Urine Automated >30 /hpf (0-5); pH Urine 5.5 (4.5-7.5)
[2022-12-22 19:24] LABS: Magnesium 1.9 mg/dl (1.7-2.4); Phosphorus 2.9 mg/dl (2.5-4.9)
[2022-12-22] MEDS ORDERED: MULTI-VITAMIN INFUSION 10 ML, THIAMINE HCL 100 MG, FOLIC ACID 1 MG in SODIUM CHLORIDE 0... IV ONE (19:33)
[2022-12-22] MEDS ORDERED: THIAMINE HCL 200 MG in SODIUM CHLORIDE 0.9% 50 ML IV STA (19:33)
[2022-12-22] MEDS ORDERED: OPTIRAY 320 500ml IV ONE (19:48)
--- NOTE | 2022-12-22 20:13 | CT Scan Report ---
Exam(s): CTA NECK With Contrast IV Amt: 103 ml opti 320 EXAM: CT Angiography Neck With Intravenous Contrast CLINICAL HISTORY: Reason for exam: etoh, aphasia. TECHNIQUE: Routine carotid CT angiography protocol was performed with intravenous contrast. NASCET criteria using the distal ICAs for comparison were used for evaluation of stenoses. CTDI is 12.65 mGy and DLP is 1144.11 mGy-cm. Automated exposure control was utilized for the study. A dose lowering technique was utilized adhering to the principles of ALARA. MIP reconstructed images were created and reviewed. CONTRAST: Patient received 103 ml opti 320 of IV contrast COMPARISON: None. FINDINGS: VASCULATURE: Right common carotid artery: Unremarkable. No occlusion or significant stenosis. No dissection. Right internal carotid artery: Unremarkable. Extracranial segment is patent with no occlusion or significant stenosis. No dissection. Right external carotid artery: Unremarkable. No occlusion. Right vertebral artery: Unremarkable. No occlusion or significant stenosis. No dissection. Left common carotid artery: Unremarkable. No occlusion or significant stenosis. No dissection. Left internal carotid artery: Unremarkable. Extracranial segment is patent with no occlusion or significant stenosis. No dissection. Left external carotid artery: Unremarkable. No occlusion. Left vertebral artery: Unremarkable. No occlusion or significant stenosis. No dissection. Nodule in the RIGHT upper lobe measures 2.2 x 1.[address] recommended. IMPRESSION: No large vessel occlusion. No dissection. Nodule in the RIGHT upper lobe measures 2.2 x 1.[address] recommended. Electronically signed by: Shane Lancaster MD 12/22/22 20:12 PM
--- NOTE | 2022-12-22 20:14 | CT Scan Report ---
Exam(s): CT HEAD Without Contrast EXAM: CT Head Without Intravenous Contrast CLINICAL HISTORY: Reason for exam: etoh, aphasia. TECHNIQUE: Axial computed tomography images of the head/brain without intravenous contrast. CTDI is 12.65 mGy and DLP is 1144.11 mGy-cm. Automated exposure control was utilized for the study. A dose lowering technique was utilized adhering to the principles of ALARA. COMPARISON: No relevant prior studies available. FINDINGS: No acute intracranial hemorrhage. No midline shift or mass effect. The territorial whittington-white matter differentiation is maintained throughout. Age-related cerebral volume loss. Periventricular and subcortical white matter hypoattenuation, consistent with chronic microangiopathy. The visualized orbits appear grossly unremarkable. The calvarium is intact. The visualized paranasal sinuses and mastoid air cells are grossly clear. IMPRESSION: No acute intracranial hemorrhage, midline shift, or mass effect. Electronically signed by: Shane Lancaster MD 12/22/22 20:13 PM
--- NOTE | 2022-12-22 20:15 | CT Scan Report ---
Exam(s): CTA HEAD With Contrast IV Amt: 103 ml opti 320 EXAM: CT Angiography Head With Intravenous Contrast CLINICAL HISTORY: Reason for exam: etoh, aphasia. TECHNIQUE: Axial computed tomographic angiography images of the head with intravenous contrast. CTDI is 12.65 mGy and DLP is 1144.11 mGy-cm. Automated exposure control was utilized for the study. A dose lowering technique was utilized adhering to the principles of ALARA. MIP reconstructed images were created and reviewed. CONTRAST: Patient received 103 ml opti 320 of IV contrast COMPARISON: No relevant prior studies available. FINDINGS: Right internal carotid artery: No acute findings. Intracranial segment is patent with no significant stenosis. No aneurysm. Right anterior cerebral artery: Unremarkable. No occlusion or significant stenosis. No aneurysm. Right middle cerebral artery: Unremarkable. No occlusion or significant stenosis. No aneurysm. Right posterior cerebral artery: Unremarkable. No occlusion or significant stenosis. No aneurysm. Left internal carotid artery: No acute findings. Intracranial segment is patent with no significant stenosis. No aneurysm. Left anterior cerebral artery: Unremarkable. No occlusion or significant stenosis. No aneurysm. Left middle cerebral artery: Unremarkable. No occlusion or significant stenosis. No aneurysm. Left posterior cerebral artery: Unremarkable. No occlusion or significant stenosis. No aneurysm. IMPRESSION: No large vessel occlusion. Electronically signed by: Shane Lancaster MD 12/22/22 20:14 PM
[2022-12-23] MEDS ORDERED: cefTRIAXone SODIUM 2,000 MG/50 ML BAG IV STA (00:41)
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
--- NOTE | 2022-12-23 03:57 | Emergency Department Note ---
Impression & Plan Encephalopathy, Visual hallucinations, Hypertension, Alcohol abuse, Hypokalemia, Acute UTI ED Provider Note NAME: LORNA DEJESUS AGE: 77 SEX: M ARRIVES VIA: Walk-In INFORMANT: Patient ED PROVIDER(S): Leonel Singh MD CHIEF COMPLAINT: Confusion, weakness. PLAN: Disposition: Admit MEDICAL DECISION MAKING: The patient is a pleasant 77-year-old gentleman with a past medical history of urinary tract infections, A-fib on Eliquis, BPH, status post TURP, COPD, hypertension, hyperlipidemia, alcohol abuse who presents to the emergency department via walk-in for evaluation of confusion and weakness which he correlates with having urinary tract infections in the past. He reports that he was speaking to his son over the phone who lives in [place] and he urged him to come to the hospital for assessment for UTI given this is what they correlate the symptoms to in the past. The patient does not knowledge she does drink alcohol but is equivocal on the frequency and amount but does appear to be every day. Of note, the patient is mildly confused and that he has word finding difficulty and for memory where he could not recall when he actually spoke to his son. With the patient's permission I was able to speak to the son [place] and he reports he spoke to him 2 times today. In fact when he spoke to him the second time he did not recall speaking to him the first time. He reports that the patient's word finding difficulties and memory is worse than his baseline as he usually speaks fluently and does not have such difficulty with short-term memory. He is aware that his father drinks alcohol but does not necessarily feel it is every day or in heavy amounts. The patient's son defers to our opinion regarding hospitalization given the patient's not at his baseline and so understands that this may recur if he does not improve. The patient himself is also in agreement with our recommendations. On my evaluation the patient is in no acute distress, afebrile heart in the 100s and blood pressure 140s/90s. He appears clinically dry. He has mild-moderate word finding difficulty and poor memory. He otherwise has no focal neurologic deficits. EKG without overt acute ischemia. Chest x-ray negative for acute cardiopulmonary process. WBC, H/H and platelets within normal limits. Chemistry without metabolic acidosis. Potassium 3.2 and calcium 8.5 electrolytes otherwise without significant abnormality. LFTs are unremarkable. UA with 3+ blood 2+ leuk esterase, WBCs and no bacteria and with epithelial cells present. Nitrite is negative. The patient's medical alcohol was 126 suggestive of suspected underlying alcoholism. CT of the head and CT of the head neck were performed and were negative for acute abnormalities. The patient was treated with IV fluid hydration with banana bag and IV thiamine. He was not exhibiting overt signs or symptoms of alcohol withdrawal during his most department observation. He was observed for numerous hours until alcohol had likely metabolized but still exhibited a degree of poor memory, word finding difficulty and was endorsing visual hallucinations. The patient's UA is suspicious it certainly is not convincing for infection and prior cultures may have also reflected contamin ation. However, given the patient's apparent regular alcohol use suspicion is raised for encephalopathy possibly related to Warnicke's. Patient does agree with plan for admission for further management. Blood cultures were obtained and ceftriaxone ordered empirically out of caution. Case was discussed with Dr. Quan, [facility] hospitalist, who will evaluate the patient for admission. Triage Nursing notes reviewed and agree them. Prior/outside medical records reviewed Vital Signs: reviewed Differential diagnosis: Infection, dehydration, metabolic abnormality, hypo/hyperglycemia, electrolyte disturbance, anemia, hypoxia, cardiac sources, intracerebral event, toxicologic, neurologic, as well as other pathologies. ER treatment provided: See below. Diagnostics interpreted by me: ECG: Normal sinus rhythm, 99 bpm, no ectopy, no overt ST elevation or depression, QTc 454 QTC 94. Cardiac Monitoring: An order for continuous cardiac monitoring was placed and demonstrated Normal sinus rhythm, 99 bpm, no ectopy. Laboratory studies: See below Imaging studies: See below Consultation(s): Case was discussed with Dr. Quan, [facility] hospitalist, who will evaluate the patient for admission. HPI: The patient is a pleasant 77-year-old gentleman with a past medical history of urinary tract infections, A-fib on Eliquis, BPH, status post TURP, COPD, hypertension, hyperlipidemia, alcohol abuse who presents to the emergency department via walk-in for evaluation of confusion and weakness which he correlates with having urinary tract infections in the past. He reports that he was speaking to his son over the phone who lives in [place] and he urged him to come to the hospital for assessment for UTI given this is what they correlate the symptoms to in the past. The patient does not knowledge she does drink alcohol but is equivocal on the frequency and amount but does appear to be every day. Of note, the patient is mildly confused and that he has word finding difficulty and for memory where he could not recall when he actually spoke to his son. With the patient's permission I was able to speak to the son Bin [place] and he reports he spoke to him 2 times today. In fact when he spoke to him the second time he did not recall speaking to him the first time. He reports that the patient's word finding difficulties and memory is worse than his baseline as he usually speaks fluently and does not have such difficulty with short-term memory. He is aware that his father drinks alcohol but does not necessarily feel it is every day or in heavy amounts. The patient's son defers to our opinion regarding hospitalization given the patient's not at his baseline and so understands that this may recur if he does not improve. The patient himself is also in agreement with our recommendations. ROS: See above HPI for pertinent positives & negatives. A total of 10 systems reviewed and were otherwise negative. VITALS:See Below PHYSICAL EXAMINATION: GENERAL: Awake, alert, fatigued-appearing, in no distress HENT: Normocephalic, atraumatic. Oropharynx with dry mucous membranes and otherwise unremarkable. EYES: Normal conjunctiva. Sclera non-icteric. EOMI. No nystamgus. PEARRL. NECK: Supple. No nuchal rigidity. FROM. No JVD. RESPIRATORY: Clear to auscultation. CARDIAC: Regular rate, normal rhythm. Extremities warm and well perfused. Pulses equal. ABDOMEN: Soft, non-distended. No tenderness to palpation. No rebound or guarding. No masses. RECTAL: Deferred. MUSCULOSKELETAL: Chest examination reveals no tenderness. The back is symmetrical on inspection without obvious abnormality. There is no CVA tender ness to palpation. No joint edema. LOWER EXTREMITIES: Calves are equal size bilaterally and non-tender. No edema. No discoloration. NEURO: Mild-moderate word finding difficulty. No overt dysarthria. 5/5 strength and SILT x 4 extremities. Cerebellar function intact including [id number], alternating palms, [id number]. SKIN: No rash or jaundice noted. Leonel Singh MD Past Med/Surg History Medical History Abnormal CXR Right lower lobe airspace consolidation. 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 There is atherosclerotic disease of aorta. Aorta measures approximately 3.0 x 3.2 cm at the thoracoabdominal junction. Remainder of the abdominal aorta and maintain normal size measuring up to 2.9 x 2.8 cm in the infrarenal region-abdomen pelvis CT 05/02/22-refered to vascular surgery by PCP [facility] ORBITAL FX>WAS SEEN/[facility] ED Atrial flutter REASON FOR ELIQUIS>NO CARDS BPH (benign prostatic hyperplasia) COPD with emphysema Elevated bilirubin Encounter for pre-operative examination Epididymitis Gram-positive bacteremia Hx of cancer of lung "DIRECT CONCENTRATED RADIATION TX FOR 5 DAYS">[facility] [place] Hypertension Hypokalemia Lactic acidosis Pulmonary nodule follows with HI pultiara and [facility] [place] who are monitoring and repeating imaging in 3 months Sleep apnea NO DEVICE Surgical History H/O transurethral resection of bladder tumor (TURBT) [place] REMOVED 05/17/22>NO CURRENT PROBLEMS History of appendectomy History of colonoscopy History of cystoscopy 09/21/17 LMA#5. History of epidermal inclusion cyst excision History of prostatectomy 10/22/20 LMA#5. History of SCC (squamous cell carcinoma) of skin MOHS History of tooth extraction Hx of oral surgery (05/30/22) Open Reduction Left Zygomatic Complex Fracture(Left) - Antolin Akbar DMD Family History Mother Hearing loss Alzheimer disease Father Brain tumor Stroke Brother Cerebral atherosclerosis Stroke Other No family history of adverse response to anesthesia Denies family history of Colon cancer Ovarian cancer Prostate cancer Myocardial infarction Breast cancer Social History Smoking Status: Current every day smoker Tobacco Type: Cigars packs per day: 0.5; Cigarettes Per Day: 10 CIGARS DAILY (ADVISED); Second Hand Exposure: Yes ( A CHILD); Do You Dip or Chew Tobacco: No; Hx Alcohol Use: Yes Alcohol type: beer and hard liquor Alcohol Intake Frequency Comment: 15 beers/drinks daily Preferred Language: Bulgarian Communication Ability: Effective Visual Impairment: No Limitations Hearing Ability: Normal Vending 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 Required: No Beliefs That Will Affect Care: None marital status: Current Living Situation: Alone current occupational status: retired How many Children do You have: 1 Feels Safe at Home: Yes Childhood Exposure to Second-Hand Smoke: Yes Dental Care, Regularly: No Physical Activity Frequency: 3-4 Times per Week Seatbelt Use: always Sunscreen Use: No Assistive Devices: Denture - Upper and Glasses Allergies Allergies Allergy/AdvReac Type Severity Reaction Status Date / Time No Known Allergies Allergy Verified 12/22/22 23:34 Home Meds Home Medications Medication Instructions Recorded Confirmed vitamin B complex 1 tab PO QAM 04/12/20 12/22/22 acetaminophen 500 mg capsule 1,000 mg PO Q6H PRN Pain 10/02/20 12/22/22 glucosamine-chondroitin 500 mg-400 1 tab PO QAM 12/28/21 12/22/22 mg tablet tiotropium bromide 2.5 2 puff inhalation QAM PRN 05/09/22 12/22/22 mcg/actuation mist for inhalation Shortness Of Breath Or Wheezing (Spiriva Respimat) cholecalciferol (vitamin D3) 25 1,000 unit PO Q OTHER DAY 08/31/22 12/22/22 mcg (1,000 unit) tablet Previous Rx's Medication Instructions Recorded multivitamin (Daily Multi-Vitamin 1 tab PO DAILY #30 tabs 11/19/20 tablet) apixaban 2.5 mg tablet (Eliquis) 2.5 mg PO BID #60 tabs 10/26/22 potassium chloride 20 mEq 20 meq PO QAM #90 tabs 10/26/22 tablet,extended release(part/cryst) diltiazem HCl 180 mg capsule,24 180 mg PO QAM #90 caps 12/06/22 hr,extended release dutasteride 0.5 mg capsule 0.5 mg PO DAILY #90 caps 12/07/22 Results & Data (ED) Vital Signs Vital Signs - 24 hr 12/22/22 16:28 12/22/22 18:37 12/22/22 19:28 Temperature 36.4 C L Temperature Source Oral Pulse Rate 104 H 84 Pulse Rate [Right Finger] 82 Respiratory Rate 19 19 Respiratory Effort / Characteristics Non-Labored Respiratory Depth Normal Blood Pressure 147/94 H Blood Pressure [Right Arm] 172/105 H Blood Pressure Mean 111 Blood Pressure Mean [Right Arm] 127 Pulse Oximetry 96 95 Oxygen Delivery Method Room Air Room Air Sepsis Recent Fever Within 48 Hours No Sepsis New/Unexplained Change in Mental Status Yes Sepsis Action Taken by Nursing Adv Provider Notified 12/22/22 20:06 12/22/22 20:30 12/22/22 21:33 Temperature Temperature Source Pulse Rate Pulse Rate [Right Finger] 79 80 80 Respiratory Rate 19 19 19 Respiratory Effort / Characteristics Respiratory Depth Blood Pressure Blood Pressure [Right Arm] 173/107 H 168/104 H 151/99 H Blood Pressure Mean Blood Pressure Mean [Right Arm] 129 125 116 Pulse Oximetry 96 96 95 Oxygen Delivery Method Room Air Sepsis Recent Fever Within 48 Hours Sepsis New/Unexplained Change in Mental Status Sepsis Action Taken by Nursing 12/22/22 22:09 12/22/22 22:39 12/22/22 23:03 Temperature Temperature Source Pulse Rate 77 Pulse Rate [Right Finger] 76 72 Respiratory Rate 20 16 Respiratory Effort / Characteristics Respiratory Depth Blood Pressure Blood Pressure [Right Arm] 156/85 H 184/104 H Blood Pressure Mean Blood Pressure Mean [Right Arm] 108 130 Pulse Oximetry 96 96 Oxygen Delivery Method Room Air Sepsis Recent Fever Within 48 Hours Sepsis New/Unexplained Change in Mental Status Sepsis Action Taken by Nursing 12/23/22 01:00 12/23/22 02:18 12/23/22 03:00 Temperature Temperature Source Pulse Rate Pulse Rate [Right Finger] 85 88 Respiratory Rate 16 19 Respiratory Effort / Characteristics Respiratory Depth Blood Pressure Blood Pressure [Right Arm] 175/108 H 156/87 H Blood Pressure Mean Blood Pressure Mean [Right Arm] 130 110 Pulse Oximetry 97 96 Oxygen Delivery Method Room Air Room Air Sepsis Recent Fever Within 48 Hours Sepsis New/Unexplained Change in Mental Status Sepsis Action Taken by Nursing Laboratory Data Attestation: I reviewed the patient's lab results. 12/22/22 16:58 12/22/22 16:58 Lab Results 12/22/22 12/22/22 12/22/22 Range/Units 16:58 16:58 18:36 WBC 7.29 (4.8-10.8) K/ul RBC 4.65 L (4.70-6.10) M/uL Hgb 15.7 (14.0-18.0) g/dl Hct 42.4 (42.0-52.0) % MCV 91.2 (80.0-100.0) fL MCH 33.8 (25.0-34.0) pg MCHC 37.0 H (32.0-36.0) g/dL RDW Std Deviation 42.9 (36.4-46.3) fL RDW Coeff of Randy 12.9 (11.5-14.5) % Plt Count 233 (130-400) K/uL MPV 9.4 (9.4-12.4) fL Immature Gran % (Auto) 0.3 % Neut % (Auto) 53.1 % Lymph % (Auto) 31.0 % [place] % (Auto) 8.6 % Eos % (Auto) 6.2 % Baso % (Auto) 0.8 % Neut # (Auto) 3.87 (1.40-6.50) K/uL Lymph # (Auto) 2.26 (1.20-3.40) K/uL [place] # (Auto) 0.63 H (0.11-0.59) K/uL Eos # (Auto) 0.45 (0.00-0.50) K/uL Baso # (Auto) 0.06 (0.00-0.20) K/uL Immature Gran # (Auto) 0.02 (0.01-0.20) K/uL Sodium 138 (136-145) mmol/L Potassium 3.2 L (3.5-5.1) mmol/L Chloride 104 (98-107) mmol/L Carbon Dioxide 23 (21-32) mmol/L Anion Gap 11 (3-11) BUN 22 (6-23) mg/dl Creatinine 1.12 (0.6-1.4) mg/dl Est Cr Clr Drug Dosing 51.2 ml/min Est GFR ( Amer) 73.6 ml/min Est GFR (Non-Af Amer) 63.5 ml/min BUN/Creatinine Ratio 19.6 (10-20) Glucose 109 H (70-99(Fasting)) mg/dl Calcium 8.5 L (8.6-10.3) mg/dl Phosphorus 2.9 (2.5-4.9) mg/dl Magnesium 1.9 (1.7-2.4) mg/dl Total Bilirubin 0.5 (0.2-1.0) mg/dl AST 34 (13-39) U/L ALT 24 (7-52) U/L Alkaline Phosphatase 89 (34-104) U/L Total Protein 7.6 (6.0-8.3) gm/dl Albumin 4.6 (3.4-5.0) gm/dl Globulin 3.0 (2.5-4.0) gm/dl Albumin/Globulin Ratio 1.5 (0.9-2) Urine Color Yellow Urine Appearance Cloudy A (Clear) Urine pH 5.5 (4.5-7.5) Ur Specific [place] 1.013 (1.000-1.030) Urine Protein 1+ H (Negative) Urine Glucose (UA) Negative (Negative) Urine Ketones Negative (Negative) Urine Blood 3+ H (Negative) Urine Nitrite Negative (Negative) Urine Bilirubin Negative (Negative) Urine Urobilinogen Negative (Negative) Ur Leukocyte Esterase 2+ H (Negative) Urine WBC (Auto) >30 H (0-5) /hpf Urine RBC (Auto) 5-10 H (0-4) /hpf U Hyaline Cast (Auto) 1-5 (0-5) /lpf U Epithel Cells (Auto) >30 H (0-5) /lpf Urine Bacteria (Auto) Negative (Negative) Urine Yeast Not Reportable Ethyl Alcohol mg/dL (<10.0) mg/dl 12/22/22 Range/Units 20:03 WBC (4.8-10.8) K/ul RBC (4.70-6.10) M/uL Hgb (14.0-18.0) g/dl Hct (42.0-52.0) % MCV (80.0-100.0) fL MCH (25.0-34.0) pg MCHC (32.0-36.0) g/dL RDW Std Deviation (36.4-46.3) fL RDW Coeff of Randy (11.5-14.5) % Plt Count (130-400) K/uL MPV (9.4-12.4) fL Immature Gran % (Auto) % Neut % (Auto) % Lymph % (Auto) % [place] % (Auto) % Eos % (Auto) % Baso % (Auto) % Neut # (Auto) (1.40-6.50) K/uL Lymph # (Auto) (1.20-3.40) K/uL [place] # (Auto) (0.11-0.59) K/uL Eos # (Auto) (0.00-0.50) K/uL Baso # (Auto) (0.00-0.20) K/uL Immature Gran # (Auto) (0.01-0.20) K/uL Sodium (136-145) mmol/L Potassium (3.5-5.1) mmol/L Chloride (98-107) mmol/L Carbon Dioxide (21-32) mmol/L Anion Gap (3-11) BUN (6-23) mg/dl Creatinine (0.6-1.4) mg/dl Est Cr Clr Drug Dosing ml/min Est GFR ( Amer) ml/min Est GFR (Non-Af Amer) ml/min BUN/Creatinine Ratio (10-20) Glucose (70-99(Fasting)) mg/dl Calcium (8.6-10.3) mg/dl Phosphorus (2.5-4.9) mg/dl Magnesium (1.7-2.4) mg/dl Total Bilirubin (0.2-1.0) mg/dl AST (13-39) U/L ALT (7-52) U/L Alkaline Phosphatase (34-104) U/L Total Protein (6.0-8.3) gm/dl Albumin (3.4-5.0) gm/dl Globulin (2.5-4.0) gm/dl Albumin/Globulin Ratio (0.9-2) Urine Color Urine Appearance (Clear) Urine pH (4.5-7.5) Ur Specific [place] (1.000-1.030) Urine Protein (Negative) Urine Glucose (UA) (Negative) Urine Ketones (Negative) Urine Blood (Negative) Urine Nitrite (Negative) Urine Bilirubin (Negative) Urine Urobilinogen (Negative) Ur Leukocyte Esterase (Negative) Urine WBC (Auto) (0-5) /hpf Urine RBC (Auto) (0-4) /hpf U Hyaline Cast (Auto) (0-5) /lpf U Epithel Cells (Auto) (0-5) /lpf Urine Bacteria (Auto) (Negative) Urine Yeast Ethyl Alcohol mg/dL 126.2 H (<10.0) mg/dl Administered Medications Discontinued Medications Sodium Chloride (Nss) 500 mls @ 999 mls/hr IV .Q31M ONE Stop: 12/22/22 19:27 Last Infusion: 12/22/22 19:44 Dose: 0 mls/hr Documented By: Admin: 12/22/22 19:18 Dose: 999 mls/hr Documented By: ASW Multivitamins 10 ml/ Thiamine HCl 100 mg/ Folic Acid 1 mg/Sodium Chloride 1,011.2 mls @ 500 mls/hr IV .Q2H2M ONE Stop: 12/22/22 21:34 Last Infusion: 12/22/22 22:10 Dose: 0 mls/hr Documented By: Admin: 12/22/22 20:29 Dose: 500 mls/hr Documented By: ASW Thiamine HCl 200 mg/ Sodium (Chloride) 52 mls @ 210 mls/hr IV NOW STA Stop: 12/22/22 19:47 Last Infusion: 12/22/22 20:46 Dose: 0 mls/hr Documented By: Admin: 12/22/22 20:27 Dose: 210 mls/hr Documented By: ASW Ceftriaxone Sodium (Rocephin) 2,000 mg in 50 mls @ 100 mls/hr IV NOW STA Stop: 12/23/22 01:10 Last Infusion: 12/23/22 01:41 Dose: 0 mls/hr Documented By: Admin: 12/23/22 01:00 Dose: 100 mls/hr Documented By: CHRIST Ioversol (Optiray 320 500ml) 103 ml IV ONCE ONE Stop: 12/22/22 19:49 Last Admin: 12/22/22 19:53 Dose: 103 ml Documented By: PLW Imaging Data Radiologist's Impression: Head CT 12/22/22 19:31 Exam(s): CT HEAD Without Contrast EXAM: CT Head Without Intravenous Contrast CLINICAL HISTORY: Reason for exam: etoh, aphasia. TECHNIQUE: Axial computed tomography images of the head/brain without intravenous contrast. CTDI is 12.65 mGy and DLP is 1144.11 mGy-cm. Automated exposure control was utilized for the study. A dose lowering technique was utilized adhering to the principles of ALARA. COMPARISON: No relevant prior studies available. FINDINGS: No acute intracranial hemorrhage. No midline shift or mass effect. The territorial [place]itting[place]-white matter differentiation is maintained throughout. Age-related cerebral volume loss. Periventricular and subcortical white matter hypoattenuation, consistent with chronic microangiopathy. The visualized orbits appear grossly unremarkable. The calvarium is intact. The visualized paranasal sinuses and mastoid air cells are grossly clear. IMPRESSION: No acute intracranial hemorrhage, midline shift, or mass effect. Electronically signed by: Shane Lancaster MD 12/22/22 20:13 PM Head CTA 12/22/22 19:31 Exam(s): CTA HEAD With Contrast IV Amt: 103 ml opti 320 EXAM: CT Angiography Head With Intravenous Contrast CLINICAL HISTORY: Reason for exam: etoh, aphasia. TECHNIQUE: Axial computed tomographic angiography images of the head with intravenous contrast. CTDI is 12.65 mGy and DLP is 1144.11 mGy-cm. Automated exposure control was utilized for the study. A dose lowering technique was utilized adhering to the principles of ALARA. MIP reconstructed images were created and reviewed. CONTRAST: Patient received 103 ml opti 320 of IV contrast COMPARISON: No relevant prior studies available. FINDINGS: Right internal carotid artery: No acute findings. Intracranial segment is patent with no significant stenosis. No aneurysm. Right anterior cerebral artery: Unremarkable. No occlusion or significant stenosis. No aneurysm. Right middle cerebral artery: Unremarkable. No occlusion or significant stenosis. No aneurysm. Right posterior cerebral artery: Unremarkable. No occlusion or significant stenosis. No aneurysm. Left internal carotid artery: No acute findings. Intracranial segment is patent with no significant stenosis. No aneurysm. Left anterior cerebral artery: Unremarkable. No occlusion or significant stenosis. No aneurysm. Left middle cerebral artery: Unremarkable. No occlusion or significant stenosis. No aneurysm. Left posterior cerebral artery: Unremarkable. No occlusion or significant stenosis. No aneurysm. IMPRESSION: No large vessel occlusion. Electronically signed by: Shane Lancaster MD 12/22/22 20:14 PM Neck CTA 12/22/22 19:31 Exam(s): CTA NECK With Contrast IV Amt: 103 ml opti 320 EXAM: CT Angiography Neck With Intravenous Contrast CLINICAL HISTORY: Reason for exam: etoh, aphasia. TECHNIQUE: Routine carotid CT angiography protocol was performed with intravenous contrast. NASCET criteria using the distal ICAs for comparison were used for evaluation of stenoses. CTDI is 12.65 mGy and DLP is 1144.11 mGy-cm. Automated exposure control was utilized for the study. A dose lowering technique was utilized adhering to the principles of ALARA. MIP reconstructed images were created and reviewed. CONTRAST: Patient received 103 ml opti 320 of IV contrast COMPARISON: None. FINDINGS: VASCULATURE: Right common carotid artery: Unremarkable. No occlusion or significant stenosis. No dissection. Right internal carotid artery: Unremarkable. Extracranial segment is patent with no occlusion or significant stenosis. No dissection. Right external carotid artery: Unremarkable. No occlusion. Right vertebral artery: Unremarkable. No occlusion or significant stenosis. No dissection. Left common carotid artery: Unremarkable. No occlusion or significant stenosis. No dissection. Left internal carotid artery: Unremarkable. Extracranial segment is patent with no occlusion or significant stenosis. No dissection. Left external carotid artery: Unremarkable. No occlusion. Left vertebral artery: Unremarkable. No occlusion or significant stenosis. No dissection. Nodule in the RIGHT upper lobe measures 2.2 x 1.[address] recommended. IMPRESSION: No large vessel occlusion. No dissection. Nodule in the RIGHT upper lobe measures 2.2 x 1.[address] recommended. Electronically signed by: Shane Lancaster MD 12/22/22 20:12 PM Discharge Plan Visit Data Chief Complaint: Illness Stated Complaint: DRAINED, DIZZY, FEELS CRAPY ALL OVER ED Provider: Leonel Singh Discharge Problem: Encephalopathy, Visual hallucinations, Hypertension, Alcohol abuse, Hypokalemia, Acute UTI
[2022-12-23] MEDS ORDERED: ACETAMINOPHEN 325 MG TAB PO PRN ×2 (04:12→05:16)
[2022-12-23] MEDS ORDERED: LORazepam 2 MG/1 ML VIAL IV PRN ×3 (04:12)
[2022-12-23] MEDS ORDERED: ONDANSETRON INJ 2 MG/ML 2 ML VIAL IV PRN (04:12)
[2022-12-23] MEDS ORDERED: Ativan IV Alcohol Withdrawal--Active Protocol IV PRN (04:12)
[2022-12-23 04:45] LABS: Prothrombin Time 10.9 Seconds (9.0-12.0)
[2022-12-23 04:47] LABS: Basophils # (auto) 0.05 K/uL (0.00-0.20); Basophils % (auto) 0.6 %; Eosinophils # (auto) 0.32 K/uL (0.00-0.50); Hematocrit (blood only) 40.8 % (42.0-52.0); Hemoglobin 14.9 g/dl (14.0-18.0); Immature Granulocytes # (auto) 0.03 K/uL (0.01-0.20); Immature Granulocytes % (auto) 0.4 %; Lymphocytes # (auto) 1.49 K/uL (1.20-3.40); Lymphocytes % (auto) 18.6 %; Mean Corpuscular Hemoglobin 33.7 pg (25.0-34.0); Mean Corpuscular Hgb Conc 36.5 g/dL (32.0-36.0); Mean Corpuscular Volume 92.3 fL (80.0-100.0); Mean Platelet Volume 9.6 fL (9.4-12.4); Monocytes # (auto) 0.68 K/uL (0.11-0.59); Monocytes % (auto) 8.5 %; Neutrophils # (auto) 5.46 K/uL (1.40-6.50); Neutrophils % (auto) 67.9 %; Platelet Count 198 K/uL (130-400); RDW Coefficient of Variation 12.8 % (11.5-14.5); RDW Standard Deviation 43.3 fL (36.4-46.3); Red Blood Count 4.42 M/uL (4.70-6.10); White Blood Count 8.03 K/ul (4.8-10.8)
[2022-12-23] MEDS: NSS + 20MEQ KCL 20 MEQ/1,000 ML BAG IV SCH ×2 (05:00→16:04)
[2022-12-23] MEDS ORDERED: UMECLIDINIUM BROMIDE 62.5MCG/BLISTER 7 PUFFS/INHALER INH PRN (05:17)
[2022-12-23 05:22] LABS: Albumin Globulin Ratio 1.6 (0.9-2); Albumin Level 4.4 gm/dl (3.4-5.0); BUN Creatinine Ratio 16.3 (10-20); Bilirubin,Total 1.1 mg/dl (0.2-1.0); Calcium 8.2 mg/dl (8.6-10.3); Creatinine Clr Calc Pharmacy 62.4 ml/min; Est GFR (African American) 93.3 ml/min; Est GFR (Non-African American) 80.5 ml/min; Globulin 2.7 gm/dl (2.5-4.0); Magnesium 1.5 mg/dl (1.7-2.4); Potassium 3.2 mmol/L (3.5-5.1); Total Protein 7.1 gm/dl (6.0-8.3)
--- NOTE | 2022-12-23 07:20 | XRay Report ---
XR chest 1V portable CLINICAL HISTORY: Weakness. History of lung cancer. COMPARISON STUDY: Chest CT November 29, 2022. FINDINGS: Lung volumes are normal. Right apical density remains unchanged since chest CT of November. Note is also similar to CT of January 26, 2022. There is no pneumothorax or pleural effusion . Cardiac size is normal. Mediastinal contours are normal. There is no evidence for pulmonary edema. IMPRESSION: 1. No acute cardiopulmonary findings. No change in appearance of the chest. 2. No change in a right apical opacity, better depicted on chest CT November 29, 2022. ACT 112: Negative or not required by law. Electronically signed by: Johnnie Boswell M.D. 12/23/2022 7:18 AM
[2022-12-23] MEDS: FINASTERIDE 5 MG TAB PO SCH (07:52)
[2022-12-23] MEDS: POTASSIUM CHLORIDE CRTAB 20 MEQ TABCR PO SCH ×2 (07:52→21:33)
[2022-12-23] MEDS: CHOLECALCIFEROL 1,000 UNITS 25 MCG TAB PO SCH (07:53)
[2022-12-23] MEDS: MULTIVITAMIN TAB PO SCH (07:53)
[2022-12-23] MEDS: VITAMIN B COMPLEX TAB PO SCH (07:53)
[2022-12-23] MEDS: APIXABAN 2.5 MG TAB PO SCH ×2 (07:53→21:33)
[2022-12-23] MEDS: dilTIAZem HCL 180 MG CAPCR PO SCH (07:53)
[2022-12-23] MEDS: THIAMINE HCL 100 MG in SYRINGE 9 ML IV SCH (10:28)
[2022-12-23] MEDS: cefTRIAXone SODIUM 1,000 MG in DEXTROSE 5 % MINI-B 50 ML IV SCH (10:28)
[2022-12-23] MEDS: FOLIC ACID 1 MG in SYRINGE 9.8 ML IV SCH (10:28)
[2022-12-23] MEDS ORDERED: hydrALAZINE 10 MG TAB PO SCH ×2 (12:09→21:00)
[2022-12-23] MEDS: cloNIDine HCL 0.1 MG TAB PO SCH ×2 (16:04→21:33)
[2022-12-23 21:05] LABS: A calco-baum cmplx NotReported Not Detected (NotDetected); Bact fragilis Not Reported Not Detected (NotDetected); C auris Not Reported Not Detected (NotDetected); Calbicans Not Reported Not Detected (NotDetected); Candida glabrata Not Reported Not Detected (NotDetected); Candida krusei Not Reported Not Detected (NotDetected); Cneoformans/gatti Not Reported Not Detected (NotDetected); Cparapsilosis Not Reported Not Detected (NotDetected); E cloacae compx Not Reported Not Detected (NotDetected); Efaecalis Not Reported Not Detected (NotDetected); Efaecium Not Reported Not Detected (NotDetected); Enterobacterales Not Reported Not Detected (NotDetected); Escherichia coli Not Reported Not Detected (NotDetected); H influenzae Not Reported Not Detected (NotDetected); K aerogenes Not Reported Not Detected (NotDetected); Koxytoca Not Reported Not Detected (NotDetected); Kpneumoniae grp Not Reported Not Detected (NotDetected); Lmonocyt Not Reported Not Detected (NotDetected); N meningitidis Not Reported Not Detected (NotDetected); P aeruginosa Not Reported Not Detected (NotDetected); Proteus spp Not Reported Not Detected (NotDetected); Salmonella spp Not Reported Not Detected (NotDetected); Smarcescens Not Reported Not Detected (NotDetected); Staph lugdunensis Not Reported Not Detected (NotDetected); Staph spp. Not Reported DETECTED (NotDetected); Staphaureus Not Reported Not Detected (NotDetected); Staphepi Not Reported Not Detected (NotDetected); Stenmaltophilia Not Reported Not Detected (NotDetected); Strep agal(GrpB) Not Reported Not Detected (NotDetected); Strep pneum Not Reported Not Detected (NotDetected); Strep pyog (GrpA) Not Reported Not Detected (NotDetected); Strep spp Not Reported Not Detected (NotDetected)
[2022-12-23 21:10] LABS: Staphylococcus spp. DETECTED (NotDetected)
--- NOTE | 2022-12-23 21:27 | Electrocardiogram Report ---
Test Reason : Blood Pressure : / mmHG Vent. Rate : 099 BPM Atrial Rate : 099 BPM P-R Int : 162 ms QRS Dur : 094 ms QT Int : 354 ms P-R-T Axes : 067 -14 055 degrees QTc Int : 454 ms Normal sinus rhythm Normal ECG When compared with ECG of 25-APR-2022 09:30, No significant change was found Confirmed by Elbert Smith ([id number]) on 12/23/2022 9:27:19 PM Referred By: REFERRED SELF Confirmed By:Elbert Smith
[2022-12-24] MEDS ORDERED: VANCOMYCIN CONSULT ACTIVE PRN (01:32)
--- NOTE | 2022-12-24 01:33 | Communication Note ---
Date of Service: December 24, 2022 Pt has 1/4 +BCx with gram positive cocci in clusters and noted staph positive PCR. MRSA swab ordered- positive. Added vancomycin to ongoing ceftriaxone. Resident Activity Tracking Resident Involvement: Resident Care Provided Care Provided: Adult Hospital Medicine
[2022-12-24] MEDS ORDERED: VANCOMYCIN HCL 1,500 MG in SODIUM CHLORIDE 0.9% 500 ML IV STA (02:37)
[2022-12-24 04:46] LABS: Basophils # (auto) 0.03 K/uL (0.00-0.20); Basophils % (auto) 0.4 %; Eosinophils # (auto) 0.61 K/uL (0.00-0.50); Eosinophils % (auto) 8.3 %; Hematocrit (blood only) 38.2 % (42.0-52.0); Hemoglobin 13.8 g/dl (14.0-18.0); Immature Granulocytes # (auto) 0.03 K/uL (0.01-0.20); Immature Granulocytes % (auto) 0.4 %; Lymphocytes # (auto) 1.61 K/uL (1.20-3.40); Lymphocytes % (auto) 21.9 %; Mean Corpuscular Hemoglobin 33.7 pg (25.0-34.0); Mean Corpuscular Hgb Conc 36.1 g/dL (32.0-36.0); Mean Corpuscular Volume 93.4 fL (80.0-100.0); Mean Platelet Volume 9.9 fL (9.4-12.4); Monocytes # (auto) 0.64 K/uL (0.11-0.59); Monocytes % (auto) 8.7 %; Neutrophils # (auto) 4.42 K/uL (1.40-6.50); Neutrophils % (auto) 60.3 %; Platelet Count 161 K/uL (130-400); RDW Coefficient of Variation 13.1 % (11.5-14.5); RDW Standard Deviation 45.1 fL (36.4-46.3); Red Blood Count 4.09 M/uL (4.70-6.10); White Blood Count 7.34 K/ul (4.8-10.8)
[2022-12-24 05:06] LABS: Albumin Globulin Ratio 1.6 (0.9-2); Albumin Level 3.9 gm/dl (3.4-5.0); BUN Creatinine Ratio 15.1 (10-20); Bilirubin,Total 1.3 mg/dl (0.2-1.0); Calcium 8.2 mg/dl (8.6-10.3); Creatinine Clr Calc Pharmacy 66.7 ml/min; Est GFR (African American) 97.6 ml/min; Est GFR (Non-African American) 84.2 ml/min; Globulin 2.5 gm/dl (2.5-4.0); Magnesium 1.7 mg/dl (1.7-2.4); Potassium 3.3 mmol/L (3.5-5.1); Total Protein 6.4 gm/dl (6.0-8.3)
[2022-12-24 05:39] LABS: INR 1.1 (0.9-1.1); Partial Thromboplastin Ratio 1.2; Partial Thromboplastin Time 32.7 Seconds (21.0-31.0); Prothrombin Time 11.7 Seconds (9.0-12.0)
[2022-12-24] MEDS: APIXABAN 2.5 MG TAB PO SCH ×2 (07:44→19:55)
[2022-12-24] MEDS: cloNIDine HCL 0.1 MG TAB PO SCH ×3 (07:44→19:55)
[2022-12-24] MEDS: dilTIAZem HCL 180 MG CAPCR PO SCH (07:44)
[2022-12-24] MEDS: THIAMINE HCL 100 MG in SYRINGE 9 ML IV SCH (07:45)
[2022-12-24] MEDS: FOLIC ACID 1 MG in SYRINGE 9.8 ML IV SCH (07:45)
[2022-12-24] MEDS: FINASTERIDE 5 MG TAB PO SCH (07:45)
[2022-12-24] MEDS: MULTIVITAMIN TAB PO SCH (07:46)
[2022-12-24] MEDS: POTASSIUM CHLORIDE CRTAB 20 MEQ TABCR PO SCH ×2 (07:47→19:59)
[2022-12-24] MEDS: VITAMIN B COMPLEX TAB PO SCH (07:47)
[2022-12-24] MEDS: cefTRIAXone SODIUM 1,000 MG in DEXTROSE 5 % MINI-B 50 ML IV SCH (09:14)
--- NOTE | 2022-12-24 11:49 | Hospitalist Progress Note ---
Date of Service December 24, 2022 Assessment & Plan (1) Encephalopathy: (2) Visual hallucinations: (3) Bladder tumor: (4) Essential hypertension: (5) Alcohol abuse: (6) UTI (urinary tract infection): (7) BPH (benign prostatic hyperplasia): (8) Afib: (9) Lung cancer: Plan Encephalopathy with visual hallucinations- Differential including but not limited to: Metabolic due to UTI, alcohol withdrawal, Warnicke's encephalopathy, CVA He is alert and oriented x 3, but still endorses some mild visual hallucinations He says his brain is in a funk because he has a lot on his mind. 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's encephalopathy- Received banana bag, thiamine 200 mg IV and normal saline 500 mL in the ED Thiamine 100 mg IV daily Folic acid 1 mg IV daily NSS + KCl 20 mEq at 100 mils per hour x2 L AWSS protocol with progressive IV Ativan BPH with LUTS/bladder squamous metaplasia/status post TURP/urinary tract infection with Corynebacterium and coag negative staph- Follow urine culture and sensitivity Infections noted from 05/02/2022, 08/02/2022 and 08/25/2022 are all with skin avi, and may just be contaminants The patient reports that he knows when he has urinary tract infections, because he usually experiences visual hallucinations. Patient reports that he has had urinary tract infections most commonly when he is drinking more alcohol. The question is whether his symptoms are related to alcohol withdrawal and he and his family attribute them to urinary tract infections, or whether they really are due to urinary tract infections UTI Urinalyses suggest mild UTI ON ceftriaxone Admission and Anticipated Discharge Date Admission Date: December 23, 2022 Subjective patient seen and examined, alert oriented x3, but still endorses some visual hallucinations Review of Systems Review of Systems: All systems reviewed are negative, apart from the ones contained in the history. Physical Exam Physical Exam: The patient is awake, alert and oriented 3, well developed and well nourished, normocephalic and atraumatic, lying in bed and in no acute distress. HEENT--PERRL, EOMI, mucous membranes and oropharynx mildly dry Neck--supple. No JVD. No bruits. Thyroid normal, trachea midline, no miguel nopathy. Heart--normal S1 and S2. No murmurs, rubs or gallops. Lungs--clear bilaterally, no respiratory distress, no accessory muscle use. Abdomen--normal bowel sounds and soft. Mild epigastric and left sided abdominal pain Extremities--no cyanosis or clubbing. No edema. Dermatologic--normal skin turgor, normal color, no abnormal lymph nodes, no rash. Neurologic--cranial nerves II through XII grossly intact. Rheumatologic--normal range of motion. Psychiatric--normal affect. Results & Data Results & Data Vital Signs (Past 12 Hours) Vital Signs Temp Pulse Pulse Resp BP Pulse Ox O2 Del Method 12/24/22 09:51 137/86 12/24/22 07:39 98.6 F 69 18 160/99 H 95 Room Air 12/24/22 00:00 62 12/24/22 05:35 98.1 F 66 18 146/83 H 96 Room Air PG Care Time/CCT Total # of Minutes Spent Total Time Spent with Patient: Total time spent is greater than 50% in coordination of care (as documented) at patient's floor/unit and/or counseling patient: Coding Level of Care Code 87199 SUB INP/OBS CARE 2/35MIN Diagnoses Encephalopathy G93.40 Visual hallucinations R44.1 Bladder tumor D49.4 Essential hypertension I10 Alcohol abuse F10.10 UTI (urinary tract infection) N39.0 BPH (benign prostatic hyperplasia) N40.0 Afib I48.91 Lung cancer C34.90 Time Spent (min) 35
[2022-12-25 06:41] LABS: Basophils # (auto) 0.04 K/uL (0.00-0.20); Basophils % (auto) 0.5 %; Eosinophils % (auto) 8.1 %; Hematocrit (blood only) 38.2 % (42.0-52.0); Hemoglobin 13.6 g/dl (14.0-18.0); Immature Granulocytes # (auto) 0.04 K/uL (0.01-0.20); Immature Granulocytes % (auto) 0.5 %; Lymphocytes # (auto) 1.74 K/uL (1.20-3.40); Lymphocytes % (auto) 23.5 %; Mean Corpuscular Hemoglobin 33.8 pg (25.0-34.0); Mean Corpuscular Hgb Conc 35.6 g/dL (32.0-36.0); Mean Platelet Volume 10.1 fL (9.4-12.4); Monocytes # (auto) 0.48 K/uL (0.11-0.59); Monocytes % (auto) 6.5 %; Neutrophils # (auto) 4.51 K/uL (1.40-6.50); Neutrophils % (auto) 60.9 %; Platelet Count 145 K/uL (130-400); RDW Coefficient of Variation 12.8 % (11.5-14.5); Red Blood Count 4.02 M/uL (4.70-6.10); White Blood Count 7.41 K/ul (4.8-10.8)
[2022-12-25 07:07] LABS: Albumin Globulin Ratio 1.6 (0.9-2); Albumin Level 4.1 gm/dl (3.4-5.0); BUN Creatinine Ratio 15.5 (10-20); Bilirubin,Total 1.1 mg/dl (0.2-1.0); Calcium 8.7 mg/dl (8.6-10.3); Creatinine Clr Calc Pharmacy 59.5 ml/min; Est GFR (African American) 87.5 ml/min; Est GFR (Non-African American) 75.5 ml/min; Globulin 2.6 gm/dl (2.5-4.0); Magnesium 1.8 mg/dl (1.7-2.4); Potassium 3.8 mmol/L (3.5-5.1); Total Protein 6.7 gm/dl (6.0-8.3)
[2022-12-25 07:48] LABS: INR 1.1 (0.9-1.1); Partial Thromboplastin Ratio 1.1; Partial Thromboplastin Time 32.2 Seconds (21.0-31.0); Prothrombin Time 11.6 Seconds (9.0-12.0)
[2022-12-25] MEDS: CHOLECALCIFEROL 1,000 UNITS 25 MCG TAB PO SCH (08:48)
[2022-12-25] MEDS: APIXABAN 2.5 MG TAB PO SCH ×2 (08:48→21:45)
[2022-12-25] MEDS: dilTIAZem HCL 180 MG CAPCR PO SCH (08:49)
[2022-12-25] MEDS: MULTIVITAMIN TAB PO SCH (08:49)
[2022-12-25] MEDS: cloNIDine HCL 0.1 MG TAB PO SCH ×3 (08:49→21:45)
[2022-12-25] MEDS: FINASTERIDE 5 MG TAB PO SCH (08:49)
[2022-12-25] MEDS: THIAMINE HCL 100 MG in SYRINGE 9 ML IV SCH (08:50)
[2022-12-25] MEDS: VITAMIN B COMPLEX TAB PO SCH (08:50)
[2022-12-25] MEDS: FOLIC ACID 1 MG in SYRINGE 9.8 ML IV SCH (08:50)
[2022-12-25] MEDS: POTASSIUM CHLORIDE CRTAB 20 MEQ TABCR PO SCH ×2 (08:51→21:44)
[2022-12-25] MEDS: cefTRIAXone SODIUM 1,000 MG in DEXTROSE 5 % MINI-B 50 ML IV SCH (08:52)
--- NOTE | 2022-12-25 12:27 | Discharge Summary ---
Date of Service December 25, 2022 Admission HPI Per Admitting Provider The patient is a 77-year-old male with a past medical history including alcohol abuse, bladder tumor, fatty liver, hyperlipidemia, atrial fibrillation, BPH with LUTS status post TURP, COPD with emphysema, current smoker, lung cancer, adjustment disorder with anxiety, and atrial flutter. He is referred to the emergency department by his son, who wanted him evaluated, as he felt that his father was acting spacey. During the examination, the patient noted visual hallucinations, seeing patterns on a blank wall in the room, but did not have any auditory hallucinations. He reports his last alcohol intake was yesterday, he had not eaten at all day yesterday, so its been 24 hours or so since last food intake. That being said patient's memory appears to be deficient, and he takes a considerable amount of time thinking about answers to say. His family was concerned that he may have another urinary tract infection, however, when I discussed issues with the patient, he reports he is more likely to have what he thinks are urinary tract infections when he has been drinking more alcohol. He does have a reported history of urinary tract infections with Cornybacteria and coag negative staph. Principal Diagnosis UTI Discharge Exam The patient is awake, alert and oriented 3, well developed and well nourished, normocephalic and atraumatic, lying in bed and in no acute distress. HEENT--PERRL, EOMI, mucous membranes and oropharynx mildly dry Neck--supple. No JVD. No bruits. Thyroid normal, trachea midline, no adenopathy. Heart--normal S1 and S2. No murmurs, rubs or gallops. Lungs--clear bilaterally, no respiratory distress, no accessory muscle use. Abdomen--normal bowel sounds and soft. Mild epigastric and left sided abdominal pain Extremities--no cyanosis or clubbing. No edema. Dermatologic--normal skin turgor, normal color, no abnormal lymph nodes, no rash. Neurologic--cranial nerves II through XII grossly intact. Rheumatologic--normal range of motion. Psychiatric--normal affect. Discharge Data Allergies Allergy/AdvReac Type Severity Reaction Status Date / Time No Known Allergies Allergy Verified 12/22/22 23:34 Consultations 12/23/22 00:38 ED Decision to Admit Stat Ordered Studies 12/22/22 19:31 CT angio head w con Stat CT angio neck with con Stat CT head/brain wo con Stat Hospital Course (1) Encephalopathy: (2) Visual hallucinations: (3) Bladder tumor: (4) Essential hypertension: (5) Alcohol abuse: (6) UTI (urinary tract infection): (7) BPH (benign prostatic hyperplasia): (8) Afib: (9) Lung cancer: Plan Encephalopathy with visual hallucinations- Differential including but not limited to: Metabolic due to UTI, alcohol withdrawal, Warnicke's encephalopathy, CVA He is alert and oriented x 3, but still endorses some mild visual hallucinations He says his brain is in a funk because he has a lot on his mind. 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's encephalopathy- Received banana bag, thiamine 200 mg IV and normal saline 500 mL in the ED Thiamine 100 mg IV daily Folic acid 1 mg IV daily NSS + KCl 20 mEq at 100 mils per hour x2 L AWSS protocol with progressive IV Ativan BPH with LUTS/bladder squamous metaplasia/status post TURP/urinary tract infection with Corynebacterium and coag negative staph- Follow urine culture and sensitivity Infections noted from 05/02/2022, 08/02/2022 and 08/25/2022 are all with skin avi, and may just be contaminants The patient reports that he knows when he has urinary tract infections, because he usually experiences visual hallucinations. Patient reports that he has had urinary tract infections most commonly when he is drinking more alcohol. The question is whether his symptoms are related to alcohol withdrawal and he and his family attribute them to urinary tract infections, or whether they really are due to urinary tract infections UTI Urinalyses suggest mild UTI ON ceftriaxone d/c on Cephalexin 500mg BID for 5 more days Coag negative staph: 1 bottle positive for coag -ve staph most likely contaminant Total Time Total Time Spent Total Time Spent (In Minutes): 35 Discharge Plan Discharge Items Patient Disposition: Home - Self-Care Reason For Visit: ENCEPHALOPATHY, VISUAL HALLUCINATIONS Discharge Diagnosis: UTI Activity: Resume your previous activity Non-emergency contact: Primary Care Provider and Urologist Call non-emergency contact if: you have any medication questions and your symptoms worsen Follow-up/Referrals: Julian Marc MD [Primary Care Provider] - Diet: Regular Addtl Attending Provider Instructions: please make appointment to follow up with your PCP Pending Studies at Discharge: No Stand-Alone Forms: My [facility], Smoking Cessation Medications and DC Order Prescriptions: New cephalexin 500 mg capsule 500 mg PO BID 5 Days Qty: 10 0RF Continued Eliquis 2.5 mg tablet 2.5 mg PO BID Qty: 60 2RF potassium chloride 20 mEq tablet,ER particles/crystals 20 meq PO QAM Qty: 90 3RF dutasteride 0.5 mg capsule 0.5 mg PO DAILY Qty: 90 1RF multivitamin [Daily Multi-Vitamin] Tablet 1 tab PO DAILY Qty: 30 0RF diltiazem HCl 180 mg capsule,extended release 24 hr 180 mg PO QAM Qty: 90 3RF vitamin B complex Tablet 1 tab PO QAM glucosamine-chondroitin 500-400 mg tablet 1 tab PO QAM cholecalciferol (vitamin D3) 25 mcg (1,000 unit) tablet 1,000 unit PO Q OTHER DAY Spiriva Respimat 2.5 mcg/actuation mist 2 puff inhalation QAM PRN (Reason: Shortness Of Breath Or Wheezing) acetaminophen 500 mg Capsule 1,000 mg PO Q6H PRN (Reason: Pain) Discharge Orders: Discharge Order (Routine); Ordered 12/25/22 Ordered By: Leesa Mansfield Admission Data Admit Date/Time: 12/23/22 01:52 Attending Provider: Leesa Mansfield Admit Provider: Stevie Quan Primary Care Provider: Julian Marc Other Providers: Stevie Quan Coding Level of Care Code 21689 INP/OBS DISCH >30 MIN Diagnoses Encephalopathy G93.40 Visual hallucinations R44.1 Bladder tumor D49.4 Essential hypertension I10 Alcohol abuse F10.10 UTI (urinary tract infection) N39.0 BPH (benign prostatic hyperplasia) N40.0 Afib I48.91 Lung cancer C34.90 Time Spent (min) 35
--- NOTE | 2022-12-25 13:35 | Hospitalist Progress Note ---
Date of Service December 25, 2022 Assessment & Plan (1) Encephalopathy: (2) Visual hallucinations: (3) Bladder tumor: (4) Essential hypertension: (5) Alcohol abuse: (6) UTI (urinary tract infection): (7) BPH (benign prostatic hyperplasia): (8) Afib: (9) Lung cancer: Plan Encephalopathy with visual hallucinations- now resolved Differential including but not limited to: Metabolic due to UTI, alcohol withdrawal, Warnicke's encephalopathy, CVA He is alert and oriented x 3, but still endorses some mild visual hallucinations He says his brain is in a funk because he has a lot on his mind. says he misses his son, who lives 500 [address] away in [place] CT scan of head without contrast negative CTA head and neck negative Patient is currently at baseline Alcohol abuse/likely Warnicke's encephalopathy- Received banana bag, thiamine 200 mg IV and normal saline 500 mL in the ED Thiamine 100 mg IV daily Folic acid 1 mg IV daily NSS + KCl 20 mEq at 100 mils per hour x2 L AWSS protocol with progressive IV Ativan BPH with LUTS/bladder squamous metaplasia/status post TURP/urinary tract infection with Corynebacterium and coag negative staph- Follow urine culture and sensitivity Infections noted from 05/02/2022, 08/02/2022 and 08/25/2022 are all with skin avi, and may just be contaminants The patient reports that he knows when he has urinary tract infections, because he usually experiences visual hallucinations. Patient reports that he has had urinary tract infections most commonly when he is drinking more alcohol. The question is whether his symptoms are related to alcohol withdrawal and he and his family attribute them to urinary tract infections, or whether they r eally are due to urinary tract infections UTI Urinalyses suggest mild UTI ON ceftriaxone d/c on Cephalexin 500mg BID for 5 more days Coag negative staph: 1 bottle positive for coag -ve staph most likely contaminant Admission and Anticipated Discharge Date Admission Date: December 23, 2022 Subjective patient seen and examined, alert oriented x3, no more visual hallucinations Review of Systems Review of Systems: All systems reviewed are negative, apart from the ones contained in the history. Physical Exam Physical Exam: The patient is awake, alert and oriented 3, well developed and well nourished, normocephalic and atraumatic, lying in bed and in no acute distress. HEENT--PERRL, EOMI, mucous membranes and oropharynx mildly dry Neck--supple. No JVD. No bruits. Thyroid normal, trachea midline, no adenopathy. Heart--normal S1 and S2. No murmurs, rubs or gallops. Lungs--clear bilaterally, no respiratory distress, no accessory muscle use. Abdomen--normal bowel sounds and soft. Mild epigastric and left sided abdominal pain Extremities--no cyanosis or clubbing. No edema. Dermatologic--normal skin turgor, normal color, no abnormal lymph nodes, no rash. Neurologic--cranial nerves II through XII grossly intact. Rheumatologic--normal range of motion. Psychiatric--normal affect. Results & Data Results & Data Vital Signs (Past 12 Hours) Vital Signs Temp Pulse Pulse Pulse Resp BP Pulse Ox 12/25/22 11:33 97.5 F L 65 18 137/79 98 12/25/22 07:42 58 L 12/25/22 08:31 79 12/25/22 07:26 97.9 F 54 L 19 142/84 H 97 12/25/22 02:44 98.1 F 59 L 20 150/81 H 97 O2 Del Method 12/25/22 11:33 Room Air 12/25/22 07:42 12/25/22 08:31 12/25/22 07:26 Room Air 12/25/22 02:44 Room Air PG Care Time/CCT Total # of Minutes Spent Total Time Spent with Patient: Total time spent is greater than 50% in coordination of care (as documented) at patient's floor/unit and/or counseling patient: Coding Level of Care Code 81630 SUB INP/OBS CARE 2/35MIN Diagnoses Encephalopathy G93.40 Visual hallucinations R44.1 Bladder tumor D49.4 Essential hypertension I10 Alcohol abuse F10.10 UTI (urinary tract infection) N39.0 BPH (benign prostatic hyperplasia) N40.0 Afib I48.91 Lung cancer C34.90 Time Spent (min) 35
[2022-12-26 08:23] LABS: Partial Thromboplastin Ratio 1.1; Partial Thromboplastin Time 30.6 Seconds (21.0-31.0)
[2022-12-26] MEDS: APIXABAN 2.5 MG TAB PO SCH (08:39)
[2022-12-26] MEDS: FINASTERIDE 5 MG TAB PO SCH (08:40)
[2022-12-26] MEDS: dilTIAZem HCL 180 MG CAPCR PO SCH (08:40)
[2022-12-26] MEDS: MULTIVITAMIN TAB PO SCH (08:40)
[2022-12-26] MEDS: cloNIDine HCL 0.1 MG TAB PO SCH ×2 (08:40→13:01)
[2022-12-26] MEDS: POTASSIUM CHLORIDE CRTAB 20 MEQ TABCR PO SCH (08:41)
[2022-12-26] MEDS: THIAMINE HCL 100 MG in SYRINGE 9 ML IV SCH (08:41)
[2022-12-26] MEDS: FOLIC ACID 1 MG in SYRINGE 9.8 ML IV SCH (08:41)
[2022-12-26] MEDS: VITAMIN B COMPLEX TAB PO SCH (08:41)
[2022-12-26] MEDS: cefTRIAXone SODIUM 1,000 MG in DEXTROSE 5 % MINI-B 50 ML IV SCH (08:56)
--- NOTE | 2022-12-26 13:15 | Discharge Summary ---
Date of Service December 26, 2022 Admission HPI Per Admitting Provider The patient is a 77-year-old male with a past medical history including alcohol abuse, bladder tumor, fatty liver, hyperlipidemia, atrial fibrillation, BPH with LUTS status post TURP, COPD with emphysema, current smoker, lung cancer, adjustment disorder with anxiety, and atrial flutter. He is referred to the emergency department by his son, who wanted him evaluated, as he felt that his father was acting spacey. During the examination, the patient noted visual hallucinations, seeing patterns on a blank wall in the room, but did not have any auditory hallucinations. He reports his last alcohol intake was yesterday, he had not eaten at all day yesterday, so its been 24 hours or so since last food intake. That being said patient's memory appears to be deficient, and he takes a considerable amount of time thinking about answers to say. His family was concerned that he may have another urinary tract infection, however, when I discussed issues with the patient, he reports he is more likely to have what he thinks are urinary tract infections when he has been drinking more alcohol. He does have a reported history of urinary tract infections with Cornybacteria and coag negative staph. Principal Diagnosis uti Discharge Exam The patient is awake, alert and oriented 3, well developed and well nourished, normocephalic and atraumatic, lying in bed and in no acute distress. HEENT--PERRL, EOMI, mucous membranes and oropharynx mildly dry Neck--supple. No JVD. No bruits. Thyroid normal, trachea midline, no adenopathy. Heart--normal S1 and S2. No murmurs, rubs or gallops. Lungs--clear bilaterally, no respiratory distress, no accessory muscle use. Abdomen--normal bowel sounds and soft. Mild epigastric and left sided abdominal pain Extremities--no cyanosis or clubbing. No edema. Dermatologic--normal skin turgor, normal color, no abnormal lymph nodes, no rash. Neurologic--cranial nerves II through XII grossly intact. Rheumatologic--normal range of motion. Psychiatric--normal affect. Discharge Data Allergies Allergy/AdvReac Type Severity Reaction Status Date / Time No Known Allergies Allergy Verified 12/22/22 23:34 Consultations 12/23/22 00:38 ED Decision to Admit Stat Ordered Studies 12/22/22 19:31 CT angio head w con Stat CT angio neck with con Stat CT head/brain wo con Stat Hospital Course (1) Encephalopathy: (2) Visual hallucinations: (3) Bladder tumor: (4) Essential hypertension: (5) Alcohol abuse: (6) UTI (urinary tract infection): (7) BPH (benign prostatic hyperplasia): (8) Afib: (9) Lung cancer: Plan Encephalopathy with visual hallucinations- now resolved Differential including but not limited to: Metabolic due to UTI, alcohol withdrawal, Warnicke's encephalopathy, CVA He is alert and oriented x 3, but still endorses some mild visual hallucinations He says his brain is in a funk because he has a lot on his mind. 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's encephalopathy- Received banana bag, thiamine 200 mg IV and normal saline 500 mL in the ED Thiamine 100 mg IV daily Folic acid 1 mg IV daily NSS + KCl 20 mEq at 100 mils per hour x2 L AWSS protocol with progressive IV Ativan BPH with LUTS/bladder squamous metaplasia/status post TURP/urinary tract infection with Corynebacterium and coag negative staph- Follow urine culture and sensitivity Infections noted from 05/02/2022, 08/02/2022 and 08/25/2022 are all with skin vai, and may just be contaminants The patient reports that he knows when he has urinary tract infections, because he usually experiences visual hallucinations. Patient reports that he has had urinary tract infections most commonly when he is drinking more alcohol. The question is whether his symptoms are related to alcohol withdrawal and he and his family attribute them to urinary tract infections, or whether they really are due to urinary tract infections UTI Urinalyses suggest mild UTI ON ceftriaxone d/c on Cephalexin 500mg BID for 5 more days Coag negative staph: 1 bottle positive for coag -ve staph most likely contaminant HTN: Added clonidine 0.2mg TID to his home regimen of Diltiazem Total Time Total Time Spent Total Time Spent (In Minutes): 35 Discharge Plan Discharge Items Patient Disposition: Home - Self-Care Reason For Visit: ENCEPHALOPATHY, VISUAL HALLUCINATIONS Discharge Diagnosis: UTI Activity: Resume your previous activity Non-emergency contact: Primary Care Provider and Urologist Call non-emergency contact if: you have any medication questions and your symptoms worsen Follow-up/Referrals: Julian Marc MD [Primary Care Provider] - 01/02/23 11:30 am (Follow up sched uled on 01/02/23 @ 11:30 with Gerald Self) Diet: Regular Addtl Attending Provider Instructions: please make appointment to follow up with your PCP Pending Studies at Discharge: No Stand-Alone Forms: My [facility] [employer], Smoking Cessation Medications and DC Order Prescriptions: New cephalexin 500 mg capsule 500 mg PO BID 5 Days Qty: 10 0RF clonidine HCl 0.1 mg Tablet 0.2 mg PO TID 30 Days Qty: 180 0RF Continued Eliquis 2.5 mg tablet 2.5 mg PO BID Qty: 60 2RF potassium chloride 20 mEq tablet,ER particles/crystals 20 meq PO QAM Qty: 90 3RF dutasteride 0.5 mg capsule 0.5 mg PO DAILY Qty: 90 1RF multivitamin [Daily Multi-Vitamin] Tablet 1 tab PO DAILY Qty: 30 0RF diltiazem HCl 180 mg capsule,extended release 24 hr 180 mg PO QAM Qty: 90 3RF vitamin B complex Tablet 1 tab PO QAM glucosamine-chondroitin 500-400 mg tablet 1 tab PO QAM cholecalciferol (vitamin D3) 25 mcg (1,000 unit) tablet 1,000 unit PO Q OTHER DAY Spiriva Respimat 2.5 mcg/actuation mist 2 puff inhalation QAM PRN (Reason: Shortness Of Breath Or Wheezing) acetaminophen 500 mg Capsule 1,000 mg PO Q6H PRN (Reason: Pain) Discharge Orders: Discharge Order (Routine); Ordered 12/26/22 Ordered By: Leesa Mansfield Admission Data Admit Date/Time: 12/23/22 01:52 Attending Provider: Leesa Mansfield Admit Provider: Stevie Quan Primary Care Provider: Julian Marc Other Providers: Stevie Quan Other Interventions: Discharge Summary Assessment (RN) Last Done: 12/26/22 13:04 Coding Level of Care Code 22981 INP/OBS DISCH >30 MIN Diagnoses Encephalopathy G93.40 Visual hallucinations R44.1 Bladder tumor D49.4 Essential hypertension I10 Alcohol abuse F10.10 UTI (urinary tract infection) N39.0 BPH (benign prostatic hyperplasia) N40.0 Afib I48.91 Lung cancer C34.90 Time Spent (min) 35
== END 2022-12-26 14:52 | disposition home or self-care (01) | DRG 641 ==
LOC: ED 15:50 → SUATTDRO 12-23 01:52 → EDINP 12-23 01:52 → 1E 12-23 04:13 → 4W 12-24 18:59

== ENCOUNTER 2023-02-19 09:05 | Observation (INO) ==
--- OUTSIDE RECORDS SUMMARY | 2023-02-19 09:08 | External Medical Summary | Summary of Care ---
Author Name Unknown Organization [facility] Address [address] [place] [address] Phone [phone] Care Team Providers Care Genetic Coordinator Name Role Phone Unavailable Primary Care Provider Unavailabl e Reason for Visit * Reason Comments Follow Up Encounter Details Date Type Department Care Team ([facility] st Contact Info) Description 02/10/2023 8:00 AM EST Therapy Psychology, [facility] [address] [facility] [place] [address] David Valdes, PhD [address] [facility] [place] [address] Adjustment disorder, unspecified type* Medications Medication Sig Dispensed Refills Start Date End Date Status Eliquis 5 MG Oral Tablet Take 5 mg by mouth 2 times a day. 0 02/10/2021 Active dilTIAZem HCl ER Beads 120 MG Oral Capsule Extended Release 24 Hour Take 120 mg by mouth daily. 0 02/10/2021 Active Dutasteride 0.5 MG Oral Capsule (Avodart) Take 0.5 mg by mouth daily. 0 02/10/2021 Active Potassium Chloride Latonia ER 20 MEQ Oral Tablet Extended Release Take 20 mEq by mouth daily. 0 02/10/2021 Active Tavaborole 5 % External Solution Apply 1 Dose topically to affected area daily. 0 01/26/2021 Active Tavaborole 5 % External Solution (Kerydin) Apply 1 Dose topically to affected area daily. 0 01/26/2021 Active documented as of this encounter (statuses as of 02/10/2023) Active Problems Problem Noted Date Diagnosed Date Nodule of upper lobe of right lung 03/02/2021 COPD with emphysema 03/02/2021 Cigarette nicotine dependence without complicati on 03/02/2021 Chronic atrial fibrillation 03/02/2021 Chronic anticoagulation 03/02/2021 Generalized osteoarthritis 03/02/2021 Hyperglycemia 03/02/2021 Hyperlipidemia 03/02/2021 Hypertension 03/02/2021 Hypokalemia 03/02/2021 Onychia of toe 03/02/2021 Steatosis of liver 03/02/2021 documented as of this encounter (statuses as of 02/10/2023) Immunizations Name Administration Dates Next Due COVID-19 mRNA, LNP-s, No Pre serve, 2-Dose Series (Pfizer) 12/05/2020 Pneumococcal Polysaccharide PPV23 (Pneumovax) 04/15/2014,07/12/2011 Seasonal Influenza Virus Vac cine, Unspecified Formulation 11/19/2020,12/12/2019,01/11/2019,12/12,11/27/2017,12/29/2016,12/21/2015 ,12/18/2014,11/16/2013 TDAP (age 11 and older)(Adacel) 08/07/2014 Varicella Zoster Vaccine (Adult) 05/02/2011 Zoster Vaccine Recombinant (Shingrix) 01/18/2019 documented as of this encounter Social History Tobacco Use Types Packs/Day Years Used Date Smoking Tobacco: Every Day Cigarettes 1 60 Smokeless Tobacco: Never Alcohol Use Standard Drinks/Week Comments Yes 15 (1 standard drink = 0.6 oz pu re alcohol) 2-3 shots of whiskey daily Sex and Gender Information Value Date Recorded Sex Assigned at Not on file Gender Identity Not on file Sexual Orientation Not on file Job Start Date Occupation Industry Not on file Not on file Not on file documented as of this encounter Progress Notes * David Valdes, PhD - 02/10/2023 8:46 AM EST Patient location: CLINIC. I was in the same facility as the patient. After connecting through [employer], patient was verified with two unique identifiers. Patient (or authorized legal patient accounting representative) was then informed that this was a Telemedicine visit and being conducted confidentially over secure lines. My office door was closed. No one else was in the room with me. Patient acknowledged consent and understanding of privacy and security of the Telemedicine visit, and gave permission to have atelemedicine presenter stay in the room in order to assist with the history and to conduct the examas needed. I informed the patient that I have reviewed their record in [facility] and presented the opportunity for them to ask any questions regarding the visit today. The patient agreed to participate. Provider reviewed elements of Outpatient Services Description including limits of confidentiality, how to contact the department, risks and benefits of treatment and consent for treatment. Start Time: 08 Stop Time: 847 Total direct [id number] time: 25 minutes Confirm patient's location (and address if different from the home address documented in [facility]) at the time of this appointment: n/a BEHAVIORAL MEDICINE PROGRESS NOTE Psychology, [facility] [address] [place] [address] 02/10/2023 0823 TYPE OF VISIT: Individual DIAGNOSIS: Adjustment Disorder REASON FOR FOLLOW-UP: Individual therapy Session #: 3 SESSION FOCUS: current stressors NOTES: Did not administer the VANGIE 7 or PHQ 9. Safety was evaluated verbally. Pt denied SI/HI. Pt stated that he was here on time for his 0800 appt, but he didn't see the signs indicating where he needed to go for check-in. This was irritating for him -- he was irritated at himself and at the situation. He reported that he has been feeling "out of sorts" recently. He has been physically fine, but just feeling a little foggy. He doesn't think he is developing a UTI, but he just can't figure it out. He has been binge watching a lot of TV and he admits that he starts to confuse his program with reality. Talked about getting more involved in hiw own world -- he agreed that he could get more into getting his belongings in order. This would open the option of going down to [place] to be with his son. PROGRESS TOWARDS GOALS: Goal: Improved self-management of mood Objective Measures: COLUMBIA-SUICIDE SEVERITY RATING SCALE Frequent Screener Ask questions that are bold and underlined Since Last Contact (Theodore with an X) YES NO Have you actually had thoughts about killing yourself? x If YES, ask the following questions. If NO, go directly to the last question Have you been thinking about how you might do this? Have you had these thoughts and had some intention of acting on them? E.g. I thought about taking an overdose, but I never made a specific plan as to when where or how I would actually do it.and I would never go through with it. Have you started to work out or worked out the details of how to kill yourself? Do you intend to carry out this plan? As opposed to I have the thoughts, but I definitely will not do anything about them. Have you done anything, started to do anything, or prepared to do anything to end your life? Examples: Collected pills, obtained a gun, gave away valuables, wrote a will or suicide note, took out pills but didn't swallow any, held a gun but changed your mind or it was grabbed from your hand,went to the roof but didn't jump; or actually took pills, tried to shoot yourself, cut yourself, tried to hang yourself, etc. x Low Risk Complete or review crisis plan with patient Discuss risk/protective factors and reasons for living Moderate Risk Complete or review crisis plan with patient Discuss risk/protective factors and reasons for living Discuss removal of means High Risk Maintain 1 to 1 monitoring until assessment is completed Evaluate for higher level of care (Inpatient or PHP) Consultation with Emergency Services as appropriate If patient not admitted: Complete or review crisis plan with patient Discuss risk/protective factors and reasons for living Advise removal of means Consider family or collateral contact to promote safety Schedule follow up care consistent with assessment Patient Health Questionnaire (PHQ-9): 3 (0-4 Min; Mild -5-9; Moderate 10-14; Mod Severe 15-19; Severe 20+) PHQ-9, item 9 = 0 (if anything but 0 administer [place]) Generalized Anxiety Disorder (VANGIE-7): 0 (0-4 Min; Mild -5-9; Moderate 10-14; Severe 15+) INTERVENTION: Outpatient Adult Therapy Treatment Plan Treatment plan was developed on 12/28/22, treatment will continue to focus on goals below; Treatment update will occur when clinically indicated or by 06/25/2023. Patient's goals captured in patient's words: "have someone to talk to and check my thinking" Expected family or significant other involvement: Not applicable Type of Service:Individual Patients Strengths and Facilitating Factors to care: Recognizes need for change and Seeking help Treatment Barriers: none identified Crisis Planning: What I can do if I ever experience a crisis (much worse symptoms, severe distress or thoughts of self-harm): Talking to loved one or friend or trusted person People I can call in the event of a crisis: Friend: neighbor Additional resources I can utilize if the previous steps are ineffective (e.g: ED, hotlines): Suicide and Crisis [facility] - 8 and [facility] for Help Signature Obtained on Treatment Plan Patient/ Family Received Copy of Treatment Plan Duration of Treatment Frequency of Treatment No Patient has access to MyChart 8-11 sessions every other week Patient Identified Needs/Goals Interventions Objective/ Discharge Criteria Problem/Need 1: Adjustment to Stressor: aging Cognitive Behavioral Therapy (CBT), which includes psychoeducation, cognitive restructuring, relaxation/diaphragmatic breathing, problem-solving, and behavioral activation and Other: Interpersonal Therapy Other: patient report Please choose a method to track patient's improvement based on clinical assessment: Patient report PATIENT EDUCATION: Verbal & written MENTAL STATUS AND BEHAVIORAL OBSERVATIONS: Appearance: within normal limits Behavior: within normal limits Speech: normal pitch, rate and volume Affect: Congruent with content of conversation Thought Process: within normal limits and goal directed Thought Content: within normal limits Intellectual Function: within normal limits Sensorium: alert and oriented to person, place, time and situation Cognition: grossly intact Insight/Judgment: good Suicide/Homicidal Assessment Validated Screening and Assessment Measures PHQ-9, item 9: n/a C-SSRS administered yes Risk Factors: - Current SI/HI (including frequency and duration): no - Current plan: no - Current intent: no - Suicide attempt or self-harm in the last 3 months: no - Access to means (if firearms and/or medications are present, complete lethal means reduction): no - Lethal means access reduction steps taken: no - History of suicide attempts/self harm: no - Preparations (giving possessions away, making a will): no - Recent stressors/losses (job loss, medical diagnosis, relationship loss: no - Otherr fixed/chronic risk factors: n/a - Other modifiable risk factors: n/a Protective factors: -sense of responsibility to children/pets/others: yes - social connectedness: yes -willingness to engage in mental health services: yes -future-oriented thinking/planning: yes -coping/social/emotion regulation/self-soothing skills present: yes -has cultural or pentecostal beliefs that discourage suicide: no Risk Level Impression: -Low risk: Initiate outpatient therapy; safety plan may still be indicated; provided crisis numbers. Crisis Plan: PLAN INCLUDED IN TREATMENT PLAN FOLLOW-UP PLAN: Return: 2 weeks Action Plan: 1. Continue Cognitive Behavioral Therapy 2. Work on getting his house organized Treatment plan reviewed with the patient. Patient voices understanding and concurs with plan. David Valdes, PhD Division of Psychiatry & Behavioral Medicine [facility] [phone] documented in this encounter Plan of Treatment Upcoming Encounters Date Type Department Care Team (Late st Contact Info) Description 03/01/2023 9:00 AM EST Therapy Psychology, [facility] [address] [facility] [place] [address] David Valdes, PhD [address] [facility] [place] [address] Health Maintenance Due Date Last Done Comments DISCUSS TOBACCO CESSATION (REFER TO SMARTSET #9265) 1945 GFR 1945 Depression Screening 1958 Albumin/Creatinine Ratio 1964 Alpha-1 Antitrypsin 1964 Hepatitis C Screening 1963 O2 ASSESSMENT COMPLETED IN PAST YEAR FOR COPD 1964 LUNG CANCER SCREENING - USE SMARTSET [id number] 1996 Pneumococcal Vaccine: 65+ Years (2 - PCV) 04/15/2015 04/15/2014, 07/12/2011 Zoster Vaccines (3 of 3) 03/15/2019 01/18/2019, 03/06/2011 *COPD SEVERITY VERIFIED BY PFT 03/20/2021 *CXR OR CT FOR COPD EVER 01/20/2022 COVID-19 Vaccine (4 - 2022- season) 2022 12/05/2020, 05/28/2020, 05/07/2020 Influenza Vaccine (FLU shot) (#1) 2022 11/19/2020, 12/12/2019, 01/11/2019, Additional history exists DTaP,Tdap,and Td Vaccines (2 - Td or Tdap) 08/07/2024 08/07/2014 GARDASIL-HPV IMMUNIZATION SERIES Aged Out No longer eligible based on patient's age to complete this topic Hepatitis B Aged Out No longer eligi ble based on patient's age to complete this topic MENINGOCOCCAL (MENACTRA/MENVEO) Aged Out No longer eligible based on patient's age to complete this topic documented as of this encounter Medical Devices Not on filedocumented as of this encounter Visit Diagnoses Diagnosis Adjustment disorder, unspecified type- Primary documented in this encounter
[2023-02-19 09:34] LABS: Appearance Urine Clear (Clear); Bacteria Urine Automated Negative (Negative); Bilirubin Urine Negative (Negative); Blood Urine 2+ (Negative); Color Urine Yellow; Epithelial Cell Urine Auto >30 /lpf (0-5); Glucose Urine UA Negative (Negative); Ketones Urine 1+ (Negative); Leukocyte Esterase Urine Negative (Negative); Nitrite Urine Negative (Negative); Protein Urine 1+ (Negative); Urobilinogen Urine Negative (Negative); pH Urine 6.5 (4.5-7.5)
[2023-02-19 10:15] LABS: Basophils # (auto) 0.03 K/uL (0.00-0.20); Basophils % (auto) 0.4 %; Eosinophils # (auto) 0.01 K/uL (0.00-0.50); Eosinophils % (auto) 0.1 %; Hematocrit (blood only) 37.9 % (42.0-52.0); Hemoglobin 13.7 g/dl (14.0-18.0); Immature Granulocytes # (auto) 0.05 K/uL (0.01-0.20); Immature Granulocytes % (auto) 0.7 %; Lymphocytes # (auto) 0.35 K/uL (1.20-3.40); Lymphocytes % (auto) 4.6 %; Mean Corpuscular Hemoglobin 33.7 pg (25.0-34.0); Mean Corpuscular Hgb Conc 36.1 g/dL (32.0-36.0); Mean Corpuscular Volume 93.3 fL (80.0-100.0); Mean Platelet Volume 10.1 fL (9.4-12.4); Monocytes # (auto) 0.39 K/uL (0.11-0.59); Monocytes % (auto) 5.2 %; Platelet Count 107 K/uL (130-400); RDW Coefficient of Variation 13.3 % (11.5-14.5); RDW Standard Deviation 45.4 fL (36.4-46.3); Red Blood Count 4.06 M/uL (4.70-6.10); White Blood Count 7.53 K/ul (4.8-10.8)
[2023-02-19 10:16] LABS: Base Excess VBG -0.9 mEq/L; HCO3 VBG 22 mmol/L; Oxygen Saturation VBG 76.4 %; PCO2 VBG 31 mmHg (38-50); PO2 VBG 42 mmHg; pH VBG 7.46 (7.36-7.41)
[2023-02-19] MEDS: SODIUM CHLORIDE 0.9% 1,000 ML IV SCH ×2 (10:21→11:02)
[2023-02-19 10:31] LABS: Albumin Level 4.4 gm/dl (3.4-5.0); BUN Creatinine Ratio 12.9 (10-20); Bilirubin Direct 0.3 mg/dl (0-0.2); Bilirubin,Total 1.1 mg/dl (0.2-1.0); Calcium 8.9 mg/dl (8.6-10.3); Creatinine Clr Calc Pharmacy 67.6 ml/min; Est GFR (African American) 98.1 ml/min; Est GFR (Non-African American) 84.6 ml/min; Magnesium 1.6 mg/dl (1.7-2.4); Potassium 2.9 mmol/L (3.5-5.1); Total Protein 7.2 gm/dl (6.0-8.3)
[2023-02-19 10:36] LABS: Troponin I High Sensitivity 8.8 pg/ml (0-20)
[2023-02-19] MEDS ORDERED: OPTIRAY 320 125ml IV ONE (10:47)
[2023-02-19] MEDS ORDERED: CEFEPIME 2,000 MG/20 ML VIAL IV STA (10:49)
[2023-02-19 10:53] LABS: Influenza A virus by PCR Negative (Neg); Influenza B virus by PCR Negative (Neg); RSV by PCR Negative (Neg); SARS CoV2 RNA(COVID-19) Ceph NEGATIVE (Negative)
--- NOTE | 2023-02-19 10:56 | XRay Report ---
XR chest 1V portable HISTORY: Sepsis COMPARISON: Chest 12/22/2022. FINDINGS: No pneumothorax. No pleural effusions. Mild chronic interstitial thickening persists. There is a tortuous thoracic aorta, unchanged. The heart is normal in size. No evidence for pulmonary annalise a. Right apical density remains unchanged. No new focal lung consolidations to suggest a pneumonia. N o evidence for pulmonary edema. IMPRESSION: 1. No significant change compared to the prior study. No acute process. 2. Stable right apical density. ACT 112: Negative or not required by law. Electronically signed by: Lico Hess M.D. 02/19/2023 10:54 AM
--- NOTE | 2023-02-19 11:05 | CT Scan Report ---
HEAD CT NONCONTRAST CT DOSE: HISTORY: Altered mental status. TECHNIQUE: Multiaxial CT images of the head were performed without the use of intravenous contrast. A utomated exposure control was utilized for this study. A dose lowering technique was utilized adheri ng to the principles of ALARA. Comparison: Head CT 12/22/2022. Findings: The paranasal sinuses and mastoid air cells are clear. The calvarium and skull base are int act. There is no mass, hematoma, midline shift, acute infarct. White matter hypodensity is nonspecifi c but suggestive of microvascular ischemic change. The ventricles and sulci demonstrate mild age-rela blanca involutional changes. Left facial postoperative changes again noted. Impression: No significant change compared to the prior study. No acute intracranial abnormality. ACT 112: Negative or not required by law. Electronically signed by: Lico Hess M.D. 02/19/2023 11:03 AM
--- NOTE | 2023-02-19 11:12 | CT Scan Report ---
HEAD & NECK CTA HISTORY: Altered mental status TECHNIQUE: Multiaxial CT images of the head were performed following the intravenous administration o f contrast to evaluate the major cerebral vessels. Multiaxial CT images of the neck were also perform ed following the intravenous administration of contrast to evaluate the major cervical vessels. 3D/SD P images were also obtained. Sagittal and coronal reformats were reviewed. A dose lowering technique was utilized adhering to the principles of ALARA. COMPARISON: Head and neck CTA 12/22/2022. FINDINGS: There is no mass, hematoma, midline shift, or acute infarct. Visualized intracranial internal carotid arteries, distal vertebral arteries, and basilar artery are widely patent. There is no significant s tenosis, occlusion, or aneurysm seen within the bilateral ACAs, MCAs, or key account director. The major dural venous sinuses are patent. Moderate left and mild right atherosclerotic plaque within the proximal internal carotid arteries. T his results in 20% stenosis within the proximal left internal carotid artery. This remains unchanged. No significant stenosis within the right internal carotid artery or vertebral arteries. No arterial dissection identified. The bilateral common carotid arteries are patent. There is approximately 60-70 % stenosis within the proximal left subclavian artery due to the atherosclerotic plaque. There is no significant stenosis, occlusion, or dissection identified within the bilateral common carotid, industrial engineering intern al carotid, or vertebral arteries. Right apical density is only partially visualized on this study. M ild emphysema. IMPRESSION: 1. No significant stenosis, occlusion, or aneurysm within the [place] of [place]. 2. 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 3. No high-grade stenosis, occlusion, or dissection within the carotid or vertebral arteries. ACT 112: Negative or not required by law. Electronically signed by: Lico Hess M.D. 02/19/2023 11:10 AM
--- NOTE | 2023-02-19 11:12 | CT Scan Report ---
HEAD & NECK CTA HISTORY: Altered mental status TECHNIQUE: Multiaxial CT images of the head were performed following the intravenous administration o f contrast to evaluate the major cerebral vessels. Multiaxial CT images of the neck were also perform ed following the intravenous administration of contrast to evaluate the major cervical vessels. 3D/MO P images were also obtained. Sagittal and coronal reformats were reviewed. A dose lowering technique was utilized adhering to the principles of ALARA. COMPARISON: Head and neck CTA 12/22/2022. FINDINGS: There is no mass, hematoma, midline shift, or acute infarct. Visualized intracranial internal carotid arteries, distal vertebral arteries, and basilar artery are widely patent. There is no significant s tenosis, occlusion, or aneurysm seen within the bilateral ACAs, MCAs, or revenue liaison. The major dural venous sinuses are patent. Moderate left and mild right atherosclerotic plaque within the proximal internal carotid arteries. T his results in 20% stenosis within the proximal left internal carotid artery. This remains unchanged. No significant stenosis within the right internal carotid artery or vertebral arteries. No arterial dissection identified. The bilateral common carotid arteries are patent. There is approximately 60-70 % stenosis within the proximal left subclavian artery due to the atherosclerotic plaque. There is no significant stenosis, occlusion, or dissection identified within the bilateral common carotid, actuarial internship al carotid, or vertebral arteries. Right apical density is only partially visualized on this study. M ild emphysema. IMPRESSION: 1. No significant stenosis, occlusion, or aneurysm within the [place]. 2. 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 3. No high-grade stenosis, occlusion, or dissection within the carotid or vertebral arteries. ACT 112: Negative or not required by law. Electronically signed by: Lico Hess M.D. 02/19/2023 11:10 AM
[2023-02-19 11:48] LABS: INR 1.1 (0.9-1.1); Partial Thromboplastin Time 29 Seconds (21-31); Prothrombin Time 11.5 Seconds (9.0-12.0)
[2023-02-19] MEDS ORDERED: MAGNESIUM SULFATE / D5W 1 GM/100 ML BAG IV STA (11:58)
[2023-02-19] MEDS ORDERED: POTASSIUM CHLORIDE 10 MEQ TABCR PO STA ×2 (11:58→14:11)
[2023-02-19] MEDS ORDERED: POTASSIUM CHLORIDE CRTAB 20 MEQ TABCR PO STA ×2 (12:17→13:05)
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
[2023-02-19] MEDS ORDERED: LORazepam 3 MG in SYRINGE 1.5 ML IV PRN ×2 (13:02→15:36)
[2023-02-19] MEDS ORDERED: Ativan IV Alcohol Withdrawal--Active Protocol IV PRN ×2 (13:02→15:36)
[2023-02-19] MEDS ORDERED: diazePAM 5 MG TABLET PO ONE (13:03)
[2023-02-19] MEDS ORDERED: THIAMINE HCL 500 MG in SODIUM CHLORIDE 0.9% 50 ML IV STA (13:18)
[2023-02-19] MEDS ORDERED: MULTI-VITAMIN INFUSION 10 ML, THIAMINE HCL 100 MG, FOLIC ACID 1 MG in SODIUM CHLORIDE 0... IV ONE (13:30)
[2023-02-19] MEDS: LORazepam 1 MG in SYRINGE 0.5 ML IV PRN ×2 (13:57→16:51)
[2023-02-19] MEDS ORDERED: LORazepam 2 MG in SYRINGE 1 ML IV PRN (15:36)
[2023-02-19] MEDS ORDERED: LORazepam 1 MG in SYRINGE 0.5 ML IV PRN (15:36)
[2023-02-19 17:04] LABS: Folate (Folic Acid),Ser orPlas > 22.30 ng/ml (>5.38)
[2023-02-19 17:05] LABS: Vitamin B12 519 pg/ml (180-914)
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
[2023-02-19] MEDS: LORazepam 2 MG in SYRINGE 1 ML IV PRN (19:11)
[2023-02-19 19:12] LABS: Amphetamines+Metham, Urine Neg (Neg); Barbiturates, Urine Neg (Neg); Benzodiazepine, Urine Neg (Neg); Cocaine, Urine Neg (Neg); MDMA (Ecstacy), Urine Neg (Neg); Marijuana, Urine Neg (Neg); Methadone, Urine Neg (Neg); Opiate, Urine Neg (Neg); Phencyclidine, Urine Neg (Neg)
[2023-02-19] MEDS: APIXABAN 2.5 MG TAB PO SCH (20:34)
[2023-02-20] MEDS: LORazepam 2 MG in SYRINGE 1 ML IV PRN ×2 (02:15→13:56)
[2023-02-20] MEDS: LORazepam 1 MG in SYRINGE 0.5 ML IV PRN ×3 (03:52→18:46)
[2023-02-20] MEDS ORDERED: cloNIDine HCL 0.1 MG TAB PO ONE (04:53)
--- NOTE | 2023-02-20 06:32 | Electrocardiogram Report ---
Test Reason : Blood Pressure : / mmHG Vent. Rate : 088 BPM Atrial Rate : 088 BPM P-R Int : 162 ms QRS Dur : 098 ms QT Int : 390 ms P-R-T Axes : 070 002 047 degrees QTc Int : 471 ms Poor data quality, interpretation may be adversely affected Normal sinus rhythm Normal ECG When compared with ECG of 22-DEC-2022 16:49, No significant change was found Confirmed by Martin Scott ([id number]) on 02/20/2023 6:32:05 AM Referred By: REFERRED SELF Confirmed By:Martin Scott
[2023-02-20 06:50] LABS: Hematocrit (blood only) 39.6 % (42.0-52.0); Mean Corpuscular Hemoglobin 33.3 pg (25.0-34.0); Mean Corpuscular Hgb Conc 35.4 g/dL (32.0-36.0); Mean Corpuscular Volume 94.1 fL (80.0-100.0); Mean Platelet Volume 10.5 fL (9.4-12.4); Platelet Count 118 K/uL (130-400); RDW Coefficient of Variation 13.7 % (11.5-14.5); RDW Standard Deviation 46.6 fL (36.4-46.3); Red Blood Count 4.21 M/uL (4.70-6.10); White Blood Count 5.95 K/ul (4.8-10.8)
[2023-02-20 07:01] LABS: Albumin Level 4.2 gm/dl (3.4-5.0); BUN Creatinine Ratio 12.6 (10-20); Bilirubin Direct 0.3 mg/dl (0-0.2); Bilirubin,Total 1.4 mg/dl (0.2-1.0); Calcium 8.4 mg/dl (8.6-10.3); Creatinine Clr Calc Pharmacy 66.1 ml/min; Est GFR (African American) 97.2 ml/min; Est GFR (Non-African American) 83.8 ml/min; Magnesium 1.8 mg/dl (1.7-2.4); Potassium 3.1 mmol/L (3.5-5.1)
[2023-02-20] MEDS: dilTIAZem HCL 180 MG CAPCR PO SCH (08:12)
[2023-02-20] MEDS: APIXABAN 2.5 MG TAB PO SCH ×2 (08:12→22:42)
[2023-02-20] MEDS: FOLIC ACID 1 MG TAB PO SCH (08:13)
[2023-02-20] MEDS: POTASSIUM CHLORIDE CRTAB 20 MEQ TABCR PO SCH (08:13)
[2023-02-20] MEDS ORDERED: THIAMINE HCL 100 MG TAB PO SCH (09:00)
--- NOTE | 2023-02-20 11:24 | Hospitalist Progress Note ---
Date of Service February 20, 2023 Assessment & Plan (1) Encephalopathy: Plan: Suspect from alcohol +/- withdrawal +/- Wernicke's +/- lorazepam (2) Wernicke's encephalopathy: Plan: Start Thiamine 500mg IV TID (3) Alcohol withdrawal: Plan: Appears relatively well controlled today with 8mg lorazepam yesterday Continue PRN 1-3mg per AWSS dosing (4) Alcoholic hepatitis: Plan: US liver ordered Appears stable but also new from prior Most likely alcohol induced Plt mildly reduced, INR 1.1 (5) Essential hypertension: Plan: Blood pressure mildly elevated. Likely secondary to chronic hypertension + alcohol withdrawal Continue home Diltiazem Continue lorazepam for withdrawal (6) Afib: Plan: Currently in NSR -Continue Diltiazem -Continue Apixaban (7) Hypokalemia: Plan: Continue his usual potassium supplementation as unlikely taking at home. Improved from admission. Plan VTE Prophylaxis - Eliquis Diet - regular Disposition - continue on PCU Admission and Anticipated Discharge Date Admission Date: February 19, 2023 Subjective Patient feels he is confused because of a UTI. Feels he has hallucinations because of the CT scan. Generally unable to follow conversation and appears generally confused but orientated x3. Notes difficulty in vision and ambulatory dysfunction. He knows his drinking is a problem. Reports last drink on as he wants to give up although suspect more recently than that per positive alcohol level on admission. No one sided weakness but he does note he has been unbalanced Review of Systems Review of Systems: All systems reviewed & are unremarkable except as noted in HPI & below Physical Exam Constitutional: well developed; + not well nourished and no acute distress Eyes: PERRL, conjunctivae normal, anicteric sclerae EOM intact bilaterally (no nystagmus) ENMT: external ear and nose normal, oropharynx normal Respiratory: normal respiratory effort, lungs clear to auscultation Cardiovascular: RRR, no murmur, no edema Gastrointestinal (Abdomen): normal bowel sounds, soft, nontender, no hepatosplenomegaly Musculoskeletal: no cyanosis or clubbing, extremities motor strength 5/5 Skin: no rashes, warm and dry Neurologic: moves all extremities, awake and + confused; no focal motor deficits Motor/Sensory: + tremor (mild bilateral); no pronator drift Coordination: normal [id number] test Psychiatric: Orientation: alert, oriented to person, oriented to place and oriented to time Eye Contact: + fair eye contact Results & Data Results & Data Vital Signs (Past 12 Hours) Vital Signs Temp Pulse Pulse Pulse Resp BP BP 02/20/23 08:04 36.7 C 96 H 18 150/95 H 02/20/23 06:21 88 126/68 02/20/23 05:46 37.1 C 88 24 180/110 H 02/20/23 04:50 86 156/106 H 02/20/23 03:27 36.9 C 89 18 184/100 H 02/20/23 01:59 37.1 C 105 H 18 176/96 H 02/20/23 00:49 82 166/98 H 02/19/23 23:57 84 Pulse Ox O2 Del Method 02/20/23 08:04 96 Room Air 02/20/23 06:21 02/20/23 05:46 96 Room Air 02/20/23 04:50 02/20/23 03:27 95 Room Air 02/20/23 01:59 96 Room Air 02/20/23 00:49 02/19/23 23:57 PG Care Time/CCT Total # of Minutes Spent Total Time Spent with Patient: Total time spent is greater than 50% in coordination of care (as documented) at patient's floor/unit and/or counseling patient: Coding Level of Care Code 91626 SUB INP/OBS CARE 2/35MIN Diagnoses Encephalopathy G93.40 Wernicke's encephalopathy E51.2 Alcohol withdrawal F10.939 Alcoholic hepatitis K70.10 Essential hypertension I10 Afib I48.91 Hypokalemia E87.6
[2023-02-20] MEDS: THIAMINE HCL 500 MG in SODIUM CHLORIDE 0.9% 50 ML IV SCH ×2 (14:56→22:42)
--- NOTE | 2023-02-21 07:29 | Ultrasound Report ---
US liver CLINICAL HISTORY: Elevated LFTs. COMPARISON STUDY: CT of the abdomen and pelvis May 02, 2022. Right upper quadrant ultrasound October 16, 2021. FINDINGS: Hepatic echogenicity is increased. No hepatic lesions are identified. There is no biliary d uctal dilatation. The common bile duct measures 5 mm in caliber. The gallbladder is normal. There are no gallstones. Pancreatic body is normal. Head and tail are partially obscured. No right hydronephro sis is present. Multifocal right renal scarring is again noted. IMPRESSION: 1. No gallstones or biliary ductal dilatation. 2. Hepatic steatosis. 3. Partially obscured pancreas. ACT 112: Negative or not required by law. Electronically signed by: Johnnie Boswell M.D. 02/21/2023 7:27 AM
[2023-02-21] MEDS ORDERED: POTASSIUM PHOS 3 MMOL/1 ML INFUSION IV STA (08:11)
[2023-02-21] MEDS ORDERED: POTASSIUM CHLORIDE 20 MEQ/15 ML UDC PO STA (08:21)
[2023-02-21] MEDS: POT PHOSPHATE MONOBASIC W/ SOD TAB PO SCH ×4 (08:35→22:23)
[2023-02-21] MEDS: dilTIAZem HCL 180 MG CAPCR PO SCH (08:39)
[2023-02-21] MEDS: FOLIC ACID 1 MG TAB PO SCH (08:39)
[2023-02-21] MEDS: POTASSIUM CHLORIDE CRTAB 20 MEQ TABCR PO SCH (08:39)
[2023-02-21] MEDS: THIAMINE HCL 500 MG in SODIUM CHLORIDE 0.9% 50 ML IV SCH ×3 (08:39→22:22)
[2023-02-21] MEDS: APIXABAN 2.5 MG TAB PO SCH ×2 (08:39→22:23)
[2023-02-21] MEDS ORDERED: POTASSIUM PHOSPHATE 6 MMOL in 0.9 % SODIUM CHLORIDE 100 ML IV ONE (08:45)
[2023-02-21 13:25] LABS: Basophils # (auto) 0.03 K/uL (0.00-0.20); Basophils % (auto) 0.5 %; Eosinophils # (auto) 0.11 K/uL (0.00-0.50); Eosinophils % (auto) 1.9 %; Hematocrit (blood only) 40.2 % (42.0-52.0); Hemoglobin 14.3 g/dl (14.0-18.0); Immature Granulocytes # (auto) 0.03 K/uL (0.01-0.20); Immature Granulocytes % (auto) 0.5 %; Lymphocytes # (auto) 1.12 K/uL (1.20-3.40); Lymphocytes % (auto) 19.2 %; Mean Corpuscular Hemoglobin 33.3 pg (25.0-34.0); Mean Corpuscular Hgb Conc 35.6 g/dL (32.0-36.0); Mean Corpuscular Volume 93.7 fL (80.0-100.0); Mean Platelet Volume 10.8 fL (9.4-12.4); Monocytes # (auto) 0.38 K/uL (0.11-0.59); Monocytes % (auto) 6.5 %; Neutrophils # (auto) 4.17 K/uL (1.40-6.50); Neutrophils % (auto) 71.4 %; Platelet Count 108 K/uL (130-400); RDW Coefficient of Variation 13.5 % (11.5-14.5); RDW Standard Deviation 45.9 fL (36.4-46.3); Red Blood Count 4.29 M/uL (4.70-6.10); White Blood Count 5.84 K/ul (4.8-10.8)
[2023-02-21 13:33] LABS: Albumin Globulin Ratio 1.5 (0.9-2); Albumin Level 4.1 gm/dl (3.4-5.0); Calcium 8.9 mg/dl (8.6-10.3); Creatinine Clr Calc Pharmacy 61.2 ml/min; Est GFR (African American) 90.9 ml/min; Est GFR (Non-African American) 78.4 ml/min; Globulin 2.8 gm/dl (2.5-4.0); Potassium 3.9 mmol/L (3.5-5.1); Total Protein 6.9 gm/dl (6.0-8.3)
--- NOTE | 2023-02-21 14:49 | Hospitalist Progress Note ---
Date of Service February 21, 2023 Assessment & Plan (1) Encephalopathy: Plan: Suspected due to alcohol use? Acute with withdrawal symptoms versus Warnicke's encephalopathy Improving but is still not well oriented Ativan requirements rapidly downtrending, has not returned to a normal baseline of oriented to year/place No infectious symptoms, ammonia is normal, is with normal bicarb History of alcohol withdrawal, EtOH was positive on admission 02/19 If related to withdrawal moving into day , given he has not returned to a oriented baseline we will continue to observe. Did review notes from , at that time patient had a similar presentation but recovered to a alert and oriented x 3 baseline Denies dysuria and urinary symptoms, denies cough, fever. UA this admission was contaminated with epithelial cells but without leukocyte esterase or nitrates. No bacteria. (2) Wernicke's encephalopathy: Plan: Start Thiamine 500mg IV TID (3) Alcohol withdrawal: Plan: Appears relatively well controlled today with 8mg lorazepam yesterday Continue PRN 1-3mg per AWSS dosing (4) Alcoholic hepatitis: Plan: US liver with no biliary pathology, steatosis likely from alcohol Appears stable but also new from prior Most likely alcohol induced Plt mildly reduced, INR 1.1 (5) Essential hypertension: Plan: Blood pressure mildly elevated. Likely secondary to chronic hypertension + alcohol withdrawal Continue home Diltiazem Continue lorazepam for withdrawal (6) Afib: Plan: Currently in NSR -Continue Diltiazem -Continue Apixaban (7) Hypokalemia: Plan: Continue his usual potassium supplementation as unlikely taking at home. Imp roved from admission. Plan VTE Prophylaxis - Eliquis Diet - regular Disposition - continue on PCU Admission and Anticipated Discharge Date Admission Date: February 19, 2023 Subjective Agustín is seen at the bedside. Reports that he is more aware of how confused he was earlier, but still does not feel back to his baseline. He is not oriented to year or place, is oriented to name and that he is somewhere near [facility]. He is not oriented to month. Endorses that he has been trying to give up alcohol and was drinking up to 2 days ago. Expresses some frustration over past concern for alcohol withdrawal in his medical chart and notes that he has also had confusion due to UTIs although currently does not have any UTI symptoms Reviewed 80 BSS scoring has received 2 doses of lorazepam Received several doses of Ativan last night, improved agitation this morning and has not needed additional breakthrough. Physical Exam Physical Exam: General: Oriented to name only. Not oriented to year (2028) or month (fall). Somewhat oriented to place (somewhere by [facility]) HEENT: Atraumatic, normocephalic. Vision/hearing grossly intact Pulm: CTAB A&P. -wheezes, -rales, -rhonchi. Symmetrical chest rise. No increased work of breathing. No respiratory distress. Cardiac: RRR, -mrg. Radial pulses intact and symmetrical. Abdominal: Nontender, nondistended, soft. BS present. Extremities: Paleologist strength, ankle dorsi/plantarflexion 5/5 and symmetrical. Skin is warm and dry without tremor Results & Data Results & Data Vital Signs (Past 12 Hours) Vital Signs Temp Pulse Pulse Resp BP Pulse Ox O2 Del Method 02/21/23 10:32 36.7 C 80 18 152/90 H 95 Room Air 02/21/23 07:17 36.7 C 81 20 148/86 H 94 Room Air 02/21/23 05:59 80 02/21/23 03:20 37.2 C 82 18 158/98 H 94 Room Air PG Care Time/CCT Total # of Minutes Spent Total Time Spent with Patient: Total time spent is greater than 50% in coordination of care (as documented) at patient's floor/unit and/or counseling patient: Coding Level of Care Code 97636 SUB INP/OBS CARE 3/50MIN Diagnoses Encephalopathy G93.40 Wernicke's encephalopathy E51.2 Alcohol withdrawal F10.939 Alcoholic hepatitis K70.10 Essential hypertension I10 Afib I48.91 Hypokalemia E87.6
[2023-02-22] MEDS: FOLIC ACID 1 MG TAB PO SCH (08:04)
[2023-02-22] MEDS: dilTIAZem HCL 180 MG CAPCR PO SCH (08:04)
[2023-02-22] MEDS: THIAMINE HCL 500 MG in SODIUM CHLORIDE 0.9% 50 ML IV SCH (08:04)
[2023-02-22] MEDS: APIXABAN 2.5 MG TAB PO SCH (08:04)
[2023-02-22] MEDS: POTASSIUM CHLORIDE CRTAB 20 MEQ TABCR PO SCH (08:04)
[2023-02-22 08:31] LABS: Basophils # (auto) 0.03 K/uL (0.00-0.20); Basophils % (auto) 0.5 %; Eosinophils # (auto) 0.23 K/uL (0.00-0.50); Eosinophils % (auto) 3.8 %; Hematocrit (blood only) 40.6 % (42.0-52.0); Hemoglobin 14.3 g/dl (14.0-18.0); Immature Granulocytes # (auto) 0.04 K/uL (0.01-0.20); Immature Granulocytes % (auto) 0.7 %; Lymphocytes # (auto) 1.52 K/uL (1.20-3.40); Lymphocytes % (auto) 25.4 %; Mean Corpuscular Hemoglobin 32.9 pg (25.0-34.0); Mean Corpuscular Hgb Conc 35.2 g/dL (32.0-36.0); Mean Corpuscular Volume 93.5 fL (80.0-100.0); Monocytes # (auto) 0.49 K/uL (0.11-0.59); Monocytes % (auto) 8.2 %; Neutrophils # (auto) 3.67 K/uL (1.40-6.50); Neutrophils % (auto) 61.4 %; Platelet Count 110 K/uL (130-400); RDW Coefficient of Variation 13.6 % (11.5-14.5); RDW Standard Deviation 46.5 fL (36.4-46.3); Red Blood Count 4.34 M/uL (4.70-6.10); White Blood Count 5.98 K/ul (4.8-10.8)
[2023-02-22 08:46] LABS: Albumin Globulin Ratio 1.5 (0.9-2); Albumin Level 4.1 gm/dl (3.4-5.0); BUN Creatinine Ratio 14.1 (10-20); Bilirubin,Total 1.4 mg/dl (0.2-1.0); Calcium 8.9 mg/dl (8.6-10.3); Creatinine Clr Calc Pharmacy 62.5 ml/min; Est GFR (African American) 93.3 ml/min; Est GFR (Non-African American) 80.5 ml/min; Globulin 2.8 gm/dl (2.5-4.0); Magnesium 1.9 mg/dl (1.7-2.4); Phosphorus 4.1 mg/dl (2.5-4.9); Potassium 3.4 mmol/L (3.5-5.1); Total Protein 6.9 gm/dl (6.0-8.3)
[2023-02-22] MEDS ORDERED: POTASSIUM CHLORIDE 20 MEQ/15 ML UDC PO STA (08:53)
--- NOTE | 2023-02-22 08:53 | Discharge Summary ---
Date of Service February 22, 2023 Admission HPI Per Admitting Provider Rick Joseph is a 77yo male with history of COPD, HTN, Atrial fibrillation/flutter on anticoagulation with Apixaban and lung cancer presenting from home with confusion. Patient is slow to respond to questioning and is tangential but is able to state his name and "hospital". He reports waking this morning and feeling "not quite with it". He denies any other specific complaints - denies fever, chills, cough SOB, abdominal pain, nausea, vomiting or diarrhea. He does drink alcohol daily. Difficult to quantify amount - he says a handle of Scotch (roughly 40 shots) will typically last him a week. He reports drinking two large glasses of Scotch daily (estimating 6-8 drinks daily by patient's hand gestures) and reports he was drinking an "unusually higher amount" earlier in the week. His last drink was 02/17/23. He does not have full recollection of the events of the last few days. He does report living alone. He denies history of EtOH withdrawal, DTs or seizures. Upon arrival to the ER patient is afebrile, elevated HR to 97, BP mildly elevated at 158/99. Patient dry on exam with initial lactate of 4.6. He was administered 2L of NSS with improvement in Lactate to 1.9. ER Course: NSS x 2L KCl 40meq PO Ordered in ER - not yet given: Thiamine 500mg IV, Banana bag x 500mL, additional KCL 40meq PO and 1gm Magnesium IV Principal Diagnosis AMS, acute encephalopathy suspect etoh induced Discharge Exam General: A&Ox3. NAD. Cooperative. HEENT: Atraumatic, normocephalic. Vision/hearing intact. PERLAA. Pulm: CTAB A&P. -wheezes, -rales, -rhonchi. Symmetrical chest rise. No increased work of breathing. No respiratory distress. Cardiac: RRR, -mrg. Radial pulses intact and symmetrical. Abdominal: Nontender, nondistended, soft. BS present. Specifically no RUQ tenderness Ext: warm, dry. 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 Sensation grossly intact in hands and feet bilaterally. Discharge Data Allergies Allergy/AdvReac Type Severity Reaction Status Date / Time No Known Allergies Allergy Verified 02/19/23 09:25 Consultations 02/19/23 11:44 ED Decision to Admit Stat Ordered Studies 02/19/23 09:37 CT angio head w con Stat CT angio neck with con Stat CT head/brain wo con Stat 02/20/23 09:06 US liver Routine Hospital Course (1) Encephalopathy: Summary: Jerod Joseph is a 77-year-old male with a history of recurrent acute encephalopathy due to UTIs additionally with history of alcohol use and possible alcohol induced metabolic encephalopathy. On admission he had a positive alcohol level and was not oriented to place or time and was acutely confused. Due to prior history of UTIs UA/UC were obtained, UC did not show any growth after 48 hours and presentation was not consistent with UTI. He did not receive antibiotics and clinically improved without the use. He was placed on a to assess and received <10 milligrams of Ativan in the first day and then none thereafter, showed no signs of withdrawal and clinically normalized by day of discharge. He is alert, oriented x 3 and appeared at his normal baseline at time of discharge. Patient did report that he feels that his UTIs and possible urinary symptoms drive him to drink not the other way around, but does recognize that he has an underlying vulnerability to confusion/encephalopathy and either UTI or alcohol use could precipitate this. Patient reports that he does think he can stay sober for several months to help see if this improves his episodes of confusion, resources provided. Patient was ambulating independently at the bedside at time of discharge with no change in strength, appropriate for discharge home. Case was reviewed with his son by phone. Patient does have a mild chronic transaminitis which was increased during admission and then stable. Liver ultrasound showed no gallstones or biliary ductal dilation/disease, a partially discrete pancreas, and hepatic steatosis. At time of discharge she had no abdominal pain and specifically no right upper quadrant pain. Suspected alcohol induced transaminitis, cessation recommended with recheck in approximately 1 week for stability. Patient had had prior hepatitis liver panel including hep C which were negative and denies any recreational drug use.. Ammonia was normal during admission. He received high-dose thiamine repletion during admission. To do as outpatient: Follow-up with PCP alcohol cessation resources as noted Continue to monitor for signs of UTI, no signs of infection at time of discharge Repeat CBC in 1 week for Progress note below copied for completion Suspected due to alcohol use? Acute with withdrawal symptoms versus Warnicke's encephalopathy Improving but is still not well oriented Ativan requirements rapidly downtrending, has not returned to a normal baseline of oriented to year/place No infectious symptoms, ammonia is normal, is with normal bicarb History of alcohol withdrawal, EtOH was positive on admission 02/19 If related to withdrawal moving into day , given he has not returned to a oriented baseline we will continue to observe. Did review notes from , at that time patient had a similar presentation but recovered to a alert and oriented x 3 baseline Denies dysuria and urinary symptoms, denies cough, fever. UA this admission was contaminated with epithelial cells but without leukocyte esterase or nitrates. No bacteria. (2) Wernicke's encephalopathy: Start Thiamine 500mg IV TID (3) Alcohol withdrawal: Appears relatively well controlled today with 8mg lorazepam yesterday Continue PRN 1-3mg per AWSS dosing (4) Alcoholic hepatitis: US liver with no biliary pathology, steatosis likely from alcohol Appears stable but also new from prior Most likely alcohol induced Plt mildly reduced, INR 1.1 (5) Essential hypertension: Blood pressure mildly elevated. Likely secondary to chronic hypertension + alcohol withdrawal Continue home Diltiazem Continue lorazepam for withdrawal (6) Afib: Currently in NSR -Continue Diltiazem -Continue Apixaban (7) Hypokalemia: Continue his usual potassium supplementation as unlikely taking at home. Improved from admission. Plan VTE Prophylaxis - Eliquis Diet - regular Disposition - continue on PCU Total Time Total Time Spent Total Time Spent (In Minutes): Time spend day of discharge 45 minutes including direct patient care, documentation, review of labs and images, and coordination of care. Discharge Plan Discharge Items Patient Disposition: Home - Self-Care Reason For Visit: CONFUSION Discharge Diagnosis: Acute Confusion Activity: Resume your previous activity Non-emergency contact: Primary Care Provider Call non-emergency contact if: you have any medication questions and your symptoms worsen Follow-up/Referrals: Julian Marc MD [Primary Care Provider] - Diet: Regular Addtl Attending Provider Instructions: You are seen in the hospital for an acute episode of confusion. Your urinalysis did not show signs of infection and your urine culture did not show evidence of a UTI. You had a mildly elevated alcohol level on admission, this may have helped precipitate an acute confusion/delirium episode. Your liver numbers were elevated but stable during admission, liver ultrasound did not show any evidence of gallbladder stones or ductal obstruction. Your elevated liver numbers (transaminitis) were likely due to to alcohol ingestion, it is recommended to remain abstinent from alcohol and have a follow-up CMP performed in 1 week with your primary care provider. He did not have abdominal pain at time of discharge, and had return to your normal baseline at time of discharge, If you develop any new or worsening symptoms including fever, chills, sweats, chest pain, chest pressure, difficulty breathing, uncontrolled nausea/vomiting, rash, wheezing, passing out or nearly passing out, bleeding, black/bloody bowel movements, or other new or concerning symptoms please call your primary care physician, or call 911 for re-evaluation in the emergency department if you are very concerned. Pending Studies at Discharge: No Stand-Alone Forms: [facility], Smoking Cessation Medications and DC Order Prescriptions: Continued potassium chloride 20 mEq tablet,ER particles/crystals 20 meq PO QAM Qty: 90 3RF dutasteride 0.5 mg capsule 0.5 mg PO DAILY Qty: 90 1RF Eliquis 2.5 mg tablet 2.5 mg PO BID Qty: 60 2RF multivitamin [Daily Multi-Vitamin] Tablet 1 tab PO DAILY Qty: 30 0RF diltiazem HCl 180 mg capsule,extended release 24 hr 180 mg PO QAM Qty: 90 3RF vitamin B complex Tablet 1 tab PO QAM glucosamine-chondroitin 500-400 mg tablet 1 tab PO QAM cholecalciferol (vitamin D3) 25 mcg (1,000 unit) tablet 1,000 unit PO Q OTHER DAY Spiriva Respimat 2.5 mcg/actuation mist 2 puff inhalation QAM PRN (Reason: Shortness Of Breath Or Wheezing) acetaminophen 500 mg Capsule 1,000 mg PO Q6H PRN (Reason: Pain) Discharge Orders: Discharge Order (Routine); Ordered 02/22/23 Ordered By: Sammy Woodard Admission Data Admit Date/Time: 02/19/23 12:35 Attending Provider: Sammy Woodard Admit Provider: Kiera Reese Primary Care Provider: Julian Marc Other Providers: Kiera Reese Coding Level of Care Code 86171 INP/OBS DISCH >30 MIN Diagnoses Encephalopathy G93.40 Wernicke's encephalopathy E51.2 Alcohol withdrawal F10.939 Alcoholic hepatitis K70.10 Essential hypertension I10 Afib I48.91 Hypokalemia E87.6
[2023-02-22 10:45] VITALS: RESP 19; TEMP 97.5; O2SAT 95
[2023-02-22 13:59] VITALS: BP 138/94; PULSE 109
== END 2023-02-22 15:13 | disposition home or self-care (01) ==
LOC: ED 09:05 → 2S 09:05 → SUATTDRO 12:35 → 2S 14:43
DX: I48.91 Unspecified atrial fibrillation; Z79.01 Long term (current) use of anticoagulants; F10.939 Alcohol use, unspecified with withdrawal, unspecified; Z11.52 Encounter for screening for COVID-19; Z87.440 Personal history of urinary (tract) infections; Z79.899 Other long term (current) drug therapy; I10 Essential (primary) hypertension; E83.42 Hypomagnesemia; E51.2 Wernicke's encephalopathy; K70.10 Alcoholic hepatitis without ascites; E87.6 Hypokalemia; F17.290 Nicotine dependence, other tobacco product, uncomplicated; J43.9 Emphysema, unspecified; Z85.118 Personal history of other malignant neoplasm of bronchus and lung

== ENCOUNTER 2023-06-20 18:28 | Observation (INO) ==
[2023-06-20 19:31] LABS: iSTAT Arterial Blood Gas HCO3 15 meg/L (19-24); iSTAT Arterial Blood Gas pCO2 31 mmHg (35-46); iSTAT Arterial Blood Gas pH 7.31 (7.35-7.45); iSTAT Arterial Blood Gas pO2 45 mmHg (80-95); iSTAT Carbon Dioxide 16 mmol/L (24-31); iSTAT Hematocrit 47 % (42-52); iSTAT Potassium 3.7 mmol/L (3.3-5.0); iSTAT Sodium 135 mmol/L (135-144)
[2023-06-20] MEDS: SODIUM CHLORIDE 0.9% 1,000 ML IV SCH (19:31)
[2023-06-20 19:34] LABS: iSTAT Creatinine 1.5 mg/dl (0.6-1.3); iSTAT Hemoglobin 16.7 g/dl (14.0-18.0); iSTAT Ionized Calcium 1.03 mmol/l (1.12-1.32); iSTAT Potassium 3.7 mmol/L (3.3-5.0)
[2023-06-20 19:35] LABS: Base Excess VBG -8.6 mEq/L; HCO3 VBG 17 mmol/L; PCO2 VBG 33 mmHg (38-50); PO2 VBG 47 mmHg; pH VBG 7.31 (7.36-7.41)
[2023-06-20 19:43] LABS: Basophils # (auto) 0.05 K/uL (0.00-0.20); Basophils % (auto) 0.9 %; Eosinophils # (auto) 0.05 K/uL (0.00-0.50); Eosinophils % (auto) 0.9 %; Hematocrit (blood only) 44.3 % (42.0-52.0); Hemoglobin 15.2 g/dl (14.0-18.0); Immature Granulocytes # (auto) 0.03 K/uL (0.01-0.20); Immature Granulocytes % (auto) 0.5 %; Lymphocytes # (auto) 0.68 K/uL (1.20-3.40); Lymphocytes % (auto) 12.1 %; Mean Corpuscular Hgb Conc 34.3 g/dL (32.0-36.0); Mean Corpuscular Volume 99.1 fL (80.0-100.0); Mean Platelet Volume 9.7 fL (9.4-12.4); Monocytes # (auto) 0.33 K/uL (0.11-0.59); Monocytes % (auto) 5.9 %; Neutrophils # (auto) 4.46 K/uL (1.40-6.50); Neutrophils % (auto) 79.7 %; Platelet Count 171 K/uL (130-400); RDW Coefficient of Variation 14.5 % (11.5-14.5); RDW Standard Deviation 52.8 fL (36.4-46.3); Red Blood Count 4.47 M/uL (4.70-6.10)
[2023-06-20] MEDS: SODIUM CHLORIDE 0.9% 500 ML IV ONE (19:54)
[2023-06-20 20:01] LABS: Albumin Level 4.7 gm/dl (3.4-5.0); BUN Creatinine Ratio 23.4 (10-20); Bilirubin Direct 0.1 mg/dl (0-0.2); Bilirubin,Total 0.7 mg/dl (0.2-1.0); Calcium 8.7 mg/dl (8.6-10.3); Creatinine Clr Calc Pharmacy 53.3 ml/min; Est GFR (African American) 77.2 ml/min; Est GFR (Non-African American) 66.6 ml/min; Magnesium 1.9 mg/dl (1.7-2.4); Potassium 3.8 mmol/L (3.5-5.1); Total Protein 7.3 gm/dl (6.0-8.3)
[2023-06-20 20:07] LABS: Troponin I High Sensitivity 14.1 pg/ml (0-20)
[2023-06-20 20:11] LABS: Partial Thromboplastin Time 29 Seconds (21-31); Prothrombin Time 10.8 Seconds (9.0-12.0)
--- NOTE | 2023-06-20 20:26 | CT Scan Report ---
Exam(s): CT HEAD Without Contrast EXAM: CT Head Without Intravenous Contrast CLINICAL HISTORY: Reason for exam: ams. TECHNIQUE: Axial computed tomography images of the head/brain without intravenous contrast. CTDI is 37.32 mGy and DLP is 624.41 mGy-cm. Automated exposure control was utilized for the study. A dose lowering technique was utilized adhering to the principles of ALARA. COMPARISON: No relevant prior studies available. FINDINGS: Brain: Generalized parenchymal volume loss. Hypoattenuation in the periventricular deep cerebral white matter compatible with chronic small vessel ischemic disease. Cobms-white matter differentiation maintained. No acute intracranial hemorrhage, mass-effect, or parenchymal edema. Ventricles: Unremarkable. No hydrocephalus. Bones/joints: Unremarkable. No acute fracture. Soft tissues: Unremarkable. Vasculature: Intracranial atherosclerosis. Sinuses: Unremarkable as visualized. No acute sinusitis. Mastoid air cells: Unremarkable as visualized. No mastoid effusion. IMPRESSION: No acute intracranial process. Electronically signed by: Malcom Chowdhury M.D. 06/20/23 20:25 PM
[2023-06-20] MEDS: PIPERACILLIN/TAZOBACTAM 4.5 GM/120 ML BAG IV ONE (20:39)
--- NOTE | 2023-06-20 20:43 | CT Scan Report ---
Exam(s): CT C SPINE EXAM: CT Cervical Spine Without Intravenous Contrast CLINICAL HISTORY: Reason for exam: ams. TECHNIQUE: Axial computed tomography images of the cervical spine without intravenous contrast. CTDI is 26 mGy and DLP is 606 mGy-cm. Automated exposure control was utilized for the study. A dose lowering technique was utilized adhering to the principles of ALARA. COMPARISON: 05/21/22 FINDINGS: Vertebral body height and alignment are maintained. There is no acute fracture or traumatic subluxation. There is multilevel facet degeneration, right greater than left. There is multilevel disc and uncovertebral joint degeneration. There is no significant central spinal canal narrowing. There is multilevel bilateral foraminal narrowing, greatest on the right at C3-C4, on the right at C5-C6, and bilaterally at C6-C7. There is no prevertebral soft tissue swelling. There is pleural- parenchymal scarring at the lung apices. IMPRESSION: No acute osseous findings. Electronically signed by: Malcom Chowdhury M.D. 06/20/23 20:42 PM
--- NOTE | 2023-06-20 21:08 | Emergency Department Note ---
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 ketoacidosis Discharge Plan Visit Data Chief Complaint: Altered Mental Status Stated Complaint: CONFUSSION ED Provider: Miguel Husain Discharge Problem: Lactic acidemia, Alcohol abuse, Alcoholic ketoacidosis Patient Disposition: Admitted As Inpatient Forms Stand Alone Forms: My [facility] Prescriptions Prescriptions: No Action potassium chloride 20 mEq tablet,ER particles/crystals 20 meq PO QAM Qty: 90 3RF Eliquis 2.5 mg tablet 2.5 mg PO BID Qty: 60 2RF Spiriva Respimat 2.5 mcg/actuation mist 2 puff inhalation QAM PRN (Reason: Shortness Of Breath Or Wheezing) Qty: 4 3RF lisinopril 10 mg tablet 10 mg PO DAILY Qty: 30 2RF dutasteride 0.5 mg capsule 0.5 mg PO DAILY Qty: 90 1RF multivitamin [Daily Multi-Vitamin] Tablet 1 tab PO DAILY Qty: 30 0RF diltiazem HCl 180 mg capsule,extended release 24 hr 180 mg PO QAM Qty: 90 3RF vitamin B complex Tablet 1 tab PO QAM glucosamine-chondroitin 500-400 mg tablet 1 tab PO QAM cholecalciferol (vitamin D3) 25 mcg (1,000 unit) tablet 1,000 unit PO Q OTHER DAY acetaminophen 500 mg Capsule 1,000 mg PO Q6H PRN (Reason: Pain) Referrals Referrals: ProJulian MD [Primary Care Provider] -
[2023-06-20 21:44] LABS: Appearance Urine Clear (Clear); Bacteria Urine Automated None Seen (None Seen); Bilirubin Urine Negative (Negative); Blood Urine 3+ (Negative); Cast Urine Automated 0-2 /lpf (0-2); Color Urine Yellow; Epithelial Cell Urine Auto 0-2 /hpf (0-2); Glucose Urine UA Negative (Negative); Ketones Urine 2+ (Negative); Leukocyte Esterase Urine Negative (Negative); Nitrite Urine Negative (Negative); Protein Urine Trace (Negative); Specific Gravity Urine 1.011 (1.000-1.030); Urobilinogen Urine Negative (Negative); WBC Urine Automated 0-5 /hpf (0-5); pH Urine 5.5 (4.5-7.5)
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
[2023-06-21] MEDS ORDERED: LORazepam 1 MG in SYRINGE 0.5 ML IV PRN ×2 (01:09→10:21)
[2023-06-21] MEDS ORDERED: ACETAMINOPHEN 325 MG TAB PO PRN (01:09)
[2023-06-21] MEDS ORDERED: ONDANSETRON INJ 2 MG/ML 2 ML VIAL IV PRN (01:09)
[2023-06-21] MEDS ORDERED: UMECLIDINIUM BROMIDE 62.5MCG/BLISTER 7 PUFFS/INHALER INH PRN (01:49)
[2023-06-21] MEDS: LACTATED RINGER'S 1,000 ML IV SCH (02:00)
[2023-06-21] MEDS: MULTI-VITAMIN INFUSION 10 ML, THIAMINE HCL 100 MG, FOLIC ACID 1 MG in SODIUM CHLORIDE 0... IV ONE (02:31)
[2023-06-21] MEDS ORDERED: POLYETHYLENE (MIRALAX) 17 GM PACK PO PRN (02:41)
[2023-06-21] MEDS ORDERED: bisacodyL 10 MG SUPP PR PRN (02:41)
[2023-06-21] MEDS ORDERED: ALBUTEROL 0.5% NEB SOLN 2.5 MG/0.5 ML VIAL NEB PRN (04:12)
--- NOTE | 2023-06-21 07:23 | XRay Report ---
XR chest 1V portable HISTORY: 78 years-old Male Sepsis acute sepsis COMPARISON: Chest CT 11/29/2022 TECHNIQUE: AP view of the chest FINDINGS: Cardiomediastinal and hilar silhouettes are unchanged. There is atherosclerosis of the aorta. Irregul ar subpleural opacity of the right lung apex are stable. There is no pneumothorax, pleural effusion o r pulmonary edema. The bones appear intact. IMPRESSION: 1. No acute process of the chest. 2. Stable right apical nodular density, better evaluated on the comparison chest CT. ACT 112: Negative or not required by law. The above report was generated using voice recognition software. It may contain grammatical, syntax o r spelling errors. Electronically signed by: Pedro Hanks M.D. 06/21/2023 7:21 AM
--- NOTE | 2023-06-21 07:43 | Hospitalist Progress Note ---
"Date of Service June 21, 2023 Assessment & Plan (1) Alcohol withdrawal: Plan: Jerod is a 78M with PMH of alcohol use, HTN, bladder tumor (squamous metaplasia) s/p TURP, osteoarthritis, HLD, spinal stenosis, A Fib, BPH, COPD w/ active smoking, lung cancer/pulmonary nodules, and adjustment disorder who presented for alcohol intoxication w/ associated confusion after being called in by jeff who noticed him exhibiting abnormal behaviors. Alcohol Abuse | Alcohol Withdrawal | Intoxication | Lactic Acidemia - Patient presented acutely intoxicated with lactic acidemia - No sign of acute infection - Lactate downtrending after banana bag and fluid resuscitations - LR ongoing at 100cc/hr - CT Head and C-spine unremarkable - CXR unremarkable - Now experiencing visual hallucinations - Ativan PRN for AWSS > 6 - Continue Thiamine and Folate supplementation Thiamin dose increased to 500 TID due to concern for Wernicke Encephalopathy Severe Grief vs Encephalopathy - Patient endorses drinking episodes provoked by grief from loss of father and sister - Patient AO x 4, able to provide factual details in conversation - Continue to correlate history with patient and family - Thiamine as above - Requested Psych liaison services - Suspect that patient is experiencing prolonged grief and would benefit from grief counseling Hypertension - Chronic, BP elevated on admission - Continue home antihypertensives - Monitor BP Atrial Fibrillation - Chronic, stable - Continue home Eliquis 2.5 BID and Diltiazem COPD - Chronic, stable - No dyspnea or wheezing - Continue Umeclidinium [place] and Albuterol PRN CODE: Full Diet: Heart Healthy Fluids: LR @ 100 DVT Ppx: Therapeutic Eliquis Dispo: Undetermined, continue med/surg (2) Lactic acidemia: (3) Hypertension: (4) Afib: (5) COPD with emphysema: (6) Alcohol use: Admission and Anticipated Discharge Date Admission Date: June 20, 2023 Supervising Physician Co-Signing Physician Notes I personally examined the patient and verified all jaime points of history and exam, discussed case, and agree with decision making with Dr Muniz Single little bit of writing that he knows is not there. Wonders if it relates to urinary tract infectionbut he has no dysuria, frequency, urgency, prostatitis symptoms, etc. No fevers chills or sweats. He relates drinking and grief over his father and sister being intertwined. Vitals noted, in general he is awake and alert pleasant gets tearful at times no distress. HEENT normocephalic atraumatic mucous membranes moist. Breathing unlabored no accessory muscle use good effort. Skin shows no rashes no pallor or icterus. Neuro without focal deficits. Alcohol abuse/withdrawalgiven his lack of UTI symptoms and lack of infectious symptoms, as well as reassuring urinalysisI really suspect his hallucination symptoms are more due to alcohol withdrawal than any infection. Obviously we will continue with vigilance, but manage with a WSS and symptom triggered benzodiazepines at this time and follow closely. Chronic alcohol abusethiamine and folate, follow his situation closely, given that he lives alone and seems to be struggling to take care of himselfI do worry a bit about dementia syndromeseither simply with age such as Alzheimer's, or specific to alcohol such as Warnicke Korsakoff (and I am treating with high- dose thiamine for now to that end to be safe) anticoagulated Subjective 06/21/23: Patient comfortable in bed upon arrival. Notes that he may have drank too much the last few days. Upon discussion, he notes that his dad's (who passed 4-5 years ago) birthday was on [birth year]12 and this provoked significant grief in addition to thoughts regarding the of his sister. Furthermore, his birthday was [birth year], he experienced grief regarding being alone without his father and sister, and admits he may have drank more than usual to self medicate. Patient notes that he typically drinsk 3-4 shot glasses of liquor each day, some days are more, others less and that he has been doing this for years. This morning he notes that he has been hallucinating writing on the ram. He states that this is often a sign of a UTI for him, but denies dysuria, frequency or burning. Patient denies chest pain, dyspnea, abdominal pain, nausea, headaches, or bowel/bladder changes. Physical Exam Physical Exam: Gen: NAD, alert, interactive, AO x 4 HEENT: Supple, no LAD, no thyromegaly, no JVD Resp:Non-labored, no wheezing/rhonchi/rales, CTAB CV:RRR, normal S1/S2, faint systolic murmur at RUSB Abd: Soft, non-distended, no TTP, normoactive bowels, no masses Extr: 2+ dp bilaterally, no edema Skin: No rashes lesions or erythema Results & Data Results & Data Vital Signs (Past 12 Hours) Vital Signs Temp Pulse Pulse Resp BP BP Pulse Ox 06/21/23 00:50 36.7 C 94 H 16 178/94 H 94 06/21/23 00:40 85 17 06/21/23 00:30 85 18 06/21/23 00:20 86 12 06/21/23 00:10 87 13 06/21/23 00:00 112 H 30 H 06/20/23 23:50 106 H 16 06/20/23 23:40 87 20 82 L 06/20/23 23:30 86 19 06/20/23 23:20 85 18 06/20/23 23:10 83 18 06/20/23 23:00 86 19 06/20/23 22:53 88 06/20/23 22:50 87 17 06/20/23 22:40 86 16 06/20/23 22:30 89 17 06/20/23 22:20 100 H 19 06/20/23 22:10 89 7 L 06/20/23 22:00 97 H 21 06/20/23 21:50 90 18 95 06/20/23 21:40 87 18 94 06/20/23 21:30 89 16 96 06/20/23 21:20 90 24 97 06/20/23 21:10 91 H 21 97 06/20/23 21:00 90 17 98 06/20/23 20:50 87 15 97 06/20/23 20:40 89 21 98 06/20/23 20:38 153/95 H 06/20/23 20:38 88 22 06/20/23 20:37 97 H 06/20/23 20:00 85 14 96 06/20/23 19:50 85 16 95 O2 Del Method 06/21/23 00:50 Room Air 06/21/23 00:40 06/21/23 00:30 06/21/23 00:20 06/21/23 00:10 06/21/23 00:00 06/20/23 23:50 06/20/23 23:40 06/20/23 23:30 06/20/23 23:20 06/20/23 23:10 06/20/23 23:00 06/20/23 22:53 04/23/24 22:50 06/20/23 22:40 06/20/23 22:30 06/20/23 22:20 06/20/23 22:10 06/20/23 22:00 06/20/23 21:50 06/20/23 21:40 06/20/23 21:30 06/20/23 21:20 06/20/23 21:10 06/20/23 21:00 06/20/23 20:50 06/20/23 20:40 06/20/23 20:38 06/20/23 20:38 06/20/23 20:37 06/20/23 20:00 06/20/23 19:50 Resident Activity Tracking Resident Involvement: Resident Care Provided Care Provided: Adult Hospital Medicine"
[2023-06-21 07:56] LABS: Hematocrit (blood only) 40.5 % (42.0-52.0); Mean Corpuscular Hemoglobin 33.6 pg (25.0-34.0); Mean Corpuscular Hgb Conc 34.6 g/dL (32.0-36.0); Mean Corpuscular Volume 97.1 fL (80.0-100.0); Mean Platelet Volume 9.5 fL (9.4-12.4); Platelet Count 164 K/uL (130-400); RDW Coefficient of Variation 14.2 % (11.5-14.5); RDW Standard Deviation 51.1 fL (36.4-46.3); Red Blood Count 4.17 M/uL (4.70-6.10)
[2023-06-21 08:29] LABS: Bilirubin,Total 1.1 mg/dl (0.2-1.0)
[2023-06-21 08:30] LABS: Albumin Level 4.5 gm/dl (3.4-5.0); BUN Creatinine Ratio 17.6 (10-20); Bilirubin Direct 0.3 mg/dl (0-0.2); Calcium 8.4 mg/dl (8.6-10.3); Creatinine Clr Calc Pharmacy 75.9 ml/min; Est GFR (African American) 103.1 ml/min; Potassium 3.7 mmol/L (3.5-5.1); Total Protein 7.1 gm/dl (6.0-8.3)
[2023-06-21] MEDS: lisinopril 10 MG TAB PO SCH (08:32)
[2023-06-21] MEDS: dilTIAZem HCL 180 MG CAPCR PO SCH (08:37)
[2023-06-21] MEDS: FOLIC ACID 1 MG TAB PO SCH (08:37)
[2023-06-21] MEDS: APIXABAN 2.5 MG TAB PO SCH (08:37)
[2023-06-21] MEDS: DOCUSATE SODIUM 100 MG CAP PO SCH (08:37)
[2023-06-21] MEDS ORDERED: THIAMINE HCL 100 MG TAB PO SCH ×2 (09:00→14:00)
[2023-06-21] MEDS: THIAMINE HCL 200 MG in SODIUM CHLORIDE 0.9% 50 ML IV SCH (10:19)
[2023-06-21] MEDS: THIAMINE HCL 500 MG in SODIUM CHLORIDE 0.9% 50 ML IV SCH (13:07)
--- NOTE | 2023-06-21 16:15 | Electrocardiogram Report ---
Test Reason : Blood Pressure : / mmHG Vent. Rate : 106 BPM Atrial Rate : 106 BPM P-R Int : 158 ms QRS Dur : 096 ms QT Int : 354 ms P-R-T Axes : 076 023 069 degrees QTc Int : 470 ms Sinus tachycardia with Premature atrial complexes Otherwise normal ECG When compared with ECG of 19-FEB-2023 09:47, Premature atrial complexes are now Present Confirmed by Julian Clark ([id number]) on 06/21/2023 4:15:14 PM Referred By: REFERRED SELF Confirmed By:Julian Clark
--- NOTE | 2023-06-21 17:07 | Billing Data ---
Date of Service June 21, 2023 Coding Level of Care Code 02454 SUB INP/OBS CARE
--- NOTE | 2023-06-22 07:13 | Hospitalist Progress Note ---
"Date of Service June 22, 2023 Assessment & Plan (1) Alcohol withdrawal: Plan: Jerod is a 78M with PMH of alcohol use, HTN, bladder tumor (squamous metaplasia) s/p TURP, osteoarthritis, HLD, spinal stenosis, A Fib, BPH, COPD w/ active smoking, lung cancer/pulmonary nodules, and adjustment disorder who presented for alcohol intoxication w/ associated confusion after being called in by jeff who noticed him exhibiting abnormal behaviors. Alcohol Abuse | Alcohol Withdrawal | Intoxication | Lactic Acidemia - Patient presented acutely intoxicated with lactic acidemia - No sign of acute infection - Lactate downtrending after banana bag and fluid resuscitations - LR ongoing at 100cc/hr - CT Head and C-spine unremarkable - CXR unremarkable - Now experiencing visual hallucinations - Ativan PRN for AWSS > 6 - Continue Thiamine and Folate supplementation Thiamin dose increased to 500 TID due to concern for Wernicke Encephalopathy - Hallucinations resolved today w/ time from last drink, monitor for recurrence Severe Grief vs Encephalopathy - Patient endorses drinking episodes provoked by grief from loss of father and sister - Patient AO x 4, able to provide factual details in conversation - Continue to correlate history with patient and family, Wernicke increasing in likelihood - Thiamine as above - Requested Psych liaison services - Suspect that patients presentation is multifaceted Hypertension - Chronic, BP elevated on admission - Continuation home antihypertensives - Monitor BP Atrial Fibrillation - Chronic, stable - Continue home Eliquis 2.5 BID and Diltiazem COPD - Chronic, stable - No dyspnea or wheezing - Continue Umeclidinium Hope and Albuterol PRN CODE: Full Diet: Heart Healthy Fluids: None DVT Ppx: Therapeutic Eliquis Dispo: Undetermined, continue med/surg (2) Lactic acidemia: (3) Hypertension: (4) Afib: (5) COPD with emphysema: (6) Alcohol use: Admission and Anticipated Discharge Date Admission Date: June 20, 2023 Subjective 06/22/23: Patient comfortable in bed upon arrival. Denies hallucinations or acute concerns. No hallucinations today. He denies urinary sx, fever or chills. Occasional word finding difficulty. Occasionally tearful. Physical Exam Physical Exam: Gen: NAD, alert, interactive, AO x 4, tearful on occasion HEENT: Supple, no LAD, no thyromegaly, no JVD Resp:Non-labored, no wheezing/rhonchi/rales, CTAB CV:RRR, normal S1/S2, faint systolic murmur at RUSB Abd: Soft, non-distended, no TTP, normoactive bowels, no masses Extr: 2+ dp bilaterally, no edema Skin: No rashes lesions or erythema Results & Data Results & Data Vital Signs (Past 12 Hours) Vital Signs Temp Pulse Resp BP Pulse Ox O2 Del Method 06/21/23 20:11 36.8 C 76 18 173/89 H 94 Room Air 06/21/23 20:00 Room Air Resident Activity Tracking Resident Involvement: Resident Care Provided Care Provided: Adult Hospital Medicine"
[2023-06-22 08:17] LABS: Hematocrit (blood only) 39.9 % (42.0-52.0); Hemoglobin 14.1 g/dl (14.0-18.0); Mean Corpuscular Hgb Conc 35.3 g/dL (32.0-36.0); Mean Corpuscular Volume 96.1 fL (80.0-100.0); Mean Platelet Volume 9.9 fL (9.4-12.4); Platelet Count 129 K/uL (130-400); RDW Standard Deviation 49.4 fL (36.4-46.3); Red Blood Count 4.15 M/uL (4.70-6.10); White Blood Count 5.38 K/ul (4.8-10.8)
[2023-06-22 08:27] LABS: Albumin Globulin Ratio 1.8 (0.9-2); Albumin Level 4.2 gm/dl (3.4-5.0); BUN Creatinine Ratio 13.2 (10-20); Bilirubin,Total 1.5 mg/dl (0.2-1.0); Calcium 8.9 mg/dl (8.6-10.3); Creatinine Clr Calc Pharmacy 73.9 ml/min; Globulin 2.4 gm/dl (2.5-4.0); Potassium 3.1 mmol/L (3.5-5.1); Total Protein 6.6 gm/dl (6.0-8.3)
[2023-06-22 19:37] VITALS: TEMP 98.4
[2023-06-23 07:31] VITALS: PULSE 75; RESP 16; O2SAT 95
[2023-06-23 09:03] LABS: Est GFR (African American) 98.9 ml/min; Potassium 2.9 mmol/L (3.5-5.1)
[2023-06-23 09:04] LABS: BUN Creatinine Ratio 15.9 (10-20); Calcium 8.6 mg/dl (8.6-10.3); Creatinine Clr Calc Pharmacy 68.5 ml/min; Est GFR (Non-African American) 85.3 ml/min
[2023-06-23] MEDS: POTASSIUM CHLORIDE CRTAB 20 MEQ TABCR PO SCH (10:16)
--- NOTE | 2023-06-23 12:28 | Discharge Summary ---
"Date of Service June 23, 2023 Admission HPI Per Admitting Provider Jerod Joseph is a 78yo male with history of COPD, JOANIE, AF, BPH, HTN, EtOH use presenting from home with confusion. Patient does not know why he is in the hospital. Per report, his neighbors saw him sitting on his porch acting strangely. He reports drinking an increased amount of alcohol. Reports increased depression without SI/HI. Patient denies fever, chills, cough, chest pain or SOB. Denies abdominal pain, nausea, vomiting, diarrhea. He is constipated and reports his last BM was several days ago which is atypical. He did not take his medications today. Patient drinks daily. Difficult to determine amount - he reports several drinks per day. He drinks liquor - reports that a handle (1.75L) will last him 2 weeks (Appx 40 drinks over 2 weeks = 2-3/day). He reports not having a drink for several days - when told that his EtOH level was high on arrival he stated that maybe he was drinking today In the ER he is afebrile, HD stable Lactate = 7.7. Patient given 2.5L IVF - repeat lactate = 5.5 Admission Exam Per Admitting Provider General: patient resting comfortably, NAD, non-toxic in appearance, AA&O x 4, intoxicated Skin: warm, dry, intact, no rashes or lesions HEENT: NC/AT, PERRL, EOMI, anicteric sclera, conjunctiva without injection, external ear normal to inspection and nontender, nares patent, dry mucus membranes, dentition intact, no oropharyngeal lesions, neck supple, trachea midline, no LAD, no thyromegaly, no JVD Heart: +S1/S2, regular, no m/r/g Lungs: equal air entry bilaterally, no rales/rhonchi/wheezes Abd: +BS, soft, NT/ND, no masses/organomegaly/ascites Ext: warm, 2+ pulses in UE/LE bilaterally, no clubbing/cyanosis or edema Neuro: nonfocal, patient AA&O x 4, speech intact, no facial droop, moving all extremities on command with equal strength 5/5, no tremors or signs of withdrawal Principal Diagnosis Alcohol intoxication Discharge Exam Gen: NAD, alert, interactive, AO x 4 HEENT: Supple, no LAD, no thyromegaly, no JVD Resp:Non-labored, no wheezing/rhonchi/rales, CTAB CV:RRR, normal S1/S2, faint systolic murmur at RUSB Abd: Soft, non-distended, no TTP, normoactive bowels, no masses Extr: 2+ DP bilaterally, no edema Skin: No rashes lesions or erythema Discharge Data Allergies Allergy/AdvReac Type Severity Reaction Status Date / Time No Known Allergies Allergy Verified 06/20/23 21:13 Consultations 06/20/23 20:54 ED Decision to Admit Stat 06/21/23 12:35 Consult Behavioral Health Liaison Routine Ordered Studies 06/20/23 19:05 CT cervical spine wo con Stat CT head/brain wo con Stat Hospital Course (1) Alcohol withdrawal: Jerod is a 78M with PMH of alcohol use, HTN, bladder tumor (squamous metaplasia) s/p TURP, osteoarthritis, HLD, spinal stenosis, A Fib, BPH, COPD w/ active smoking, lung cancer/pulmonary nodules, and adjustment disorder who presented for alcohol intoxication w/ associated confusion after being called in by neighbors who noticed him exhibiting abnormal behaviors. Alcohol abuse | Alcohol withdrawal | Alcohol intoxication | Lactic acidemia - Patient presented acutely intoxicated with lactic acidemia, no sign of acute infection on admission - Lactate downtrended after banana bag and fluid resuscitations - CT Head and CT C-spine unremarkable - CXR unremarkable - Visual hallucinations largely resolved by time of discharge - Continue thiamine and folate supplementation on discharge for Wernicke encephalopathy - MOCA score of 19- mild cognitive impairment - Pt will be discharged home with home support by neighbor and son Bereavement disorder/metabolic encephalopathy - Patient endorses drinking episodes provoked by grief from loss of father and sister - Patient AO x 4, able to provide factual details in conversation - Wernicke encephalopathy suspected - Thiamine as above Hypertension - Chronic, BP elevated on admission - Continued home antihypertensives - BP stable during stay Atrial fibrillation - Chronic, stable - Continued home Eliquis 2.5 BID and Diltiazem COPD - Chronic, stable - No dyspnea or wheezing - Continued home inhalers (2) Lactic acidemia: (3) Hypertension: (4) Afib: (5) COPD with emphysema: (6) Alcohol use: Total Time Total Time Spent Total Time Spent (In Minutes): <30 Discharge Plan Discharge Items Patient Disposition: Home - Self-Care Reason For Visit: ELEVATED LACTATE Discharge Diagnosis: Alcohol intoxication Activity: Resume your previous activity Non-emergency contact: Primary Care Provider Call non-emergency contact if: your symptoms worsen Follow-up/Referrals: Julian Marc MD [Primary Care Provider] - 06/27/23 11:00 am Diet: Regular Addtl Attending Provider Instructions: You were admitted to the hospital for alcohol intoxication. You were treated with fluids and thiamine/folate to ensure your vitamins were not deficient and your hydration was adequate. A discharge summary will be sent to your primary care physician to ensure continuity of care. Please bring this discharge summary with you to your next office appointment so that your provider can review it at that time. Follow-up appointments: - Make a follow-up appointment with your PCP within the next week. It is very important that you follow up with them shortly after discharge from the hospital. Medications: Your medication list has been reviewed and reconciled upon discharge to ensure accuracy and continuity of care. An updated list of all your medications is included with your hospital discharge paperwork. Please review this list closely, and make note of any changes. -We sent medications called folic acid and thiamine to the pharmacy. Please take them daily going forward. Take your medications as instructed; do not skip a dose of your medicines. Make sure all of your doctors know every medicine you are taking (including hgvd-yqi-dsrctic medicines, vitamins, and supplements). Call your primary care provider before taking any new medicines (including patc-kig-ftlhgap medicines, vitamins, and supplements), because some of these may interact with your current medications, or may make your symptoms worse. Tell your primary care provider if you cannot afford your medications. CALL 911 OR GO TO THE EMERGENCY DEPARTMENT if you experience any of the following: - Sudden, severe abdominal pain or nausea/vomiting - Severe chest pain, or chest pain that radiates (moves) to your jaw or arm - Sudden, severe shortness of breath or difficulty breathing Thank you for allowing us to participate in your care Pending Studies at Discharge: No Stand-Alone Forms: My [facility] Medications and DC Order Prescriptions: New folic acid 1 mg tablet 1 mg PO DAILY Qty: 30 3RF thiamine HCl (vitamin B1) 250 mg tablet 250 mg PO DAILY Qty: 30 3RF Continued potassium chloride 20 mEq tablet,ER particles/crystals 20 meq PO QAM Qty: 90 3RF Eliquis 2.5 mg tablet 2.5 mg PO BID Qty: 60 2RF Spiriva Respimat 2.5 mcg/actuation mist 2 puff inhalation QAM PRN (Reason: Shortness Of Breath Or Wheezing) Qty: 4 3RF lisinopril 10 mg tablet 10 mg PO DAILY Qty: 30 2RF dutasteride 0.5 mg capsule 0.5 mg PO DAILY Qty: 90 1RF multivitamin [Daily Multi-Vitamin] Tablet 1 tab PO DAILY Qty: 30 0RF diltiazem HCl 180 mg capsule,extended release 24 hr 180 mg PO QAM Qty: 90 3RF vitamin B complex Tablet 1 tab PO QAM glucosamine-chondroitin 500-400 mg tablet 1 tab PO QAM cholecalciferol (vitamin D3) 25 mcg (1,000 unit) tablet 1,000 unit PO Q OTHER DAY acetaminophen 500 mg Capsule 1,000 mg PO Q6H PRN (Reason: Pain) Discharge Orders: Discharge Order (Routine); Ordered 06/23/23 Ordered By: Jen Schafer Admission Data Admit Date/Time: 06/20/23 23:19 Attending Provider: Ramesh Hathaway Admit Provider: Kiera Reese Primary Care Provider: Julian Marc Other Providers: Kiera Reese Other Interventions: Discharge Summary Assessment (RN) Last Done: 06/23/23 13:13 Supervising Physician Co-Signing Physician Notes I personally examined the patient and verified all jaime points of history and exam, discussed case, and agree with decision making with Dr Schafer Wants to get home. Expresses understanding that he may have a degree of permanent memory impairment from alcohol, but feels well enough to get home. Resident physician applied MoCA, patient scored a 19. Does seem to show capacity. Vitals noted, in general he is awake and alert pleasant walking in the room steadily no distress. HEENT normocephalic atraumatic mucous membranes moist. Breathing unlabored no accessory muscle use good effort. Skin shows no rashes no pallor or icterus. Neuro without focal deficits. Alcohol abuse/withdrawal seems to resolve Chronic alcohol abusethiamine and folate, does seem to have a degree of memory impairment, hopefully ongoing thiamine may help with this as well as ongoing removal from alcohol, B vitamins, and nutritional support. Does have capacity, expresses understanding of cause and effect of alcohol on his memory impairment. Family aware, PCP aware. Safe/stable for home. anticoagulated"
[2023-06-23 13:14] VITALS: BP 181/98
[2023-06-23] MEDS: MULTIVITAMIN TAB PO SCH (13:23)
--- NOTE | 2023-06-23 17:10 | Billing Data ---
Date of Service June 23, 2023 Coding Level of Care Code 35417 IN/OBS DISCH 30 MIN/LESS
== END 2023-06-23 14:29 | disposition home or self-care (01) ==
LOC: ED 18:28 → 3N 18:28 → SUATTDRO 23:19 → 3N 06-21 00:48
DX: Z79.51 Long term (current) use of inhaled steroids; I48.91 Unspecified atrial fibrillation; K59.00 Constipation, unspecified; Z79.01 Long term (current) use of anticoagulants; G93.41 Metabolic encephalopathy; E78.5 Hyperlipidemia, unspecified; N40.0 Benign prostatic hyperplasia without lower urinary tract symptoms; F17.210 Nicotine dependence, cigarettes, uncomplicated; M19.90 Unspecified osteoarthritis, unspecified site; Z85.118 Personal history of other malignant neoplasm of bronchus and lung; I10 Essential (primary) hypertension; J43.9 Emphysema, unspecified; Z63.4 Disappearance and death of family member; F17.290 Nicotine dependence, other tobacco product, uncomplicated; Z79.899 Other long term (current) drug therapy; G47.33 Obstructive sleep apnea (adult) (pediatric); F43.20 Adjustment disorder, unspecified; F32.A Depression, unspecified; F10.130 Alcohol abuse with withdrawal, uncomplicated; F10.129 Alcohol abuse with intoxication, unspecified

== ENCOUNTER 2023-09-25 06:04 | Inpatient (IN) ==
[2023-09-25 06:47] LABS: Basophils # (auto) 0.08 K/uL (0.00-0.20); Basophils % (auto) 0.7 %; Eosinophils # (auto) 0.19 K/uL (0.00-0.50); Eosinophils % (auto) 1.7 %; Hemoglobin 14.1 g/dl (14.0-18.0); Immature Granulocytes # (auto) 0.04 K/uL (0.01-0.20); Immature Granulocytes % (auto) 0.4 %; Lymphocytes # (auto) 1.54 K/uL (1.20-3.40); Lymphocytes % (auto) 13.9 %; Mean Corpuscular Hemoglobin 33.3 pg (25.0-34.0); Mean Corpuscular Hgb Conc 34.4 g/dL (32.0-36.0); Mean Corpuscular Volume 96.9 fL (80.0-100.0); Mean Platelet Volume 9.7 fL (9.4-12.4); Monocytes # (auto) 0.44 K/uL (0.11-0.59); Neutrophils # (auto) 8.82 K/uL (1.40-6.50); Neutrophils % (auto) 79.3 %; Platelet Count 236 K/uL (130-400); RDW Coefficient of Variation 14.1 % (11.5-14.5); RDW Standard Deviation 50.8 fL (36.4-46.3); Red Blood Count 4.23 M/uL (4.70-6.10); White Blood Count 11.11 K/ul (4.8-10.8)
[2023-09-25] MEDS: SODIUM CHLORIDE 0.9% 500 ML IV ONE (06:53)
[2023-09-25] MEDS: SODIUM CHLORIDE 0.9% 1,000 ML IV SCH (06:53)
[2023-09-25 07:05] LABS: Albumin Globulin Ratio 1.7 (0.9-2); Albumin Level 4.9 gm/dl (3.4-5.0); BUN Creatinine Ratio 19.6 (10-20); Bilirubin,Total 0.9 mg/dl (0.2-1.0); Calcium 8.9 mg/dl (8.6-10.3); Creatinine Clr Calc Pharmacy 57.4 ml/min; Est GFR (African American) 92.7 ml/min; Est GFR (Non-African American) 79.9 ml/min; Globulin 2.9 gm/dl (2.5-4.0); Magnesium 1.7 mg/dl (1.7-2.4); Potassium 3.8 mmol/L (3.5-5.1); Total Protein 7.8 gm/dl (6.0-8.3)
[2023-09-25 07:11] LABS: Troponin I High Sensitivity 6.6 pg/ml (0-20)
[2023-09-25 07:21] LABS: Thyroid Stimulating Hormone 1.521 uIu/ml (0.300-4.500)
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
[2023-09-25 08:09] LABS: Appearance Urine Cloudy (Clear); Bacteria Urine Automated 4+ (None Seen); Bilirubin Urine Negative (Negative); Blood Urine 3+ (Negative); Cast Urine Automated 0-2 /lpf (0-2); Color Urine Dark Yellow; Epithelial Cell Urine Auto 0-2 /hpf (0-2); Glucose Urine UA Negative (Negative); Ketones Urine 1+ (Negative); Leukocyte Esterase Urine 2+ (Negative); Nitrite Urine Negative (Negative); Protein Urine 2+ (Negative); RBC Urine Automated >20 /hpf (0-2); Specific Gravity Urine 1.012 (1.000-1.030); Urobilinogen Urine Negative (Negative); WBC Urine Automated >50 /hpf (0-5); pH Urine 5.5 (4.5-7.5)
--- NOTE | 2023-09-25 08:29 | CT Scan Report ---
ABDOMEN AND PELVIS CT WITHOUT CONTRAST CT DOSE: 651.71 mGy.cm HISTORY: Acute hematuria hematuria TECHNIQUE: Multiaxial CT images of the abdomen and pelvis were performed without contrast. A dose lo wering technique was utilized adhering to the principles of ALARA. COMPARISON STUDY: 03/06/2023 FINDINGS: Scattered calcified granulomata of the lungs. Mild pulmonary emphysema. No free air. Calcif ied granulomata of the spleen. Unremarkable pancreas and adrenal glands. Gallbladder is within normal limits. Fatty infiltration of the liver. Bilateral perinephric stranding, right greater than left. There are a few cysts redemonstrated within the kidneys measuring up to approximately 2 cm on the left. Areas of cortical scarring and parenchym al thickening within the right kidney with 1.6 and meter calyceal diverticulum. Interval development of severe right-sided hydroureteronephrosis with dilation of the right ureter extending to the UVJ. T he previously noted calcifications/calculi within the superior pole right kidney and calyceal diverti culum are no longer present. 5 mm calculus of the distal right ureter on image 260. Urinary bladder w all thickening which regulation and diverticula. Atherosclerosis of the aorta. No lymphadenopathy. Duodenal diverticulum. Colonic diverticulosis. No bowel obstruction or bowel wall thickening. No acut e fracture. IMPRESSION: 1. Severe right-sided hydroureteronephrosis with dilation of the right ureter extending to the UVJ. A dditionally, there is a 5 mm calculus within the distal right ureter. 2. 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 3. Hepatic steatosis. 4. Colonic diverticulosis. 5. Evidence of chronic bladder outlet obstruction. ACT 112: Negative or not required by law. The above report was generated using voice recognition software. It may contain grammatical, syntax o r spelling errors. Electronically signed by: Pedro Hanks M.D. 09/25/2023 8:26 AM
[2023-09-25] MEDS: cefTRIAXone SODIUM 2,000 MG/50 ML BAG IV STA (08:34)
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
--- NOTE | 2023-09-25 10:30 | XRay Report ---
XR chest 1V portable HISTORY: sepsis COMPARISON: Chest 06/20/2023. Chest CT 07/31/2023. FINDINGS: No pneumothorax. No pleural effusions. The heart is normal in size. There is a tortuous tho racic aorta, unchanged. No new focal lung consolidations to suggest a pneumonia. No evidence for pulm onary edema. No acute fractures. Mild emphysema. The right apical nodular density is partially obscur ed by the overlapping cardiac monitoring lead. IMPRESSION: 1. No acute process within the chest. 2. The right apical nodule is again noted. This is better appreciated on the recent chest CT. ACT 112: Negative or not required by law. Electronically signed by: Lico Hess M.D. 09/25/2023 10:29 AM
[2023-09-25] MEDS ORDERED: LORazepam 1 MG in SYRINGE 0.5 ML IV PRN (10:35)
[2023-09-25] MEDS: LACTATED RINGER'S 1,000 ML IV ONE (10:36)
[2023-09-25] MEDS ORDERED: ACETAMINOPHEN 325 MG TAB PO PRN (11:18)
[2023-09-25] MEDS ORDERED: ePHEDrine sulfate 50 MG/ML AMP IV PRN (11:31)
[2023-09-25] MEDS ORDERED: ONDANSETRON INJ 2 MG/ML 2 ML VIAL IV PRN (11:31)
[2023-09-25] MEDS ORDERED: ATROPINE SULFATE 0.1 MG/ML 10ML SYR IV PRN (11:31)
[2023-09-25] MEDS ORDERED: fentaNYL citrate PF 100 MCG/2 ML VIAL IV PRN (11:31)
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
[2023-09-25] MEDS ORDERED: LIDOCAINE 2% 2 ML VIAL/AMP(20MG/ML) INFIL ONE (11:55)
[2023-09-25] MEDS ORDERED: fentaNYL citrate PF 100 MCG/2 ML VIAL ONE (11:55)
[2023-09-25] MEDS ORDERED: PROPOFOL IV EMULSION 10 MG/ML 20 ML VIAL IV ONE ×2 (11:55→12:07)
[2023-09-25] MEDS ORDERED: ONDANSETRON INJ 2 MG/ML 2 ML VIAL ONE (12:07)
[2023-09-25] MEDS: DIATRIZOATE MEGLUMINE 30% 100ML VIAL INSTIL ONE (12:25)
--- NOTE | 2023-09-25 12:35 | Operative Report ---
PG Post Operative Report Pre & Post Diagnosis Operation Date: 09/25/23 09:30 Pre-Op Diagnosis: Hematuria, Hydronephrosis, Ureterolithiasis Post-Op Diagnosis: Hematuria, Hydronephrosis, Ureterolithiasis I identified the patient and participated in the time-out.: Yes Procedure Operation Date: 09/25/23 09:30 Actual Procedures p Cystoscopy with clot evacuation and drainage of debris. Right Retrograde Pyelogram, Right ureteral dilation, Right Stent Placement(Right) - Russell Rivera DO Surgeon Russell Rivera, II, DO [place] [employer] Patcher None Estimated Blood Loss 1 Findings Consistent with Post-Op Diagnosis Old clot material and debris within the bladder. Irrigated and cleared. Significant sloughing areas around bladder with inflammed appearance. Significant narrowing of the Right UO. Dilated. Significant obstruction of right Ureter likely due to stone. Stent placed in good position. Specimens None Drains 6 Fr Multilength Anesthesia Type MAC Complications none Disposition Disposition: Recovery Room Indications Patient with obstruction. Risks and benefits discussed at length. Description of Procedure Patient was consented and brought back to the operating room. Patient was placed under anesthesia in the supine position and moved to the dorsal lithotomy position. Patient was prepped and draped in the regular sterile fashion. A time out was completed. A 30degree Cystoscope was placed into the bladder and the entire bladder was examined. Significant inflammation was noted. There were multiple areas of sloughing tissues/debris. The base of the bladder had a moderate amount of old appearing clot material and blood. This was mixed with the debris. Evacuation was needed to clear and irrigate the debris and clot. The UO's were identified. The left UO appeared to be draining well. Significant thickening was noted at the right UO. The UO was cannulized with a [place] catheter and a retrograde pyelogram was completed. Likely obstruction of the distal ureter due to stone. The UO was significant narrowed. A wire was then placed. The UO was dilated. The 5 Fr catheter was then advanced and the wire was able to be manipulated into the renal pelvis. The Ureter and Renal pelvis were severely dilated on pyelogram. With the wire in place, a 6 Fr Double J stent was placed. It was confirmed with fluoroscopy. With the stent in place, the bladder was emptied. The scope was removed. The patient was cleaned, aroused from anesthesia, and transferred to the pacu in stable condition having tolerated the procedure well with no complications. I was present and participated in all aspects of the procedure. The patient will be monitored in the PACU until transferred. Plan to maintain stent for 2-3 weeks. Followup in office with DANIELLE to set up Ureteroscopy. Likely stone treatment after cleared of infection and hematuria. I attest to the content of the Intraoperative Record and any orders documented therein. Any exceptions are noted below.
--- NOTE | 2023-09-25 12:58 | Anesthesiology Progress Note ---
Date of Service September 25, 2023 Anesthesia Post Procedure Vital Signs Vital Signs: Temp Pulse Pulse Resp BP BP Pulse Ox 09/25/23 11:21 09/25/23 11:21 98.4 F 93 H 20 172/98 H 96 09/25/23 11:15 98.4 F 93 H 20 172/98 H 96 09/25/23 09:21 165/106 H 09/25/23 08:00 95 H 21 96 09/25/23 07:57 96 H 22 96 09/25/23 07:00 100 H 19 93 09/25/23 06:34 104 H 16 94 09/25/23 06:24 118 H 09/25/23 06:10 97.5 F L 122 H 18 181/105 H 95 O2 Del Method 09/25/23 11:21 Room Air 09/25/23 11:21 Room Air 09/25/23 11:15 Room Air 09/25/23 09:21 09/25/23 08:00 Room Air 09/25/23 07:57 Room Air 09/25/23 07:00 09/25/23 06:34 09/25/23 06:24 09/25/23 06:10 Room Air Transfer of Care Handoff Completed per policy Notes Mental Status: alert / awake / arousable and participated in evaluation Patient Amnestic to Procedure: Yes Nausea / Vomiting: adequately controlled Pain: adequately controlled Airway Patency, RR, SpO2: stable & adequate BP & HR: stable & adequate Hydration State: stable & adequate Anesthetic Complications: no major complications apparent and Pt Satisfied with anesthetic care
[2023-09-25] MEDS: dilTIAZem HCL 240 MG CAPCR PO SCH (13:26)
[2023-09-25] MEDS ORDERED: UMECLIDINIUM BROMIDE 62.5MCG/BLISTER 7 PUFFS/INHALER INH PRN (14:35)
--- NOTE | 2023-09-25 15:02 | Fluoroscopy Report ---
FL retrograde includes kub CLINICAL HISTORY: RIGHT STENTright ureteral stent placement COMPARISON STUDY: CT 09/25/2023 FLUOROSCOPY TIME: 134.5 seconds FLUOROSCOPY IMAGES: 3 EXPOSURE DOSE: 28.19 mGy FINDINGS: A right ureteral stent is in place which appears to be in satisfactory positioning. Unchang ed right-sided hydroureteronephrosis. IMPRESSION: Fluoroscopic assistance as above. ACT 112: Negative or not required by law. Electronically signed by: Pedro Hanks M.D. 09/25/2023 3:00 PM
[2023-09-25] MEDS: PLASMA-LYTE A 500 ML IV ONE (15:19)
[2023-09-25] MEDS: PLASMA-LYTE A 1,000 ML IV SCH (15:24)
[2023-09-25] MEDS: DAPTOmycin 350 MG in SYRINGE 0 ML IV SCH (15:24)
[2023-09-25] MEDS: MULTI-VITAMIN INFUSION 10 ML, THIAMINE HCL 100 MG, FOLIC ACID 1 MG in SODIUM CHLORIDE 0... IV ONE (16:45)
[2023-09-25 17:14] LABS: INR 1.1 (0.9-1.1); Prothrombin Time 11.4 Seconds (9.0-12.0)
--- NOTE | 2023-09-26 03:12 | Communication Note ---
Date of Service: September 26, 2023 I was notified by nursing staff that this patient was having difficulty urinating and felt as though his bladder was full/the need to void. He was bladder scanned and was noted to have an excess of 750 cc in his bladder. I visited the patient at the bedside and he was noting some suprapubic discomfort/the urge to urinate but he could not. Without difficulty and under sterile conditions and after the patient's permission nursing staff easily placed a 20 Japanese three-way Galeana catheter. The patient immediately had a large amount (in excess of 500 cc) of bloody urine obtained and the patient noted considerable relief. The three-way Galeana catheter port was capped and the Galeana catheter was placed to gravity drainage. Nursing staff was instructed that they could flush and irrigate the catheter as needed.
[2023-09-26 05:16] LABS: BUN Creatinine Ratio 14.3 (10-20); Calcium 8.4 mg/dl (8.6-10.3); Creatinine Clr Calc Pharmacy 68.6 ml/min; Est GFR (African American) 101.5 ml/min; Est GFR (Non-African American) 87.5 ml/min; Magnesium 1.7 mg/dl (1.7-2.4); Potassium 3.3 mmol/L (3.5-5.1)
[2023-09-26 05:34] LABS: Basophils # (auto) 0.03 K/uL (0.00-0.20); Basophils % (auto) 0.4 %; Eosinophils # (auto) 0.15 K/uL (0.00-0.50); Eosinophils % (auto) 2.1 %; Hematocrit (blood only) 36.2 % (42.0-52.0); Hemoglobin 12.5 g/dl (14.0-18.0); Immature Granulocytes # (auto) 0.02 K/uL (0.01-0.20); Immature Granulocytes % (auto) 0.3 %; Lymphocytes # (auto) 0.83 K/uL (1.20-3.40); Lymphocytes % (auto) 11.6 %; Mean Corpuscular Hemoglobin 33.3 pg (25.0-34.0); Mean Corpuscular Hgb Conc 34.5 g/dL (32.0-36.0); Mean Corpuscular Volume 96.5 fL (80.0-100.0); Mean Platelet Volume 10.3 fL (9.4-12.4); Monocytes # (auto) 0.49 K/uL (0.11-0.59); Monocytes % (auto) 6.8 %; Neutrophils # (auto) 5.64 K/uL (1.40-6.50); Neutrophils % (auto) 78.8 %; Platelet Count 190 K/uL (130-400); RDW Coefficient of Variation 13.9 % (11.5-14.5); RDW Standard Deviation 48.9 fL (36.4-46.3); Red Blood Count 3.75 M/uL (4.70-6.10); White Blood Count 7.16 K/ul (4.8-10.8)
--- NOTE | 2023-09-26 06:10 | Electrocardiogram Report ---
Test Reason : Blood Pressure : / mmHG Vent. Rate : 121 BPM Atrial Rate : 121 BPM P-R Int : 156 ms QRS Dur : 084 ms QT Int : 322 ms P-R-T Axes : 070 -31 062 degrees QTc Int : 457 ms Sinus tachycardia Left axis deviation Inferior infarct , age undetermined Abnormal ECG When compared with ECG of 20-JUN-2023 18:33, Premature atrial complexes are no longer Present QRS axis Shifted left Inferior infarct is now Present Confirmed by Elbert Smith ([id number] on 09/26/2023 6:10:24 AM Referred By: REFERRED SELF Confirmed By:Elbert Smith
--- NOTE | 2023-09-26 07:42 | Hospitalist Progress Note ---
Date of Service September 26, 2023 Assessment & Plan (1) Nephrolithiasis: (2) Acute UTI: (3) Sepsis: (4) Alcohol use disorder: (5) Afib: (6) BPH (benign prostatic hyperplasia): (7) Hematuria: (8) S/P TURP (status post transurethral resection of prostate): (9) Adjustment disorder with anxiety: (10) Hydronephrosis: Plan 1. Nephrolithiasis Acute onset of hematuria, brain fog, and shaking on the morning of 09/24. CT on arrival revealed severe right-sided hydroureteronephrosis with 5 mm calculus in the distal right ureter. Patient unable to empty bladder independently. Galeana catheter placed. Bloody urine draining. - S/P R ureteral stent placed with Dr. Rivera on 09/24 - Voiding trial tomorrow 2. Acute UTI UA positive in ED. Leukocytosis at 11.11 reduced to normal (7.16) with a neutrophil predominance; Continues afebrile -Awaiting results from urine culture. Patient has grown Coag negative Staph and E. faecalis in the past -Continue Ceftriaxone 2000mg IV q24h 3. Sepsis Urinary source Patient is normotensive/hypertensive in the ED, afebrile, non tachypneic. Lact ate 1.7, procalcitonin <0.02. Sepsis less likely. Started on IVF and IV abx in ED. - Awaiting blood and urine cultures - Continue IV ceftriaxone 4. Alcohol Use Disorder Patient does have a history of alcohol abuse; unable to convey when his last drink was, but does endorse drinking hard alcohol in cycles recently. Medical alcohol level is <10. He denies history of alcohol withdrawal seizures or DTs -AWSS at risk protocol with Ativan as needed -Daily folate and thiamine supplementation 5. A-fib Chronic. Using Eliquis for anticoagulation. Diltazem for rate control. Hx of hematuria, patient was concerned for blood in his urine -Continue holding Eliquis in the setting of gross hematuria -Continue diltiazem 6. BPH -Continue dutasteride Disposition: PCU telemetry Full code heart healthy diet VTE PPx: Hold Eliquis SCDs Admission and Anticipated Discharge Date Admission Date: September 25, 2023 Supervising Physician Co-Signing Physician Notes I personally examined the patient and verified all jaime points of history and exam, discussed case, and agree with decision making with Dr Anand Feeling okay. Tolerating Galeana well. Urology input appreciated. Vitals noted, in general he is awake and alert pleasant no distress. HEENT normocephalic atraumatic mucous membranes moist. Breathing unlabored no accessory muscle use good effort. Skin without rashes pallor or icterus. Neuro without focal deficits. Galeana draining red urine. Ureterolithiasis, hematuria, possible infectioncontinue Galeana drainage, continue ceftriaxone. Continue supportive care. Otherwise as above. Stable for medical. Subjective Pt is a 78 yo male with PMedHx of BPH s/p TURP, bladder CA, lung CA, COPD, and a-fib who presented to the ED with hematuria and confusion. He was found to have hydronephrosis and nephrolithiasis. Ureteral stent was placed 09/24. This morning pt reports feeling much better than when he went to ED. Pt denies pain, SOB, nausea, chills, or fever. Physical Exam Constitutional: WD/WN, vitals as above Eyes: PERRL, conjunctivae normal, anicteric sclerae Neck: trachea midline, no thyromegaly Respiratory: normal respiratory effort, lungs clear to auscultation Cardiovascular: RRR, no murmur, no edema Gastrointestinal (Abdomen): normal bowel sounds, soft, nontender, no hepatosplenomegaly Neurologic: PERRL, EOMI, accommodation nl, no face palsy, no dysarthria Psychiatric: A+Ox3, euthymic affect Genitourinary: Galeana catheter in place. Galeana bag contains bloody urine Results & Data Results & Data Vital Signs (Past 12 Hours) Vital Signs Temp Pulse Resp BP Pulse Ox O2 Del Method 09/26/23 04:00 37.5 C 62 16 159/96 H 94 Room Air 09/25/23 20:00 36.7 C 78 14 156/84 H 95 Room Air Laboratory Results 09/26/23 09/26/23 09/25/23 Range/Units Unknown 04:14 16:26 WBC 7.16 (4.8-10.8) K/ul RBC 3.75 L (4.70-6.10) M/uL Hgb 12.5 L (14.0-18.0) g/dl Hct 36.2 L (42.0-52.0) % MCV 96.5 (80.0-100.0) fL MCH 33.3 (25.0-34.0) pg MCHC 34.5 (32.0-36.0) g/dL RDW Std Deviation 48.9 H (36.4-46.3) fL RDW Coeff of Randy 13.9 (11.5-14.5) % Plt Count 190 (130-400) K/uL MPV 10.3 (9.4-12.4) fL Immature Gran % (Auto) 0.3 % Neut % (Auto) 78.8 % Lymph % (Auto) 11.6 % [place] % (Auto) 6.8 % Eos % (Auto) 2.1 % Baso % (Auto) 0.4 % Neut # (Auto) 5.64 (1.40-6.50) K/uL Lymph # (Auto) 0.83 L (1.20-3.40) K/uL [place] # (Auto) 0.49 (0.11-0.59) K/uL Eos # (Auto) 0.15 (0.00-0.50) K/uL Baso # (Auto) 0.03 (0.00-0.20) K/uL Immature Gran # (Auto) 0.02 (0.01-0.20) K/uL PT 11.4 (9.0-12.0) Seconds INR 1.1 (0.9-1.1) Sodium 137 (136-145) mmol/L Potassium 3.3 L (3.5-5.1) mmol/L Chloride 99 (98-107) mmol/L Carbon Dioxide 27 (21-32) mmol/L Anion Gap 11 (3-11) BUN 11 (6-23) mg/dl Creatinine 0.77 (0.6-1.4) mg/dl Est Cr Clr Drug Dosing 68.6 ml/min Est GFR ( Amer) 101.5 ml/min Est GFR (Non-Af Amer) 87.5 ml/min BUN/Creatinine Ratio 14.3 (10-20) Glucose 117 H (70-99(Fasting)) mg/dl Lactate (0.4-2.0) mmol/L Calcium 8.4 L (8.6-10.3) mg/dl Magnesium 1.7 (1.7-2.4) mg/dl Procalcitonin (0-0.5) ng/ml Nasal Screen MRSA (PCR) Positive A (Negative) Ethyl Alcohol mg/dL (<10.0) mg/dl 09/25/23 09/25/23 Range/Units 10:55 10:19 WBC (4.8-10.8) K/ul RBC (4.70-6.10) M/uL Hgb (14.0-18.0) g/dl Hct (42.0-52.0) % MCV (80.0-100.0) fL MCH (25.0-34.0) pg MCHC (32.0-36.0) g/dL RDW Std Deviation (36.4-46.3) fL RDW Coeff of Randy (11.5-14.5) % Plt Count (130-400) K/uL MPV (9.4-12.4) fL Immature Gran % (Auto) % Neut % (Auto) % Lymph % (Auto) % [place] % (Auto) % Eos % (Auto) % Baso % (Auto) % Neut # (Auto) (1.40-6.50) K/uL Lymph # (Auto) (1.20-3.40) K/uL [place] # (Auto) (0.11-0.59) K/uL Eos # (Auto) (0.00-0.50) K/uL Baso # (Auto) (0.00-0.20) K/uL Immature Gran # (Auto) (0.01-0.20) K/uL PT (9.0-12.0) Seconds INR (0.9-1.1) Sodium (136-145) mmol/L Potassium (3.5-5.1) mmol/L Chloride (98-107) mmol/L Carbon Dioxide (21-32) mmol/L Anion Gap (3-11) BUN (6-23) mg/dl Creatinine (0.6-1.4) mg/dl Est Cr Clr Drug Dosing ml/min Est GFR ( Amer) ml/min Est GFR (Non-Af Amer) ml/min BUN/Creatinine Ratio (10-20) Glucose (70-99(Fasting)) mg/dl Lactate 1.7 (0.4-2.0) mmol/L Calcium (8.6-10.3) mg/dl Magnesium (1.7-2.4) mg/dl Procalcitonin < 0.02 (0-0.5) ng/ml Nasal Screen MRSA (PCR) (Negative) Ethyl Alcohol mg/dL < 10.0 (<10.0) mg/dl (3) Sepsis Sepsis acute organ dysfunction status: unspecified Sepsis type: sepsis due to unspecified organism Qualified Code(s): A41.9 - Sepsis, unspecified organism
--- NOTE | 2023-09-26 07:54 | Urology Progress Note ---
Date of Service September 26, 2023 Assessment & Plan (1) Hydronephrosis, right: (2) Ureterolithiasis: (3) Hematuria: Plan: - Pt POD#1 s/p Cystoscopy with clot evacuation and drainage of debris, Right Retrograde Pyelogram, Right ureteral dilation, Right Stent Placement - Doing well, progressing as expected - Afebrile, lab work reviewed - creatinine 0.77, WBC 7.16 - Urine and blood cultures are pending - Continue with broad-spectrum antibiotics and narrow per sensitivity data when available - Tolerating ureteral stent with minimal bother - Galeana catheter was placed overnight due to urinary retention - Recommend maintain Galeana catheter - Catheter is draining appropriately with bloody urine - Okay to gently hand irrigate catheter for obstructed catheter, suprapubic discomfort - Continue supportive care, antibiotic therapy, and medical management per hospital medicine service - will follow, please contact our service with any additional questions or concerns Admission and Anticipated Discharge Date Admission Date: September 25, 2023 Subjective Patient seen and examined at bedside this morning He is awake and sitting up eating breakfast Required catheter placement overnight due to urinary retention Galeana draining bloody urine Denies suprapubic or flank discomfort No nausea, vomiting, fever or chills Review of Systems Constitutional: as per Subjective / HPI Gastrointestinal: as per Subjective / HPI Genitourinary: + as per Subjective / HPI Physical Exam Constitutional: well developed and well nourished; no acute distress Respiratory: normal respiratory effort; no respiratory distress and no labored breathing Gastrointestinal (Abdomen): Inspection/Auscultation: abdomen normal to inspection Musculoskeletal: Head/Neck/Chest: normocephalic Neurologic: moves all extremities and awake Psychiatric: Orientation: alert and oriented x 3 Genitourinary: Galeana draining bloody urine Results & Data Vital Signs (Past 12 Hours) Vital Signs Temp Pulse Resp BP Pulse Ox O2 Del Method 09/26/23 04:00 37.5 C 62 16 159/96 H 94 Room Air 09/25/23 20:00 36.7 C 78 14 156/84 H 95 Room Air PG Care Time/CCT Total # of Minutes Spent Total Time Spent with Patient: Total time spent is greater than 50% in coordination of care (as documented) at patient's floor/unit and/or counseling patient: Coding Level of Care Code 17291 SUB INP/OBS CARE 1/25MIN Diagnoses Hydronephrosis, right N13.30 Ureterolithiasis N20.1 Hematuria R31.9
[2023-09-26] MEDS: FOLIC ACID 1 MG TAB PO SCH (08:58)
[2023-09-26] MEDS: THIAMINE HCL 100 MG TAB PO SCH (08:58)
[2023-09-26] MEDS: POTASSIUM CHLORIDE CRTAB 20 MEQ TABCR PO SCH (08:58)
[2023-09-26] MEDS ORDERED: FOLIC ACID 1 MG TAB PO SCH (09:00)
[2023-09-26] MEDS ORDERED: THIAMINE HCL 100 MG TAB PO SCH (09:00)
[2023-09-26] MEDS: cefTRIAXone SODIUM 2,000 MG/50 ML BAG IV SCH (09:12)
[2023-09-26] MEDS: FINASTERIDE 5 MG TAB PO SCH (10:24)
--- NOTE | 2023-09-26 18:08 | Billing Data ---
Date of Service September 26, 2023 Coding Level of Care Code 49336 SUB INP/OBS CARE
[2023-09-27 07:05] LABS: Basophils # (auto) 0.04 K/uL (0.00-0.20); Basophils % (auto) 0.4 %; Eosinophils # (auto) 0.37 K/uL (0.00-0.50); Eosinophils % (auto) 4.1 %; Hematocrit (blood only) 39.8 % (42.0-52.0); Hemoglobin 13.7 g/dl (14.0-18.0); Immature Granulocytes # (auto) 0.03 K/uL (0.01-0.20); Immature Granulocytes % (auto) 0.3 %; Lymphocytes # (auto) 2.02 K/uL (1.20-3.40); Lymphocytes % (auto) 22.2 %; Mean Corpuscular Hemoglobin 33.4 pg (25.0-34.0); Mean Corpuscular Hgb Conc 34.4 g/dL (32.0-36.0); Mean Corpuscular Volume 97.1 fL (80.0-100.0); Monocytes # (auto) 0.62 K/uL (0.11-0.59); Monocytes % (auto) 6.8 %; Neutrophils # (auto) 6.03 K/uL (1.40-6.50); Neutrophils % (auto) 66.2 %; Platelet Count 184 K/uL (130-400); RDW Coefficient of Variation 13.9 % (11.5-14.5); RDW Standard Deviation 49.7 fL (36.4-46.3); White Blood Count 9.11 K/ul (4.8-10.8)
[2023-09-27 08:05] LABS: Calcium 8.9 mg/dl (8.6-10.3); Potassium 3.3 mmol/L (3.5-5.1)
[2023-09-27 08:10] LABS: BUN Creatinine Ratio 11.7 (10-20); Creatinine Clr Calc Pharmacy 56.2 ml/min; Est GFR (African American) 90.3 ml/min; Est GFR (Non-African American) 77.9 ml/min
--- NOTE | 2023-09-27 08:48 | Urology Progress Note ---
Date of Service September 27, 2023 Assessment & Plan (1) Hydronephrosis, right: (2) Ureterolithiasis: (3) Hematuria: Plan: - Pt POD#2 s/p Cystoscopy with clot evacuation and drainage of debris, Right Retrograde Pyelogram, Right ureteral dilation, Right Stent Placement - Doing well, progressing as expected - Afebrile, lab work reviewed - creatinine 0.94, WBC 9.11, Hgb 13.7 - Urine culture preliminary with pinpoint growth, reincubating - Blood cultures with no growth x 24 hours - Continue with broad-spectrum antibiotics and narrow per sensitivity data when available - Tolerating ureteral stent with minimal bother - Recommend maintain Galeana catheter for management of urinary retention - Catheter is draining appropriately with fuentes urine - Okay to gently hand irrigate catheter for obstructed catheter, suprapubic discomfort - Plan to keep catheter for approximately 1 week - Continue supportive care, antibiotic therapy, and medical management per hospital medicine service - Will arrange outpatient follow-up with our service to discuss definitive stone management - will follow peripherally, please contact our service with any additional questions or concerns Admission and Anticipated Discharge Date Admission Date: September 25, 2023 Subjective Patient seen and examined at bedside He is awake and eating breakfast No acute issues overnight Denies pain Galeana intact Denies nausea, vomiting, fever or chills Review of Systems Constitutional: as per Subjective / HPI Genitourinary: + as per Subjective / HPI Physical Exam Constitutional: well developed and well nourished; no acute distress Respiratory: normal respiratory effort; no respiratory distress and no labored breathing Gastrointestinal (Abdomen): Inspection/Auscultation: abdomen normal to inspection Musculoskeletal: Head/Neck/Chest: normocephalic Neurologic: moves all extremities and awake Psychiatric: Orientation: alert and oriented x 3 Genitourinary: Galeana patent and draining light fuentes red urine Results & Data Vital Signs (Past 12 Hours) Vital Signs Temp Pulse Resp BP Pulse Ox O2 Del Method 09/27/23 07:48 36.7 C 72 16 115/59 L 96 Room Air PG Care Time/CCT Total # of Minutes Spent Total Time Spent with Patient: Total time spent is greater than 50% in coordination of care (as documented) at patient's floor/unit and/or counseling patient: Coding Level of Care Code 44375 SUB INP/OBS CARE 1/25MIN Diagnoses Hydronephrosis, right N13.30 Ureterolithiasis N20.1 Hematuria R31.9
[2023-09-27] MEDS: POTASSIUM CHLORIDE CRTAB 20 MEQ TABCR PO STA (09:16)
--- NOTE | 2023-09-27 13:23 | Discharge Summary ---
Date of Service September 27, 2023 Admission HPI Per Admitting Provider Jerod is a 78-year-old male with PMH of bladder squamous metaplasia, TURP, BPH, atrial fibrillation, lung cancer, COPD with emphysema, alcohol use, and hydronephrosis. He presented on 09/24 after he developed shakiness, generalized weakness, and hematuria around 3 AM on 09/24. Patient is a poor historian at this time, and has difficulty describing his symptoms. He does note that he has had a brain fog and has been feeling "frustrated" recently. He denies dysuria, burning with urination, flank pain, or lower back pain. Patient did not take his regular morning medications today; no recent change in medications; patient manages all medications at home. Patient lives by himself in [place]. He reports that he last took his Eliquis yesterday morning around 6:00 AM. He does have an extensive history of UTIs, as well as gross hematuria. He reports that his symptoms of UTI have changed over the years; at present, his only complaint is hematuria and tremors. He denies history of kidney stones. Patient is a current cigar smoker; 3-4 cigarellos per day. He also reports intermittent alcohol use; hard alcohol. When asked when his last drink is, he is unsure; at first, he reports it might of been a week ago, but then says that might have been 2 days ago. He is unable to give a number when asked how many drinks per day. He denies history of alcohol withdrawal seizures, or visual/auditory hallucinations. He does say he is open to speaking with people regarding alcohol use and depression while inpatient. He denies any suicidal ideations, thoughts of self-harm, or of harming others. Patient is hypertensive at 165/106 at time of admission; vitals otherwise stable. ED course: NSS 1500 mL IV Ceftriaxone 2000 mg IV ROS: Patient endorses brain fog, shakiness, tremors, and hematuria. Patient denies fever, chills, night-sweats, dizziness, lightheadedness, BARROSO, chest pain, SOB, abdominal pain, N/V/D, burning with urination, dysuria, lower back pain, or changes in bowel habits. Admission Exam Per Admitting Provider General: no acute distress; anxious, tearful; non-toxic appearing; well- nourished; cooperative; SpO2 96% on RA HEENT: normocephalic, atraumatic; no scleral icterus; PERRLA; vision and hearing grossly intact Neck: supple; no lymphadenopathy; trachea midline Skin: warm, dry without signs of tenting; no cyanosis; no rashes, bruising, lesions, or erythema noted CV: chest wall NTP; RRR; S1/S2 normal; no murmurs/rubs/gallops; pulses intact and symmetric at radial, DP, and PT Lungs: no acute respiratory distress; symmetrical chest wall expansion; clear breath sounds across all lung adame w/o adventitious sounds; no wheezing ABD: Soft, NTP; BS present; no rebound/guarding; no distention MSK: no tics or fasciculations; no edema noted in the LEs b/l, nonerythematous Back: Negative CVA tenderness bilaterally Neuro: A&Ox3; patient is slow to respond to questioning; normal mood and affect; fluent speech; no focal deficits; sensation grossly intact in the LEs b/l Principal Diagnosis obstructing stone Discharge Exam Gen: well appearing patient in NAD HEENT: AT NC MMM Resp: CTAB no wheezing no increased work of breathing CV: RRR no m/r/g clinically well perfused Abd: soft, non-tender, non-distended + BS, Galeana draining bloody urine MSK: no obvious deformities Skin: no rashes or bruising Neuro: alert and oriented Psych: appropriate mood and affect Discharge Data Allergies Allergy/AdvReac Type Severity Reaction Status Date / Time No Known Allergies Allergy Verified 09/25/23 10:42 Consultations 09/25/23 10:34 ED Decision to Admit Stat 09/25/23 10:48 Consult Urology Routine Procedures Performed Operation Date: 09/25/23 09:30 Actual Procedures p Cystoscopy, Retrograde Pyelogram, Right Stent Placement(Right) - Russell Rivera DO Ordered Studies Abdomen/Pelvis CT 09/25/23 06:48 FINDINGS: Scattered calcified granulomata of the lungs. Mild pulmonary emphysema. No free air. Calcified granulomata of the spleen. Unremarkable pancreas and adrenal glands. Gallbladder is within normal limits. Fatty infiltration of the liver. Bilateral perinephric stranding, right greater than left. There are a few cysts redemonstrated within the kidneys measuring up to approximately 2 cm on the left. Areas of cortical scarring and parenchymal thickening within the right kidney with 1.6 and meter calyceal diverticulum. Interval development of severe right-sided hydroureteronephrosis with dilation of the right ureter extending to the UVJ. The previously noted calcifications/calculi within the superior pole right kidney and calyceal diverticulum are no longer present. 5 mm calculus of the distal right ureter on image 260. Urinary bladder wall thickening which regulation and diverticula. Atherosclerosis of the aorta. No lymphadenopathy. Duodenal diverticulum. Colonic diverticulosis. No bowel obstruction or bowel wall thickening. No acute fracture. IMPRESSION: 1. Severe right-sided hydroureteronephrosis with dilation of the right ureter extending to the UVJ. Additionally, there is a 5 mm calculus within the distal right ureter. 2. 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 3. Hepatic steatosis. 4. Colonic diverticulosis. 5. Evidence of chronic bladder outlet obstruction. Chest X-Ray 09/25/23 10:07 XR chest 1V portable HISTORY: sepsis COMPARISON: Chest 06/20/2023. Chest CT 07/31/2023. FINDINGS: No pneumothorax. No pleural effusions. The heart is normal in size. There is a tortuous thoracic aorta, unchanged. No new focal lung consolidations to suggest a pneumonia. No evidence for pulmonary edema. No acute fractures. Mild emphysema. The right apical nodular density is partially obscured by the overlapping cardiac monitoring lead. IMPRESSION: 1. No acute process within the chest. 2. The right apical nodule is again noted. This is better appreciated on the rec ent chest CT. Hospital Course (1) Nephrolithiasis: (2) Acute UTI: (3) Sepsis: (4) Alcohol use disorder: (5) Afib: (6) BPH (benign prostatic hyperplasia): (7) Hematuria: (8) S/P TURP (status post transurethral resection of prostate): (9) Adjustment disorder with anxiety: (10) Hydronephrosis: Plan Sepsis | UTI Patient met SIRS criteria on admission. UCx - alpha strep, not enterococcus. BCx NGTD x 48. CTX x 2 days, continue with Augmentin BID x 8 days. 10 days total. Obstructing Stone | Hematuria | Urinary Retention S/p stent placement 09/24 by urology for 5 mm stone with subsequent hydronephrosis. Plan to follow up shortly outpatient. Has a history of BPH s/p TURP complicated by urinary retention. Galeana placed during inpatient stay. Will continue until seen outpatient. Hold Eliquis while have gross hematuria. A. fib Rate controlled with dilt. Eliquis for anticoagulation. CHADsVASC3. Relatively low risk for the short term. Eliquis for now. Alcohol Use Disorder Patient does have a history of alcohol abuse; unable to convey when his last drink was, but does endorse drinking hard alcohol in cycles recently. Medical alcohol level is <10. He denies history of alcohol withdrawal seizures or DTs. AWSS at risk protocol. Continue folate and thiamine supplementation outpatient. Encourage cessation. BPH Continue dutasteride Disposition: PCU telemetry Full code heart healthy diet VTE PPx: Hold Eliquis, SCDs Total Time Total Time Spent Total Time Spent (In Minutes): <30 Discharge Plan Discharge Items Patient Disposition: Home - Self-Care Reason For Visit: shakiness, hematuria Discharge Diagnosis: infected obstructing stone Activity: Resume your previous activity Non-emergency contact: Primary Care Provider and Urologist Call non-emergency contact if: your symptoms worsen and your temperature is above 101 Follow-up/Referrals: Julian Marc MD [Primary Care Provider] - (RAVIN AT OFFICE WILL SEND A MESSAGE TO NURSES TO REACH OUT TO MAKE A HOSPITAL FOLLOW UP VISIT.) Russell Rivera DO [Physician] - (needs seen in a few days) Diet: Heart Healthy Addtl Attending Provider Instructions: You were seen in the hospital for blood in your urine and generally feeling u nwell. You were found to have a large kidney stone on the right side. Dr. Rivera, a urologist, placed a stent. This will help to allow passage of the stone and relieve any blockage. You did also have some blood in your urine and urinary retention. A Galeana catheter was placed and will remain in place until you see urology outpatient. You will follow up with them in office in a few days. If you do not hear from them in 2 days, please reach out. With the blood in your urine and the stone you likely also have a urinary tract infection. You were treated with IV antibiotics while inpatient. We will continue with Augmentin 875 mg twice a day for an additional 8 days. You had a pretty significant amount of blood in your urine. This is likely from the stone combined with being on Eliquis for anticoagulation for a. fib. We will hold your Eliquis for now as the risks of bleeding outweigh the benefits of Eliquis use. When you follow up with urology you should discuss resumption of this medication. Pending Studies at Discharge: Yes Studies:: UCx sensitivities Stand-Alone Forms: My [facility] Urgent Career, Smoking Cessation Medications and DC Order Prescriptions: New amoxicillin-pot clavulanate 875-125 mg tablet 1 tab PO BID Qty: 16 0RF Continued potassium chloride 20 mEq tablet,ER particles/crystals 20 meq PO QAM Qty: 90 3RF Spiriva Respimat 2.5 mcg/actuation mist 2 puff inhalation QAM PRN (Reason: Shortness Of Breath Or Wheezing) Qty: 4 3RF dutasteride 0.5 mg capsule 0.5 mg PO DAILY Qty: 90 1RF lisinopril 10 mg tablet 10 mg PO DAILY Qty: 30 2RF multivitamin [Daily Multi-Vitamin] Tablet 1 tab PO DAILY Qty: 30 0RF diltiazem HCl 240 mg capsule,extended release 24hr 240 mg PO DAILY Qty: 90 3RF vitamin B complex Tablet 1 tab PO QAM glucosamine-chondroitin 500-400 mg tablet 1 tab PO QAM cholecalciferol (vitamin D3) 25 mcg (1,000 unit) tablet 1,000 unit PO Q OTHER DAY acetaminophen 500 mg Capsule 1,000 mg PO Q6H PRN (Reason: Pain) folic acid 1 mg tablet 1 mg PO DAILY Qty: 30 3RF thiamine HCl (vitamin B1) 250 mg tablet 250 mg PO DAILY Qty: 30 3RF Held Eliquis 2.5 mg tablet 0 mg PO DAILY Hold Instructions: Resume on 10/06/23. until seen by urology outpatient Rx Instructions: Per patient, he has been taking 2.5mg by mouth once daily even though it was prescribed as 2.5mg twice daily. When asked why, he said the 2.5mg twice daily was causing blood in his urine, so he felt like 2.5mg twice daily was too much so pt decided to just take 2.5mg once daily. Prescribing physician is not aware of this. Per patient he has been doing this for a couple of months. Discharge Orders: Discharge Order (Routine); Ordered 09/27/23 Ordered By: Tran Cox/Other Patient Handouts: Understanding Hydronephrosis Admission Data Admit Date/Time: 09/25/23 10:33 Attending Provider: Ramesh Hathaway Admit Provider: Wilfrid Gardner Primary Care Provider: Julian Marc Other Providers: Wilfrid Gardner; Russell Rivera Other Interventions: Discharge Summary Assessment (RN) Last Done: 09/27/23 14:10 Supervising Physician Co-Signing Physician Notes I personally examined the patient and verified all jaime points of history and exam, discussed case, and agree with decision making with Dr Quiñonez Feeling okay. Tolerating Galeana well. Urology input appreciated. Would like to go home. Vitals noted, in general he is awake and alert pleasant no distress. HEENT normocephalic atraumatic mucous membranes moist. Breathing unlabored no accessory muscle use good effort. Skin without rashes pallor or icterus. Neuro without focal deficits. Galeana draining red urine but more clear than before. Ureterolithiasis, hematuria, possible infectioncontinue Galeana drainage, safe for home - urology next week. finish abx for possible infection. hold eliquis until urine clears (hopefully next week at urology appt will be clear enough to resume) Resident Activity Tracking Resident Involvement: Resident Care Provided Care Provided: Adult Hospital Medicine
--- NOTE | 2023-09-27 16:53 | Billing Data ---
Date of Service September 27, 2023 Coding Level of Care Code 13077 IN/OBS DISCH 30 MIN/LESS
== END 2023-09-27 16:18 | disposition home or self-care (01) | DRG 854 ==
LOC: ED 06:04 → EDINP 10:33 → SUATTDRO 10:33 → OR 11:05 → 1E 11:06 → OR 11:56 → 3W 09-26 20:51
DX: J43.9 Emphysema, unspecified; Z79.01 Long term (current) use of anticoagulants; Z79.899 Other long term (current) drug therapy; A41.9 Sepsis, unspecified organism; Z87.448 Personal history of other diseases of urinary system; N13.6 Pyonephrosis; Z90.79 Acquired absence of other genital organ(s); I48.91 Unspecified atrial fibrillation; N40.1 Benign prostatic hyperplasia with lower urinary tract symptoms; Z87.440 Personal history of urinary (tract) infections; B95.4 Other streptococcus as the cause of diseases classified elsewhere; Z85.118 Personal history of other malignant neoplasm of bronchus and lung; F17.290 Nicotine dependence, other tobacco product, uncomplicated; I10 Essential (primary) hypertension; F43.22 Adjustment disorder with anxiety; R33.8 Other retention of urine

== ENCOUNTER 2023-09-27 23:40 | Observation (INO) ==
[2023-09-28] MEDS: SODIUM CHLORIDE 0.9% 1,000 ML IV ONE (00:26)
[2023-09-28 00:54] LABS: Appearance Urine Cloudy (Clear); Color Urine Red
[2023-09-28 00:56] LABS: Specific Gravity Urine 1.011 (1.000-1.030)
[2023-09-28 00:58] LABS: Bacteria Urine None Seen (None Seen); RBC Urine >20 /hpf (0-2); WBC Urine >50 /hpf (0-5)
[2023-09-28 01:00] LABS: Basophils # (auto) 0.02 K/uL (0.00-0.20); Basophils % (auto) 0.3 %; Eosinophils % (auto) 4.6 %; Hematocrit (blood only) 33.6 % (42.0-52.0); Hemoglobin 11.7 g/dl (14.0-18.0); Immature Granulocytes # (auto) 0.03 K/uL (0.01-0.20); Immature Granulocytes % (auto) 0.5 %; Lymphocytes # (auto) 1.35 K/uL (1.20-3.40); Lymphocytes % (auto) 20.7 %; Mean Corpuscular Hemoglobin 33.4 pg (25.0-34.0); Mean Corpuscular Hgb Conc 34.8 g/dL (32.0-36.0); Mean Platelet Volume 10.4 fL (9.4-12.4); Monocytes # (auto) 0.48 K/uL (0.11-0.59); Monocytes % (auto) 7.4 %; Neutrophils # (auto) 4.34 K/uL (1.40-6.50); Neutrophils % (auto) 66.5 %; Platelet Count 158 K/uL (130-400); RDW Coefficient of Variation 13.9 % (11.5-14.5); RDW Standard Deviation 48.3 fL (36.4-46.3); White Blood Count 6.52 K/ul (4.8-10.8)
[2023-09-28 01:02] LABS: BUN Creatinine Ratio 18.4 (10-20); Calcium 9.4 mg/dl (8.6-10.3); Creatinine Clr Calc Pharmacy 45.4 ml/min; Est GFR (African American) 71.5 ml/min; Est GFR (Non-African American) 61.7 ml/min
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
[2023-09-28] MEDS: POTASSIUM CHLORIDE CRTAB 20 MEQ TABCR PO STA (02:45)
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
[2023-09-28] MEDS ORDERED: HYDROmorphone INJ 0.5 MG/0.5 ML SYR IV PRN ×2 (03:16)
[2023-09-28] MEDS ORDERED: ONDANSETRON 4 MG OD TAB PO PRN (03:16)
[2023-09-28 03:39] LABS: Magnesium 1.7 mg/dl (1.7-2.4)
[2023-09-28] MEDS ORDERED: ACETAMINOPHEN 500 MG TAB PO PRN (04:50)
[2023-09-28] MEDS ORDERED: UMECLIDINIUM BROMIDE 62.5MCG/BLISTER 7 PUFFS/INHALER INH PRN (05:02)
[2023-09-28] MEDS: cefTRIAXone SODIUM 2,000 MG/50 ML BAG IV SCH (05:52)
[2023-09-28] MEDS: LACTATED RINGER'S 1,000 ML IV SCH (05:53)
[2023-09-28] MEDS: POTASSIUM CHLORIDE CRTAB 20 MEQ TABCR PO ONE (05:55)
[2023-09-28] MEDS ORDERED: AMOXICILLIN/CLAVULANATE 875 MG TAB PO SCH (08:00)
[2023-09-28] MEDS: CHOLECALCIFEROL 25 MCG (1000 UNITS) TAB PO SCH (08:18)
[2023-09-28] MEDS: FINASTERIDE 5 MG TAB PO SCH (08:18)
[2023-09-28] MEDS: MULTIVITAMIN TAB PO SCH (08:18)
[2023-09-28] MEDS: VITAMIN B COMPLEX TAB PO SCH (08:19)
[2023-09-28] MEDS: lisinopril 10 MG TAB PO SCH (08:19)
[2023-09-28] MEDS: POTASSIUM CHLORIDE CRTAB 20 MEQ TABCR PO SCH (08:19)
[2023-09-28] MEDS: FOLIC ACID 1 MG TAB PO SCH (08:19)
[2023-09-28] MEDS: THIAMINE HCL 50 MG TABLET PO SCH (08:19)
[2023-09-28] MEDS: dilTIAZem HCL 240 MG CAPCR PO SCH (08:19)
[2023-09-28] MEDS: TAMSULOSIN HCL 0.4 MG CAP PO SCH (08:20)
[2023-09-28 08:33] LABS: BUN Creatinine Ratio 17.3 (10-20); Calcium 8.4 mg/dl (8.6-10.3); Est GFR (African American) 99.4 ml/min; Est GFR (Non-African American) 85.7 ml/min; Magnesium 1.7 mg/dl (1.7-2.4)
[2023-09-28] MEDS ORDERED: HEPARIN SOD 5,000 UNIT/0.5 ML VIAL SQ SCH (09:00)
[2023-09-28] MEDS ORDERED: APIXABAN 2.5 MG TAB PO SCH (09:00)
[2023-09-28] MEDS: POLYETHYLENE (MIRALAX) 17 GM PACK PO SCH (09:30)
--- NOTE | 2023-09-28 12:42 | Hospitalist Progress Note ---
Date of Service September 28, 2023 Assessment & Plan (1) Ureterolithiasis: Plan: 78 M recently discharged for nephrolithiasis s/p stone retrieval, stent placement, who returned for further management due to Mayberry catheter issue. Ureterolithiasis S/p Stone Removal, Stent Placement Pt is tolerating R ureter stent without problems. No acute UTI noted on UA, urine cultures were takenin ED. Pt to benefit from PT/OT evaluations to assess physical and cognitive ability to manage mayberry catheter and determine if placement is needed. - PT/OT evaluations ordered - Initiate coordination of home PT/acute rehab placement. Would recommend intensive education on Mayberry management in the meantime. Acute UTI -Less likely at this time due to recent work up at pervious hospital stay 09/23- 09/25. Prescribed Augmentin 875 mg - 125 mg at discharge x 10 days total. * Continue Augmentin twice daily x 8 days. * New urine culture pending BPH/HTN/A-Fib (chronic conditions) * Continue chronic home regimen (already ordered) * Clarify home Eliquis dose and appearance with patient, as there appears to be some discrepancy on med reconciliation. Code: Full code Dispo: Med-Surg FEN/GI: Heart healthy DVT Prophylaxis: Home Eliquis? Dose unclear PT/OT: Yes Consults: Case Management: Yes (2) Acute UTI: (3) BPH (benign prostatic hyperplasia): (4) Atrial flutter: (5) Hypertension: Admission and Anticipated Discharge Date Admission Date: September 28, 2023 Supervising Physician Co-Signing Physician Notes I personally examined the patient and verified all jaime points of history and exam, discussed case, and agree with decision making with Dr Anand resting comfortably in bed. Vitals noted, in general resting comfortably no distress. Breathing unlabored no accessory muscle use. No focal neurodeficits noted/no asymmetry at rest. Mayberry draining clear red urinevery similar to yesterday prior to discharge. Ureterolithiasis/hematuria/possible UTIsame plan as yesterday. Unfortunately he was not able to manage at home, as he thought he could. PT/OT eval and treat . Likely will need some sort of placement at this time. Continue current care otherwise. I do not see anything suggesting any new or worsening or different processprobably more just that he was more overwhelmed at home than he expected to be. Holding Eliquis until his hematuria clears more. Initially at discharge yesterday the plan would be to see what the status of his hematuria was next week at outpatient urology follow-up; at the same time given that he is likely to be under physician supervision for the near but foreseeable future, once his hematuria clears enough, would resume his Eliquis even if it is sooner than next week. (To clarifymost likely hematuria was due to stone related bleeding in the context of a gentleman on Eliquis, but it is somewhat difficult to rule out a concomitant infection also accentuating the urinary bleeding). Pharmacologic DVT prophylaxis similarly contraindicated due to the hematuria. Subjective Pt is a 78 yo male who was recently discharged after right ureteral stent placement on 09-26-23. Pt returned to ED after his mayberry bag filled and he was unable to figure out how to drain it. He reports at his hospital DC on 09/26, he felt confident in his ability to manage the mayberry catheter, but when he got home the mayberry bag drainage system looked different. He became nervous and could not figure out how to drain it. He thought it was best to return to the hospital. Physical Exam Physical Exam: General: no acute distress, speaking in full sentences Resp: good inspiratory effort, no labored breathing HEENT: conjunctivae appear clear, no audible congestion, no swelling noted face or lips Skin: skin appears dry, normal coloration, no rash visible on exposed skin areas Neuro: alert and oriented x3, no focal deficits appreciated Psych: euthymic affect, pleasant and interactive, logical thought process Results & Data Results & Data Vital Signs (Past 12 Hours) Vital Signs Temp Pulse Resp BP Pulse Ox O2 Del Method 09/28/23 07:57 37.2 C 75 16 156/88 H 98 Room Air 09/28/23 04:10 36.9 C 76 16 160/90 H 98 Room Air 09/28/23 03:30 76 16 142/73 H 97 Room Air
--- NOTE | 2023-09-28 13:04 | Billing Data ---
Date of Service September 28, 2023 Coding Level of Care Code 80064 SUB INP/OBS CARE
[2023-09-28 22:46] VITALS: RESP 18
--- NOTE | 2023-09-29 07:16 | Discharge Summary ---
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 Patient was recently discharged 09/26, after presenting (on 09/24) with shakiness, generalized weakness, and hematuria meeting SIRS criteria on admission. Patient was found to have severe right- sided hydroureteronephrosis 2/2 an obstructing 5 mm calculus in the distal ureter he was referred to urology, who removed the stone, placed the stent, then discharged patient home on Mayberry with plans for outpatient follow-up for Mayberry removal. However, patient who lives alone and [place] was unable to empty his catheter bag at home. As the bag filled with urine, he became concerned that he would harm his kidneys with the resultant obstruction. The patient then presented to the emergency room, where he received a 1 L bolus of NS before the hospital service was consulted for admission. Principal Diagnosis Dysuria Discharge Exam General: no acute distress, speaking in full sentences Resp: good inspiratory effort, no labored breathing HEENT: conjunctivae appear clear, no audible congestion, no swelling noted face or lips Skin: skin appears dry, normal coloration, no rash visible on exposed skin areas Neuro: alert and oriented x3, no focal deficits appreciated Psych: euthymic affect, pleasant and interactive, logical thought process Discharge Data Allergies Allergy/AdvReac Type Severity Reaction Status Date / Time No Known Allergies Allergy Verified 09/25/23 10:42 Consultations 09/28/23 02:31 ED Decision to Admit Stat Hospital Course (1) Ureterolithiasis: 78 M recently discharged for nephrolithiasis s/p stone retrieval, stent placement, who returned for further management due to Mayberry catheter issue. Ureterolithiasis S/p Stone Removal, Stent Placement Pt is tolerating R ureter stent without problems. No acute UTI noted on UA, u rine cultures were takenin ED. Pt to benefit from PT/OT evaluations to assess physical and cognitive ability to manage mayberry catheter and determine if placement is needed. - PT/OT evaluations ordered - Initiate coordination of home PT/acute rehab placement. Would recommend intensive education on Mayberry management in the meantime. Acute UTI -Less likely at this time due to recent work up at pervious hospital stay 09/23- 09/25. Prescribed Augmentin 875 mg - 125 mg at discharge x 10 days total. * Continue Augmentin twice daily x 8 days. * New urine culture pending BPH/HTN/A-Fib (chronic conditions) * Continue chronic home regimen (already ordered) * Clarify home Eliquis dose and appearance with patient, as there appears to be some discrepancy on med reconciliation. Code: Full code Dispo: Med-Surg FEN/GI: Heart healthy DVT Prophylaxis: Home Eliquis? Dose unclear PT/OT: Yes Consults: Case Management: Yes (2) Acute UTI: (3) BPH (benign prostatic hyperplasia): (4) Atrial flutter: (5) Hypertension: Total Time Total Time Spent Total Time Spent (In Minutes): Refer to attending physicians attestation. Discharge Plan Discharge Items Patient Disposition: Home - Self-Care Reason For Visit: DYSURIA Discharge Diagnosis: Dysuria Activity: Resume your previous activity Non-emergency contact: Primary Care Provider Call non-emergency contact if: you have any medication questions and your symptoms worsen Follow-up/Referrals: Pro,Julian Hamilton MD [Primary Care Provider] - 10/16/23 10:00 am (w/ nurse practitioner Nunu Fontaine) Diet: Regular Addtl Attending Provider Instructions: You were admitted to the hospital due to concern for your ability to manage your mayberry catheter. You were evaluated by PT and OT and received training from the nursing staff on how to empty your mayberry bag. Please follow up with your urologist as scheduled for further instructions. You were prescribed amoxicillin-clavulanic acid after discharge from your last hospital stay. Please continue this medication until it is gone to prevent reoccurrence of a urinary tract infection. You may also resume your home medications. Pending Studies at Discharge: No Stand-Alone Forms: My [employer], Smoking Cessation Medications and DC Order Prescriptions: Continued potassium chloride 20 mEq tablet,ER particles/crystals 20 meq PO QAM Qty: 90 3RF Spiriva Respimat 2.5 mcg/actuation mist 2 puff inhalation QAM PRN (Reason: Shortness Of Breath Or Wheezing) Qty: 4 3RF dutasteride 0.5 mg capsule 0.5 mg PO DAILY Qty: 90 1RF lisinopril 10 mg tablet 10 mg PO DAILY Qty: 30 2RF multivitamin [Daily Multi-Vitamin] Tablet 1 tab PO DAILY Qty: 30 0RF diltiazem HCl 240 mg capsule,extended release 24hr 240 mg PO DAILY Qty: 90 3RF vitamin B complex Tablet 1 tab PO QAM glucosamine-chondroitin 500-400 mg tablet 1 tab PO QAM cholecalciferol (vitamin D3) 25 mcg (1,000 unit) tablet 1,000 unit PO Q OTHER DAY acetaminophen 500 mg Capsule 1,000 mg PO Q6H PRN (Reason: Pain) folic acid 1 mg tablet 1 mg PO DAILY Qty: 30 3RF thiamine HCl (vitamin B1) 250 mg tablet 250 mg PO DAILY Qty: 30 3RF amoxicillin-pot clavulanate 875-125 mg tablet 1 tab PO BID Qty: 16 0RF Changed Eliquis 2.5 mg tablet 0 mg PO BID Qty: 0 0RF Rx Instructions: Per patient, he has been taking 2.5mg by mouth once daily even though it was prescribed as 2.5mg twice daily. When asked why, he said the 2.5mg twice daily was causing blood in his urine, so he felt like 2.5mg twice daily was too much so pt decided to just take 2.5mg once daily. Prescribing physician is not aware of this. Per patient he has been doing this for a couple of months. Discharge Orders: Discharge Order (Routine); Ordered 09/29/23 Ordered By: Patricia Cox/Other Patient Handouts: Urinary Catheter Bag Empty Clean, Indwelling Urinary Catheter Dc, Leg Bag Care Dc Admission Data Admit Date/Time: 09/28/23 03:05 Attending Provider: Sammy Woodard Admit Provider: Mynor Degroot Primary Care Provider: Julian Marc Other Providers: Stevie Quan Other Interventions: Discharge Summary Assessment (RN) Last Done: 09/29/23 15:32 Supervising Physician Co-Signing Physician Notes Patient seen and examined, chart reviewed, case discussed with Dr. 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 Did well during admission. No signs of continued obstruction. Patient was able to manage his Mayberry catheter with education and instruction. Stable renal function. Day of discharge. He was able to ambulate independently with no strength concerns. Patient was recommended to take his Eliquis 2.5 mg twice daily for A-fib prophylaxis. Of note he does not meet criteria for A-fib prophylaxis dose reduction by weight/creatinine/age criteria; however this was dose reduced due to history of hematuria. Patient instructed to take this 25 mg twice daily, and is unaware that this may be subtherapeutic however prefers to continue this dose on shared decision making. Agree with assessment as above otherwise. Time spent today of discharge approximately 35 minutes including review of labs and images, coordination of care, documentation.
[2023-09-29 07:17] LABS: Hematocrit (blood only) 33.1 % (42.0-52.0); Hemoglobin 11.2 g/dl (14.0-18.0); Mean Corpuscular Hemoglobin 32.9 pg (25.0-34.0); Mean Corpuscular Hgb Conc 33.8 g/dL (32.0-36.0); Mean Corpuscular Volume 97.4 fL (80.0-100.0); Mean Platelet Volume 10.3 fL (9.4-12.4); Platelet Count 149 K/uL (130-400); RDW Standard Deviation 49.9 fL (36.4-46.3); White Blood Count 5.57 K/ul (4.8-10.8)
[2023-09-29 07:33] LABS: BUN Creatinine Ratio 18.3 (10-20); Calcium 8.5 mg/dl (8.6-10.3); Creatinine Clr Calc Pharmacy 55.7 ml/min; Est GFR (African American) 91.5 ml/min; Est GFR (Non-African American) 78.9 ml/min; Potassium 3.5 mmol/L (3.5-5.1)
[2023-09-29 08:02] VITALS: BP 152/90; PULSE 67; TEMP 98.6; O2SAT 97
--- NOTE | 2023-09-29 16:14 | Billing Data ---
Date of Service September 29, 2023 Coding Level of Care Code 23295 INP/OBS DISCH >30 MIN
--- NOTE | 2023-09-30 09:53 | Billing Data ---
Date of Service September 30, 2023 Coding Level of Care Code 73952 INT INP/OBS CARE
== END 2023-09-29 15:57 | disposition home or self-care (01) ==
LOC: ED 23:40 → 3W 23:40 → SUATTDRO 09-28 03:05 → 3W 09-28 03:54

== ENCOUNTER 2023-12-16 22:05 | Inpatient (IN) ==
--- NOTE | 2023-12-16 23:22 | Emergency Department Note ---
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 unremarkable CTA neck. Multilevel moderate degenerative cervical spondylosis. Electronically signed by: Nina López MD, DABArnie 12/17/23 02:31 AM Discharge Plan Visit Data Chief Complaint: Alcohol Intoxication Stated Complaint: ETOH Eval ED Provider: Leonel Singh Discharge Problem: Alcohol dependence, Increased anion gap metabolic acidosis, Confusion Forms Stand Alone Forms: [facility] [employer] Prescriptions Prescriptions: No Action potassium chloride 20 mEq tablet,ER particles/crystals 20 meq PO QAM Qty: 90 3RF Spiriva Respimat 2.5 mcg/actuation mist 2 puff inhalation QAM PRN (Reason: Shortness Of Breath Or Wheezing) Qty: 4 3RF vitamin B complex Tablet 1 tab PO QAM glucosamine-chondroitin 500-400 mg tablet 1 tab PO QAM cholecalciferol (vitamin D3) 25 mcg (1,000 unit) tablet 1,000 unit PO QAM acetaminophen 500 mg Capsule 1,000 mg PO Q6H PRN (Reason: Pain) thiamine HCl (vitamin B1) 250 mg tablet 250 mg PO DAILY Qty: 30 3RF Patient Comments: only taking 125mg each morning multivitamin [Daily Multi-Vitamin] Tablet 1 tab PO QAM diltiazem HCl 240 mg capsule,extended release 24hr 240 mg PO QAM lisinopril 10 mg tablet 10 mg PO QAM folic acid 1 mg tablet 1 mg PO QAM dutasteride 0.5 mg capsule 0.5 mg PO QAM Eliquis 2.5 mg tablet 2.5 mg PO BID Patient Comments: Per patient, he has been taking 2.5mg by mouth once daily even though it was prescribed as 2.5mg twice daily. When asked why, he said the 2.5mg twice daily was causing blood in his urine, so he felt like 2.5mg twice daily was too much so pt decided to just take 2.5mg once daily. Prescribing physician is not aware of this. Per patient he has been doing this for a couple of months. Rx Instructions: Per patient, he has been taking 2.5mg by mouth once daily even though it was prescribed as 2.5mg twice daily. When asked why, he said the 2.5mg twice daily was causing blood in his urine, so he felt like 2.5mg twice daily was too much so pt decided to just take 2.5mg once daily. Prescribing physician is not aware of this. Per patient he has been doing this for a couple of months. amoxicillin-pot clavulanate 875-125 mg tablet 1 tab PO Q12H Qty: 20 0RF Patient Comments: post op phenazopyridine [Pyridium] 200 mg tablet 200 mg PO Q8H PRN (Reason: pain) Qty: 10 0RF Patient Comments: post op tamsulosin 0.4 mg capsule 0.4 mg PO HS Qty: 30 0RF Patient Comments: post op Referrals Referrals: ,Julian Hamilton MD [Primary Care Provider] - Discharge Problem: Alcohol dependence Qualifiers: Substance use status: other alcohol-induced disorder Qualified Code(s): F10.288 - Alcohol dependence with other alcohol-induced disorder
[2023-12-16 23:39] LABS: Basophils # (auto) 0.05 K/uL (0.00-0.20); Basophils % (auto) 0.6 %; Eosinophils # (auto) 0.11 K/uL (0.00-0.50); Eosinophils % (auto) 1.3 %; Hematocrit (blood only) 44.6 % (42.0-52.0); Hemoglobin 15.2 g/dl (14.0-18.0); Immature Granulocytes # (auto) 0.03 K/uL (0.01-0.20); Immature Granulocytes % (auto) 0.3 %; Lymphocytes # (auto) 0.84 K/uL (1.20-3.40); Lymphocytes % (auto) 9.5 %; Mean Corpuscular Hemoglobin 33.9 pg (25.0-34.0); Mean Corpuscular Hgb Conc 34.1 g/dL (32.0-36.0); Mean Corpuscular Volume 99.6 fL (80.0-100.0); Mean Platelet Volume 9.8 fL (9.4-12.4); Monocytes # (auto) 0.43 K/uL (0.11-0.59); Monocytes % (auto) 4.9 %; Neutrophils # (auto) 7.34 K/uL (1.40-6.50); Neutrophils % (auto) 83.4 %; Platelet Count 202 K/uL (130-400); RDW Coefficient of Variation 13.7 % (11.5-14.5); RDW Standard Deviation 50.5 fL (36.4-46.3); Red Blood Count 4.48 M/uL (4.70-6.10)
[2023-12-16 23:42] LABS: Base Excess VBG -9.4 mEq/L; HCO3 VBG 16 mmol/L; Oxygen Saturation VBG 66.6 %; PCO2 VBG 35 mmHg (38-50); PO2 VBG 40 mmHg; pH VBG 7.28 (7.36-7.41)
[2023-12-16 23:58] LABS: Albumin Globulin Ratio 1.6 (0.9-2); Albumin Level 4.8 gm/dl (3.4-5.0); BUN Creatinine Ratio 18.6 (10-20); Bilirubin,Total 0.8 mg/dl (0.2-1.0); Calcium 9.2 mg/dl (8.6-10.3); Creatinine Clr Calc Pharmacy 45.8 ml/min; Potassium 3.5 mmol/L (3.5-5.1); Total Protein 7.8 gm/dl (6.0-8.3)
[2023-12-17 00:04] LABS: Troponin I High Sensitivity 11.6 pg/ml (0-20)
[2023-12-17 00:13] LABS: INR 0.9 (0.9-1.1); Prothrombin Time 10.3 Seconds (9.0-12.0)
[2023-12-17] MEDS: OPTIRAY 320 125ml IV ONE (00:56)
[2023-12-17] MEDS: SODIUM CHLORIDE 0.9% 500 ML IV STA (01:41)
[2023-12-17 02:10] LABS: Appearance Urine Clear (Clear); Bacteria Urine Automated None Seen (None Seen); Bilirubin Urine Negative (Negative); Blood Urine 2+ (Negative); Color Urine Yellow; Glucose Urine UA Negative (Negative); Ketones Urine 3+ (Negative); Leukocyte Esterase Urine Negative (Negative); Mucus Urine Present (None Prsent); Nitrite Urine Negative (Negative); Protein Urine 1+ (Negative); Specific Gravity Urine 1.019 (1.000-1.030); Urobilinogen Urine Negative (Negative); WBC Urine Automated 0-5 /hpf (0-5); pH Urine 5.5 (4.5-7.5)
[2023-12-17 02:24] LABS: Amphetamines+Metham, Urine Neg (Neg); Barbiturates, Urine Neg (Neg); Benzodiazepine, Urine Neg (Neg); Cocaine, Urine Neg (Neg); Fentanyl, Urine Neg (Neg); MDMA (Ecstacy), Urine Neg (Neg); Marijuana, Urine Neg (Neg); Methadone, Urine Neg (Neg); Opiate, Urine Neg (Neg); Phencyclidine, Urine Neg (Neg)
--- NOTE | 2023-12-17 02:32 | CT Scan Report ---
Exam(s): CTA NECK With Contrast IV Amt: 120 ml EXAM: CT Angiography Neck With Intravenous Contrast CLINICAL HISTORY: Reason for exam: confusion. TECHNIQUE: Routine carotid CT angiography protocol was performed with intravenous contrast. NASCET criteria using the distal ICAs for comparison were used for evaluation of stenoses. CTDI is 38.31 mGy and DLP is 1098.16 mGy-cm. Automated exposure control was utilized for the study. A dose lowering technique was utilized adhering to the principles of ALARA. MIP reconstructed images were created and reviewed. CONTRAST: Patient received 120 ml of IV contrast COMPARISON: None. FINDINGS: VASCULATURE: Right common carotid artery: Unremarkable. No occlusion or significant stenosis. No dissection. Right carotid bulb: Small focal atheromatous calcified plaque. Right internal carotid artery: Atheromatous calcification of the proximal segment of the right ICA with< 50% luminal narrowing. No occlusion or significant stenosis. No dissection. Right external carotid artery: Unremarkable. No occlusion. Right vertebral artery: Unremarkable. No occlusion or significant stenosis. No dissection. Left common carotid artery: Unremarkable. No occlusion or significant stenosis. No dissection. Left carotid bulb: Curvilinear calcified atherosclerotic plaque. Left internal carotid artery: Unremarkable. Extracranial segment is patent with no occlusion or significant stenosis. No dissection. Left external carotid artery: Unremarkable. No occlusion. Left vertebral artery: Unremarkable. No occlusion or significant stenosis. No dissection. NECK: Bones/joints: Multilevel moderate degenerative spondylosis. No acute fracture. Soft tissues: Unremarkable. Lung apices: Biapical pleural-parenchymal significant thickening/scarring. Other findings: . CAROTID STENOSIS REFERENCE USING NASCET CRITERIA: % ICA stenosis = (1 - narrowest ICA diameter/diameter of distal cervical ICA) x 100. Mild - <50% stenosis. Moderate - 50-69% stenosis. Severe - 70-94% stenosis. Near occlusion - 95-99% stenosis. Occluded - 100% stenosis. IMPRESSION: Calcified atherosclerotic plaques of the bilateral carotid bulbs and right proximal ICA. Otherwise unremarkable CTA neck. Multilevel moderate degenerative cervical spondylosis. Electronically signed by: Nina López MD, DABR 12/17/23 02:31 AM
--- NOTE | 2023-12-17 02:50 | CT Scan Report ---
Exam(s): CT HEAD Without Contrast EXAM: CT Head Without Intravenous Contrast CLINICAL HISTORY: Reason for exam: confusion. TECHNIQUE: Axial computed tomography images of the head/brain without intravenous contrast. CTDI is 38.31 mGy and DLP is 1098.16 mGy-cm. Automated exposure control was utilized for the study. A dose lowering technique was utilized adhering to the principles of ALARA. COMPARISON: CT brain: 06/20/2023. FINDINGS: Motion-induced image degradation. Brain: There is no acute intracranial hemorrhage, mass-effect or midline shift. No abnormal extra-axial fluid collection seen. Age-related cerebral atrophy with widening of the extra-axial spaces and ventricular dilatation. Significant periventricular/subcortical areas of decreased attenuation, likely from chronic microvascular disease. Bones/joints: Unremarkable. No acute fracture. Soft tissues: Unremarkable. Sinuses: Unremarkable as visualized. No acute sinusitis. Mastoid air cells: Unremarkable as visualized. No mastoid effusion.. IMPRESSION: No acute intracranial abnormality noted. Chronic involutional and ischemic changes of the brain. . Electronically signed by: Nina López MD, DABR 12/17/23 02:49 AM
[2023-12-17] MEDS: SODIUM CHLORIDE 0.9% 500 ML IV ONE (02:53)
--- NOTE | 2023-12-17 03:03 | CT Scan Report ---
Exam(s): CTA HEAD With Contrast IV Amt: 120 ml EXAM: CT Angiography Head With Intravenous Contrast CLINICAL HISTORY: Reason for exam: confusion. TECHNIQUE: Axial computed tomographic angiography images of the head with intravenous contrast. CTDI is 38.31 mGy and DLP is 1098.16 mGy-cm. Automated exposure control was utilized for the study. A dose lowering technique was utilized adhering to the principles of ALARA. MIP reconstructed images were created and reviewed. CONTRAST: Patient received 120 ml of IV contrast COMPARISON: CT brain: 12/17/2023 FINDINGS: Technically suboptimal exam. Intracranial circulation is unremarkable with no vascular malformation, aneurysm or stenosis. No branch occlusion. Artifact versus segmental moderate grade stenosis of a insular branch of the right MCA (series 700 image 32). Left and right vertebral artery: Unremarkable as visualized. Basilar artery: Unremarkable. No occlusion or significant stenosis. No aneurysm.. IMPRESSION: . No large vessel occlusion, significant stenosis or aneurysm is evident. Electronically signed by: Nina López MD, MARY CARMENR 12/17/23 03:02 AM
[2023-12-17] MEDS: THIAMINE HCL 500 MG in SODIUM CHLORIDE 0.9% 50 ML IV STA (04:22)
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
[2023-12-17] MEDS: cloNIDine HCL 0.1 MG TAB PO STA (04:35)
[2023-12-17] MEDS: ONDANSETRON INJ 2 MG/ML 2 ML VIAL IV PRN (05:42)
--- NOTE | 2023-12-17 08:17 | Hospitalist Progress Note ---
Date of Service December 17, 2023 Assessment & Plan (1) Confusion: (2) Alcohol intoxication: (3) Alcohol dependence: (4) Afib: (5) Anticoagulated: (6) Current smoker: (7) COPD with emphysema: (8) Hyperlipidemia: (9) Incomplete bladder emptying: (10) Hx of bladder cancer: Plan Confusion/alcohol intoxication/alcohol dependence Unremarkable CT head, CTA head and neck Alcohol level 207.1 on admission AWSS protocol with IV Ativan Some degree of cognitive impairment present, unclear how this compares to baseline but due to potential for Wernicke's encephalopathy, will continue IV thiamine 500mg TID x2 days. Assess for changes in mentation. Continue folic acid 1 mg p.o. every morning Continue multivitamin 1 daily AG Metabolic Acidosis: VBG on admission with pH 7.28 BMP on admission with bicarb 15, AG of 28 -> repeat today improving with bicarb on 21, AG of 16 Repeat AM BMP Hypertension/atrial fibrillation- Continue diltiazem HCl 240 mg every morning Continue Eliquis 2.5 mg p.o. twice daily Continue clonidine 0.2 mg p.o. BID for reflex tachycardia and hypertension associated with alcohol withdrawal Hold lisinopril BPH with LUTS- Continue dutasteride and tamsulosin VTE ppx: Eliquis FEN/GI: HH, IV NS+KCl 100mL/hr (stop time: 12/16 @ 1845) Supervising Physician Co-Signing Physician Notes Attending Physician Supervision Note: I independently interviewed and examined the patient and verified the jaime history and physical, reviewed labs and image studies and agree with findings and care plan noted above. Confusion - suspect underlying dementia- unable to spell WORLD backwards, deduct 7 from 100 onwards. Also with chronic AUD. -work up negative so far. -will check b12. Levels in 2022 normal. -get collateral history of friend and son -reassess in am AUD - continue to monitor for withdrawal symptom. AWSS in place. Subjective Patient resting comfortably in bed when seen this morning, denies anxiety, tremors, N/V/D. Patient is a poor historian, unable to remember when his last drink was. Daily consumption is variable but up to a fifth of hard liquor. Denies h/o seizures in the setting of alcohol withdrawal. Denies h/o treatment for AUD ie. rehab, medication trials, support groups. Spoke with primary contact, Chhaya - she states that patient seems to have some cognitive decline over past several months - recall of distant memories intact but has more difficulty with information processing and will frequently lose his train of thought. Also forgot to pay his rent last month, which is highly out of character for him. Per friend, last drink was 12/15 some time in the afternoon. Review of Systems Review of Systems: as per HPI Physical Exam Physical Exam: General: Resting comfortably. No acute distress Cardiac: Regular rate and rhythm, no murmurs appreciated Respiratory: Lungs clear to auscultation bilaterally, No increased work of breathing Abdominal: Soft, non-tender, non-distended. Bowel sounds present. Neuro: AOx3 but seems to have looked to the date written on the wall, speech if fluent, EOMI - no ophthalmoplegia appreciated, Poor recall of both recent and more distant events. No tremor or asterixis appreciated. Results & Data Results & Data Vital Signs (Past 12 Hours) Vital Signs Temp Pulse Pulse Resp BP BP Pulse Ox 12/17/23 07:07 102 H 12/17/23 06:33 106 H 24 90 12/17/23 06:30 104 H 19 170/105 H 91 12/17/23 06:00 102 H 22 159/107 H 90 12/17/23 05:30 95 H 23 163/100 H 92 12/17/23 05:00 95 H 19 160/100 H 95 12/17/23 04:30 98 H 24 147/84 H 91 12/17/23 04:02 101 H 17 158/97 H 95 12/17/23 04:00 106 H 21 158/97 H 95 12/17/23 03:12 98 H 12/17/23 03:00 98 H 16 168/111 H 96 12/17/23 02:51 94 12/17/23 02:09 91 12/17/23 01:30 77 18 162/96 H 92 12/17/23 00:33 95 H 21 162/97 H 90 12/17/23 00:15 97 H 15 96 12/17/23 00:03 90 21 148/90 H 91 12/16/23 23:54 92 H 20 90 12/16/23 23:33 93 H 17 151/96 H 94 12/16/23 23:16 92 H 12/16/23 23:09 94 H 22 90 12/16/23 23:00 152/87 H 12/16/23 22:42 90 16 94 12/16/23 22:36 93 H 17 145/82 H 94 12/16/23 22:27 89 19 90 12/16/23 22:13 36.7 C 93 H 18 158/96 H 93 12/16/23 22:12 98 H 15 158/96 H 93 O2 Del Method 12/17/23 07:07 12/17/23 06:33 12/17/23 06:30 12/17/23 06:00 12/17/23 05:30 12/17/23 05:00 12/17/23 04:30 12/17/23 04:02 Room Air 12/17/23 04:00 12/17/23 03:12 12/17/23 03:00 12/17/23 02:51 12/17/23 02:09 12/17/23 01:30 12/17/23 00:33 12/17/23 00:15 12/17/23 00:03 12/16/23 23:54 12/16/23 23:33 12/16/23 23:16 12/16/23 23:09 12/16/23 23:00 12/16/23 22:42 12/16/23 22:36 12/16/23 22:27 12/16/23 22:13 Room Air 12/16/23 22:12 Resident Activity Tracking Resident Involvement: Resident Care Provided Care Provided: Adult Hospital Medicine (3) Alcohol dependence Substance use status: other alcohol-induced disorder Qualified Code(s): F10.288 - Alcohol dependence with other alcohol-induced disorder
[2023-12-17] MEDS ORDERED: LORazepam 2 MG/1 ML VIAL IV PRN ×3 (08:32)
[2023-12-17] MEDS ORDERED: Ativan IV Alcohol Withdrawal--Active Protocol IV PRN (08:32)
[2023-12-17] MEDS ORDERED: UMECLIDINIUM BROMIDE 62.5MCG/BLISTER 7 PUFFS/INHALER INH PRN (08:39)
[2023-12-17] MEDS: NSS + 20MEQ KCL 20 MEQ/1,000 ML BAG IV SCH (09:20)
[2023-12-17] MEDS: PANTOprazole 40 MG/10 ML SYR IV SCH (09:20)
--- NOTE | 2023-12-17 09:34 | XRay Report ---
LEFT SHOULDER 3 VIEWS CLINICAL HISTORY: Atraumatic left shoulder pain. FINDINGS: 3 views of the left shoulder are obtained. No prior studies are available for comparison at the time of dictation. The skeletal structures are osteopenic. There is no radiographic evidence of fracture or dislocation. Productive degenerative change is noted at the acromioclavicular joint. Ther e is moderate osteoarthritic change at the glenohumeral articulation. Spurring is seen along the grea ter tuberosity. The overlying soft tissues are within normal limits. The imaged left lung parenchyma appears clear. There are chronic/healed left-sided rib fractures. IMPRESSION: No acute bony abnormality is identified. Electronically signed by: Madhu Krishnamurthy M.D. 12/17/2023 9:33 AM
--- NOTE | 2023-12-17 10:24 | XRay Report ---
XR chest 1V portable CLINICAL HISTORY: confusion TECHNIQUE: Single frontal radiograph of the chest was obtained. Comparison: Comparison is made to chest radiograph 09/25/2023 FINDINGS: No lines and tubes are seen. Calcified aortic knob is seen. Previous seen noted right apical nodule i s better seen on CT. No evidence of pleural effusion or pneumothorax. IMPRESSION: No acute chest disease. ACT 112: Negative or not required by law. Electronically signed by: Fabián Chandra M.D. 12/17/2023 10:23 AM
[2023-12-17] MEDS: FINASTERIDE 5 MG TAB PO SCH (10:36)
[2023-12-17] MEDS: cloNIDine HCL 0.1 MG TAB PO SCH (10:36)
[2023-12-17] MEDS: CHOLECALCIFEROL 25 MCG (1000 UNITS) TAB PO SCH (10:37)
[2023-12-17] MEDS: FOLIC ACID 1 MG TAB PO SCH (10:37)
[2023-12-17] MEDS: APIXABAN 2.5 MG TAB PO SCH (10:37)
[2023-12-17] MEDS: dilTIAZem HCL 240 MG CAPCR PO SCH (10:37)
[2023-12-17] MEDS: VITAMIN B COMPLEX TAB PO SCH (10:38)
[2023-12-17] MEDS: THIAMINE HCL 100 MG TAB PO SCH (10:39)
[2023-12-17] MEDS: POTASSIUM CHLORIDE CRTAB 20 MEQ TABCR PO SCH (10:40)
[2023-12-17] MEDS: THIAMINE HCL 500 MG in SODIUM CHLORIDE 0.9% 50 ML IV SCH (11:13)
[2023-12-17 11:29] LABS: BUN Creatinine Ratio 17.3 (10-20); Calcium 8.2 mg/dl (8.6-10.3); Creatinine Clr Calc Pharmacy 52.9 ml/min; Potassium 4.1 mmol/L (3.5-5.1)
[2023-12-17] MEDS: TAMSULOSIN HCL 0.4 MG CAP PO SCH (20:04)
[2023-12-18 04:37] LABS: Basophils # (auto) 0.02 K/uL (0.00-0.20); Basophils % (auto) 0.6 %; Eosinophils # (auto) 0.13 K/uL (0.00-0.50); Eosinophils % (auto) 3.6 %; Hematocrit (blood only) 37.4 % (42.0-52.0); Immature Granulocytes # (auto) 0.01 K/uL (0.01-0.20); Immature Granulocytes % (auto) 0.3 %; Lymphocytes # (auto) 0.79 K/uL (1.20-3.40); Lymphocytes % (auto) 21.8 %; Mean Corpuscular Hemoglobin 33.9 pg (25.0-34.0); Mean Corpuscular Hgb Conc 34.8 g/dL (32.0-36.0); Mean Corpuscular Volume 97.4 fL (80.0-100.0); Mean Platelet Volume 9.8 fL (9.4-12.4); Monocytes # (auto) 0.39 K/uL (0.11-0.59); Monocytes % (auto) 10.7 %; Neutrophils # (auto) 2.29 K/uL (1.40-6.50); Platelet Count 145 K/uL (130-400); RDW Coefficient of Variation 13.3 % (11.5-14.5); RDW Standard Deviation 47.8 fL (36.4-46.3); Red Blood Count 3.84 M/uL (4.70-6.10); White Blood Count 3.63 K/ul (4.8-10.8)
[2023-12-18 04:55] LABS: Albumin Globulin Ratio 1.6 (0.9-2); Albumin Level 3.7 gm/dl (3.4-5.0); BUN Creatinine Ratio 16.7 (10-20); Bilirubin,Total 1.2 mg/dl (0.2-1.0); Calcium 8.1 mg/dl (8.6-10.3); Globulin 2.3 gm/dl (2.5-4.0); Magnesium 1.6 mg/dl (1.7-2.4); Potassium 3.5 mmol/L (3.5-5.1)
--- NOTE | 2023-12-18 06:47 | Hospitalist Progress Note ---
Date of Service December 18, 2023 Assessment & Plan (1) Confusion: (2) Alcohol intoxication: (3) Alcohol dependence: (4) Afib: (5) Anticoagulated: (6) Current smoker: (7) COPD with emphysema: (8) Hyperlipidemia: (9) Incomplete bladder emptying: (10) Hx of bladder cancer: Plan Confusion/alcohol intoxication/alcohol dependence Unremarkable CT head, CTA head and neck Alcohol level 207.1 on admission AWSS protocol with IV Ativan Some degree of cognitive impairment present, suspect this is present at baseline but exacerbated by alcohol use, continue IV thiamine 500mg TID today followed by 250mg daily x5 days due to h/o significant alcohol consumption. Assess for changes in mentation. Continue folic acid 1 mg p.o. every morning Continue multivitamin 1 daily PT/OT evaluation and treat CM following for placement needs - patient currently expressing refusal of rehab, will revisit based on PT/OT evals. May need to involve son depending on assessment of decision making capacity. AG Metabolic Acidosis - Resolved: VBG on admission with pH 7.28 BMP on admission with bicarb 15, AG of 28 -> AM bicarb 24, AG closed Repeat AM BMP Hypertension/atrial fibrillation- Continue diltiazem HCl 240 mg every morning Continue Eliquis 2.5 mg p.o. twice daily Continue clonidine 0.2 mg p.o. BID for reflex tachycardia and hypertension associated with alcohol withdrawal Hold lisinopril BPH with LUTS- Continue dutasteride and tamsulosin VTE ppx: Eliquis FEN/GI: HH Admission and Anticipated Discharge Date Admission Date: December 17, 2023 Supervising Physician Co-Signing Physician Notes I personally examined the patient and verified all jaime points of history and exam, discussed case, and agree with decision making with Dr Jacob feeling ok but easily confused. no acute problems. does note that L shoulder weak. vitals noted nad heent nc at mmm breathing unlabored L shoulder weak in abduction but no palpable tenderness/effusions/step-offs/etc Confusion - suspect underlying dementia - concerning that it probably relates to chronic AUD. high dose thiamine ordered -work up negative so far. -will check b12. Levels in 2022 normal. -continue to get collateral history of friend and son AUD - continue to monitor for withdrawal symptom. AWSS in place. fortunately does not appear in any type of significant withdrawal anticoagulated PT/OT - right now appears would benefit from placement Subjective Patient resting comfortably in bed when seen this morning, denies anxiety, tremors, N/V. Endorses loose stools x2. Patient continues to be a poor historian, gives vague replies. Review of Systems Review of Systems: as per HPI Physical Exam Physical Exam: General: Resting comfortably. No acute distress Cardiac: Regular rate and rhythm, no murmurs appreciated Respiratory: Lungs clear to auscultation bilaterally, No increased work of breathing Abdominal: Soft, non-tender, non-distended. Bowel sounds present. Neuro: AOx3, speech is fluent, EOMI - no ophthalmoplegia appreciated, Poor recall of recent events. No tremor or asterixis appreciated. Difficulty spelling WORLD backwards, unable to subtract serial 7s. Results & Data Results & Data Vital Signs (Past 12 Hours) Vital Signs Temp Pulse Pulse Resp BP Pulse Ox O2 Del Method 12/18/23 03:55 37 C 71 16 128/76 94 Room Air 12/18/23 00:04 37.1 C 67 22 125/76 94 Room Air 12/18/23 00:00 67 12/17/23 19:56 37.4 C 74 22 138/77 94 Room Air Resident Activity Tracking Resident Involvement: Resident Care Provided Care Provided: Adult Hospital Medicine (3) Alcohol dependence Substance use status: other alcohol-induced disorder Qualified Code(s): F1 0.288 - Alcohol dependence with other alcohol-induced disorder
[2023-12-18] MEDS: POTASSIUM CHLORIDE CRTAB 20 MEQ TABCR PO STA (08:36)
[2023-12-18] MEDS: MAGNESIUM SULFATE / D5W 1 GM/100 ML BAG IV ONE (08:36)
[2023-12-18] MEDS: PANTOprazole 40 MG TAB PO SCH (08:46)
--- NOTE | 2023-12-18 17:05 | Billing Data ---
Date of Service December 18, 2023 Coding Level of Care Code 15352 SUB INP/OBS CARE
--- NOTE | 2023-12-19 05:36 | Electrocardiogram Report ---
Test Reason : Blood Pressure : */* mmHG Vent. Rate : 94 BPM Atrial Rate : 94 BPM P-R Int : 174 ms QRS Dur : 96 ms QT Int : 380 ms P-R-T Axes : 67 17 59 degrees QTcB Int : 475 ms Sinus rhythm with Premature atrial complexes Possible Left atrial enlargement Borderline ECG When compared with ECG of 29-Sep-2023 23:36, Premature atrial complexes are now Present Confirmed by Elbert Smith ([id number]) on 12/19/2023 5:36:01 AM Referred By: REFERRED SELF Confirmed By: Elbert Smith
--- NOTE | 2023-12-19 07:01 | Hospitalist Progress Note ---
Date of Service December 19, 2023 Assessment & Plan (1) Confusion: (2) Alcohol intoxication: (3) Alcohol dependence: (4) Afib: (5) Anticoagulated: (6) Current smoker: (7) COPD with emphysema: (8) Hyperlipidemia: (9) Incomplete bladder emptying: (10) Hx of bladder cancer: Plan Confusion/alcohol intoxication/alcohol dependence Unremarkable CT head, CTA head and neck Alcohol level 207.1 on admission Do evidence of clinically significant withdrawal after 72 hours Some degree of cognitive impairment present, suspect this is present at baseline but exacerbated by alcohol use, continue IV thiamine 250mg daily x5 days due to h/o significant alcohol consumption. Assess for changes in mentation. Continue folic acid 1 mg p.o. every morning Continue multivitamin 1 daily PT/OT evaluations completed, recommending return to home. CM following for placement needs - patient currently expressing refusal of placement. May need to involve son depending on assessment of decision making capacity. Consider completing MOCA tomorrow. AG Metabolic Acidosis - Resolved: VBG on admission with pH 7.28 BMP on admission with bicarb 15, improved since with AG closed Hypertension/atrial fibrillation- Continue diltiazem HCl 240 mg every morning Continue Eliquis 2.5 mg p.o. twice daily Continue clonidine 0.2 mg p.o. BID for reflex tachycardia and hypertension associated with alcohol withdrawal Hold lisinopril BPH with LUTS- Continue dutasteride and tamsulosin VTE ppx: Eliquis FEN/GI: Admission and Anticipated Discharge Date Admission Date: December 17, 2023 Supervising Physician Co-Signing Physician Notes I personally examined the patient and verified all jaime points of history and exam, discussed case, and agree with decision making with Dr Jacob same conversation as yesterday about his weak shoulder vitals noted nad heent nc at mmm breathing unlabored L shoulder weak in abduction but no palpable tenderness/effusions/step-offs/etc Confusion - suspect underlying dementia - concerning that it probably relates to chronic AUD. high dose thiamine ordered and continues -work up negative so far. -b12 504 -continue to get collateral history of friend and son AUD - continue to monitor for withdrawal symptom. AWSS in place. fortunately does not appear in any type of significant withdrawal anticoagulated PT/OT - doing well, but concern on his ability to care for himself at home - will need to cordero further input from son Subjective Patient resting comfortably in bed when seen this morning, denies anxiety, tremors, N/V. Patient continues to be a poor historian, gives vague replies. Review of Systems Review of Systems: as per HPI Physical Exam Physical Exam: General: Resting comfortably. No acute distress Cardiac: Regular rate and rhythm, no murmurs appreciated Respiratory: Lungs clear to auscultation bilaterally, No increased work of breathing Abdominal: Soft, non-tender, non-distended. Bowel sounds present. Neuro: AOx3, speech is fluent, EOMI. Poor recall of recent events. No tremor or asterixis appreciated. Able to spell WORLD backwards, still unable to subtract serial 7s. Results & Data Results & Data Vital Signs (Past 12 Hours) Vital Signs Temp Pulse Resp BP Pulse Ox O2 Del Method 12/18/23 23:01 36.9 C 70 18 147/78 H 95 Room Air 12/18/23 21:00 Room Air 12/18/23 20:24 36.9 C 70 18 148/85 H 95 Room Air 12/18/23 20:07 36.7 C 79 14 154/85 H 94 Room Air Resident Activity Tracking Resident Involvement: Resident Care Provided Care Provided: Adult Hospital Medicine (3) Alcohol dependence Substance use status: other alcohol-induced disorder Qualified Code(s): F10.288 - Alcohol dependence with other alcohol-induced disorder
[2023-12-19 08:10] LABS: Basophils # (auto) 0.02 K/uL (0.00-0.20); Basophils % (auto) 0.4 %; Eosinophils # (auto) 0.18 K/uL (0.00-0.50); Eosinophils % (auto) 3.4 %; Hematocrit (blood only) 38.6 % (42.0-52.0); Hemoglobin 13.4 g/dl (14.0-18.0); Immature Granulocytes # (auto) 0.02 K/uL (0.01-0.20); Immature Granulocytes % (auto) 0.4 %; Lymphocytes # (auto) 0.94 K/uL (1.20-3.40); Lymphocytes % (auto) 17.9 %; Mean Corpuscular Hemoglobin 33.8 pg (25.0-34.0); Mean Corpuscular Hgb Conc 34.7 g/dL (32.0-36.0); Mean Corpuscular Volume 97.5 fL (80.0-100.0); Mean Platelet Volume 10.2 fL (9.4-12.4); Monocytes # (auto) 0.43 K/uL (0.11-0.59); Monocytes % (auto) 8.2 %; Neutrophils # (auto) 3.67 K/uL (1.40-6.50); Neutrophils % (auto) 69.7 %; Platelet Count 144 K/uL (130-400); RDW Standard Deviation 46.8 fL (36.4-46.3); Red Blood Count 3.96 M/uL (4.70-6.10); White Blood Count 5.26 K/ul (4.8-10.8)
[2023-12-19 08:34] LABS: Calcium 8.6 mg/dl (8.6-10.3); Creatinine Clr Calc Pharmacy 51.8 ml/min; Potassium 3.4 mmol/L (3.5-5.1)
[2023-12-19] MEDS: POTASSIUM CHLORIDE CRTAB 20 MEQ TABCR PO STA (08:51)
[2023-12-19] MEDS: THIAMINE HCL 200 MG in SODIUM CHLORIDE 0.9% 50 ML IV SCH (10:00)
--- NOTE | 2023-12-19 13:15 | Billing Data ---
Date of Service December 19, 2023 Coding Level of Care Code 36155 SUB INP/OBS CARE
[2023-12-19] MEDS: ACETAMINOPHEN 325 MG TAB PO PRN (21:16)
[2023-12-20 01:18] LABS: Appearance Urine Clear (Clear); Bacteria Urine Automated None Seen (None Seen); Bilirubin Urine Negative (Negative); Blood Urine 1+ (Negative); Cast Urine Automated 0-2 /lpf (0-2); Color Urine Yellow; Epithelial Cell Urine Auto 0-2 /hpf (0-2); Glucose Urine UA Negative (Negative); Ketones Urine Negative (Negative); Leukocyte Esterase Urine Negative (Negative); Nitrite Urine Negative (Negative); Protein Urine Negative (Negative); Specific Gravity Urine 1.006 (1.000-1.030); Urobilinogen Urine Negative (Negative); WBC Urine Automated 0-5 /hpf (0-5)
--- NOTE | 2023-12-20 07:40 | Hospitalist Progress Note ---
Date of Service December 20, 2023 Assessment & Plan (1) Confusion: (2) Alcohol intoxication: (3) Alcohol dependence: (4) Afib: (5) Anticoagulated: (6) Current smoker: (7) COPD with emphysema: (8) Hyperlipidemia: (9) Incomplete bladder emptying: (10) Hx of bladder cancer: Plan Confusion/alcohol intoxication/alcohol dependence/Cognitive Decline: Unremarkable CT head, CTA head and neck Alcohol level 207.1 on admission No evidence of clinically significant withdrawal Some degree of cognitive impairment present, suspect this is present at baseline but exacerbated by alcohol use, continue IV thiamine 250mg daily while inpatient due to h/o significant alcohol consumption, continue oral thiamine supplementation following discharge. Continue folic acid 1 mg p.o. every morning Continue multivitamin 1 daily PT/OT evaluations completed, recommending return to home. CM following for placement needs - patient currently expressing refusal of placement. Dispo planning pending discussion with sonRhonda. AG Metabolic Acidosis - Resolved: VBG on admission with pH 7.28 BMP on admission with bicarb 15, improved since with AG closed Hypertension/atrial fibrillation- Continue diltiazem HCl 240 mg every morning Continue Eliquis 2.5 mg p.o. twice daily Continue clonidine 0.2 mg p.o. BID for reflex tachycardia and hypertension associated with alcohol withdrawal Hold lisinopril BPH with LUTS- Continue dutasteride and tamsulosin VTE ppx: Eliquis FEN/GI: Admission and Anticipated Discharge Date Admission Date: December 17, 2023 Supervising Physician Co-Signing Physician Notes I personally examined the patient and verified all jaime points of history and exam, discussed case, and agree with decision making with Dr Jacob had guerrero discussion with pt on my concerns of his cognitive decline. he was able to express some semblance of understanding relating that he has noticed trouble with checkbook/etc over an unspecified period of time and expresses a vague endorsement of maybe not feeling as safe living totally independently - of course during this conversation he did show several episodes of tangential thoughts and difficulty with finding the right ways to express himself. was able to reach sonrhonda. he expressed an extremely strong opinion that he believes that every time his dad has had waxing and waning in mentation an antibiotic has gotten him back on track; heard my concerns that pt shows findings more c/w dementia than delirium and that i don't see any infection at play (nor did i in may when i had him, and over the summer i expressed that while we did treat for possible UTI in the context of kidney stone it was more due to not being able to exclude infection rather than truly seeing s/s of infection) and quite bluntly noted that he completely disagrees with me (even speculating that my conclusions were biased based on presuppositions due to patient's age rather than truly evaluating his clinical condition) - reiterated my concerns and asked that he pay close attention for any objective signs that might have him corroborate my concerns. discussed that the biggest reason for feeling the need to express these concerns now is more out of concern for pt's safety at home (fall ~a month ago, etc). again rhonda noted that he hears what i'm concerned about but completely disagrees. vitals noted nad heent nc at mmm breathing unlabored no accessory muscles good effort skin no rashes no pallor or icterus Confusion - suspect underlying dementia - concerning that it probably relates to chronic AUD. high dose thiamine ordered and continues -work up negative for other factors -MOCA 18/30 - main limitations being in executive functioning and memory -b12 504 -expressed concern to son who does not agree at all; pt himself shows concerning cognitive impairment but also still appears to have capacity and does not want to go to a facility at this time - anticipate he will go home with home PT/OT, close PCP f/u, office of aging support AUD - no withdrawal anticoagulated Subjective Patient resting comfortably in bed when seen this morning, denies anxiety, tremors, N/V. MOCA administered today, patient was able to maintain concentration and appeared to be giving a very good effort, scored 18/30. Review of Systems Review of Systems: as per HPI Physical Exam Physical Exam: General: Resting comfortably. No acute distress Cardiac: Regular rate and rhythm, no murmurs appreciated Respiratory: Lungs clear to auscultation bilaterally, No increased work of breathing Abdominal: Soft, non-tender, non-distended. Bowel sounds present. Neuro: AOx3, speech is fluent, EOMI. Poor short term recall very evident on MOCA. No tremor or asterixis appreciated. Results & Data Results & Data Vital Signs (Past 12 Hours) Vital Signs Temp Pulse Resp BP Pulse Ox O2 Del Method 12/20/23 06:56 36.7 C 61 16 149/85 H 95 Room Air Resident Activity Tracking Resident Involvement: Resident Care Provided Care Provided: Adult Hospital Medicine (3) Alcohol dependence Substance use status: other alcohol-induced disorder Qualified Code(s): F10.288 - Alcohol dependence with other alcohol-induced disorder
--- NOTE | 2023-12-20 17:30 | Billing Data ---
Date of Service December 20, 2023 Coding Level of Care Code 13748 SUB INP/OBS CARE
--- NOTE | 2023-12-21 07:36 | Hospitalist Progress Note ---
Date of Service December 21, 2023 Assessment & Plan (1) Confusion: (2) Alcohol intoxication: (3) Alcohol dependence: (4) Afib: (5) Anticoagulated: (6) Current smoker: (7) COPD with emphysema: (8) Hyperlipidemia: (9) Incomplete bladder emptying: (10) Hx of bladder cancer: Plan Confusion/alcohol intoxication/alcohol dependence/Cognitive Decline: Unremarkable CT head, CTA head and neck Alcohol level 207.1 on admission No evidence of clinically significant withdrawal Some degree of cognitive impairment present, suspect this is present at baseline but exacerbated by alcohol use, continue IV thiamine 250mg daily while inpatient due to h/o significant alcohol consumption, continue oral thiamine supplementation following discharge. Continue folic acid 1 mg p.o. every morning Continue multivitamin 1 daily PT/OT evaluations completed, recommending return to home CM following for placement needs, in the process of setting up home health PT/OT, nursing, social work Lengthy discussion with patient and his ex-: Ex- spoke with sonAlvino - Alvino would like patient to be flown down to [place] to stay with him at least for a month. Hopeful that son will be able to see that patient is in cognitive decline, ex- to clarify long-term plan with Alvino tito. would patient live with him or find a suitable place nearby. In the interim, ex- will be checking on patient periodically, will also help with clearing out his apartment and managing his finances. Will also speak with neighbor, Chhaya (patient consents) - hopeful that between Chhaya, ex- Jessica, and home health services, patient will have adequate supervision until able to be relocated to son's home in [place]. AG Metabolic Acidosis - Resolved: VBG on admission with pH 7.28 BMP on admission with bicarb 15, improved since with AG closed Hypertension/atrial fibrillation- Continue diltiazem HCl 240 mg every morning Continue Eliquis 2.5 mg p.o. twice daily Continue clonidine 0.2 mg p.o. BID for reflex tachycardia and hypertension associated with alcohol withdrawal Hold lisinopril BPH with LUTS- Continue dutasteride and tamsulosin VTE ppx: Eliquis FEN/GI: Admission and Anticipated Discharge Date Admission Date: December 17, 2023 Supervising Physician Co-Signing Physician Notes I personally examined the patient and verified all jaime points of history and exam, discussed case, and agree with decision making with Dr Jacob no new issues. tried to reiterate yesterday's discussions with pt - he continues to endorse an awareness of memory loss especially with things like doing checks. plan will be for him to go to [place] w son for at least a month. vitals noted nad heent nc at mmm breathing unlabored no accessory muscles good effort skin no rashes no pallor or icterus Confusion - suspect underlying dementia - concerning that it probably relates to chronic AUD. high dose thiamine ordered and continues -work up negative for other factors -MOCA - main limitations being in executive functioning and memory -b12 504 -building safe dc plan AUD - no withdrawal anticoagulated Subjective Patient resting comfortably in bed when seen this morning, denies anxiety, tremors, N/V. No major changes today. Review of Systems Review of Systems: as per HPI Physical Exam Physical Exam: General: Resting comfortably. No acute distress Respiratory: No increased work of breathing Neuro: AOx3, speech is fluent. Poor short term recall. Results & Data Results & Data Vital Signs (Past 12 Hours) Vital Signs Temp Pulse Resp BP Pulse Ox O2 Del Method 12/21/23 07:07 36.9 C 63 16 154/80 H 96 Room Air 12/20/23 21:01 36.9 C 64 16 164/94 H 98 Room Air Resident Activity Tracking Resident Involvement: Resident Care Provided Care Provided: Adult Hospital Medicine (3) Alcohol dependence Substance use status: other alcohol-induced disorder Qualified Code(s): F10.288 - Alcohol dependence with other alcohol-induced disorder
--- NOTE | 2023-12-21 18:27 | Billing Data ---
Date of Service December 21, 2023 Coding Level of Care Code 68568 SUB INP/OBS CARE
[2023-12-21 19:55] VITALS: O2SAT 96
[2023-12-22 07:33] VITALS: BP 167/91; PULSE 72; RESP 16; TEMP 98.4
--- NOTE | 2023-12-22 07:39 | Hospitalist Progress Note ---
Date of Service December 22, 2023 Assessment & Plan (1) Confusion: (2) Alcohol intoxication: (3) Alcohol dependence: (4) Afib: (5) Anticoagulated: (6) Current smoker: (7) COPD with emphysema: (8) Hyperlipidemia: (9) Incomplete bladder emptying: (10) Hx of bladder cancer: Plan Confusion/alcohol intoxication/alcohol dependence/Cognitive Decline: Unremarkable CT head, CTA head and neck Alcohol level 207.1 on admission No evidence of clinically significant withdrawal Some degree of cognitive impairment present, suspect this is present at baseline but exacerbated by alcohol use, continue IV thiamine 250mg daily while inpatient due to h/o significant alcohol consumption, continue oral thiamine supplementation following discharge. Continue folic acid 1 mg p.o. every morning Continue multivitamin 1 daily PT/OT evaluations completed, recommending return to home CM following for placement needs, in the process of setting up home health PT/OT, nursing, social work Lengthy discussion with patient and his ex-: Ex- spoke with sonAlvino - Alvino would like patient to be flown down to [place] to stay with him at least for a month. Hopeful that son will be able to see that patient is in cognitive decline, ex- to clarify long-term plan with Alvino tito. would patient live with him or find a suitable place nearby. In the interim, ex- will be checking on patient periodically, will also help with clearing out his apartment and managing his finances. Will also speak with neighbor, Chhaya (patient consents) - hopeful that between Chhaya, ex- Jessica, and home health services, patient will have adequate supervision until able to be relocated to son's home in [place]. AG Metabolic Acidosis - Resolved: VBG on admission with pH 7.28 BMP on admission with bicarb 15, improved since with AG closed Hypertension/atrial fibrillation- Continue diltiazem HCl 240 mg every morning Continue Eliquis 2.5 mg p.o. twice daily Continue clonidine 0.2 mg p.o. BID for reflex tachycardia and hypertension associated with alcohol withdrawal Hold lisinopril BPH with LUTS- Continue dutasteride and tamsulosin VTE ppx: Eliquis FEN/GI: Admission and Anticipated Discharge Date Admission Date: December 17, 2023 Subjective Patient resting comfortably in bed when seen this morning, denies anxiety, tremors, N/V. No major changes today. Review of Systems Review of Systems: as per HPI Physical Exam Physical Exam: General: Resting comfortably. No acute distress Respiratory: No increased work of breathing Neuro: AOx3, speech is fluent. Poor short term recall. Results & Data Results & Data Vital Signs (Past 12 Hours) Vital Signs Temp Pulse Resp BP BP Pulse Ox O2 Del Method 12/22/23 07:32 36.9 C 72 16 167/91 H 96 Room Air 12/21/23 19:53 36.8 C 64 18 159/82 H 96 Room Air (3) Alcohol dependence Substance use status: other alcohol-induced disorder Qualified Code(s): F10.288 - Alcohol dependence with other alcohol-induced disorder
--- NOTE | 2023-12-22 11:01 | Discharge Summary ---
Date of Service December 22, 2023 Admission HPI Per Admitting Provider The patient is a 78-year-old male with a past medical history including alcohol dependence, alcohol intoxication, chronic anticoagulation, orchitis and epididymitis, kidney stones, tobacco use disorder, COPD with emphysema, BPH with LUTS, atrial fibrillation, adjustment disorder with anxiety, hyperlipidemia, and fatty liver. The patient was referred to the emergency department by police, after patient's neighbors noted the patient to be confused and disoriented. Patient admits to daily alcohol use. He reports upon questioning that he did have a few episodes of nausea and vomiting today. He is willing to be admitted, did undergo monitoring for alcohol withdrawal/DTs. Principal Diagnosis Confusion in the setting of alcohol intoxication, dementia Discharge Exam General: Resting comfortably. No acute distress Respiratory: No increased work of breathing Neuro: AOx3, speech is fluent. Poor short term recall. Discharge Data Allergies Allergy/AdvReac Type Severity Reaction Status Date / Time No Known Allergies Allergy Verified 11/09/23 09:28 Consultations 12/17/23 03:24 ED Decision to Admit Stat 12/21/23 17:27 Consult Behavioral Health Liaison Routine Ordered Studies 12/16/23 23:18 CT angio head w con Stat CT angio neck with con Stat CT head/brain wo con Stat Hospital Course (1) Confusion: (2) Alcohol intoxication: (3) Alcohol dependence: (4) Afib: (5) Anticoagulated: (6) Current smoker: (7) COPD with emphysema: (8) Hyperlipidemia: (9) Incomplete bladder emptying: (10) Hx of bladder cancer: Plan Confusion/alcohol intoxication/alcohol dependence/Cognitive Decline: Unremarkable CT head, CTA head and neck Alcohol level 207.1 on admission No evidence of clinically significant withdrawal at any point during hospital stay, no sx-triggered Ativan administered Mild-moderate cognitive impairment present with MOCA of 18/30, suspect cognitive decline has been exacerbated by heavy alcohol use, continue oral thiamine and folate supplementation following discharge d/t h/o alcohol use. Patient felt to meet threshold for having capacity for decision making - because he refused inpatient substance-related rehab and did not qualify for SNF/rehab, patient is being discharged to home with home health services: home nursing to complete assessment, PT/OT, and social work. Because there is significant concern about patient returning to living alone, short and long-term care planning discussed with patient's primary social [place], consisting of neighbor Chhaya, son Alvino, and ex- Jessica. Son, Alvino, expressed skepticism regarding chronic cognitive decline, was insistent that changes were transient and due to infectious etiology despite no evidence of infection on clinical workup. Ex- later spoke with sonAlvino - Alvino would like patient to be flown down to [place] to stay with him at least for a month. Hopeful that son will be able to see that patient is in cognitive decline, ex- to clarify long-term plan with Alvino ie. would patient live with him or find a suitable place nearby. In the interim, ex- will be checking on patient periodically, will also help with clearing out his apartment and managing his finances. Neighbor, Chhaya, also agreeable to checking in with the patient at least daily - hopeful that between Chhaya, ex- Jessica, and home health services, patient will have adequate supervision until able to be relocated to son's home in [place]. AG Metabolic Acidosis - Resolved: VBG on admission with pH 7.28 BMP on admission with bicarb 15, subsequently improved with AG closed Hypertension/atrial fibrillation- Continue home medications BPH with LUTS- Continue dutasteride and tamsulosin Total Time Total Time Spent Total Time Spent (In Minutes): <30 Discharge Plan Discharge Items Patient Disposition: Home - Home Health Services Reason For Visit: alcohol intoxication, alcohol use disorder Discharge Diagnosis: Alcohol intoxication, AMS Activity: Resume your previous activity Non-emergency contact: Primary Care Provider Call non-emergency contact if: you have any medication questions and your symptoms worsen Follow-up/Referrals: ProJulian MD [Primary Care Provider] - Diet: Heart Healthy Addtl Attending Provider Instructions: You were admitted with concern for some increased confusion. We did a work-up to rule out acute infection. There have been no signs on any acute infections, including urinary tract infections, with all of your testing. We have been giving you thiamine and folate, both are vitamins that can be low in people that drink alcohol and sometimes can contribute to some increased confusion when they are low. You have been taking both of these vitamins are home, and should continue to take these. It will be important when you go home to continues to abstain from alcohol to help keep your memory as sharp as possible. You should follow up with your primary care doctor this week, if they do not call you to make an appointment in the next day please call their office to set up an appointment. Our case management team is in the process of setting up home health services; you can anticipate follow up related to these services shortly after discharge. Given concern related to your memory/cognitive decline, please DO NOT drive as we feel it is not safe for you to be operating a vehicle. Pending Studies at Discharge: No Stand-Alone Forms: My [facility] INSOMENIA, Smoking Cessation Medications and DC Order Prescriptions: Continued potassium chloride 20 mEq tablet,ER particles/crystals 20 meq PO QAM Qty: 90 3RF Spiriva Respimat 2.5 mcg/actuation mist 2 puff inhalation QAM PRN (Reason: Shortness Of Breath Or Wheezing) Qty: 4 3RF vitamin B complex Tablet 1 tab PO QAM glucosamine-chondroitin 500-400 mg tablet 1 tab PO QAM cholecalciferol (vitamin D3) 25 mcg (1,000 unit) tablet 1,000 unit PO QAM acetaminophen 500 mg Capsule 1,000 mg PO Q6H PRN (Reason: Pain) thiamine HCl (vitamin B1) 250 mg tablet 250 mg PO DAILY Qty: 30 3RF Patient Comments: only taking 125mg each morning multivitamin [Daily Multi-Vitamin] Tablet 1 tab PO QAM diltiazem HCl 240 mg capsule,extended release 24hr 240 mg PO QAM lisinopril 10 mg tablet 10 mg PO QAM folic acid 1 mg tablet 1 mg PO QAM dutasteride 0.5 mg capsule 0.5 mg PO QAM Eliquis 2.5 mg tablet 2.5 mg PO BID Patient Comments: Per patient, he has been taking 2.5mg by mouth once daily even though it was prescribed as 2.5mg twice daily. When asked why, he said the 2.5mg twice daily was causing blood in his urine, so he felt like 2.5mg twice daily was too much so pt decided to just take 2.5mg once daily. Prescribing physician is not aware of this. Per patient he has been doing this for a couple of months. Rx Instructions: Per patient, he has been taking 2.5mg by mouth once daily even though it was prescribed as 2.5mg twice daily. When asked why, he said the 2.5mg twice daily was causing blood in his urine, so he felt like 2.5mg twice daily was too much so pt decided to just take 2.5mg once daily. Prescribing physician is not aware of this. Per patient he has been doing this for a couple of months. phenazopyridine [Pyridium] 200 mg tablet 200 mg PO Q8H PRN (Reason: pain) Qty: 10 0RF Patient Comments: post op tamsulosin 0.4 mg capsule 0.4 mg PO HS Qty: 30 0RF Patient Comments: post op Discontinued amoxicillin-pot clavulanate 875-125 mg tablet 1 tab PO Q12H Qty: 20 0RF Patient Comments: post op Discharge Orders: Discharge Order (Routine); Ordered 12/22/23 Ordered By: Miguel Cox/Other Patient Handouts: Alcohol and Older Adults Admission Data Admit Date/Time: 12/17/23 04:22 Attending Provider: Ramesh Hathaway Admit Provider: Stevie Quan Primary Care Provider: Julian Marc Other Providers: Stevie Quan; Zettaset,Twiigg Other Interventions: Discharge Summary Assessment (RN) Last Done: 12/22/23 11:33 Supervising Physician Co-Signing Physician Notes I personally examined the patient and verified all jaime points of history and exam, discussed case, and agree with decision making with Dr Jacob no new issues. feels safe with going home vitals noted nad heent nc at mmm breathing unlabored no accessory muscles good effort skin no rashes no pallor or icterus Confusion - suspect underlying dementia - concerning that it probably relates to chronic AUD. high dose thiamine ordered and continues -work up negative for other factors -MOCA 18/30 - main limitations being in executive functioning and memory -b12 504 -home - home support/PT/OT, office of aging, frequent check ins; will likely be going to [place] to be with son soon AUD - no withdrawal, continued to rec absolute abstinence. anticoagulated Resident Activity Tracking Resident Involvement: Resident Care Provided Care Provided: Adult [facility] Attestation I certify that this patient is under my care and that I, or a physicians assistant winemaker working with me, had a face to-face encounter that meets the [facility] [id number] encounter requirements with this patient. The encounter with the patient was in whole, or in part, for the following medical condition, which is the primary reason for home health care (list medical condition): Dementia/cognitive decline, AUD/Alcohol withdrawal, left shoulder injury I certify that, based on my findings, the following services are medically necessary home health services: Nursing assessment PT/OT alteration worker My clinical findings support the need for the above services because: Patient lives alone and, given cognitive decline/dementia that is likely to progress, would benefit from the above home services to help with medication administration, maximize left shoulder function/recovery, prevent deconditioning, and to assist with needs that patient may have related to future placement or outpatient substance use resources. Further, I certify that my clinical findings support that this patient is yani ebound (i.e. absences from home require considerable and taxing effort and are for medical reasons or yazidism services or infrequently or of short duration when for other reasons) because: Patient, at least at this point in time, should not be driving and therefore will have difficulty with transportation. Certification for Home Health Services: Based on the above findings, I certify that this patient is confined to the home and needs intermittent custodial care, physical therapy and/or speech therapy or continues to need occupational therapy. The patient is under my care, and I have initiated the establishment of the plan of care. This patient will be followed by a physician who will periodically review the plan of care.
--- NOTE | 2023-12-22 18:13 | Billing Data ---
Date of Service December 22, 2023 Coding Level of Care Code 26549 IN/OBS DISCH 30 MIN/LESS
== END 2023-12-22 13:30 | disposition home health service (06) | DRG 897 ==
LOC: SUATTDRO → ED 22:05 → SUATTDRO 12-17 04:22 → 1E 12-17 04:22 → 3N 12-18 17:41